=== PATIENT | female | born 1955 | race Caucasian/White ===

== ENCOUNTER 2016-12-17 12:15 | Emergency (ER) | payer MEDICAID, OTHER ==
[~2016-12-17 12:15] MED LIST: ADV250INH INH; ARTIDRO3 OU; ASPI81TA85 PO; CALCTAB5 PO; CYMB60CA3 PO; LORA0.5T PO; METF500T PO; NASA55AE; NEXI40GR PO; PRAV40TA2 PO; REFROIN OU; REST0.05 OU; SALI0.653; VENTAER INH
[2016-12-17] MEDS ORDERED: ACETAMINOPHEN 325 MG TAB As Ordered ONE (16:06)
[2016-12-17] MEDS ORDERED: IPRATROPIUM 0.5MG/ALBUTEROL 2.5MG INH SOL UD 3ML (DUONEB)(J7620) As Ordered ONE (16:11)
[2016-12-17] MEDS ORDERED: AZITHROMYCIN 250 MG TAB As Ordered ONE (17:49)
--- NOTE | 2016-12-17 17:50 | REP ---
Chest x-ray: Two views. History: Cough. Comparison chest x-rays from November 28, 2016. Findings: The lungs are symmetrically somewhat hyperinflated but free of infiltrate. Pleural angles are sharp. Heart is not enlarged. The aorta somewhat tortuous. There are mild degenerative changes in the thoracic spine. Impression: Hyperinflation consistent with some degree of COPD. No acute infiltrate. Signed by Regan Membreno MD 12/17/2016 07:47 P
--- NOTE | 2016-12-17 17:56 | EDDOCDS ---
Physician Documentation [facility] Name: Nathalie Riojas Age: 61 yrs Sex: Female : 1955 Arrival Date: 12/17/2016 Time: 12:15 Bed TR8 Private MD: Emma Wilson NP Disposition: 12/17/16 17:35 Discharged to Home/Self Care. Impression: Acute bronchitis, Asthma. - Condition is Stable. - Discharge Instructions: Acute Bronchitis. - Prescriptions for Zithromax Z- Riley 250 mg Oral Tablet - take 1 tablet by ORAL route as directed for 5 days Day 1- take two tablets once. Day 2, 3, 4 , 5 take one tablet once daily.; 6 tablet. Albuterol Sulfate 90 mcg/actuation Inhalation HFA Aerosol Inhaler - inhale 2 puff by INHALATION route every 4 hours As needed; 1 Inhaler. - Medication Reconciliation, Local Pharmacy Hours form. - Follow up: Emma Wilson; When: Call to arrange an appointment; Reason: Recheck today's complaints, Continuance of care. - Problem is new. - Symptoms have improved. Historical: - Allergies: PENICILLINS; SULFA (SULFONAMIDES); Codeine Sulfate (Rash); - Home Meds: 1. metformin 500 mg Oral TG24 2 times per day 2. lansoprazole oral Unknown oral once daily 3. aspirin 81 mg Oral cpDR daily 4. lisinopril 2.5 mg Oral tab once daily 5. pravastatin 40 mg oral tab once daily 6. tizanidine oral Unknown oral 7. Carbamazepine 800 mg Oral 2 times per day 8. Chantix 1 mg oral tab 2 times per day 9. Ventolin Rotahaler/Rotacaps 200 mcg Inhl CpDv as needed 10. Incruse Ellipta 62.5 mcg/actuation inhalation dsdv once daily 11. Systane 0.4-0.3 % ophthalmic drop as needed - PMHx: Diabetes - NIDDM: controlled; Hypertension; Hypercholesterolemia; - PSHx: Tonsillectomy; ovarian cyst; ; - Social history: Smoking status: Patient states former smoker of tobacco. No barriers to communication noted, The patient speaks fluent Irish, Speaks appropriately for age. - Family history: Not pertinent. - : The pt / caregiver states he / she is not on anticoagulants. Home medication list is obtained from the patient. - Exposure Risk Screening:: None identified. Vital Signs: 12/17 12:17 BP 129 / 77; Pulse 81; Resp 18 S; Temp 99.6(O); Pulse Ox 97% on R/A; Weight 71.21 kg / dd6 156.99 lbs (R); Height 5 ft. 5 in. (165.10 cm) (R); 17:53 BP 123 / 78; Pulse 80; Resp 18; Temp 98; Pulse Ox 97% ; ms18 12:17 Body Mass Index 26.13 (71.21 kg, 165.10 cm) dd6 MDM: 12:53 Strep Screen, Nursing ordered. jc4 15:50 [facility] Payment Agreement was scanned into [employer] and attached to record. lg 16:03 Albuterol-Ipratropium 3 ml Inhalation once ordered. mo1 16:04 Acetaminophen Tablet 975 mg PO once ordered. mo1 16:04 GATS (NEGATIVE STREP SCREEN) Ordered. EDMS 16:04 Chest, 2 View (pa\E\lat) Ordered. EDMS 16:04 MDI teaching with Spacer ordered. mo1 16:05 Financial registration complete. zo 17:34 azithromycin 500 mg PO once ordered. mo1 Administered Medications: 16:09 Drug: Acetaminophen 975 mg [acetaminophen 325 mg tablet (3 tabs)] Route: PO; ead 16:14 Drug: Albuterol-Ipratropium 3 ml [ipratropium-albuterol 0.5 mg-3 mg(2.5 mg base)/3 mL rs5 nebulization soln (3 mL)] Route: Inhalation; 17:53 Drug: azithromycin 500 mg [azithromycin 250 mg tablet (2 tabs)] Route: PO; ms18 17:53 Follow up: Response: Pt left department before re-evaluation is appropriate ms18 Signatures: Dispatcher [employer] EDMS Natali Garcia, Vel Reg lg Caitlin Ríos Jennifer, RN RN jc4 Gurinder Hernandez PA PA mo1 Maci Falcon RN RN ead Smith, Mallory, RN RN ms18 Neo Lugo RT rs5 The chart was reviewed and I authenticate all verbal orders and agree with the evaluation and treatment provided.Attachments: 15:50 [facility] Payment Agreement lg MTDD
--- NOTE | 2016-12-17 17:56 | EDDOCDS ---
Nurse's Notes [facility] Name: Nathalie Riojas Age: 61 yrs Sex: Female : 1955 Arrival Date: 12/17/2016 Time: 12:15 Bed TR8 Private MD: Emma Wilson NP Diagnosis: Acute bronchitis;Asthma Presentation: 12/17 12:25 Presenting complaint: Patient states: c/o cough x 3 days, productive since yesterday. ead also reports nasal congestion, sore throat, and left ear pain. Adult Sepsis Screening: The patient does not have new or worsening altered mentation. Patient's respiratory rate is less than 22. Systolic blood pressure is greater than 100. Patient has a qSOFA score of 0- Negative Sepsis Screen. Suicide/Homicide risk assessment- the patient denies having any suicidal and/or homicidal ideations and does not present with any other emotional, behavioral or mental health complaints. Status: Patient is not a battery service technician or dependent. Transition of care: patient was not received from another setting of care. 12:25 Acuity: ELSY Level 4 ead 12:25 Method Of Arrival: Walkin/Carried/Asstd ead Triage Assessment: 12:32 General: Appears in no apparent distress, comfortable, well nourished, well groomed, ead Behavior is appropriate for age, cooperative, pleasant. Pain: Location: back Pain currently is 8 out of 10 on a pain scale. HIV screening NA for this visit Offered previously. EENT: Reports nasal congestion pain in left ear. Respiratory: Airway is patent Respiratory effort is even, unlabored, Reports cough that is productive. Respiratory: Onset: The symptoms/episode began/occurred 3 days ago. Derm: Skin is pink, warm & dry. Historical: - Allergies: PENICILLINS; SULFA (SULFONAMIDES); Codeine Sulfate (Rash); - Home Meds: 1. metformin 500 mg Oral TG24 2 times per day 2. lansoprazole oral Unknown oral once daily 3. aspirin 81 mg Oral cpDR daily 4. lisinopril 2.5 mg Oral tab once daily 5. pravastatin 40 mg oral tab once daily 6. tizanidine oral Unknown oral 7. Carbamazepine 800 mg Oral 2 times per day 8. Chantix 1 mg oral tab 2 times per day 9. Ventolin Rotahaler/Rotacaps 200 mcg Inhl CpDv as needed 10. Incruse Ellipta 62.5 mcg/actuation inhalation dsdv once daily 11. Systane 0.4-0.3 % ophthalmic drop as needed - PMHx: Diabetes - NIDDM: controlled; Hypertension; Hypercholesterolemia; - PSHx: Tonsillectomy; ovarian cyst; ; - Social history: Smoking status: Patient states former smoker of tobacco. No barriers to communication noted, The patient speaks fluent Ecuadorean, Speaks appropriately for age. - Family history: Not pertinent. - : The pt / caregiver states he / she is not on anticoagulants. Home medication list is obtained from the patient. - Exposure Risk Screening:: None identified. Screenin:49 Screening information is obtained from the patient. Fall risk: No risks identified. ms18 Assistance ADL's: requires no assistance with activities of daily living. Abuse/DV Screen: The patient / caregiver reports he/she is: not in a situation that causes fear, pain or injury. Nutritional screening: No deficits noted. Advance Directives:. home support is adequate. Assessment: 14:49 General: Appears in no apparent distress, comfortable, Behavior is appropriate for age, ms18 cooperative. Neurological: Level of Consciousness is awake, alert, obeys commands, Oriented to person, place, time. Respiratory: Airway is patent Respiratory effort is even, unlabored. Derm: Skin is pink, warm & dry. 16:09 General: Appears in no apparent distress, comfortable, Behavior is appropriate for age, ead cooperative. Pain: Denies pain. Neurological: No deficits noted. Cardiovascular: Chest pain is denied. Respiratory: Airway is patent Respiratory effort is even, unlabored. Derm: Skin is pink, warm & dry. 17:53 General: Appears in no apparent distress, comfortable, Behavior is appropriate for age, ms18 cooperative, pleasant. Pain: Denies pain. Neurological: Level of Consciousness is awake, alert, obeys commands, Oriented to person, place, time. Cardiovascular: Chest pain is denied. Respiratory: Airway is patent Respiratory effort is even, unlabored, Respiratory pattern is regular, symmetrical, Breath sounds are clear bilaterally. Derm: Skin is pink, warm & dry. Vital Signs: 12:17 BP 129 / 77; Pulse 81; Resp 18 S; Temp 99.6(O); Pulse Ox 97% on R/A; Weight 71.21 kg dd6 (R); Height 5 ft. 5 in. (165.10 cm) (R); 17:53 BP 123 / 78; Pulse 80; Resp 18; Temp 98; Pulse Ox 97% ; ms18 12:17 Body Mass Index 26.13 (71.21 kg, 165.10 cm) dd6 Vitals: 12:17 Log In Time: December 17, 2016 at 12:15. dd6 ED Course: 12:17 Patient visited by Ankit Bustillos PCA. dd6 12:17 Emma Wilson is Private Physician. dd6 12:17 Patient moved to Waiting dd6 12:18 Patient moved to Pre RCE dd6 12:26 Triage Initiated ead 14:33 Patient moved to Triage 3 ar3 14:49 The patient / caregiver is instructed regarding the plan of care and ED course. Patient ms18 has correct armband on for positive identification. Property :Personal belongings accompany Pt. 14:50 Patient visited by Carla Soto RN. ms18 15:50 Patient name changed from Nathalie\S\M\S\Shine\S\ to Nathalie\S\Irene\S\Shine. EDMS 15:50 [facility] [place] was scanned into [employer] and attached to record. lg 15:57 Gurinder Hernandez PA is PHCP. mo1 15:57 Renetta Fierro MD is Attending Physician. mo1 15:58 Patient visited by Gurinder Hernandez PA. mo1 16:07 Patient moved to PD ead 16:09 Patient visited by Maci Falcon RN. ead 16:10 Patient visited by Maci Falcon RN. ead 16:12 GATS (NEGATIVE STREP SCREEN) Sent. ar3 17:35 Emma Wilson is Referral Physician. mo1 17:53 Patient moved to TR8 ms18 17:53 No IV's were initiated during this patient's visit. No procedures done that require ms18 assistance. Administered Medications: 16:09 Drug: Acetaminophen 975 mg [acetaminophen 325 mg tablet (3 tabs)] Route: PO; ead 16:14 Drug: Albuterol-Ipratropium 3 ml [ipratropium-albuterol 0.5 mg-3 mg(2.5 mg base)/3 mL rs5 nebulization soln (3 mL)] Route: Inhalation; 17:53 Drug: azithromycin 500 mg [azithromycin 250 mg tablet (2 tabs)] Route: PO; ms18 17:53 Follow up: Response: Pt left department before re-evaluation is appropriate ms18 RT: 16:14 Spacer used. Initial Med Neb Given as ordered Patient was instructed and evaluated on rs5 procedure Patient tolerated procedure well without adverse effect. Order Results: There are currently no results for this order. Outcome: 17:35 Discharge ordered by Provider. mo1 17:53 Discharge Assessment: Patient awake, alert and oriented x 3. No cognitive and/or ms18 functional deficits noted. Patient verbalized understanding of disposition instructions. patient administered narcotics - no. The following High Risk Discharge criteria are identified: None. Discharged to home ambulatory. Condition: good Condition: stable Condition: improved. Discharge instructions given to patient, Instructed on discharge instructions, follow up and referral plans. medication usage, Demonstrated understanding of instructions, medications, Pt was receptive of discharge instructions/ teaching. Prescriptions given X 2. No special radiology studies were completed. Property sent home with patient. 17:55 Patient left the ED. ms18 Signatures: Dispatcher [employer] EDMS Natali Garcia, Reg Reg lg Ankit Bustillos, SPOUT TENDER SPOUT TENDER dd6 Liz Huang, SPOUT TENDER SPOUT TENDER ar3 Neo Lugo,RT RT rs5 Gurinder Hernandez PA PA mo1 Maci Falcon,RN RN Carla Zamora RN RN ms18 MTDD
--- NOTE | 2016-12-19 18:56 | EDDOCDS ---
Nurse's Notes [facility] Name: Nathalie Riojas Age: 61 yrs Sex: Female : 1955 Arrival Date: 12/17/2016 Time: 12:15 Bed TR8 Private MD: Emma Wilson NP Diagnosis: Acute bronchitis;Asthma Presentation: 12/17 12:25 Presenting complaint: Patient states: c/o cough x 3 days, productive since yesterday. ead also reports nasal congestion, sore throat, and left ear pain. Adult Sepsis Screening: The patient does not have new or worsening altered mentation. Patient's respiratory rate is less than 22. Systolic blood pressure is greater than 100. Patient has a qSOFA score of 0- Negative Sepsis Screen. Suicide/Homicide risk assessment- the patient denies having any suicidal and/or homicidal ideations and does not present with any other emotional, behavioral or mental health complaints. Status: Patient is not a security services manager or dependent. Transition of care: patient was not received from another setting of care. 12:25 Acuity: ELSY Level 4 ead 12:25 Method Of Arrival: Walkin/Carried/Asstd ead Triage Assessment: 12:32 General: Appears in no apparent distress, comfortable, well nourished, well groomed, ead Behavior is appropriate for age, cooperative, pleasant. Pain: Location: back Pain currently is 8 out of 10 on a pain scale. HIV screening NA for this visit Offered previously. EENT: Reports nasal congestion pain in left ear. Respiratory: Airway is patent Respiratory effort is even, unlabored, Reports cough that is productive. Respiratory: Onset: The symptoms/episode began/occurred 3 days ago. Derm: Skin is pink, warm & dry. Historical: - Allergies: PENICILLINS; SULFA (SULFONAMIDES); Codeine Sulfate (Rash); - Home Meds: 1. metformin 500 mg Oral TG24 2 times per day 2. lansoprazole oral Unknown oral once daily 3. aspirin 81 mg Oral cpDR daily 4. lisinopril 2.5 mg Oral tab once daily 5. pravastatin 40 mg oral tab once daily 6. tizanidine oral Unknown oral 7. Carbamazepine 800 mg Oral 2 times per day 8. Chantix 1 mg oral tab 2 times per day 9. Ventolin Rotahaler/Rotacaps 200 mcg Inhl CpDv as needed 10. Incruse Ellipta 62.5 mcg/actuation inhalation dsdv once daily 11. Systane 0.4-0.3 % ophthalmic drop as needed - PMHx: Diabetes - NIDDM: controlled; Hypertension; Hypercholesterolemia; - PSHx: Tonsillectomy; ovarian cyst; ; - Social history: Smoking status: Patient states former smoker of tobacco. No barriers to communication noted, The patient speaks fluent Yemeni, Speaks appropriately for age. - Family history: Not pertinent. - : The pt / caregiver states he / she is not on anticoagulants. Home medication list is obtained from the patient. - Exposure Risk Screening:: None identified. Screenin:49 Screening information is obtained from the patient. Fall risk: No risks identified. ms18 Assistance ADL's: requires no assistance with activities of daily living. Abuse/DV Screen: The patient / caregiver reports he/she is: not in a situation that causes fear, pain or injury. Nutritional screening: No deficits noted. Advance Directives:. home support is adequate. Assessment: 14:49 General: Appears in no apparent distress, comfortable, Behavior is appropriate for age, ms18 cooperative. Neurological: Level of Consciousness is awake, alert, obeys commands, Oriented to person, place, time. Respiratory: Airway is patent Respiratory effort is even, unlabored. Derm: Skin is pink, warm & dry. 16:09 General: Appears in no apparent distress, comfortable, Behavior is appropriate for age, ead cooperative. Pain: Denies pain. Neurological: No deficits noted. Cardiovascular: Chest pain is denied. Respiratory: Airway is patent Respiratory effort is even, unlabored. Derm: Skin is pink, warm & dry. 17:53 General: Appears in no apparent distress, comfortable, Behavior is appropriate for age, ms18 cooperative, pleasant. Pain: Denies pain. Neurological: Level of Consciousness is awake, alert, obeys commands, Oriented to person, place, time. Cardiovascular: Chest pain is denied. Respiratory: Airway is patent Respiratory effort is even, unlabored, Respiratory pattern is regular, symmetrical, Breath sounds are clear bilaterally. Derm: Skin is pink, warm & dry. Vital Signs: 12:17 BP 129 / 77; Pulse 81; Resp 18 S; Temp 99.6(O); Pulse Ox 97% on R/A; Weight 71.21 kg dd6 (R); Height 5 ft. 5 in. (165.10 cm) (R); 17:53 BP 123 / 78; Pulse 80; Resp 18; Temp 98; Pulse Ox 97% ; ms18 12:17 Body Mass Index 26.13 (71.21 kg, 165.10 cm) dd6 Vitals: 12:17 Log In Time: December 17, 2016 at 12:15. dd6 ED Course: 12:17 Patient visited by Ankit Bustillos PCA. dd6 12:17 Emma Wilson is Private Physician. dd6 12:17 Patient moved to Waiting dd6 12:18 Patient moved to Pre RCE dd6 12:26 Triage Initiated ead 14:33 Patient moved to Triage 3 ar3 14:49 The patient / caregiver is instructed regarding the plan of care and ED course. Patient ms18 has correct armband on for positive identification. Property :Personal belongings accompany Pt. 14:50 Patient visited by Carla Soto RN. ms18 15:50 Patient name changed from Nathalie\S\M\S\Shine\S\ to Nathalie\S\Irene\S\Shine. EDMS 15:50 [facility] Payment Agreement was scanned into [employer] and attached to record. lg 15:57 Gurinder Hernandez PA is PHCP. mo1 15:57 Renetta Fierro MD is Attending Physician. mo1 15:58 Patient visited by Gurinder Hernandez PA. mo1 16:07 Patient moved to PD ead 16:09 Patient visited by Maci Falcon,JOAN. ead 16:10 Patient visited by Maci Falcon RN. ead 16:12 GATS (NEGATIVE STREP SCREEN) Sent. ar3 17:35 Emma Wilson is Referral Physician. mo1 17:53 Patient moved to TR8 ms18 17:53 No IV's were initiated during this patient's visit. No procedures done that require ms18 assistance. 18:11 Chest, 2 View (pa\E\lat) Returned. EDMS 12/18 10:25 T-Sheet-- Draft Copy was scanned into [employer] and attached to record. gb Administered Medications: 12/17 16:09 Drug: Acetaminophen 975 mg [acetaminophen 325 mg tablet (3 tabs)] Route: PO; ead 16:14 Drug: Albuterol-Ipratropium 3 ml [ipratropium-albuterol 0.5 mg-3 mg(2.5 mg base)/3 mL rs5 nebulization soln (3 mL)] Route: Inhalation; 17:53 Drug: azithromycin 500 mg [azithromycin 250 mg tablet (2 tabs)] Route: PO; ms18 17:53 Follow up: Response: Pt left department before re-evaluation is appropriate ms18 RT: 16:14 Spacer used. Initial Med Neb Given as ordered Patient was instructed and evaluated on rs5 procedure Patient tolerated procedure well without adverse effect. Order Results: Lab Order: GATS (NEGATIVE STREP SCREEN); SPEC'M 12/17/16 16:11 Test: GATS CULTURE (NEG STREP SCR); Value: GATS RESULT NEGATIVE FOR STREP PYOGENES (GROUP A); Status: F Radiology Order: Chest, 2 View (pa\E\lat) Test: Chest, 2 View (pa\E\lat) REASON FOR EXAMINATION: Cough; Chest x-ray: Two views.; ; History: Cough.; ; Comparison chest x-rays from November 28, 2016.; ; Findings: The lungs are symmetrically somewhat hyperinflated but free of; infiltrate. Pleural angles are sharp. Heart is not enlarged. The aorta; somewhat tortuous. There are mild degenerative changes in the thoracic spine.; ; Impression:; ; Hyperinflation consistent with some degree of COPD. No acute infiltrate.; ; ; Signed by; Regan Membreno MD 12/17/2016 07:47 P; Outcome: 17:35 Discharge ordered by Provider. mo1 17:53 Discharge Assessment: Patient awake, alert and oriented x 3. No cognitive and/or ms18 functional deficits noted. Patient verbalized understanding of disposition instructions. patient administered narcotics - no. The following High Risk Discharge criteria are identified: None. Discharged to home ambulatory. Condition: good Condition: stable Condition: improved. Discharge instructions given to patient, Instructed on discharge instructions, follow up and referral plans. medication usage, Demonstrated understanding of instructions, medications, Pt was receptive of discharge instructions/ teaching. Prescriptions given X 2. No special radiology studies were completed. Property sent home with patient. 17:55 Patient left the ED. ms18 Signatures: Dispatcher [employer] EDRachael Kwok, Reg Reg gb Natali Garcia, Reg Reg lg Ankit Bustillos, SLUBBER MACHINE OPERATOR SLUBBER MACHINE OPERATOR dd6 Liz Huang, SLUBBER MACHINE OPERATOR SLUBBER MACHINE OPERATOR ar3 Neo Lugo,RT RT rs5 Gurinder Hernandez, PA PA mo1 Ezekiel,Maci,RN RN ead Carla Soto,RN RN ms18 Chart Complete MTDD
--- NOTE | 2016-12-19 18:56 | EDDOCDS ---
Physician Documentation [facility] Name: Nathalie Riojas Age: 61 yrs Sex: Female : 1955 Arrival Date: 12/17/2016 Time: 12:15 Bed TR8 Private MD: Emma Wilson NP Disposition: 12/17/16 17:35 Discharged to Home/Self Care. Impression: Acute bronchitis, Asthma. - Condition is Stable. - Discharge Instructions: Acute Bronchitis. - Prescriptions for Zithromax Z- Riley 250 mg Oral Tablet - take 1 tablet by ORAL route as directed for 5 days Day 1- take two tablets once. Day 2, 3, 4 , 5 take one tablet once daily.; 6 tablet. Albuterol Sulfate 90 mcg/actuation Inhalation HFA Aerosol Inhaler - inhale 2 puff by INHALATION route every 4 hours As needed; 1 Inhaler. - Medication Reconciliation, Local Pharmacy Hours form. - Follow up: Emma Wilson; When: Call to arrange an appointment; Reason: Recheck today's complaints, Continuance of care. - Problem is new. - Symptoms have improved. Historical: - Allergies: PENICILLINS; SULFA (SULFONAMIDES); Codeine Sulfate (Rash); - Home Meds: 1. metformin 500 mg Oral TG24 2 times per day 2. lansoprazole oral Unknown oral once daily 3. aspirin 81 mg Oral cpDR daily 4. lisinopril 2.5 mg Oral tab once daily 5. pravastatin 40 mg oral tab once daily 6. tizanidine oral Unknown oral 7. Carbamazepine 800 mg Oral 2 times per day 8. Chantix 1 mg oral tab 2 times per day 9. Ventolin Rotahaler/Rotacaps 200 mcg Inhl CpDv as needed 10. Incruse Ellipta 62.5 mcg/actuation inhalation dsdv once daily 11. Systane 0.4-0.3 % ophthalmic drop as needed - PMHx: Diabetes - NIDDM: controlled; Hypertension; Hypercholesterolemia; - PSHx: Tonsillectomy; ovarian cyst; ; - Social history: Smoking status: Patient states former smoker of tobacco. No barriers to communication noted, The patient speaks fluent Malay, Speaks appropriately for age. - Family history: Not pertinent. - : The pt / caregiver states he / she is not on anticoagulants. Home medication list is obtained from the patient. - Exposure Risk Screening:: None identified. Vital Signs: 12/17 12:17 BP 129 / 77; Pulse 81; Resp 18 S; Temp 99.6(O); Pulse Ox 97% on R/A; Weight 71.21 kg / dd6 156.99 lbs (R); Height 5 ft. 5 in. (165.10 cm) (R); 17:53 BP 123 / 78; Pulse 80; Resp 18; Temp 98; Pulse Ox 97% ; ms18 12:17 Body Mass Index 26.13 (71.21 kg, 165.10 cm) dd6 MDM: 12:53 Strep Screen, Nursing ordered. jc4 15:50 [facility] Payment Agreement was scanned into [employer] and attached to record. lg 16:03 Albuterol-Ipratropium 3 ml Inhalation once ordered. mo1 16:04 Acetaminophen Tablet 975 mg PO once ordered. mo1 16:04 GATS (NEGATIVE STREP SCREEN) Ordered. EDMS 16:04 Chest, 2 View (pa\E\lat) Ordered. EDMS 16:04 MDI teaching with Spacer ordered. mo1 16:05 Financial registration complete. zo 17:34 azithromycin 500 mg PO once ordered. mo1 01 10:25 T-Sheet-- Draft Copy was scanned into [employer] and attached to record. gb Administered Medications: 12/17 16:09 Drug: Acetaminophen 975 mg [acetaminophen 325 mg tablet (3 tabs)] Route: PO; ead 16:14 Drug: Albuterol-Ipratropium 3 ml [ipratropium-albuterol 0.5 mg-3 mg(2.5 mg base)/3 mL rs5 nebulization soln (3 mL)] Route: Inhalation; 17:53 Drug: azithromycin 500 mg [azithromycin 250 mg tablet (2 tabs)] Route: PO; ms18 17:53 Follow up: Response: Pt left department before re-evaluation is appropriate ms18 Signatures: Dispatcher [employer] EDMS Rachael Izquierdo, Reg Reg gb Natali Garcia, Reg Reg lg Caitlin Ríos Jennifer, RN RN jc4 Gurinder Hernandez PA PA mo1 Maci FalconRN RN Carla Zamora RN RN ms18 Neo Lugo RT rs5 The chart was reviewed and I authenticate all verbal orders and agree with the evaluation and treatment provided.Attachments: 15:50 [facility] Payment Agreement lg 12/18 10:25 T-Sheet-- Draft Copy gb Chart Complete MTDD
--- NOTE | 2016-12-19 18:57 | EDDOCDS ---
Physician Documentation [facility] Name: Nathalie Riojas Age: 61 yrs Sex: Female : 1955 Arrival Date: 12/17/2016 Time: 12:15 Bed TR8 Private MD: Emma Wilson NP Disposition: 12/17/16 17:35 Discharged to Home/Self Care. Impression: Acute bronchitis, Asthma. - Condition is Stable. - Discharge Instructions: Acute Bronchitis. - Prescriptions for Zithromax Z- Riley 250 mg Oral Tablet - take 1 tablet by ORAL route as directed for 5 days Day 1- take two tablets once. Day 2, 3, 4 , 5 take one tablet once daily.; 6 tablet. Albuterol Sulfate 90 mcg/actuation Inhalation HFA Aerosol Inhaler - inhale 2 puff by INHALATION route every 4 hours As needed; 1 Inhaler. - Medication Reconciliation, Local Pharmacy Hours form. - Follow up: Emma Wilson; When: Call to arrange an appointment; Reason: Recheck today's complaints, Continuance of care. - Problem is new. - Symptoms have improved. Historical: - Allergies: PENICILLINS; SULFA (SULFONAMIDES); Codeine Sulfate (Rash); - Home Meds: 1. metformin 500 mg Oral TG24 2 times per day 2. lansoprazole oral Unknown oral once daily 3. aspirin 81 mg Oral cpDR daily 4. lisinopril 2.5 mg Oral tab once daily 5. pravastatin 40 mg oral tab once daily 6. tizanidine oral Unknown oral 7. Carbamazepine 800 mg Oral 2 times per day 8. Chantix 1 mg oral tab 2 times per day 9. Ventolin Rotahaler/Rotacaps 200 mcg Inhl CpDv as needed 10. Incruse Ellipta 62.5 mcg/actuation inhalation dsdv once daily 11. Systane 0.4-0.3 % ophthalmic drop as needed - PMHx: Diabetes - NIDDM: controlled; Hypertension; Hypercholesterolemia; - PSHx: Tonsillectomy; ovarian cyst; ; - Social history: Smoking status: Patient states former smoker of tobacco. No barriers to communication noted, The patient speaks fluent Mongolian, Speaks appropriately for age. - Family history: Not pertinent. - : The pt / caregiver states he / she is not on anticoagulants. Home medication list is obtained from the patient. - Exposure Risk Screening:: None identified. Vital Signs: 12/17 12:17 BP 129 / 77; Pulse 81; Resp 18 S; Temp 99.6(O); Pulse Ox 97% on R/A; Weight 71.21 kg / dd6 156.99 lbs (R); Height 5 ft. 5 in. (165.10 cm) (R); 17:53 BP 123 / 78; Pulse 80; Resp 18; Temp 98; Pulse Ox 97% ; ms18 12:17 Body Mass Index 26.13 (71.21 kg, 165.10 cm) dd6 MDM: 12:53 Strep Screen, Nursing ordered. jc4 15:50 [facility] Payment Agreement was scanned into [employer] and attached to record. lg 16:03 Albuterol-Ipratropium 3 ml Inhalation once ordered. mo1 16:04 Acetaminophen Tablet 975 mg PO once ordered. mo1 16:04 GATS (NEGATIVE STREP SCREEN) Ordered. EDMS 16:04 Chest, 2 View (pa\E\lat) Ordered. EDMS 16:04 MDI teaching with Spacer ordered. mo1 16:05 Financial registration complete. zo 17:34 azithromycin 500 mg PO once ordered. mo1 01 10:25 T-Sheet-- Draft Copy was scanned into [employer] and attached to record. gb Administered Medications: 12/17 16:09 Drug: Acetaminophen 975 mg [acetaminophen 325 mg tablet (3 tabs)] Route: PO; ead 16:14 Drug: Albuterol-Ipratropium 3 ml [ipratropium-albuterol 0.5 mg-3 mg(2.5 mg base)/3 mL rs5 nebulization soln (3 mL)] Route: Inhalation; 17:53 Drug: azithromycin 500 mg [azithromycin 250 mg tablet (2 tabs)] Route: PO; ms18 17:53 Follow up: Response: Pt left department before re-evaluation is appropriate ms18 Signatures: Dispatcher [employer] EDMS Rachael Izquierdo, Reg Reg gb Natali Garcia, Reg Reg lg Caitlin Ríos Jennifer, RN RN jc4 Gurinder Hernandez PA PA mo1 Maci FalconRN RN Carla Zamora RN RN ms18 Neo Lugo RT rs5 The chart was reviewed and I authenticate all verbal orders and agree with the evaluation and treatment provided.Attachments: 15:50 [facility] [place] Payment Agreement lg 12/18 10:25 T-Sheet-- Draft Copy gb Chart Complete MTDD
== END 2016-12-17 17:55 | disposition home or self-care (01) ==
LOC: M ED 12:15
DX: J20.9 Acute bronchitis, unspecified (principal); J45.901 Unspecified asthma with (acute) exacerbation; E11.9 Type 2 diabetes mellitus without complications; I10 Essential (primary) hypertension; E78.00 Pure hypercholesterolemia, unspecified; Z87.891 Personal history of nicotine dependence; Z79.82 Long term (current) use of aspirin; Z79.899 Other long term (current) drug therapy; Z88.0 Allergy status to penicillin; Z88.2 Allergy status to sulfonamides; Z88.5 Allergy status to narcotic agent

== ENCOUNTER → 2017-01-01 | Outpatient (RCR) | payer OTHER | LOC: M PT 12-13 09:40 | PROVIDERS: ATTEND Podiatrist Foot & Ankle Surgery | DX: Z51.89 Encounter for other specified aftercare (principal); M54.5 Low back pain | CPT/HCPCS: 97010; 97110; 97162; G0283 ==

== ENCOUNTER → 2017-01-22 | Outpatient (CLI) | payer OTHER ==
[2017-01-22 19:46] LABS: ALBUMIN/GLOBULIN RATIO 1.82 (1.00-1.93); ALKALINE PHOSPHATASE 58 U/L (45-117); ALT/SGPT 20 U/L (12-78); ANION GAP 6 MEQ/L (8-16); AST/SGOT 14 U/L (15-37); BILIRUBIN,TOTAL 0.2 MG/DL (0.2-1.0); BLOOD UREA NITROGEN 9 MG/DL (7-18); CALCIUM LEVEL 8.6 MG/DL (8.5-10.1); CARBAMAZEPINE (TEGRETOL) LEVEL 3.9 UG/ML (4.0-10.0); CARBON DIOXIDE LEVEL 31 MEQ/L (21-32); CHLORIDE LEVEL 96 MEQ/L (98-107); GLOMERULAR FILTRATION RATE > 60.0 (>51); GLUCOSE, FASTING 96 MG/DL (70-105); POTASSIUM SERUM 4.3 MEQ/L (3.5-5.1); SODIUM LEVEL 133 MEQ/L (136-145); TOTAL PROTEIN 6.2 GM/DL (6.4-8.2)
[2017-01-22 19:58] LABS: BASO % 0.6 % (0.0-1.0); EOS # 0.2 K/mm3 (0.0-0.50); EOS % 3.3 % (0.0-3.0); LARGE UNSTAINED CELL # 0.1 K/mm3 (0.0-0.4); LARGE UNSTAINED CELL % 2.5 % (0.0-4.0); LYMPH # 1.4 K/mm3 (1.5-4.5); LYMPH % 25.5 % (24.0-44.0); MEAN CORPUSCULAR HEMOGLOBIN 30.3 pg (27.0-33.0); MEAN CORPUSCULAR HGB CONC 33.4 g/dl (32.0-36.5); MEAN CORPUSCULAR VOLUME 90.9 fl (80.0-96.0); MONO # 0.3 K/mm3 (0.0-0.8); MONO % 4.7 % (0.0-5.0); NEUTROPHILS # 3.5 K/mm3 (1.8-7.7); NEUTROPHILS % 63.5 % (36.0-66.0); PLATELET COUNT, AUTOMATED 233 k/mm3 (150-450); RED CELL DISTRIBUTION WIDTH 11.7 % (11.5-14.5); WHITE BLOOD COUNT 5.5 K/mm3 (4.0-10.0)
== END ==
LOC: M WUC 15:40
PROVIDERS: ATTEND Psychiatry & Neurology Neurology
DX: G50.0 Trigeminal neuralgia (principal)

== ENCOUNTER 2017-01-28 11:14 | Outpatient (RCR) | payer OTHER | END 2017-01-29 | LOC: M PT 11:14 | PROVIDERS: ATTEND Podiatrist Foot & Ankle Surgery | DX: Z51.89 Encounter for other specified aftercare (principal); M47.816 Spondylosis without myelopathy or radiculopathy, lumbar region; E55.9 Vitamin D deficiency, unspecified; M72.2 Plantar fascial fibromatosis | CPT/HCPCS: 97010; 97110; G0283 ==

== ENCOUNTER → 2017-01-31 | Outpatient (CLI) | payer OTHER ==
--- NOTE | 2017-01-31 13:18 | REP ---
CT chest without contrast, low dose study: History: Lung cancer screening. Comparison chest x-ray is from December 17, 2016. CT findings: Lungs are hyperinflated as seen radiographically. No pulmonary nodule or mass lesion is seen. No other abnormality. Impression: Negative low-dose chest CT, screening study. Hyperinflation consistent with COPD. Signed by Regan Membreno MD 01/31/2017 01:32 P
== END ==
LOC: M RAD 12:02
PROVIDERS: ATTEND Nurse Practitioner Family
DX: Z12.2 Encounter for screening for malignant neoplasm of respiratory organs (principal); Z72.0 Tobacco use

== ENCOUNTER 2017-02-01 11:18 | Outpatient (RCR) | payer OTHER | END 2017-03-01 | LOC: M PT 11:18 | PROVIDERS: ATTEND Podiatrist Foot & Ankle Surgery | DX: Z51.89 Encounter for other specified aftercare (principal); M72.2 Plantar fascial fibromatosis; M47.816 Spondylosis without myelopathy or radiculopathy, lumbar region; E55.9 Vitamin D deficiency, unspecified ==

== ENCOUNTER → 2017-02-19 | Outpatient (CLI) | payer OTHER ==
--- NOTE | 2017-02-26 00:55 | ECWPNPC ---
PATIENT NAME: PHIL HOUSTON : 1955 GENDER: FEMALE VISIT DATE: 02/19/2017 DISCHARGE DATE: 02/19/17 1451 VISIT LOCKED DATE TIME: PHYSICIAN: RENEE CALABRESE RESOURCE: RENEE CALABRESE REASON FOR APPOINTMENT 1. BACK PAIN HISTORY OF PRESENT ILLNESS NEW PATIENT CONSULT: WHEN DID YOUR PAIN FIRST START? . BRIEFLY DESCRIBE HOW YOUR PAIN STARTED? . HOW DOES YOUR PAIN CHANGE WITH TIME? . DOES YOUR PAIN AWAKEN YOU FROM SLEEP? . HOW MANY HOURS OF SLEEP DO YOU NORMALLY GET? . ANY DIAGNOSTIC TESTING? . FACILITY WHERE TESTS WERE DONE? ____. PAIN TREATMENT TREATMENT YES CANCER HAVE YOU EVER HAD ANY TYPE OF CANCER?NO NO. PAIN SCREENING: PATIENT HAS A COMPLAINT OF ACUTE OR CHRONIC PAIN YES FALL RISK SCREENING: SCREENING :NO FALLS IN THE PAST YEAR GARCIA INVENTORY: QUESTIONNAIRE ASSESSEDYES SCORE VALUE CALCULATED NO DID NOT COMPLETE ALL QUESTIONS. DENIES SUICIDAL OR HOMICIDAL IDEATION TODAY'S VISIT: NOTES: PREVIOUSLY ON CELEBREX, IBU AND NAPROXEN WHICH CAUSED SEVERE GERD SX. NO OTHER MEDS FOR BACK. DID SEE CHIROPRACTER AT AGE 21 BUT NOT RECENTLY. HAS NEVER HAD ANY INJECTION TREATMENTS. CURRENT MEDICATIONS TAKING AIR CONDITIONER DX: 496, 327.23 DIRECTED - - TAKING SALINE 0.65 % SOLUTION 2 DROPS IN EACH NOSTRIL NEEDED NASALLY 2-4 TIMES DAILY TAKING TYLENOL 500 MG TABLET 1-2 TABLETS NEEDED ORALLY EVERY 8 HRS NEEDED FOR PAIN TAKING HEATING PAD DRY HEAT 1 PAD DX: 715.09 TOPICAL NEEDED BACK PAIN TAKING SYSTANE 0.4-0.3 % SOLUTION 1 DROP INTO AFFECTED EYE NEEDED OPHTHALMIC 5 TIMES A DAY TAKING TEGRETOL-XR 400 MG TABLET EXTENDED RELEASE 12 HOUR 1 TABLET ORALLY TWICE A DAY TAKING TIZANIDINE HCL 2 MG TABLET 1 TABLET NEEDED ORALLY THREE TIMES A DAY TAKING LANSOPRAZOLE 30 MG CAPSULE DELAYED RELEASE 1 CAPSULE BEFORE A MEAL ORALLY ONCE A DAY TAKING DRISDOL 50,000 UNITS TABLET 1 TAB(S) ORAL ONCE A MONTH WITH MEAL TAKING CHANTIX CONTINUING MONTH CHELSY 1 MG TABLET 1 TABLET ORALLY TWICE A DAY TAKING LORATADINE 10 MG TABLET 1 TABLET ORALLY ONCE A DAY NEEDED TAKING LISINOPRIL 5 MG TABLET 1 TABLET ORALLY ONCE A DAY TAKING PRAVASTATIN SODIUM 40 MG TABLET 1 TABLET ORALLY ONCE A DAY TAKING VENTOLIN HFA 108 (90 BASE) MCG/ACT AEROSOL SOLUTION 2 PUFFS INHALATION EVERY 4-6 HOURS NEEDED TAKING INCRUSE ELLIPTA 62.5 MCG/INH AEROSOL POWDER BREATH ACTIVATED 1 PUFF INHALATION ONCE DAILY TAKING METFORMIN HCL 500 MG TABLET 1 TABLET WITH MEALS ORALLY TWICE A DAY TAKING ASPIR-81 81 MG TABLET DELAYED RELEASE 1 TABLET ORALLY ONCE A DAY TAKING HEATING PAD - PAD DIRECTED DX: M54.5 DAILY TAKING CANE - MISCELLANEOUS DIRECTED DX: M54.[address] 500 MG TABLET DELAYED RELEASE 1 TABLET WITH FOOD ORALLY TWICE A DAY NEEDED TAKING ATIVAN 0.5 0.5MG TABLET ORAL 3 TIMES A DAY NEEDED TAKING CITALOPRAM HYDROBROMIDE 40 MG TABLET 1 TAB ORALLY ONCE A DAY NOT-TAKING ATIVAN 1 MG TABLET 1 TAB ORALLY THREE A DAY NEEDED NOT-TAKING LANCETS 1 EACH - SUBCUTANEOUSLY DAILY... DX 250.00 NOT-TAKING BLOOD GLUCOSE TEST DX: 250.00 EACH - TEST STRIPS TWICE A DAY, FASTING BEFORE BREAKFAST; AT BEDTIME & NEEDED. NOT-TAKING CELEXA 20 MG TABLET 1 1/2 TAB ORALLY ONCE A DAY, NOTES: DR VILLANUEVA NOT-TAKING INCRUSE ELLIPTA 62.5MCG AEROSOL POWDER BREATH ACTIVATED 1 PUFF INHALATION ONCE A DAY NOT-TAKING CALCIUM 600 + D 600-400 MG-UNIT TABLET 1 TABLET WITH MEAL ORALLY DAILY NOT-TAKING ARTIFICIAL TEAR OINTMENT OINTMENT OPHTHALMIC AT BEDTIME NOT-TAKING REFRESH TEARS 0.5 % SOLUTION 1 DROP INTO AFFECTED EYE NEEDED OPHTHALMIC 24 TIME(S) A DAY NOT-TAKING NASACORT AQ 55 MCG/ACT AEROSOL SOLUTION 1 PUFF IN EACH NOSTRIL NASALLY TWICE A DAY NOT-TAKING MAGNESIUM 500 MG CAPSULE 1 CAP WITH MEAL ORALLY DAILY MEDICATION LIST REVIEWED AND RECONCILED WITH THE PATIENT PAST MEDICAL HISTORY TYPE II DIABETES HYPERLIPIDEMIA - NEG NUCLEAR STRESS TEST 07/13, - [facility] REFLUX COPD FEV1 = 1.9 ON 11/22/14 @PULMONOLOGY ALLERGIC RHINITIS VITAMIN D DEFICIENCY SMOKING DEPRESSION ANXIETY - DR VILLANUEVA FIFI-- ON CPAP FIBROMYALGIA DEGENERATIVE DISC DISEASE HYPERTENSION BACK AND NECK PAIN TRIGEMINAL NEURALGIA ALLERGIES PENICILLIN (FOR ALLERGIES USE ONLY): RASH: ALLERGY SULFA DRUGS: RASH: ALLERGY SURGICAL HISTORY TONSILLECTOMY 1974 1988 DEVIATED SEPTUM 2013 FAMILY HISTORY FATHER: , DIAGNOSED WITH CANCER MOTHER: ALIVE, DIAGNOSED WITH HEART DISEASE, CANCER 1 BROTHER(S) , 6 SISTER(S) . 1 SON(S) , 1 DAUGHTER(S) . SOCIAL HISTORY GENERAL: PAIN CLINIC PFS, CLERGY, PUBLIC HEALTH REFERRALS PFS REFERRAL NEEDED?NO CLERGY REFERRAL NEEDED?NO PUBLIC HEALTH REFERRAL NEEDED?NO WAS THE PROVIDER NOTIFIED OF ANY PERTINENT INFO?NO PSYCHOLOGICAL HX TREATMENTYES HOW OFTEN AND HOW MUCH? TREATED AN OUTPATIENT FOR ANXIETY AND DEPRESSION ALCOHOL OR DRUG TREATMENTNO PATIENT: DENIES ABUSE OR MISUSE OF ANY MEDICATION, DENIES USE OF ANY ILLEGAL SUBSTANCE INCLUDING MARIJUANA OR COCAINE. ADVANCED DIRECTIVES HEALTH CARE PROXY?NO POWER OF SHIP CONSTRUCTION TEACHER?NO SCREENING/ASSESSMENT TOOL NUTRITION ASSESSEDYES ARE YOU ON ANY SPECIAL DIET?YES DIABETIC ANY SIGNIFICANT CHANGES RELATED TO EATING, WEIGHT GAIN/LOSS, OR BOWEL HABITS?NO IF YES, IS YOUR PRIMARY CARE PROVIDER AWARE OF THIS?NO SPECIAL NEEDS WALKER: NO , GLASSES: NO , DENTURES: NO , REFERRALS NEEDED: NO , LEVEL OF CARE? SELF , HEARING AIDS: NO , WHEELCHAIR: NO , CONTACTS: NO , CANE: NO . TOBACCO USE ARE YOU A:FORMER SMOKER HOW LONG HAS IT BEEN SINCE YOU LAST SMOKED?3-6 MONTHS VAPORNO E-CIGARETTENO CAFFEINE CAFFEINE USE?YES HOW OFTEN AND HOW MUCH? 4-5 CUPS COFFEE/DAY RECREATIONAL DRUG USE DRUG USE?NO PATIENT DENIES ABUSE OR MISSUSED OF ANY MEDICATION. PATIENT DENIES USE OF ANY ILLEGAL SUBSTANCE INCLUDING MARIJUANA OR COCAINE. REVIEW OF SYSTEMS CONSTITUTIONAL: ANY CHANGE IN YOUR MEDICAL CONDITION? NO . CHILLS NO . FEVER NO . INFECTION: DO YOU HAVE NEW INFECTIONS? NO . DO YOU HAVE HISTORY OF MRSA? NO . MUSCULOSKELETAL: ANY NEW PATTERNS OF PAIN OR NUMBNESS? NO . SYTEMIC LUPUS NO . GASTROENTEROLOGY: ANY NEW CHANGE IN BOWEL CONTROL? NO . BARRETTS ESOPHAGUS NO . CIRRHOSIS NO . HEPATITIS NO . LIVER FAILURE NO . ACID REFLUX YES . UNEXPLAINED WEIGHT LOSS NO . GENITOURINARY: ANY NEW CHANGE IN BLADDER CONTROL? NO . IS THERE A CHANCE YOU COULD BE ? NO . HEMATOLOGY/LYMPH: DO YOU TAKE ANY BLOOD THINNERS? (FOR EXAMPLE- COUMADIN, PLAVIX, AGGRENOX, PLATEL, PRADAXA, OR XARELTO) NO . WHEN WAS YOUR LAST DOSE? DATE: TIME: . LOW PLATELET COUNT NO . SICKLE CELL DISEASE NO . VON WILLIEBRANDS NO . FACTOR V LEIDEN NO . THALLASEMIA NO . ANEMIA NO . EASY BRUISING NO . NEUROLOGY: MYAASTHENIA GRAVIS NO . FOCAL MAIL OFFICER SYMPTOMS LEFT TRIGEMINAL NEURALGIA - DR AGUILAR - ON TEGRETOL. . TREMOR 3-4 YEARS HEAD TREMOR - ON TIZANIDINE . CARDIOLOGY: DO YOU HAVE A PACEMAKER OR DEFIBRILLATOR? NO . ANGINA NO . HEART ATTACK NO . HEART SURGERY NO . CONGESTIVE HEART FAILURE/FLUID OVERLOAD NO . CHEST PAIN NO . HIGH BLOOD PRESSURE ON MEDICATION(S) . IRREGULAR HEART BEAT NO . RESPIRATORY: HAVE YOU BEEN SICK IN THE PAST WEEK? NO . FEVER NO . FLU LIKE SYMPTOMS? NO . CPAP YES . BYPAP NO . ASTHMA NO . EMPHYSEMA YES . CHRONIC LUNG DISEASES YES . SHORTNESS OF BREATH ON EXERTION NO . DO YOU USE ANY TYPE OF TOBACCO (SMOKE, SMOKELESS, CHEW)? NO . COUGH NO . SNORING NO . INTEGUMENTARY: DO YOU HAVE ANY RASHES OR OPEN SORES? NO . ALLERGIC/IMMUNO: ARE YOU ALLERGIC TO SHELLFISH OR IV DYE? NO . ANY NEW ALLERGIES? NO . PSYCHIATRIC: DO YOU HAVE THOUGHTS OF HURTING YOURSELF OR SOMEONE ELSE? NO . ARE YOU ABUSED, NEGLECTED, OR IN AN UNSAFE ENVIRONMENT? NO . ENDOCRINOLOGY: ARE YOU DIABETIC? YES . THYROID DISORDER NO . OTHER: DO YOU NEED ANY PRESCRIPTIONS? NO . IF YES, PLEASE LIST: ____ . ANY NEW PROBLEMS WITH YOUR MEDICATIONS? NO . WHEN DID YOU LAST EAT? ____ . WHEN DID YOU LAST DRINK? ____ . WHAT DID YOU LAST DRINK? ____ . NAME OF PERSON DRIVING YOU HOME? ____ . DO YOU HAVE ANY OTHER QUESTIONS OR CONCERNS NO . PSYCHOLOGY: ANXIETY HIGH STRESS LEVEL AT HOME. . REVIEWED BY: PROVIDER: RENEE MORAELZ . VITAL SIGNS WT 155.6 LBS, HT 65 IN, BMI 25.89 INDEX, BP 127/71 MM HG, HR 63 /MIN, RR 18 /MIN, TEMP 98.9 F, OXYGEN SAT % 99%, NA INITIALS SC 13:25, REVIEWED BY: CS. EXAMINATION GENERAL EXAMINATION: GENERAL APPEARANCE:WELL DERESSED, ANXUIOUS. PSYCHALERT , ORIENTED X 3 , APPROPRIATE MOOD AND AFFECT, HAS DIFFICULTY STAYING ON SUBJECT . HEENT:NORMOCEPHALIC, NO LYMPHADENOPATHY, NO THYROMEGLY. LUNGS:CLEAR TO AUSCULTATION BILATERALLY, NO WHEEZES, RALES OR RHONCHI. HEART:NORMAL S1S2, NO MURMURS, CLICK OR RUBS, HEART RATE REGULAR. MUSCULOSKELETAL:. GENERALIZED WEAKNESS IN BILATERAL LOWER EXTREMITIES. WEAKNESS WITH FLEX BILAT AT FEET, CAN DORSIFLEX WITHOUT DIFFICULTY. POINT TENDERNESS OVER LUMBAR SPINOUS PROCESSES WITH PRONOUNCED CARMINE STRUCTURES. VISIBLE THORACOLUMBAR ROTATION WITH ELEVATED RIGHT SHOULDER. TRIGGER POINTS AND TIGHT FIBROUS BANDS OVER THORACIC AND LUMBAR PARAVERTEBRAL MUSCLES. :POINT TENDERNESS OVER BILAT SIJ. PAIN WITH LEFT HIP COMPRESSION. NEG PATRICKS. SLR POS AT 40DEGREES. SLOW TO RISE TO STANDING POSITION, POSTURE TILTED TO THE RIGHT. GAIT WIDE BASED,. NEUROLOGIC EXAM:REST/INT TREMOR WITH NECK, HEAD. VOCAL TREMOR NOTED. DECREASED SENSATION OVER RIGHT LATERAL THIGH AND CALF. POOR BALANCE. DTR'S 2+ RIGHT UPPER AND LOWER EXTREMITES/3+LEFT UPPER AND LOWER EXTREMITIES. ASSESSMENTS OSTEOARTHRITIS OF LUMBAR SPINE, UNSPECIFIED SPINAL OSTEOARTHRITIS COMPLICATION STATUS - M47.816 (PRIMARY) LOW BACK PAIN - M54.5 TREATMENT OSTEOARTHRITIS OF LUMBAR SPINE, UNSPECIFIED SPINAL OSTEOARTHRITIS COMPLICATION STATUS [facility] SPINE, L.S. WITHOUT [id number] Lalita 02/19/2017 2:29:30 PM > LOW BACK PAIN, BLADDER INC, RIGHT RADICULAR PAIN [facility] : SPINE,THORACIC W/BENDING [id number] Lalita 02/19/2017 2:30:55 PM > LOW AND MID BACK PAIN NOTES: DO EXERCISES FROM PHYSICAL THERAPY.USE TYLENOL NEEDED FOR PAIN. CLINICAL NOTES: MRS HOUSTON HAS BEEN EXPERIENCING PAIN IN LOW BACK WITH BILATERAL LOWER EXTREMITY WEAKNESS AND LEFT LOWER EXTREMITY RADICULOPATHY AND SENSORY CHANGES FOR MORE THAN 6 MONTH. SHE HAS BEEN TREATED WITH MULTIPLE NSAIDS UNDER THE DIRECTION OF HER PRIMARY CARE PROVIDER WITH NO IMPROVEMENT AND SIGNIFICANT GI EFFECTS SUCH SEVERE GASTRIC REFLUX. SHE HAS BEEN ON MUSCLE RELAXERS SUCH CYCLOBENZAPRINE AND SOMA WITH A WORSENING F HER TREMOR. SHE HAS COMPLETED SEVERAL COURSES OF PHYSICAL THERAPY WITH ONLY BRIEF IMPROVEMENT NOTED. WE ARE RESPECTFULLY REQUESTING AUTHORIZATION OF AN MRI OF LUMBAR SPINE SO THAT FURTHER TREATMENT DECISIONS CAN BE MADE. PROCEDURE CODES FA211 ESTABILISHED PATIENT [facility] FACILITY CHARGE DISPOSITION & COMMUNICATION FOLLOW UP 1 MONTH (REASON: NEED EMG/NCS STUDY AT [facility] IN LAST 5-10 YEARS) ELECTRONICALLY SIGNED BY FRANKIE TAPIA ON 02/25/2017 AT 08:45 AM EDT DISCLAIMER : THIS IS A VISIT SUMMARY EXTRACTED FROM THE [employer] CHART. IT IS NOT A COPY OF THE [employer] PROGRESS NOTE. SHANNAN
== END ==
LOC: M PAIN 13:20
PROVIDERS: ATTEND Nurse Practitioner Family
DX: M47.816 Spondylosis without myelopathy or radiculopathy, lumbar region (principal); M54.5 Low back pain; Z79.82 Long term (current) use of aspirin; Z79.84 Long term (current) use of oral hypoglycemic drugs; E11.9 Type 2 diabetes mellitus without complications; E78.5 Hyperlipidemia, unspecified; K21.9 Gastro-esophageal reflux disease without esophagitis; F32.9 Major depressive disorder, single episode, unspecified; F41.9 Anxiety disorder, unspecified; M79.7 Fibromyalgia; I10 Essential (primary) hypertension; Z88.0 Allergy status to penicillin; Z88.2 Allergy status to sulfonamides; J30.89 Other allergic rhinitis; E55.9 Vitamin D deficiency, unspecified; J44.9 Chronic obstructive pulmonary disease, unspecified

== ENCOUNTER → 2017-03-18 | Outpatient (CLI) | payer OTHER ==
--- NOTE | 2017-03-30 00:36 | ECWPNPC ---
PATIENT NAME: PHIL HOUSTON : 1955 GENDER: FEMALE VISIT DATE: 03/18/2017 DISCHARGE DATE: 03/18/17 1153 VISIT LOCKED DATE TIME: PHYSICIAN: RENEE CALABRESE RESOURCE: RENEE CALABRESE REASON FOR APPOINTMENT 1. FOLLOW UP-BACK HISTORY OF PRESENT ILLNESS HISTORY OF PRESENT ILLNESS: PAIN THE PATIENT DESCRIBES THE PAIN... FALL RISK SCREENING: SCREENING :NO FALLS IN THE PAST YEAR TODAY'S VISIT: NOTES: RATES PAIN TODAY 7-07/11 TODAY. DESCRIBES PAIN CONSTANT, ACHING, TENDER AND THROBBING AND SHOOTING.HAS NOT YET COMPLETED XRAYS AND MRI OF LUMBAR SPINE. CURRENT MEDICATIONS TAKING AIR CONDITIONER DX: 496, 327.23 DIRECTED - - TAKING SALINE 0.65 % SOLUTION 2 DROPS IN EACH NOSTRIL NEEDED NASALLY 2-4 TIMES DAILY TAKING HEATING PAD DRY HEAT 1 PAD DX: 715.09 TOPICAL NEEDED BACK PAIN TAKING SYSTANE 0.4-0.3 % SOLUTION 1 DROP INTO AFFECTED EYE NEEDED OPHTHALMIC 5 TIMES A DAY TAKING TEGRETOL-XR 400 MG TABLET EXTENDED RELEASE 12 HOUR 1 TABLET ORALLY TWICE A DAY TAKING TIZANIDINE HCL 2 MG TABLET 1 TABLET NEEDED ORALLY THREE TIMES A DAY TAKING LANSOPRAZOLE 30 MG CAPSULE DELAYED RELEASE 1 CAPSULE BEFORE A MEAL ORALLY ONCE A DAY TAKING DRISDOL 50,000 UNITS TABLET 1 TAB(S) ORAL ONCE A MONTH WITH MEAL TAKING CHANTIX CONTINUING MONTH CHELSY 1 MG TABLET 1 TABLET ORALLY TWICE A DAY TAKING LORATADINE 10 MG TABLET 1 TABLET ORALLY ONCE A DAY NEEDED TAKING LISINOPRIL 5 MG TABLET 1 TABLET ORALLY ONCE A DAY TAKING PRAVASTATIN SODIUM 40 MG TABLET 1 TABLET ORALLY ONCE A DAY TAKING VENTOLIN HFA 108 (90 BASE) MCG/ACT AEROSOL SOLUTION 2 PUFFS INHALATION EVERY 4-6 HOURS NEEDED TAKING INCRUSE ELLIPTA 62.5 MCG/INH AEROSOL POWDER BREATH ACTIVATED 1 PUFF INHALATION ONCE DAILY TAKING METFORMIN HCL 500 MG TABLET 1 TABLET WITH MEALS ORALLY TWICE A DAY TAKING ASPIR-81 81 MG TABLET DELAYED RELEASE 1 TABLET ORALLY ONCE A DAY TAKING HEATING PAD - PAD DIRECTED DX: M54.5 DAILY TAKING CANE - MISCELLANEOUS DIRECTED DX: M54.5 DAILY TAKING ATIVAN 0.5 0.5MG TABLET ORAL 3 TIMES A DAY NEEDED TAKING CITALOPRAM HYDROBROMIDE 40 MG TABLET 1 TAB ORALLY ONCE A DAY TAKING TYLENOL 500 MG TABLET 1-2 TABLETS NEEDED ORALLY EVERY 8 HRS NEEDED FOR PAIN TAKING CALCIUM 600 + D 600-400 MG-UNIT TABLET 1 TABLET WITH MEAL ORALLY DAILY TAKING FISH OIL 1000 MG CAPSULE 1 CAPSULE ORALLY TWICE A DAY NOT-TAKING ATIVAN 1 MG TABLET 1 TAB ORALLY THREE A DAY NEEDED NOT-TAKING LANCETS 1 EACH - SUBCUTANEOUSLY DAILY... DX 250.00 NOT-TAKING BLOOD GLUCOSE TEST DX: 250.00 EACH - TEST STRIPS TWICE A DAY, FASTING BEFORE BREAKFAST; AT BEDTIME & NEEDED. NOT-TAKING CELEXA 20 MG TABLET 1 1/2 TAB ORALLY ONCE A DAY, NOTES: DR VILLANUEVA NOT-TAKING INCRUSE ELLIPTA 62.5MCG AEROSOL POWDER BREATH ACTIVATED 1 PUFF INHALATION ONCE A DAY NOT-TAKING ARTIFICIAL TEAR OINTMENT OINTMENT OPHTHALMIC AT BEDTIME NOT-TAKING REFRESH TEARS 0.5 % SOLUTION 1 DROP INTO AFFECTED EYE NEEDED OPHTHALMIC 24 TIME(S) A DAY NOT-TAKING NASACORT AQ 55 MCG/ACT AEROSOL SOLUTION 1 PUFF IN EACH NOSTRIL NASALLY TWICE A DAY NOT-TAKING MAGNESIUM 500 MG CAPSULE 1 CAP WITH MEAL ORALLY DAILY DISCONTINUED NAPROXEN DR 500 MG TABLET DELAYED RELEASE 1 TABLET WITH FOOD ORALLY TWICE A DAY NEEDED MEDICATION LIST REVIEWED AND RECONCILED WITH THE PATIENT PAST MEDICAL HISTORY TYPE II DIABETES HYPERLIPIDEMIA - NEG NUCLEAR STRESS TEST 07/13, - [facility] REFLUX COPD FEV1 = 1.9 ON 11/22/14 @PULMONOLOGY ALLERGIC RHINITIS VITAMIN D DEFICIENCY SMOKING DEPRESSION ANXIETY - DR VILLANUEVA FIFI-- ON CPAP FIBROMYALGIA DEGENERATIVE DISC DISEASE HYPERTENSION BACK AND NECK PAIN TRIGEMINAL NEURALGIA ALLERGIES PENICILLIN (FOR ALLERGIES USE ONLY): RASH: ALLERGY SULFA DRUGS: RASH: ALLERGY SOCIAL HISTORY GENERAL: PAIN CLINIC PFS, CLERGY, PUBLIC HEALTH REFERRALS CLERGY REFERRAL NEEDED?NO WAS THE PROVIDER NOTIFIED OF ANY PERTINENT INFO?NO PFS REFERRAL NEEDED?NO PUBLIC HEALTH REFERRAL NEEDED?NO PATIENT: ____. REVIEW OF SYSTEMS CONSTITUTIONAL: ANY CHANGE IN YOUR MEDICAL CONDITION? NO . CHILLS NO . FEVER NO . INFECTION: DO YOU HAVE NEW INFECTIONS? NO . DO YOU HAVE HISTORY OF MRSA? NO . MUSCULOSKELETAL: ANY NEW PATTERNS OF PAIN OR NUMBNESS? NO . GASTROENTEROLOGY: ANY NEW CHANGE IN BOWEL CONTROL? NO . GENITOURINARY: ANY NEW CHANGE IN BLADDER CONTROL? NO . IS THERE A CHANCE YOU COULD BE ? NO . HEMATOLOGY/LYMPH: DO YOU TAKE ANY BLOOD THINNERS? (FOR EXAMPLE- COUMADIN, PLAVIX, AGGRENOX, PLATEL, PRADAXA, OR XARELTO) NO . WHEN WAS YOUR LAST DOSE? DATE: TIME: . NEUROLOGY: HAVE YOU FALLEN IN THE PAST 6 MONTHS? NO . ANY NEW EXTREMITY NUMBNESS OR WEAKNESS? NO . CARDIOLOGY: DO YOU HAVE A PACEMAKER OR DEFIBRILLATOR? NO . CHEST PAIN PATIENT DENIES . RESPIRATORY: HAVE YOU BEEN SICK IN THE PAST WEEK? NO . FEVER NO . FLU LIKE SYMPTOMS? NO . COUGH NO . INTEGUMENTARY: DO YOU HAVE ANY RASHES OR OPEN SORES? NO . ALLERGIC/IMMUNO: ARE YOU ALLERGIC TO SHELLFISH OR IV DYE? NO . ANY NEW ALLERGIES? NO . PSYCHIATRIC: DO YOU HAVE THOUGHTS OF HURTING YOURSELF OR SOMEONE ELSE? NO . ARE YOU ABUSED, NEGLECTED, OR IN AN UNSAFE ENVIRONMENT? NO . ENDOCRINOLOGY: ARE YOU DIABETIC? YES UNDER GOOD CONTROL . OTHER: DO YOU NEED ANY PRESCRIPTIONS? NO . IF YES, PLEASE LIST: ____ . ANY NEW PROBLEMS WITH YOUR MEDICATIONS? NO . WHEN DID YOU LAST EAT? ____ . WHEN DID YOU LAST DRINK? ____ . WHAT DID YOU LAST DRINK? ____ . NAME OF PERSON DRIVING YOU HOME? ____ . DO YOU HAVE ANY OTHER QUESTIONS OR CONCERNS YES, WONDERING IF SHE COULD GET SOMETHING STRONGER THAN TYLENOL FOR PAIN . PSYCHOLOGY: ANXIETY REPORTS HAS BEEN PLACED IN ALF IN [place]. IS VERY ANXIOUS ABOUT HIS WELL BEING. . REVIEWED BY: PROVIDER: RENEE MORALEZ . VITAL SIGNS WT 156.8 LBS, HT 65 IN, BMI 26.09 INDEX, BP 108/70 MANUAL, HR 70 /MIN, RR 18 /MIN, TEMP 98.1 F, OXYGEN SAT % 94%, NA INITIALS AW 1106, REVIEWED BY: AD. EXAMINATION GENERAL EXAMINATION: GENERAL APPEARANCE:ANXIOUS. PSYCHALERT , ORIENTED X 3 , APPROPRIATE MOOD AND AFFECT, HAS DIFFICULTY STAYING ON SUBJECT . HEENT:NORMOCEPHALIC, NO LYMPHADENOPATHY, NO THYROMEGLY. LUNGS:CLEAR TO AUSCULTATION BILATERALLY, NO WHEEZES, RALES OR RHONCHI. HEART:NORMAL S1S2, NO MURMURS, CLICK OR RUBS, HEART RATE REGULAR. MUSCULOSKELETAL:. GENERALIZED WEAKNESS IN BILATERAL UPPER AND LOWER EXTREMITIES. POINT TENDERNESS OVER LUMBAR SPINOUS PROCESSES WITH PRONOUNCED CARMINE STRUCTURES. VISIBLE THORACOLUMBAR ROTATION WITH ELEVATED RIGHT SHOULDER. TRIGGER POINTS AND TIGHT FIBROUS BANDS OVER THORACIC AND LUMBAR PARAVERTEBRAL MUSCLES. :POINT TENDERNESS OVER BILAT SIJ. . NEUROLOGIC EXAM:REST/INT TREMOR WITH NECK, HEAD. VOCAL TREMOR NOTED. DECREASED SENSATION OVER RIGHT LATERAL THIGH AND CALF. POOR BALANCE. DTR'S 2+ RIGHT UPPER AND LOWER EXTREMITES/3+LEFT UPPER AND LOWER EXTREMITIES. ASSESSMENTS OSTEOARTHRITIS OF LUMBAR SPINE, UNSPECIFIED SPINAL OSTEOARTHRITIS COMPLICATION STATUS - M47.816 (PRIMARY) LOW BACK PAIN - M54.5 TREATMENT OSTEOARTHRITIS OF LUMBAR SPINE, UNSPECIFIED SPINAL OSTEOARTHRITIS COMPLICATION STATUS START CYMBALTA CAPSULE DELAYED RELEASE PARTICLES, 30 MG, 1 CAPSULE, ORALLY, ONCE A DAY, 30 DAY(S), 30 CAPSULE, REFILLS 1 NOTES: COMPKETE MRI AND XRAY ORDERED. CYMBALTA IS BEING USED FOR BACK AND JOINT PAIN. DISCUSSED THAT TRAMADOLIS NOT ACCEPTABLE DUE TO RISK FOR SEIZURES (PT ON TEGRETOL) AND HIGH RISK FOR FALLS, BALANCE ISSUES. PROCEDURE CODES FA211 ESTABILISHED PATIENT [facility] CHARGE DISPOSITION & COMMUNICATION FOLLOW UP 1 MONTH (REASON: REVIEW MRI/MEDS) ELECTRONICALLY SIGNED BY FRANKIE TAPIA ON 03/29/2017 AT 04:39 PM EDT DISCLAIMER : THIS IS A VISIT SUMMARY EXTRACTED FROM THE [employer] CHART. IT IS NOT A COPY OF THE [employer] PROGRESS NOTE. SHANNAN
== END ==
LOC: M PAIN 11:00
PROVIDERS: ATTEND Nurse Practitioner Family
DX: M47.816 Spondylosis without myelopathy or radiculopathy, lumbar region (principal); M54.5 Low back pain; Z79.82 Long term (current) use of aspirin; Z79.899 Other long term (current) drug therapy; Z79.84 Long term (current) use of oral hypoglycemic drugs; Z88.0 Allergy status to penicillin; Z88.2 Allergy status to sulfonamides; E11.9 Type 2 diabetes mellitus without complications; E78.2 Mixed hyperlipidemia; J44.9 Chronic obstructive pulmonary disease, unspecified; M15.9 Polyosteoarthritis, unspecified; E55.9 Vitamin D deficiency, unspecified; K21.9 Gastro-esophageal reflux disease without esophagitis; G89.29 Other chronic pain

== ENCOUNTER → 2017-03-18 | Outpatient (CLI) | payer OTHER ==
--- NOTE | 2017-03-18 15:14 | REP ---
THORACIC SPINE, FIVE VIEWS: HISTORY: Spondylosis. COMPARISON: 01/14/2007. There is no acute fracture or subluxation. The intervertebral discs are normal in height. Osteophytes are present in the mid and lower thoracic spine. IMPRESSION: Degenerative change as described above. Signed by Papi Shah MD 03/18/2017 03:25 P
== END ==
LOC: M RAD 13:02
PROVIDERS: ATTEND Nurse Practitioner Family
DX: M47.816 Spondylosis without myelopathy or radiculopathy, lumbar region (principal)

== ENCOUNTER → 2017-03-20 | Outpatient (CLI) | payer OTHER ==
--- NOTE | 2017-03-20 13:07 | REP ---
MRI LUMBAR SPINE WITHOUT CONTRAST: HISTORY: Back pain. COMPARISON: 03/14/2011. Decreased signal intensity on T2-weighted images is present in the L2-3 through L5-S1 intervertebral discs. The discs are decreased in height. These findings are consistent with disc degeneration. There is no disc bulge or herniation at the L1-2 through L3-4 levels. There is hypertrophy of the posterior articulating facets at the L2-3 and L3-4 levels. The nerves exit the neural foramina without compression. A diffuse disc bulge is present at the L4-5 level. There is hypertrophy of the ligamenta flava and posterior articulating facets. There are 3 mm of grade I spondylolisthesis of L4 on 5. These findings produce moderate central canal stenosis. The L4 nerves exit the neural foramina without compression. A diffuse disc bulge is present at the L5-S1 level. There is minimal compression of the thecal sac. There is hypertrophy of the posterior articulating facets. There are 4 mm of grade 1 spondylolisthesis of L5 on S1. The L5 nerves exit the neural foramina without compression. The conus medullaris is normal in appearance terminating at the level of the L1-2 intervertebral disc. Normal signal intensity is present in the lumbar vertebral bodies. IMPRESSION: 1. Moderate central canal stenosis at the L4-5 level secondary to disc bulge, ligamentous and facet hypertrophy and grade 1 spondylolisthesis. There has been progression of the canal stenosis. The spondylolisthesis is a new finding. 2. Diffuse disc bulge at the L5-S1 level with minimal thecal sac compression. There is grade 1 spondylolisthesis of L5 on S1. The disc bulge and spondylolisthesis are new findings. Signed by Papi Shah MD 03/20/2017 01:11 P
== END ==
LOC: M RAD 11:34
PROVIDERS: ATTEND Nurse Practitioner Family
DX: M47.816 Spondylosis without myelopathy or radiculopathy, lumbar region (principal); M48.06 Spinal stenosis, lumbar region; M51.27 Other intervertebral disc displacement, lumbosacral region; M43.17 Spondylolisthesis, lumbosacral region

== ENCOUNTER → 2017-04-16 | Outpatient (CLI) | payer OTHER ==
[~2017-04-16] MED LIST changes: +ZYRT10TA2 PO
--- NOTE | 2017-05-01 02:25 | ECWPNPC ---
PATIENT NAME: PHIL HOUSTON : 1955 GENDER: FEMALE VISIT DATE: 04/16/2017 DISCHARGE DATE: 04/16/17 1208 VISIT LOCKED DATE TIME: PHYSICIAN: RENEE CALABRESE RESOURCE: RENEE CALABRESE REASON FOR APPOINTMENT 1. MRI/MEDS HISTORY OF PRESENT ILLNESS TODAY'S VISIT: NOTES: RATES PAIN TODAY 06/10. IS HAVING RADIATION OF PAIN INTO LEFT LEG TO BELOW THE LEVEL OF THE KNEE. . CURRENT MEDICATIONS TAKING AIR CONDITIONER DX: 496, 327.23 DIRECTED - - TAKING SALINE 0.65 % SOLUTION 2 DROPS IN EACH NOSTRIL NEEDED NASALLY 2-4 TIMES DAILY TAKING HEATING PAD DRY HEAT 1 PAD DX: 715.09 TOPICAL NEEDED BACK PAIN TAKING SYSTANE 0.4-0.3 % SOLUTION 1 DROP INTO AFFECTED EYE NEEDED OPHTHALMIC 5 TIMES A DAY TAKING TEGRETOL-XR 400 MG TABLET EXTENDED RELEASE 12 HOUR 1 TABLET ORALLY TWICE A DAY TAKING TIZANIDINE HCL 2 MG TABLET 1 TABLET NEEDED ORALLY THREE TIMES A DAY TAKING LANSOPRAZOLE 30 MG CAPSULE DELAYED RELEASE 1 CAPSULE BEFORE A MEAL ORALLY ONCE A DAY TAKING DRISDOL 50,000 UNITS TABLET 1 TAB(S) ORAL ONCE A MONTH WITH MEAL TAKING CHANTIX CONTINUING MONTH CHELSY 1 MG TABLET 1 TABLET ORALLY TWICE A DAY TAKING LORATADINE 10 MG TABLET 1 TABLET ORALLY ONCE A DAY NEEDED TAKING LISINOPRIL 5 MG TABLET 1 TABLET ORALLY ONCE A DAY TAKING PRAVASTATIN SODIUM 40 MG TABLET 1 TABLET ORALLY ONCE A DAY TAKING VENTOLIN HFA 108 (90 BASE) MCG/ACT AEROSOL SOLUTION 2 PUFFS INHALATION EVERY 4-6 HOURS NEEDED TAKING INCRUSE ELLIPTA 62.5 MCG/INH AEROSOL POWDER BREATH ACTIVATED 1 PUFF INHALATION ONCE DAILY TAKING METFORMIN HCL 500 MG TABLET 1 TABLET WITH MEALS ORALLY TWICE A DAY TAKING ASPIR-81 81 MG TABLET DELAYED RELEASE 1 TABLET ORALLY ONCE A DAY TAKING HEATING PAD - PAD DIRECTED DX: M54.5 DAILY TAKING CANE - MISCELLANEOUS DIRECTED DX: M54.5 DAILY TAKING ATIVAN 0.5 0.5MG TABLET ORAL 3 TIMES A DAY NEEDED TAKING CITALOPRAM HYDROBROMIDE 40 MG TABLET 1 TAB ORALLY ONCE A DAY TAKING TYLENOL 500 MG TABLET 1-2 TABLETS NEEDED ORALLY EVERY 8 HRS NEEDED FOR PAIN TAKING CALCIUM 600 + D 600-400 MG-UNIT TABLET 1 TABLET WITH MEAL ORALLY DAILY TAKING FISH OIL 1000 MG CAPSULE 1 CAPSULE ORALLY TWICE A DAY TAKING CYMBALTA 30 MG CAPSULE DELAYED RELEASE PARTICLES 1 CAPSULE ORALLY ONCE A DAY NOT-TAKING ATIVAN 1 MG TABLET 1 TAB ORALLY THREE A DAY NEEDED NOT-TAKING LANCETS 1 EACH - SUBCUTANEOUSLY DAILY... DX 250.00 NOT-TAKING BLOOD GLUCOSE TEST DX: 250.00 EACH - TEST STRIPS TWICE A DAY, FASTING BEFORE BREAKFAST; AT BEDTIME & NEEDED. NOT-TAKING CELEXA 20 MG TABLET 1 1/2 TAB ORALLY ONCE A DAY, NOTES: DR VILLANUEVA NOT-TAKING INCRUSE ELLIPTA 62.5MCG AEROSOL POWDER BREATH ACTIVATED 1 PUFF INHALATION ONCE A DAY NOT-TAKING ARTIFICIAL TEAR OINTMENT OINTMENT OPHTHALMIC AT BEDTIME NOT-TAKING REFRESH TEARS 0.5 % SOLUTION 1 DROP INTO AFFECTED EYE NEEDED OPHTHALMIC 24 TIME(S) A DAY NOT-TAKING NASACORT AQ 55 MCG/ACT AEROSOL SOLUTION 1 PUFF IN EACH NOSTRIL NASALLY TWICE A DAY NOT-TAKING MAGNESIUM 500 MG CAPSULE 1 CAP WITH MEAL ORALLY DAILY MEDICATION LIST REVIEWED AND RECONCILED WITH THE PATIENT PAST MEDICAL HISTORY TYPE II DIABETES HYPERLIPIDEMIA - NEG NUCLEAR STRESS TEST 07/13, - [facility] REFLUX COPD FEV1 = 1.9 ON 11/22/14 @PULMONOLOGY ALLERGIC RHINITIS VITAMIN D DEFICIENCY SMOKING DEPRESSION ANXIETY - DR VILLANUEVA FIFI-- ON CPAP FIBROMYALGIA DEGENERATIVE DISC DISEASE HYPERTENSION BACK AND NECK PAIN TRIGEMINAL NEURALGIA ALLERGIES PENICILLIN (FOR ALLERGIES USE ONLY): RASH: ALLERGY SULFA DRUGS: RASH: ALLERGY SURGICAL HISTORY TONSILLECTOMY 1974 1988 DEVIATED SEPTUM 2013 SOCIAL HISTORY GENERAL: TOBACCO USE ARE YOU A:NONSMOKER ALCOHOL SCREENING POINTS0 INTERPRETATIONNEGATIVE MORMON [id number] BAP[employer]IST LEARNING BARRIERS / SPECIAL NEEDS CHANGE FROM LAST VISIT?NO BARRIERS TO LEARNING?NO HEARING IMPAIRED?YES BEING EVALUATED BY ENT FOR HEARING LOSS LEFT EAR VISION IMPAIRED?YES :CORRECTIVE LENSES COGNITIVELY IMPAIRED?NO READINESS TO LEARN?YES LEARNING PREFERENCES?NO LEARNING CAPABILITIES PRESENT?NO EMOTIONAL BARRIERS?NO SPECIAL DEVICES?NO LANDSCAPE ARCHITECTURE PROFESSOR NEEDED?NO PAIN CLINIC PFS, CLERGY, PUBLIC HEALTH REFERRALS CLERGY REFERRAL NEEDED?NO WAS THE PROVIDER NOTIFIED OF ANY PERTINENT INFO?NO PFS REFERRAL NEEDED?NO PUBLIC HEALTH REFERRAL NEEDED?NO PATIENT: ____. ADVANCED DIRECTIVES HEALTH CARE PROXY?NO WOULD YOU LIKE MORE INFORMATION?NO DO YOU HAVE A DNR?NO WOULD YOU LIKE MORE INFORMATION?NO LIVING WILL?NO WOULD YOU LIKE MORE INFORMATION?NO POWER OF CAREER DEVELOPMENT DIRECTOR?NO WOULD YOU LIKE MORE INFORMATION?NO HOSPITALIZATION/MAJOR DIAGNOSTIC PROCEDURE SURGERY REVIEW OF SYSTEMS FOLLOW-UP ROS: CARDIOLOGY: NEGATIVE FOR, CHEST PAIN, NO LEG SWELLING . ENDOCRINOLOGY: DIBETES WITH HBA1C 5.9 WITH BS 100 . GI/ NO LOSS OF BOWEL CONTROL. IS HAVING STRESS URINARY INCONTINCE, NEGATIVE FOR, NAUSEA . HEENT CONTINUED LEFT SINUS/FACIAL PAIN . NEUROLOGY: CONTINUED UPPER EXTREMITY TREMOR . PSYCHOLOGY: FOLLOWS CLOSELY WITH DR VILLANUEVA, SLEEP DISTURBANCE SECONDARY TO PAIN IN BACK. . PULMONOLOGY: NEGATIVE FOR, COUGH . VITAL SIGNS WT 156.4 LBS, HT 65 IN, BMI 26.02 INDEX, BP 121/63 MM HG, HR 73 /MIN, RR 18 /MIN, TEMP 98.0 F, OXYGEN SAT % 96%, NA INITIALS TL 1106, REVIEWED BY: LS. EXAMINATION GENERAL EXAMINATION: PSYCHALERT , ANXIOUS, TREMULOUS. LUNGS:CLEAR TO AUSCULTATION BILATERALLY. HEART:HEART RATE REGULAR. MUSCULOSKELETAL:POINT TENDERNESS OVER LUMBAR SPINOUS PROCESSES AND ACROSS THE SACRUM. SLOW TO RISE TO STANDING POSITION. GAIT ANTALGIC.. NEUROLOGIC EXAM:TREMOR NOTED OF HEAD, NECK, UPPER AND LOWER EXTREMITIES. DIFFICULTY NOTED WITH MMEMORY. . DIAGNOSTIC TESTS REVIEWED THORACIC SPINE XRAY COMPLETED 03/18/17 DEMONSTRATES OSTEOPHYTES IN THE MID AND LOWER THORACIC SPINE - DEGENERATIVE CHANGES.MRI OF LUMBAR SPINE CMPLETED ON DEMONSTRATESMODERATE CENTRAL CANAL STENOSIS AT THE L4-5 LEVEL SECONDARY TO DISC BULGELIGAMENTOUS AND FACET HYPERTROPHY AND GRADE 1 SPONDYLITHESIS GRADE 1. THERE IS PROGRESSION OF THE CANAL STENOSIS. THE SPONDYLITHESIS IS A NEW FINDING. THERE IS DIFFUSE DISC BULGE AAAAAAAAAAT THE L5-S1 LEVEL WITH MINIMAL THECAL SAC COMPRESSION. THERE IS GARDE1 SPONDYLITHESIS OF L5 ON S1. THE DISC BULGE AND SPONDYLITHESIS ARE NEW FINDINGS COMPARED TO THE IMAGING COMPLETED 03/14/11. 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 DO EXERCISES EVERY DAY. NO SITUPS OR CRUNCHES. [facility]:L4-5, L5-S1 SPONDYLITHESIS, DIS DISPLACEMET AND SPINAL STENOSI WITH LOWER EXTREMITY WEAKNESS. PROCEDURE CODES FA211 ESTABILISHED PATIENT [facility] CHARGE DISPOSITION & COMMUNICATION FOLLOW UP 4-6 WEEKS ELECTRONICALLY SIGNED BY FRANKIE TAPIA ON 04/30/2017 AT 01:34 PM EDT DISCLAIMER : THIS IS A VISIT SUMMARY EXTRACTED FROM THE [employer] CHART. IT IS NOT A COPY OF THE [employer] PROGRESS NOTE. SHANNAN
== END ==
LOC: M PAIN 11:00
PROVIDERS: ATTEND Nurse Practitioner Family
DX: M43.16 Spondylolisthesis, lumbar region (principal); M12.88 Other specific arthropathies, not elsewhere classified, other specified site; M51.26 Other intervertebral disc displacement, lumbar region; G89.29 Other chronic pain; K21.9 Gastro-esophageal reflux disease without esophagitis; E11.9 Type 2 diabetes mellitus without complications; E55.9 Vitamin D deficiency, unspecified; J44.9 Chronic obstructive pulmonary disease, unspecified; Z79.82 Long term (current) use of aspirin; Z79.84 Long term (current) use of oral hypoglycemic drugs; Z79.899 Other long term (current) drug therapy; Z88.0 Allergy status to penicillin; Z88.2 Allergy status to sulfonamides

== ENCOUNTER 2017-04-24 13:31 | Emergency (ER) | payer MEDICAID, OTHER ==
[~2017-04-24] VITALS: Ht 167.6 cm; Wt 69.9 kg
[2017-04-24 13:31] VITALS: BP 109/69
[~2017-04-24 13:31] MED LIST changes: -ZYRT10TA2 PO
[2017-04-24] MEDS ORDERED: ZYRT10TA2 PO (14:18)
== END 2017-04-24 14:45 | disposition home or self-care (01) ==
LOC: M ED 14:22
DX: L29.9 Pruritus, unspecified (principal); E11.9 Type 2 diabetes mellitus without complications; Z87.891 Personal history of nicotine dependence; Z79.899 Other long term (current) drug therapy; Z91.018 Allergy to other foods; Z88.5 Allergy status to narcotic agent; Z88.0 Allergy status to penicillin; Z88.2 Allergy status to sulfonamides

== ENCOUNTER → 2017-04-24 | Outpatient (CLI) | payer MEDICAID, OTHER ==
[2017-04-24 13:31] LABS: ANION GAP 4 MEQ/L (8-16); BLOOD UREA NITROGEN 10 MG/DL (7-18); CALCIUM LEVEL 8.6 MG/DL (8.8-10.2); CARBON DIOXIDE LEVEL 34 MEQ/L (21-32); CHLORIDE LEVEL 93 MEQ/L (98-107); CREATININE FOR GFR 0.71 MG/DL (0.55-1.02); GLOMERULAR FILTRATION RATE > 60.0 (>45); GLUCOSE, FASTING 90 MG/DL (80-110); MAGNESIUM LEVEL 1.9 MG/DL (1.8-2.4); POTASSIUM SERUM 4.4 MEQ/L (3.5-5.1); SODIUM LEVEL 131 MEQ/L (136-145)
== END ==
LOC: M LAB 12:52
PROVIDERS: ATTEND Nurse Practitioner Family
DX: Z11.4 Encounter for screening for human immunodeficiency virus [HIV] (principal); Z11.59 Encounter for screening for other viral diseases; E87.1 Hypo-osmolality and hyponatremia

== ENCOUNTER → 2017-05-20 | Outpatient (CLI) | payer OTHER ==
[~2017-05-20] MED LIST changes: +ALBU17IN INH; +ASPI1TAB PO; +ATOR1TAB19 PO; +DRIS50002 PO; +HYDR-3713 PO; +LANS30CA PO; +METF500T13 PO; +NAPR500T3 PO; +SYST1SOL OU; +ZYRT10TA2 PO; +[UNRECOGNIZED DRUG - OTHER] INH
--- NOTE | 2017-06-06 02:08 | ECWPNPC ---
PATIENT NAME: PHIL HOUSTON : 1955 GENDER: FEMALE VISIT DATE: 05/20/2017 DISCHARGE DATE: 05/20/17 1231 VISIT LOCKED DATE TIME: PHYSICIAN: RENEE CALABRESE RESOURCE: RENEE CALABRESE REASON FOR APPOINTMENT 1. BACK 5 WEEK F/UP HISTORY OF PRESENT ILLNESS HISTORY OF PRESENT ILLNESS: PAIN THE PATIENT DESCRIBES THE PAIN... FALL RISK SCREENING: SCREENING :NO FALLS IN THE PAST YEAR TODAY'S VISIT: NOTES: DEVELOPED RASH WENT TO ER ON 04/24/16- WAS TOLD TO STOP GABAPENTIN. BRINGS BOTTLE OF GABAPENTIN TODAY AND THIS IS MOSTLY GONE - PATENT THEN ADMITTED THAT SHE HAS CONTINUED TO [facility] GABAPENTIN AND HAS HAD NO FURTHER RASH AND THAT THE GABAPENTIN WAS HELPFUL. RATES PAIN 06/10. DESCRIBES PAIN CONSTANT, ACHING, BURNING SHARP, THROBBING SORESHOOTING. HAS HAD SOME RASH ON MID BACK AND POST LEGS. HAS NOT YET HEARD FROM ORTHOPEDICS.. CURRENT MEDICATIONS TAKING PREDNISONE 10 MG TABLET 6 TABS X 3 DAYS, THEN 4 TABS X 3 DAYS, THEN 2 TABS X 3 DAYS, THEN 1 TAB X 3 DAYS, THEN 1/2 TAB X 2 DAYS ORALLY ONCE A DAY WITH FOOD TAKING BETAMETHASONE DIPROPIONATE 0.05 % CREAM 1 THIN APPLICATION TO AFFECTED AREAS ON ARMS AND CHEST EXTERNALLY TWICE DAILY NEEDED TAKING ASPIR-81 81 MG TABLET DELAYED RELEASE 1 TABLET ORALLY ONCE A DAY TAKING METFORMIN HCL 500 MG TABLET 1 TABLET WITH MEALS ORALLY TWICE A DAY TAKING LANSOPRAZOLE 30 MG CAPSULE DELAYED RELEASE 1 CAPSULE BEFORE A MEAL ORALLY ONCE A DAY TAKING LISINOPRIL 5 MG TABLET 1 TABLET ORALLY ONCE A DAY TAKING VENTOLIN HFA 108 (90 BASE) MCG/ACT AEROSOL SOLUTION 2 PUFFS INHALATION EVERY 4-6 HOURS NEEDED TAKING INCRUSE ELLIPTA 62.5 MCG/INH AEROSOL POWDER BREATH ACTIVATED 1 PUFF INHALATION ONCE DAILY TAKING AIR CONDITIONER DX: 496, 327.23 DIRECTED - - TAKING SALINE 0.65 % SOLUTION 2 DROPS IN EACH NOSTRIL NEEDED NASALLY 2-4 TIMES DAILY TAKING SYSTANE 0.4-0.3 % SOLUTION 1 DROP INTO AFFECTED EYE NEEDED OPHTHALMIC 5 TIMES A DAY TAKING TEGRETOL-XR 400 MG TABLET EXTENDED RELEASE 12 HOUR 1 TABLET ORALLY TWICE A DAY TAKING TIZANIDINE HCL 2 MG TABLET 1 TABLET NEEDED ORALLY THREE TIMES A DAY TAKING CHANTIX CONTINUING MONTH CHELSY 1 MG TABLET 1 TABLET ORALLY TWICE A DAY TAKING HEATING PAD - PAD DIRECTED DX: M54.5 DAILY TAKING CANE - MISCELLANEOUS DIRECTED DX: M54.5 DAILY TAKING ATIVAN 0.5 0.5MG TABLET ORAL 3 TIMES A DAY NEEDED, NOTES: KAY TAKING CITALOPRAM HYDROBROMIDE 40 MG TABLET 1 TAB ORALLY ONCE A DAY, NOTES: KAY TAKING TYLENOL 500 MG TABLET 1-2 TABLETS NEEDED ORALLY EVERY 8 HRS NEEDED FOR PAIN TAKING CYMBALTA 60 MG CAPSULE DELAYED RELEASE PARTICLES 1 CAPSULE ORALLY ONCE A DAY TAKING ARNUITY ELLIPTA 200 MCG/ACT AEROSOL POWDER BREATH ACTIVATED 1 PUFF INHALATION ONCE A DAY, NOTES: PULM TAKING ATORVASTATIN CALCIUM 10 MG TABLET 1 TABLET ORALLY ONCE A DAY TAKING DRISDOL 00140 UNIT CAPSULE 1 CAPSULE ORALLY ONCE A MONTH TAKING LORATADINE 10 MG TABLET 1 TABLET ORALLY ONCE A DAY NEEDED TAKING CETIRIZINE HCL 10 MG TABLET 1 TABLET ORALLY ONCE A DAY NOT-TAKING NYSTATIN 745386 UNIT/GM CREAM 1 APPLICATION TO AFFECTED AREAS UNDER BREASTS AND GROIN AND AXILLA EXTERNALLY TWICE A DAY NOT-TAKING GABAPENTIN 300 MG CAPSULE 1 CAPSULE ORALLY THREE TIMES A DAY, NOTES: NEURO NOT-TAKING CALCIUM 600 + D 600-400 MG-UNIT TABLET 1 TABLET WITH MEAL ORALLY DAILY NOT-TAKING FISH OIL 1000 MG CAPSULE 1 CAPSULE ORALLY TWICE A DAY NOT-TAKING LANCETS 1 EACH - SUBCUTANEOUSLY DAILY... DX 250.00 NOT-TAKING BLOOD GLUCOSE TEST DX: 250.00 EACH - TEST STRIPS TWICE A DAY, FASTING BEFORE BREAKFAST; AT BEDTIME & NEEDED. NOT-TAKING ARTIFICIAL TEAR OINTMENT OINTMENT OPHTHALMIC AT BEDTIME NOT-TAKING REFRESH TEARS 0.5 % SOLUTION 1 DROP INTO AFFECTED EYE NEEDED OPHTHALMIC 24 TIME(S) A DAY NOT-TAKING NASACORT AQ 55 MCG/ACT AEROSOL SOLUTION 1 PUFF IN EACH NOSTRIL NASALLY TWICE A DAY NOT-TAKING MAGNESIUM 500 MG CAPSULE 1 CAP WITH MEAL ORALLY DAILY MEDICATION LIST REVIEWED AND RECONCILED WITH THE PATIENT PAST MEDICAL HISTORY TYPE II DIABETES HYPERLIPIDEMIA - NEG NUCLEAR STRESS TEST 07/13, - [facility] REFLUX COPD FEV1 = 1.9 ON 11/22/14 @PULMONOLOGY ALLERGIC RHINITIS VITAMIN D DEFICIENCY SMOKING DEPRESSION ANXIETY - DR VILLANUEVA FIFI-- ON CPAP FIBROMYALGIA DEGENERATIVE DISC DISEASE HYPERTENSION BACK AND NECK PAIN TRIGEMINAL NEURALGIA ALLERGIES PENICILLIN (FOR ALLERGIES USE ONLY): RASH: ALLERGY SULFA DRUGS: RASH: ALLERGY REVIEW OF SYSTEMS REVIEWED BY: PROVIDER: RENEE MORALEZ . CONSTITUTIONAL: ANY CHANGE IN YOUR MEDICAL CONDITION? YES , BACK PAIN MORE PAIN/ CYMBALTA NOT WORKING?? . CHILLS NO . FEVER NO . INFECTION: DO YOU HAVE NEW INFECTIONS? NO . DO YOU HAVE HISTORY OF MRSA? NO . MUSCULOSKELETAL: ANY NEW PATTERNS OF PAIN OR NUMBNESS? NO . GASTROENTEROLOGY: ANY NEW CHANGE IN BOWEL CONTROL? NO . GENITOURINARY: ANY NEW CHANGE IN BLADDER CONTROL? NO . IS THERE A CHANCE YOU COULD BE ? NO . HEMATOLOGY/LYMPH: DO YOU TAKE ANY BLOOD THINNERS? (FOR EXAMPLE- COUMADIN, PLAVIX, AGGRENOX, PLATEL, PRADAXA, OR XARELTO) NO . WHEN WAS YOUR LAST DOSE? DATE: TIME: . NEUROLOGY: HAVE YOU FALLEN IN THE PAST 6 MONTHS? NO . ANY NEW EXTREMITY NUMBNESS OR WEAKNESS? NO . CARDIOLOGY: DO YOU HAVE A PACEMAKER OR DEFIBRILLATOR? NO . RESPIRATORY: HAVE YOU BEEN SICK IN THE PAST WEEK? NO . FEVER NO . FLU LIKE SYMPTOMS? NO . COUGH NO . INTEGUMENTARY: DO YOU HAVE ANY RASHES OR OPEN SORES? NEW RASH / NEWLY ON GABAPENTIN AND HAS SINCE STOPPED (WENT TO [facility] AND DR CROW). . ALLERGIC/IMMUNO: ARE YOU ALLERGIC TO SHELLFISH OR IV DYE? NO . ANY NEW ALLERGIES? NO . PSYCHIATRIC: DO YOU HAVE THOUGHTS OF HURTING YOURSELF OR SOMEONE ELSE? NO . ARE YOU ABUSED, NEGLECTED, OR IN AN UNSAFE ENVIRONMENT? NO . ENDOCRINOLOGY: ARE YOU DIABETIC? YES . OTHER: DO YOU NEED ANY PRESCRIPTIONS? YES . IF YES, PLEASE LIST: ____ . ANY NEW PROBLEMS WITH YOUR MEDICATIONS? NO . WHEN DID YOU LAST EAT? ____ . WHEN DID YOU LAST DRINK? ____ . WHAT DID YOU LAST DRINK? ____ . NAME OF PERSON DRIVING YOU HOME? ____ . DO YOU HAVE ANY OTHER QUESTIONS OR CONCERNS NO . PSYCHOLOGY: ANXIETY IMPROVING. STILL HAS NOT HEARD FROM . SLEEP DISTURBANCES AWAKENS MULTIPLE TIMES PER NIGHT WITH PAIN IN BACK AND HIPS. . VITAL SIGNS WT 154.2 LBS, HT 65 IN, BMI 25.66 INDEX, BP 119/9 MM HG, HR 73 /MIN, RR 16 /MIN, TEMP 97.7 F, OXYGEN SAT % 98%, NA INITIALS TL 1129, REVIEWED BY: NL. EXAMINATION GENERAL EXAMINATION: PSYCHANXIOUS. HAS DIFFICULTY EXPRESSING HER THOUGHTS. ORIENTED TO PLACE AND PERSON. HAS DIFFICULTY WITH TELLING OF RECENT HEALTH HISTORY. LUNGS:CLEAR TO AUSCULTATION BILATERALLY. HEART:HEART RATE REGULAR. MUSCULOSKELETAL:POINT TENDERNESS OVER LEFT > RIGHT SIJ. , TRIGGER POINTS AND TIGHT FIBROUS BANDS IDENTIFIED OVER LUMBAR PARAVERTEBRAL MUSCLES. SLOW TO RISE TO STANDING POSITION. DIFFICULTY NOTED WITH BALANCE. GAIT WIDEBASED, SLOW, NONANTALGIC. EXTREMITIES:NO EDEMA. 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 CONTINUE ZYRTEK FOR ITCHING,ANATOMY OF THE SACROILIAC JOINT MATERIAL WAS PRINTED,SACROILIITIS MATERIAL WAS PRINTED. CLINICAL NOTES: WILL CHECK STATUS OF REFERRAL TO ORTHOPEDICS FOR EVAL OF SPONDYLITHESIS AT L4-5 AND L5-S1. PREVENTIVE MEDICINE PAIN CLINIC TEACHING: PROCEDURE TEACHING PRE SACROILIAC JOINT INJECTION INSTRUCTIONS REVIEWED WITH PT. PRINTED INFORMATION REGARDING SACROILIAC JOINT AND SACROILIITIS GIVEN.. DISPOSITION & COMMUNICATION FOLLOW UP AFTER INJECTION (REASON: BILATERAL SIJ) ELECTRONICALLY SIGNED BY FRANKIE TAPIA ON 06/05/2017 AT 08:52 AM EDT DISCLAIMER : THIS IS A VISIT SUMMARY EXTRACTED FROM THE [facility] CHART. IT IS NOT A COPY OF THE [facility] PROGRESS NOTE. MTDD
== END ==
LOC: M PAIN 11:00
PROVIDERS: ATTEND Nurse Practitioner Family
DX: M43.16 Spondylolisthesis, lumbar region (principal); M12.88 Other specific arthropathies, not elsewhere classified, other specified site; M51.26 Other intervertebral disc displacement, lumbar region; G89.29 Other chronic pain; E11.9 Type 2 diabetes mellitus without complications; E78.2 Mixed hyperlipidemia; K21.9 Gastro-esophageal reflux disease without esophagitis; J44.9 Chronic obstructive pulmonary disease, unspecified; Z79.84 Long term (current) use of oral hypoglycemic drugs; Z79.899 Other long term (current) drug therapy; Z88.0 Allergy status to penicillin; Z88.2 Allergy status to sulfonamides

== ENCOUNTER → 2017-05-24 | Outpatient (CLI) | payer OTHER ==
[~2017-05-24] MED LIST changes: +BUPIVACAINE HCL 0.25% 30 ML VIAL As Ordered ONE; +ISOVUE-M 300 61% 15ML VIAL (Q9967) As Ordered ONE; +LIDOCAINE 1% SDV INJ 30 ML VIAL As Ordered ONE; +TRIAMCINOLONE ACETONIDE SUSP 40 MG/ML VIAL (J3301) As Ordered ONE; +diazePAM 5 MG TAB As Ordered ONE; +oxyCODONE 5MG TAB As Ordered ONE
--- NOTE | 2017-05-24 15:53 | REP ---
FLUOROSCOPIC GUIDANCE: The images were reviewed with Dr. Vogel. The patient has a history of low back pain. The portable C-Arm was provided in the OR for Dr. Lane for fluoroscopic guidance. Four intraoperative spot films were obtained for needle placement verification for bilateral sacroiliac joint injection. The films are on the PACs system and are available for review. 33 seconds of fluoroscopy time was utilized for this procedure. Reviewed by AUSTYN Zelaya 05/24/2017 05:42 PEdited and Signed by Julian Vogel MD 06/10/2017 11:39 A
--- NOTE | 2017-06-04 23:08 | ECWPNPC ---
PATIENT NAME: PHIL HOUSTON : 1955 GENDER: FEMALE VISIT DATE: 05/24/2017 DISCHARGE DATE: 05/24/17 1041 VISIT LOCKED DATE TIME: PHYSICIAN: HERMAN GLORIA RESOURCE: HERMAN GLORIA REASON FOR APPOINTMENT 1. BILATERAL SIJ HISTORY OF PRESENT ILLNESS HISTORY OF PRESENT ILLNESS: PAIN THE PATIENT DESCRIBES THE PAIN... FALL RISK SCREENING: SCREENING :NO FALLS IN THE PAST YEAR CURRENT MEDICATIONS TAKING BETAMETHASONE DIPROPIONATE 0.05 % CREAM 1 THIN APPLICATION TO AFFECTED AREAS ON ARMS AND CHEST EXTERNALLY TWICE DAILY NEEDED, NOTES: 05-23-172099 TAKING ASPIR-81 81 MG TABLET DELAYED RELEASE 1 TABLET ORALLY ONCE A DAY, NOTES: 05-23-17799 TAKING METFORMIN HCL 500 MG TABLET 1 TABLET WITH MEALS ORALLY TWICE A DAY, NOTES: 05-23-171999 TAKING LANSOPRAZOLE 30 MG CAPSULE DELAYED RELEASE 1 CAPSULE BEFORE A MEAL ORALLY ONCE A DAY, NOTES: 05-24-17629 TAKING LISINOPRIL 5 MG TABLET 1 TABLET ORALLY ONCE A DAY, NOTES: 05-23-171999 TAKING VENTOLIN HFA 108 (90 BASE) MCG/ACT AEROSOL SOLUTION 2 PUFFS INHALATION EVERY 4-6 HOURS NEEDED, NOTES: 05-23-172099 TAKING INCRUSE ELLIPTA 62.5 MCG/INH AEROSOL POWDER BREATH ACTIVATED 1 PUFF INHALATION ONCE DAILY, NOTES: 05-24-17629 TAKING AIR CONDITIONER DX: 496, 327.23 DIRECTED - - TAKING SALINE 0.65 % SOLUTION 2 DROPS IN EACH NOSTRIL NEEDED NASALLY 2-4 TIMES DAILY, NOTES: 05-23-17 TAKING SYSTANE 0.4-0.3 % SOLUTION 1 DROP INTO AFFECTED EYE NEEDED OPHTHALMIC 5 TIMES A DAY, NOTES: 05-24-17629 TAKING TEGRETOL-XR 400 MG TABLET EXTENDED RELEASE 12 HOUR 1 TABLET ORALLY TWICE A DAY, NOTES: 05-23-171999 TAKING TIZANIDINE HCL 2 MG TABLET 1 TABLET NEEDED ORALLY THREE TIMES A DAY, NOTES: [id number] TAKING CHANTIX CONTINUING MONTH CEHLSY 1 MG TABLET 1 TABLET ORALLY TWICE A DAY, NOTES: 05-23-172099 TAKING HEATING PAD - PAD DIRECTED DX: M54.5 DAILY TAKING CANE - MISCELLANEOUS DIRECTED DX: M54.5 DAILY TAKING ATIVAN 0.5 0.5MG TABLET ORAL 3 TIMES A DAY NEEDED, NOTES: [id number] TAKING CITALOPRAM HYDROBROMIDE 40 MG TABLET 1 TAB ORALLY ONCE A DAY, NOTES: [id number] TAKING TYLENOL 500 MG TABLET 1-2 TABLETS NEEDED ORALLY EVERY 8 HRS NEEDED FOR PAIN, NOTES: NONE TAKING CYMBALTA 60 MG CAPSULE DELAYED RELEASE PARTICLES 1 CAPSULE ORALLY ONCE A DAY, NOTES: [id number] TAKING ARNUITY ELLIPTA 200 MCG/ACT AEROSOL POWDER BREATH ACTIVATED 1 PUFF INHALATION ONCE A DAY, NOTES: 05-24-17629 TAKING ATORVASTATIN CALCIUM 10 MG TABLET 1 TABLET ORALLY ONCE A DAY, NOTES: NOT STARTED YET TAKING DRISDOL 01767 UNIT CAPSULE 1 CAPSULE ORALLY ONCE A MONTH, NOTES: LAST MONTH TAKING NYSTATIN 378065 UNIT/GM CREAM 1 APPLICATION TO AFFECTED AREAS UNDER BREASTS EXTERNALLY TWICE A DAY NEEDED, NOTES: NONE TAKING LORATADINE 10 MG TABLET 1 TABLET ORALLY ONCE A DAY NEEDED, NOTES: 05-24-17629 TAKING CETIRIZINE HCL 10 MG TABLET 1 TABLET ORALLY ONCE A DAY AT BEDTIME NEEDED FOR ITCHING, NOTES: [id number] TAKING GABAPENTIN 300 MG CAPSULE 1 CAPSULE ORALLY THREE TIMES A DAY, NOTES: NEURO NOT-TAKING CALCIUM 600 + D 600-400 MG-UNIT TABLET 1 TABLET WITH MEAL ORALLY DAILY NOT-TAKING FISH OIL 1000 MG CAPSULE 1 CAPSULE ORALLY TWICE A DAY NOT-TAKING LANCETS 1 EACH - SUBCUTANEOUSLY DAILY... DX 250.00 NOT-TAKING BLOOD GLUCOSE TEST DX: 250.00 EACH - TEST STRIPS TWICE A DAY, FASTING BEFORE BREAKFAST; AT BEDTIME & NEEDED. NOT-TAKING ARTIFICIAL TEAR OINTMENT OINTMENT OPHTHALMIC AT BEDTIME NOT-TAKING REFRESH TEARS 0.5 % SOLUTION 1 DROP INTO AFFECTED EYE NEEDED OPHTHALMIC 24 TIME(S) A DAY NOT-TAKING NASACORT AQ 55 MCG/ACT AEROSOL SOLUTION 1 PUFF IN EACH NOSTRIL NASALLY TWICE A DAY NOT-TAKING MAGNESIUM 500 MG CAPSULE 1 CAP WITH MEAL ORALLY DAILY MEDICATION LIST REVIEWED AND RECONCILED WITH THE PATIENT PAST MEDICAL HISTORY TYPE II DIABETES HYPERLIPIDEMIA - NEG NUCLEAR STRESS TEST 07/13, - [facility] REFLUX COPD FEV1 = 1.9 ON 11/22/14 @PULMONOLOGY ALLERGIC RHINITIS VITAMIN D DEFICIENCY SMOKING DEPRESSION ANXIETY - DR VILLANUEVA FIFI-- ON CPAP FIBROMYALGIA DEGENERATIVE DISC DISEASE HYPERTENSION BACK AND NECK PAIN TRIGEMINAL NEURALGIA ALLERGIES PENICILLIN (FOR ALLERGIES USE ONLY): RASH: ALLERGY SULFA DRUGS: RASH: ALLERGY REVIEW OF SYSTEMS REVIEWED BY: PROVIDER: . CONSTITUTIONAL: ANY CHANGE IN YOUR MEDICAL CONDITION? NO . CHILLS NO . FEVER NO . INFECTION: DO YOU HAVE NEW INFECTIONS? NO . DO YOU HAVE HISTORY OF MRSA? NO . MUSCULOSKELETAL: ANY NEW PATTERNS OF PAIN OR NUMBNESS? NO . GASTROENTEROLOGY: ANY NEW CHANGE IN BOWEL CONTROL? NO . GENITOURINARY: ANY NEW CHANGE IN BLADDER CONTROL? NO . IS THERE A CHANCE YOU COULD BE ? NO . HEMATOLOGY/LYMPH: DO YOU TAKE ANY BLOOD THINNERS? (FOR EXAMPLE- COUMADIN, PLAVIX, AGGRENOX, PLATEL, PRADAXA, OR XARELTO) NO . WHEN WAS YOUR LAST DOSE? DATE: TIME: . NEUROLOGY: HAVE YOU FALLEN IN THE PAST 6 MONTHS? NO . ANY NEW EXTREMITY NUMBNESS OR WEAKNESS? NO . CARDIOLOGY: DO YOU HAVE A PACEMAKER OR DEFIBRILLATOR? NO . RESPIRATORY: HAVE YOU BEEN SICK IN THE PAST WEEK? NO . FEVER NO . FLU LIKE SYMPTOMS? NO . COUGH NO . INTEGUMENTARY: DO YOU HAVE ANY RASHES OR OPEN SORES? YES, HAS SOME RASH SAW PCP AND HOST/HOSTESS GROUND. ? FROM GABAPENTIN . ALLERGIC/IMMUNO: ARE YOU ALLERGIC TO SHELLFISH OR IV DYE? NO . ANY NEW ALLERGIES? NO . PSYCHIATRIC: DO YOU HAVE THOUGHTS OF HURTING YOURSELF OR SOMEONE ELSE? NO . ARE YOU ABUSED, NEGLECTED, OR IN AN UNSAFE ENVIRONMENT? NO . ENDOCRINOLOGY: ARE YOU DIABETIC? YES . OTHER: DO YOU NEED ANY PRESCRIPTIONS? NO . IF YES, PLEASE LIST: ____ . ANY NEW PROBLEMS WITH YOUR MEDICATIONS? NO . WHEN DID YOU LAST EAT? 05-23-17 10 PM . WHEN DID YOU LAST DRINK? 05-24-17 0700 . WHAT DID YOU LAST DRINK? WATER . NAME OF PERSON DRIVING YOU HOME? 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 DO YOU HAVE ANY OTHER QUESTIONS OR CONCERNS NO . VITAL SIGNS WT 153 LBS, HT 65 IN, BMI 25.46 INDEX, BP 125/71 MM HG, HR 75 /MIN, RR 18 /MIN, TEMP 98.7 F, OXYGEN SAT % 96%, NA INITIALS TR 0855, REVIEWED BY: CM. ASSESSMENTS SACROILIITIS, NOT ELSEWHERE CLASSIFIED - M46.1 (PRIMARY) PROCEDURES PN SI PRE PROCEDURE DIAGNOSIS SACROILIITIS, SACROILIAC JOINT DYSFUNCTION POST PROCEDURE DIAGNOSIS SACROILIITIS, SACROILIAC JOINT DYSFUNCTION PROCEDURE BILATERAL SACROILIAC JOINT BLOCK SURGEON DR. HERMAN GLORIA CHECKOUT SUPERVISOR NONE ANESTHESIA LOCAL PRE PROCEDURE NOTE PATIENT WITH HISTORY OF CHRONIC LOW BACK PAIN. I EVALUATED THE PATIENT AND REVIEWED THE CHART. I WENT OVER THE RISKS, ALTERNATIVES, AND BENEFITS ASSOCIATED WITH THIS PROCEDURE. THE PATIENT WOULD LIKE TO PROCEED AND GAVE CONSENT TO PERFORM THE PROCEDURE. THE PATIENT DENIES UNEXPLAINABLE WEIGHT LOSS, FEVER, CHILLS, OR NEW CHANGES IN URINARY OR BOWEL CONTROL DESCRIPTION OF PROCEDURE THE PATIENT WAS BROUGHT TO THE PROCEDURE ROOM AND PLACED IN THE PRONE POSITION. THE LUMBOSACRAL AREA WAS CLEANED WITH CHLORAPREP SOLUTION AND DRAPED ASEPTICALLY. THE PROCEDURE WAS DONE UNDER STERILE CONDITIONS. I CHECKED LATERALITY AND THE LEVEL WHERE THE PROCEDURE WAS GOING TO BE PERFORMED WITH THE PATIENT AND THE SUPPORTING STAFF AT THE MOMENT OF THE TIME OUT IN THE PROCEDURE ROOM. UNDER FLUOROSCOPIC GUIDANCE, TARGET POINT WAS SELECTED AT THE LOWER BORDER OF THE RIGHT AND LEFT SACROILIAC JOINT. TARGET POINT WAS SELECTED AFTER MEDIAL ROTATION AND TILT OF THE MAGNIFIER OF THE C-ARM. LIDOCAINE WAS USED TO NUMB THE SKIN AND SUBCUTANEOUS TISSUE BELOW IT. A SPINAL NEEDLE, 22-GAUGE, WAS ADVANCED UNDER FLUOROSCOPIC GUIDANCE AND FOLLOWING PATIENT FEEDBACK UNTIL THE TARGET AREA WAS TOUCHED. THE POSITION OF THE NEEDLE WAS VERIFIED WITH AP AND LATERAL VIEWS. AFTER PROPER POSITION OF THE NEEDLE WAS ACHIEVED, ISOVUE M DYE 30%, 0.25 ML, WAS INJECTED SHOWING SPREAD OF THE DYE. THEN, A SOLUTION OF 20 MG OF KENALOG WAS INJECTED IN RIGHT JOINT WITH 3 ML OF BUPIVACAINE 0.125%. THERE WAS NO EVIDENCE OF BLOOD, PARESTHESIA OR CEREBROSPINAL FLUID DURING THE PROCEDURE. THE PATIENT WAS SENT TO THE RECOVERY ROOM. THE PATIENT WAS MOVING THE EXTREMITIES AND DOING WELL. THERE WAS NO COMPLICATION DURING THE PROCEDURE. FLUOROSCOPY TIME WAS 33 SECONDS POST PROCEDURE NOTE THE PATIENT WILL BE SEEN IN A FOLLOW UP IN THE NEXT FEW WEEKS. INSTRUCTIONS WERE GIVEN, QUESTIONS WERE ANSWERED, AND THE PATIENT EXPRESSED UNDERSTANDING AND AGREED WITH THE PLAN. I, AMADOR JONES, DOCUMENTED THE ABOVE INFORMATION ACTING A SCRIBE FOR DR. GLORIA. I HAVE REVIEWED THE ABOVE DOCUMENT, WRITTEN BY AMADOR AGUILAR AND I VERIFY THAT IT IS [facility] FLUORO GUIDANCE (PAIN)[id number] PROCEDURE CODES 54458 INJECT SACROILIAC JOINT 6045F RADXPS IN END [id number] PXD DISPOSITION & COMMUNICATION FOLLOW UP 3 WEEKS ELECTRONICALLY SIGNED BY HERMAN GLORIA MD ON 06/04/2017 AT 09:19 PM EDT DISCLAIMER : THIS IS A VISIT SUMMARY EXTRACTED FROM THE [email or web address] CHART. IT IS NOT A COPY OF THE [email or web address] PROGRESS NOTE. SHANNAN
== END ==
LOC: M PAIN 09:00
PROVIDERS: ATTEND Anesthesiology
DX: G89.29 Other chronic pain (principal); M46.1 Sacroiliitis, not elsewhere classified; M54.5 Low back pain; E11.9 Type 2 diabetes mellitus without complications; J44.9 Chronic obstructive pulmonary disease, unspecified; E55.9 Vitamin D deficiency, unspecified; K21.9 Gastro-esophageal reflux disease without esophagitis; M47.816 Spondylosis without myelopathy or radiculopathy, lumbar region; Z79.82 Long term (current) use of aspirin; Z79.84 Long term (current) use of oral hypoglycemic drugs; Z79.899 Other long term (current) drug therapy; Z88.0 Allergy status to penicillin; Z88.2 Allergy status to sulfonamides

== ENCOUNTER → 2017-06-14 | Outpatient (CLI) | payer OTHER ==
[~2017-06-14] MED LIST changes: -BUPIVACAINE HCL 0.25% 30 ML VIAL As Ordered ONE; -ISOVUE-M 300 61% 15ML VIAL (Q9967) As Ordered ONE; -LIDOCAINE 1% SDV INJ 30 ML VIAL As Ordered ONE; -TRIAMCINOLONE ACETONIDE SUSP 40 MG/ML VIAL (J3301) As Ordered ONE; -diazePAM 5 MG TAB As Ordered ONE; -oxyCODONE 5MG TAB As Ordered ONE
--- NOTE | 2017-06-15 00:40 | ECWPNPC ---
PATIENT NAME: PHIL HOUSTON : 1955 GENDER: FEMALE VISIT DATE: 06/14/2017 DISCHARGE DATE: 06/14/17 1244 VISIT LOCKED DATE TIME: PHYSICIAN: RENEE CALABRESE RESOURCE: RENEE CALABRESE REASON FOR APPOINTMENT 1. POST PROCEDURE HISTORY OF PRESENT ILLNESS HISTORY OF PRESENT ILLNESS: PAIN THE PATIENT DESCRIBES THE PAIN... FALL RISK SCREENING: SCREENING :NO FALLS IN THE PAST YEAR TODAY'S VISIT: NOTES: S/P BILATERAL SACRAL ILIAC JOINT INJECTIONS COMPLETED ON 05/24/17. REPORTS PAIN LEVEL PRIOR TO INJECTION 7.5/10, POST INJECTION 4/10 FOR 1 WEEK AND THEN SLOWLY RETURNED TO BASELINE. RATES PAIN TODAY 8.5/10. IS HAVING PAIN R> L INTO BUTTUCK AND NUMBNESS INTO LEGS. WORSE AREA IS ALONG SACRUM TO TAILBONE AN UNDER BUTTUCK. . CURRENT MEDICATIONS TAKING ASPIR-81 81 MG TABLET DELAYED RELEASE 1 TABLET ORALLY ONCE A DAY TAKING METFORMIN HCL 500 MG TABLET 1 TABLET WITH MEALS ORALLY TWICE A DAY TAKING LANSOPRAZOLE 30 MG CAPSULE DELAYED RELEASE 1 CAPSULE BEFORE A MEAL ORALLY ONCE A DAY TAKING LISINOPRIL 5 MG TABLET 1 TABLET ORALLY ONCE A DAY TAKING VENTOLIN HFA 108 (90 BASE) MCG/ACT AEROSOL SOLUTION 2 PUFFS INHALATION EVERY 4-6 HOURS NEEDED TAKING INCRUSE ELLIPTA 62.5 MCG/INH AEROSOL POWDER BREATH ACTIVATED 1 PUFF INHALATION ONCE DAILY TAKING AIR CONDITIONER DX: 496, 327.23 DIRECTED - - TAKING SALINE 0.65 % SOLUTION 2 DROPS IN EACH NOSTRIL NEEDED NASALLY 2-4 TIMES DAILY TAKING TIZANIDINE HCL 2 MG TABLET 1 TABLET NEEDED ORALLY THREE TIMES A DAY TAKING CHANTIX CONTINUING MONTH CHLESY 1 MG TABLET 1 TABLET ORALLY TWICE A DAY TAKING HEATING PAD - PAD DIRECTED DX: M54.5 DAILY TAKING CANE - MISCELLANEOUS DIRECTED DX: M54.5 DAILY TAKING ATIVAN 0.5 0.5MG TABLET ORAL 3 TIMES A DAY NEEDED TAKING CITALOPRAM HYDROBROMIDE 40 MG TABLET 1 TAB ORALLY ONCE A DAY TAKING TYLENOL 500 MG TABLET 1-2 TABLETS NEEDED ORALLY EVERY 8 HRS NEEDED FOR PAIN, NOTES: NONE TAKING CYMBALTA 60 MG CAPSULE DELAYED RELEASE PARTICLES 1 CAPSULE ORALLY ONCE A DAY, NOTES: NOT HELPING TAKING ARNUITY ELLIPTA 200 MCG/ACT AEROSOL POWDER BREATH ACTIVATED 1 PUFF INHALATION ONCE A DAY TAKING ATORVASTATIN CALCIUM 10 MG TABLET 1 TABLET ORALLY ONCE A DAY TAKING DRISDOL 01230 UNIT CAPSULE 1 CAPSULE ORALLY ONCE A MONTH TAKING NYSTATIN [id number] UNIT/GM CREAM 1 APPLICATION TO AFFECTED AREAS UNDER BREASTS EXTERNALLY TWICE A DAY NEEDED TAKING LORATADINE 10 MG TABLET 1 TABLET ORALLY ONCE A DAY NEEDED TAKING CETIRIZINE HCL 10 MG TABLET 1 TABLET ORALLY ONCE A DAY AT BEDTIME NEEDED FOR ITCHING TAKING GABAPENTIN 300 MG CAPSULE 1 CAPSULE ORALLY THREE TIMES A DAY, NOTES: NOT HELPING TAKING SYSTANE 0.4-0.3 % SOLUTION 1 DROP INTO AFFECTED EYE NEEDED OPHTHALMIC 5 TIMES A DAY NOT-TAKING BETAMETHASONE DIPROPIONATE 0.05 % CREAM 1 THIN APPLICATION TO AFFECTED AREAS ON ARMS AND CHEST EXTERNALLY TWICE DAILY NEEDED NOT-TAKING TEGRETOL-XR 400 MG TABLET EXTENDED RELEASE 12 HOUR 1 TABLET ORALLY TWICE A DAY NOT-TAKING CALCIUM 600 + D 600-400 MG-UNIT TABLET 1 TABLET WITH MEAL ORALLY DAILY NOT-TAKING FISH OIL 1000 MG CAPSULE 1 CAPSULE ORALLY TWICE A DAY NOT-TAKING LANCETS 1 EACH - SUBCUTANEOUSLY DAILY... DX 250.00 NOT-TAKING BLOOD GLUCOSE TEST DX: 250.00 EACH - TEST STRIPS TWICE A DAY, FASTING BEFORE BREAKFAST; AT BEDTIME & NEEDED. NOT-TAKING ARTIFICIAL TEAR OINTMENT OINTMENT OPHTHALMIC AT BEDTIME NOT-TAKING REFRESH TEARS 0.5 % SOLUTION 1 DROP INTO AFFECTED EYE NEEDED OPHTHALMIC 24 TIME(S) A DAY NOT-TAKING NASACORT AQ 55 MCG/ACT AEROSOL SOLUTION 1 PUFF IN EACH NOSTRIL NASALLY TWICE A DAY NOT-TAKING MAGNESIUM 500 MG CAPSULE 1 CAP WITH MEAL ORALLY DAILY MEDICATION LIST REVIEWED AND RECONCILED WITH THE PATIENT PAST MEDICAL HISTORY TYPE II DIABETES HYPERLIPIDEMIA - NEG NUCLEAR STRESS TEST 07/13, - [facility] REFLUX COPD FEV1 = 1.9 ON 11/22/14 @PULMONOLOGY ALLERGIC RHINITIS VITAMIN D DEFICIENCY SMOKING DEPRESSION ANXIETY - DR VILLANUEVA FIFI-- ON CPAP FIBROMYALGIA DEGENERATIVE DISC DISEASE HYPERTENSION BACK AND NECK PAIN TRIGEMINAL NEURALGIA ALLERGIES PENICILLIN (FOR ALLERGIES USE ONLY): RASH: ALLERGY SULFA DRUGS: RASH: ALLERGY TEGRETOL: RASH REVIEW OF SYSTEMS FOLLOW-UP ROS: PSYCHOLOGY: POSITIVE FOR, ANXIETY . REVIEWED BY: PROVIDER: RENEE MORALEZ . CONSTITUTIONAL: ANY CHANGE IN YOUR MEDICAL CONDITION? YES, MORE PAIN SINCE SHE HAS BEEN COMING HERE . CHILLS NO . FEVER NO . INFECTION: DO YOU HAVE NEW INFECTIONS? NO . DO YOU HAVE HISTORY OF MRSA? NO . MUSCULOSKELETAL: ANY NEW PATTERNS OF PAIN OR NUMBNESS? YES, DOWN LEGS . GASTROENTEROLOGY: ANY NEW CHANGE IN BOWEL CONTROL? NO . GENITOURINARY: ANY NEW CHANGE IN BLADDER CONTROL? NO . IS THERE A CHANCE YOU COULD BE ? NO . HEMATOLOGY/LYMPH: DO YOU TAKE ANY BLOOD THINNERS? (FOR EXAMPLE- COUMADIN, PLAVIX, AGGRENOX, PLATEL, PRADAXA, OR XARELTO) NO . WHEN WAS YOUR LAST DOSE? DATE: TIME: . NEUROLOGY: HAVE YOU FALLEN IN THE PAST 6 MONTHS? NO . ANY NEW EXTREMITY NUMBNESS OR WEAKNESS? NO . CARDIOLOGY: DO YOU HAVE A PACEMAKER OR DEFIBRILLATOR? NO . CHEST PAIN PATIENT DENIES . RESPIRATORY: HAVE YOU BEEN SICK IN THE PAST WEEK? NO . FEVER NO . FLU LIKE SYMPTOMS? NO . COUGH NO . INTEGUMENTARY: DO YOU HAVE ANY RASHES OR OPEN SORES? NO . ALLERGIC/IMMUNO: ARE YOU ALLERGIC TO SHELLFISH OR IV DYE? NO . ANY NEW ALLERGIES? NO . PSYCHIATRIC: DO YOU HAVE THOUGHTS OF HURTING YOURSELF OR SOMEONE ELSE? NO . ARE YOU ABUSED, NEGLECTED, OR IN AN UNSAFE ENVIRONMENT? NO . ENDOCRINOLOGY: ARE YOU DIABETIC? YES . OTHER: DO YOU NEED ANY PRESCRIPTIONS? YES . IF YES, PLEASE LIST: NEED TO TALK TO YOU . ANY NEW PROBLEMS WITH YOUR MEDICATIONS? NO . WHEN DID YOU LAST EAT? ____ . WHEN DID YOU LAST DRINK? ____ . WHAT DID YOU LAST DRINK? ____ . NAME OF PERSON DRIVING YOU HOME? ____ . DO YOU HAVE ANY OTHER QUESTIONS OR CONCERNS MORE PAIN ACROSS LOW BACK AND DOWN LEGS . VITAL SIGNS WT 155.0 LBS, HT 65 IN, BMI 25.79 INDEX, BP 121/71 MM HG, HR 77 /MIN, RR 18 /MIN, TEMP 98.1 F, OXYGEN SAT % 94%, NA INITIALS TL 1142, REVIEWED BY: NL. EXAMINATION GENERAL EXAMINATION: PSYCH. ORIENTED TO PLACE AND PERSON. IMPROVEMENT NOTED TODAY WITH STAYING ON [employer]. . LUNGS:CLEAR TO AUSCULTATION BILATERALLY. HEART:HEART RATE REGULAR. MUSCULOSKELETAL:POINT TENDERNESS OVER RIGHT SACRUM AND SACRAL COCCYGEAL LIGAMENT. TENDER WITH PALPATION INTO BUTTUCK. TRIGGER POINTS AND TIGHT FIBROUS BANDS IDENTIFIED OVER LUMBAR PARAVERTEBRAL MUSCLES.RISES EASILY TO STANDING POSITION TODAY. CANE USED FOR BALANCE. DIFFICULTY NOTED WITH BALANCE BUT THIS IS IMPROVED SINCE LAST VISIT. . GAIT WIDEBASED, SLOW, NONANTALGIC. EXTREMITIES:NO EDEMA. 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 TREATMENT SPONDYLOLISTHESIS OF LUMBAR REGION START NORCO TABLET, 5-325 MG, 1 TABLET NEEDED, ORALLY, ONCE DAILY MDD=1, 20 DAYS, 20, REFILLS 0 REFILL CYMBALTA CAPSULE DELAYED RELEASE PARTICLES, 60 MG, 1 CAPSULE, ORALLY, ONCE A DAY, 30 DAY(S), 30 CAPSULE, REFILLS 1, NOTES: NOT HELPING NOTES: REQUEST AUTH FOR SACRACOCCYGEAL LIGAMENT INJECTION. PREVENTIVE MEDICINE DISCUSSED PREPROCEDURE CARE WITH PT EXPRESSING UNDERSTANDING OF THIS. PROCEDURE CODES FA211 ESTABILISHED PATIENT [facility] FAC[facility] CHARGE DISPOSITION & COMMUNICATION FOLLOW UP 1 MONTH (REASON: REQUEST AUTH FOR SACRACOCCYGEAL LIGAMENT INJECTION) ELECTRONICALLY SIGNED BY FRANKIE TAPIA ON 06/14/2017 AT 04:26 PM EDT DISCLAIMER : THIS IS A VISIT SUMMARY EXTRACTED FROM THE [employer] CHART. IT IS NOT A COPY OF THE [employer] PROGRESS NOTE. SHANNAN
== END ==
LOC: M PAIN 11:00
PROVIDERS: ATTEND Nurse Practitioner Family
DX: M43.16 Spondylolisthesis, lumbar region (principal); M12.88 Other specific arthropathies, not elsewhere classified, other specified site; M51.26 Other intervertebral disc displacement, lumbar region; Z79.82 Long term (current) use of aspirin; Z79.84 Long term (current) use of oral hypoglycemic drugs; Z79.899 Other long term (current) drug therapy; Z88.0 Allergy status to penicillin; Z88.2 Allergy status to sulfonamides; Z88.8 Allergy status to other drugs, medicaments and biological substances

== ENCOUNTER → 2017-07-03 | Outpatient (CLI) | payer OTHER ==
[2017-07-03 14:01] LABS: ALBUMIN 3.5 GM/DL (3.2-5.2); ALBUMIN/GLOBULIN RATIO 1.17 (1.00-1.93); ALKALINE PHOSPHATASE 59 U/L (45-117); ALT/SGPT 31 U/L (12-78); ANION GAP 7 MEQ/L (8-16); AST/SGOT 20 U/L (15-37); BILIRUBIN,TOTAL 0.4 MG/DL (0.2-1.0); BLOOD UREA NITROGEN 12 MG/DL (7-18); CALCIUM LEVEL 9.3 MG/DL (8.8-10.2); CARBON DIOXIDE LEVEL 29 MEQ/L (21-32); CHLORIDE LEVEL 99 MEQ/L (98-107); CHOLESTEROL LEVEL 159 MG/DL (<200); CREATININE FOR GFR 0.69 MG/DL (0.55-1.02); GLOMERULAR FILTRATION RATE > 60.0 (>45); GLUCOSE, FASTING 84 MG/DL (80-110); POTASSIUM SERUM 4.6 MEQ/L (3.5-5.1); SODIUM LEVEL 135 MEQ/L (136-145); TOTAL PROTEIN 6.5 GM/DL (6.4-8.2); TRIGLYCERIDES LEVEL 103 MG/DL (<150)
== END ==
LOC: M LAB 11:38
PROVIDERS: ATTEND Nurse Practitioner Family
DX: E11.9 Type 2 diabetes mellitus without complications (principal)

== ENCOUNTER → 2017-08-06 | Outpatient (CLI) | payer OTHER ==
[~2017-08-06] MED LIST changes: +BUPIVACAINE HCL 0.25% 30 ML VIAL As Ordered ONE; +ISOVUE-M 300 61% 15ML VIAL (Q9967) As Ordered ONE; +LIDOCAINE 1% SDV INJ 30 ML VIAL As Ordered ONE; +TRIAMCINOLONE ACETONIDE SUSP 40 MG/ML VIAL (J3301) As Ordered ONE; +diazePAM 5 MG TAB As Ordered ONE
--- NOTE | 2017-08-06 18:37 | REP ---
Partial sacral and coccyx series: Four views: History: Sacral coccygeal ligament injection. 10 seconds of fluoroscopy time is reported. Findings: A sequence of four last image hold fluoroscopic spot views of the sacrum and coccyx document needle position and contrast injection associated with injection. Signed by Regan Membreno MD 08/07/2017 07:59 A
--- NOTE | 2017-08-07 01:20 | ECWPNPC ---
PATIENT NAME: PHIL HOUSTON : 1955 GENDER: FEMALE VISIT DATE: 08/06/2017 DISCHARGE DATE: 08/06/17 1331 VISIT LOCKED DATE TIME: PHYSICIAN: HERMAN GLORIA RESOURCE: HERMAN GLORIA REASON FOR APPOINTMENT 1. SACRACOCCYGEAL LIGAMENT INJECTION HISTORY OF PRESENT ILLNESS HISTORY OF PRESENT ILLNESS: PAIN THE PATIENT DESCRIBES THE PAIN... FALL RISK SCREENING: SCREENING :NO FALLS IN THE PAST YEAR CURRENT MEDICATIONS TAKING ASPIR-81 81 MG TABLET DELAYED RELEASE 1 TABLET ORALLY ONCE A DAY, NOTES: 08/05/17 0700 TAKING METFORMIN HCL 500 MG TABLET 1 TABLET WITH MEALS ORALLY TWICE A DAY, NOTES: 08/05/171899 TAKING LANSOPRAZOLE 30 MG CAPSULE DELAYED RELEASE 1 CAPSULE BEFORE A MEAL ORALLY ONCE A DAY, NOTES: 08/05/17 07 TAKING AIR CONDITIONER DX: 496, 327.23 DIRECTED - - TAKING SALINE 0.65 % SOLUTION 2 DROPS IN EACH NOSTRIL NEEDED NASALLY 2-4 TIMES DAILY, NOTES: COUPLE DAYS AGO TAKING TIZANIDINE HCL 2 MG TABLET 1 TABLET NEEDED ORALLY THREE TIMES A DAY, NOTES: COUPLE DAYS AGO TAKING CHANTIX CONTINUING MONTH CHELSY 1 MG TABLET 1 TABLET ORALLY TWICE A DAY, NOTES: 08/05/17 2000 TAKING HEATING PAD - PAD DIRECTED DX: M54.5 DAILY TAKING CANE - MISCELLANEOUS DIRECTED DX: M54.5 DAILY TAKING ATIVAN 0.5 0.5MG TABLET ORAL 3 TIMES A DAY NEEDED, NOTES: 08/05/17 1700 TAKING CITALOPRAM HYDROBROMIDE 40 MG TABLET 1 TAB ORALLY ONCE A DAY, NOTES: 08/04/17 TAKING TYLENOL 500 MG TABLET 1-2 TABLETS NEEDED ORALLY EVERY 8 HRS NEEDED FOR PAIN, NOTES: 08/05/17 1600 TAKING GABAPENTIN 300 MG CAPSULE 1 CAPSULE ORALLY THREE TIMES A DAY, NOTES: 08/05/17 1700 TAKING SYSTANE 0.4-0.3 % SOLUTION 1 DROP INTO AFFECTED EYE NEEDED OPHTHALMIC 5 TIMES A DAY, NOTES: 08/06/17 0800 TAKING CYMBALTA 60 MG CAPSULE DELAYED RELEASE PARTICLES 1 CAPSULE ORALLY ONCE A DAY, NOTES: 08/05/17 190 TAKING LISINOPRIL 5 MG TABLET 1 TABLET ORALLY ONCE A DAY, NOTES: 08/05/17 1900 TAKING VENTOLIN HFA 108 (90 BASE) MCG/ACT AEROSOL SOLUTION 2 PUFFS INHALATION EVERY 4-6 HOURS NEEDED, NOTES: 08/06/17 1125 TAKING INCRUSE ELLIPTA 62.5 MCG/INH AEROSOL POWDER BREATH ACTIVATED 1 PUFF INHALATION ONCE DAILY, NOTES: 08/06/17 0800 TAKING ASMANEX HFA 100 MCG/ACT AEROSOL 2 PUFFS INHALATION TWICE A DAY, NOTES: 08/06/17 0800 TAKING NYSTATIN 218466 UNIT/GM CREAM 1 APPLICATION TO AFFECTED AREAS UNDER BREASTS AND GROIN AND AXILLA EXTERNALLY TWICE A DAY, NOTES: 08/05/17 2100 TAKING LORATADINE 10 MG TABLET 1 TABLET ORALLY ONCE A DAY NEEDED, NOTES: 08/05/17 0700 TAKING CETIRIZINE HCL 10 MG TABLET 1 TABLET ORALLY ONCE A DAY, NOTES: 08/05/17 220 TAKING ATORVASTATIN CALCIUM 10 MG TABLET 1 TABLET ORALLY ONCE A DAY, NOTES: 08/05/172199 TAKING CALCIUM 600 + D 600-400 MG-UNIT TABLET 1 TABLET WITH MEAL ORALLY DAILY, NOTES: NONE LATELY TAKING DRISDOL 89525 UNIT CAPSULE 1 CAPSULE ORALLY ONCE A MONTH, NOTES: COUPLE WEEKS AGO TAKING NORCO 5-325 MG TABLET 1 TABLET NEEDED ORALLY ONCE DAILY MDD=1, NOTES: 07/21/17 TAKING BETAMETHASONE DIPROPIONATE 0.05 % CREAM 1 THIN APPLICATION TO AFFECTED AREAS ON ARMS AND CHEST EXTERNALLY TWICE DAILY NEEDED, NOTES: COUPLE DAYS AGO NOT-TAKING TEGRETOL-XR 400 MG TABLET EXTENDED RELEASE 12 HOUR 1 TABLET ORALLY TWICE A DAY NOT-TAKING FISH OIL 1000 MG CAPSULE 1 CAPSULE ORALLY TWICE A DAY NOT-TAKING LANCETS 1 EACH - SUBCUTANEOUSLY DAILY... DX 250.00 NOT-TAKING BLOOD GLUCOSE TEST DX: 250.00 EACH - TEST STRIPS TWICE A DAY, FASTING BEFORE BREAKFAST; AT BEDTIME & NEEDED. NOT-TAKING ARTIFICIAL TEAR OINTMENT OINTMENT OPHTHALMIC AT BEDTIME NOT-TAKING REFRESH TEARS 0.5 % SOLUTION 1 DROP INTO AFFECTED EYE NEEDED OPHTHALMIC 24 TIME(S) A DAY NOT-TAKING NASACORT AQ 55 MCG/ACT AEROSOL SOLUTION 1 PUFF IN EACH NOSTRIL NASALLY TWICE A DAY NOT-TAKING MAGNESIUM 500 MG CAPSULE 1 CAP WITH MEAL ORALLY DAILY MEDICATION LIST REVIEWED AND RECONCILED WITH THE PATIENT PAST MEDICAL HISTORY TYPE II DIABETES HYPERLIPIDEMIA - NEG NUCLEAR STRESS TEST 07/13, - [facility] REFLUX COPD FEV1 = 1.9 ON 11/22/14 @PULMONOLOGY ALLERGIC RHINITIS VITAMIN D DEFICIENCY SMOKING DEPRESSION ANXIETY - DR VILLANUEVA FIFI-- ON CPAP FIBROMYALGIA DEGENERATIVE DISC DISEASE HYPERTENSION BACK AND NECK PAIN TRIGEMINAL NEURALGIA ALLERGIES PENICILLIN (FOR ALLERGIES USE ONLY): RASH: ALLERGY SULFA DRUGS: RASH: ALLERGY TEGRETOL: RASH CODEINE: RASH: ALLERGY SURGICAL HISTORY TONSILLECTOMY 1974 1988 DEVIATED SEPTUM 2013 HOSPITALIZATION/MAJOR DIAGNOSTIC PROCEDURE SURGERY REVIEW OF SYSTEMS REVIEWED BY: PROVIDER: . CONSTITUTIONAL: ANY CHANGE IN YOUR MEDICAL CONDITION? NO . CHILLS NO . FEVER NO . INFECTION: DO YOU HAVE NEW INFECTIONS? NO . DO YOU HAVE HISTORY OF MRSA? NO . MUSCULOSKELETAL: ANY NEW PATTERNS OF PAIN OR NUMBNESS? NO . GASTROENTEROLOGY: ANY NEW CHANGE IN BOWEL CONTROL? NO . GENITOURINARY: ANY NEW CHANGE IN BLADDER CONTROL? NO . IS THERE A CHANCE YOU COULD BE ? NO . HEMATOLOGY/LYMPH: DO YOU TAKE ANY BLOOD THINNERS? (FOR EXAMPLE- COUMADIN, PLAVIX, AGGRENOX, PLATEL, PRADAXA, OR XARELTO) NO . WHEN WAS YOUR LAST DOSE? DATE: TIME: . NEUROLOGY: HAVE YOU FALLEN IN THE PAST 6 MONTHS? NO . ANY NEW EXTREMITY NUMBNESS OR WEAKNESS? NO . CARDIOLOGY: DO YOU HAVE A PACEMAKER OR DEFIBRILLATOR? NO . RESPIRATORY: HAVE YOU BEEN SICK IN THE PAST WEEK? NO . FEVER NO . FLU LIKE SYMPTOMS? NO . COUGH NO . INTEGUMENTARY: DO YOU HAVE ANY RASHES OR OPEN SORES? YES, CAT SCRATCHES TO FOREARMS . ALLERGIC/IMMUNO: ARE YOU ALLERGIC TO SHELLFISH OR IV DYE? NO . ANY NEW ALLERGIES? NO . PSYCHIATRIC: DO YOU HAVE THOUGHTS OF HURTING YOURSELF OR SOMEONE ELSE? NO . ARE YOU ABUSED, NEGLECTED, OR IN AN UNSAFE ENVIRONMENT? NO . ENDOCRINOLOGY: ARE YOU DIABETIC? YES . OTHER: DO YOU NEED ANY PRESCRIPTIONS? YES, VICODIN . IF YES, PLEASE LIST: ____ . ANY NEW PROBLEMS WITH YOUR MEDICATIONS? NO . WHEN DID YOU LAST EAT? 08/05/17 . WHEN DID YOU LAST DRINK? 1050 . WHAT DID YOU LAST DRINK? WATER TODAY @ 1050/BLACK COFFEE @ TODAY 0800 . NAME OF PERSON DRIVING YOU HOME? YELLOW CAB . DO YOU HAVE ANY OTHER QUESTIONS OR CONCERNS NO . VITAL SIGNS WT 154 LBS, HT 65 IN, BMI 25.62 INDEX, BP 119/69 MM HG, HR 67 /MIN, RR 16 /MIN, TEMP 97.5 F, OXYGEN SAT % 98%, NA INITIALS SC 11:22. ASSESSMENTS SPINAL ENTHESOPATHY, SACRAL AND SACROCOCCYGEAL REGION - M46.08 (PRIMARY) TREATMENT OTHERS NOTES: PREPROCEDURE DIAGNOSIS:INFLAMMATION OF THE SACROCOCCYGEAL LIGAMENT.COCCYDYNIA.POSTPROCEDURE DIAGNOSIS:INFLAMMATION OF THE SACROCOCCYGEAL LIGAMENT.COCCYDYNIA.PROCEDURE: INJECTION OF THE RIGHT AND LEFT SACROCOCCYGEAL LIGAMENT. SURGEON: DR. HERMAN GLORIAUNIVERSITY OF MISSOURI HEALTH CAREANESTHESIA: LOCAL.PREOPERATIVE NOTE: THE PATIENT HAS HISTORY OF LOW BACK PAIN. I EVALUATED THE PATIENT AND REVIEWED THE CHART. WE BOTH AGREE ON INJECTING OVER THE SACROCOCCYGEAL LIGAMENT. THE PATIENT IS AWARE OF THE POTENTIAL COMPLICATIONS WHICH INCLUDE INFECTIONS, VISCERAL PUNCTURE, INCLUDING RECTAL PUNCTURE AMONG OTHERS. I DISCUSSED ALTERNATIVES AND THE PATIENT EXPRESSED THAT SHE WOULD LIKE TO MOVE FORWARD. THE PATIENT DENIES UNEXPLAINABLE, WEIGHT LOSS, FEVER, CHILLS, OR CHANGES IN URINARY OR BOWEL CONTROL. DESCRIPTION OF PROCEDURE: AFTER CONSENT WAS TAKEN, THE PATIENT WAS BROUGHT TO THE PROCEDURE ROOM AND PLACED IN THE PRONE POSITION. THE LUMBOSACRAL AREA WAS CLEANED WITH CHLORAPREP SOLUTION AND DRAPED ASEPTICALLY. THE PROCEDURE WAS DONE UNDER STERILE CONDITIONS. UNDER FLUOROSCOPIC GUIDANCE, THE TARGET WAS SELECTED AT THE RIGHT AND LEFT SACROCOCCYGEAL LIGAMENT. LIDOCAINE WAS USED TO NUMB THE SKIN AND THE SUBCUTANEOUS TISSUE BELOW IT. A 25 NEEDLE WAS ADVANCED UNTIL WE REACHED THE RIGHT AND LEFT SACROCOCCYGEAL LIGAMENT. I DID AP AND LATERAL VIEWS. ISOVUE M DYE 30%, 1/4 ML, WAS INJECTED SHOWING ADEQUATE SPREAD OF THE DYE. THEN A SOLUTION OF 30 ML OF BUPIVACAINE 0.125% WITH KENALOG 30 MG WAS INJECTED OVER THE AFFECTED STRUCTURE. THERE WAS NO EVIDENCE OF BLOOD, PARESTHESIA OR CEREBROSPINAL FLUID. NO EVIDENCE OF VACUUM PHENOMENON OR VISCERAL PUNCTURE. THE PATIENT WAS SENT TO THE RECOVERY ROOM WHERE SHE WAS MOVING HER EXTREMITIES AND DOING WELL. THERE WERE NO COMPLICATIONS DURING THE PROCEDURE. FLUOROSCOPY TIME WAS 10 SECONDSPOSTOPERATIVE NOTE: I DISCUSSED ALTERNATIVES WITH THE PATIENT. I AM LOOKING FOR LONG LASTING PAIN RELIEF WITH THIS INTERVENTION. INSTRUCTIONS WERE GIVEN. QUESTIONS WERE ANSWERED. THE PATIENT REPORTS UNDERSTANDING AND AGREES WITH THE PLAN. THERE WERE NO COMPLICATIONS DURING THE PROCEDURE.I, AMADOR JONES, DOCUMENTED THE ABOVE INFORMATION ACTING A SCRIBE FOR DR. GLORIA. I HAVE REVIEWED THE ABOVE DOCUMENT, WRITTEN BY AMADOR POSEYIBMiguel AND I VERIFY THAT IT IS ACCURATE. DIAGNOSTIC IMAGING [facility] FLUORO GUIDANCE (PAIN)[id number] PROCEDURE CODES 99184 INJ TENDON SHEATH/LIGAMENT 6045F RADXPS IN END [id number] PXD DISPOSITION & COMMUNICATION FOLLOW UP 3 WEEKS ELECTRONICALLY SIGNED BY HERMAN GLORIA MD ON 08/06/2017 AT 05:36 PM EDT DISCLAIMER : THIS IS A VISIT SUMMARY EXTRACTED FROM THE [facility] CHART. IT IS NOT A COPY OF THE [facility] PROGRESS NOTE. SHANNAN
== END ==
LOC: M PAIN 11:00
PROVIDERS: ATTEND Anesthesiology
DX: M46.08 Spinal enthesopathy, sacral and sacrococcygeal region (principal); E11.9 Type 2 diabetes mellitus without complications; E78.5 Hyperlipidemia, unspecified; K21.9 Gastro-esophageal reflux disease without esophagitis; J44.9 Chronic obstructive pulmonary disease, unspecified; E55.9 Vitamin D deficiency, unspecified; F32.9 Major depressive disorder, single episode, unspecified; I10 Essential (primary) hypertension; J30.9 Allergic rhinitis, unspecified; M15.9 Polyosteoarthritis, unspecified; Z72.0 Tobacco use; Z79.82 Long term (current) use of aspirin; Z79.84 Long term (current) use of oral hypoglycemic drugs; Z79.891 Long term (current) use of opiate analgesic; Z79.899 Other long term (current) drug therapy; Z88.0 Allergy status to penicillin; Z88.2 Allergy status to sulfonamides; Z88.5 Allergy status to narcotic agent; Z88.8 Allergy status to other drugs, medicaments and biological substances
CPT/HCPCS: 20550; 77002; J3301; Q9967

== ENCOUNTER → 2017-08-08 | Outpatient (REF) | payer OTHER ==
[~2017-08-08] MED LIST changes: -BUPIVACAINE HCL 0.25% 30 ML VIAL As Ordered ONE; -ISOVUE-M 300 61% 15ML VIAL (Q9967) As Ordered ONE; -LIDOCAINE 1% SDV INJ 30 ML VIAL As Ordered ONE; -TRIAMCINOLONE ACETONIDE SUSP 40 MG/ML VIAL (J3301) As Ordered ONE; -diazePAM 5 MG TAB As Ordered ONE
[2017-08-08 16:55] LABS: INR 0.95
[2017-08-08 17:01] LABS: MEAN CORPUSCULAR HEMOGLOBIN 31.8 pg (27.0-33.0); MEAN CORPUSCULAR HGB CONC 34.4 g/dl (32.0-36.5); MEAN CORPUSCULAR VOLUME 92.5 fl (80.0-96.0); RED CELL DISTRIBUTION WIDTH 12.2 % (11.5-14.5); WHITE BLOOD COUNT 8.4 K/mm3 (4.0-10.0)
== END ==
LOC: M SFHCPLAZ 14:09
PROVIDERS: ATTEND Family Medicine
DX: T14.8 Other injury of unspecified body region (principal); Y92.9 Unspecified place or not applicable

== ENCOUNTER → 2017-08-12 | Outpatient (REF) | payer OTHER | LOC: M SMT 13:25 | PROVIDERS: ATTEND Nurse Practitioner Women's Health | DX: R39.15 Urgency of urination (principal) ==

== ENCOUNTER → 2017-08-15 | Outpatient (CLI) | payer OTHER ==
[2017-08-15 14:27] LABS: ANION GAP 11 MEQ/L (8-16); BLOOD UREA NITROGEN 12 MG/DL (7-18); CALCIUM LEVEL 9.1 MG/DL (8.8-10.2); CARBON DIOXIDE LEVEL 26 MEQ/L (21-32); CHLORIDE LEVEL 101 MEQ/L (98-107); CREATININE FOR GFR 0.61 MG/DL (0.55-1.02); GLOMERULAR FILTRATION RATE > 60.0 (>45); GLUCOSE, FASTING 75 MG/DL (80-110); POTASSIUM SERUM 3.9 MEQ/L (3.5-5.1); SODIUM LEVEL 138 MEQ/L (136-145)
== END ==
LOC: M LAB 12:07
PROVIDERS: ATTEND Podiatrist Foot & Ankle Surgery
DX: Z01.818 Encounter for other preprocedural examination (principal)

== ENCOUNTER 2017-08-19 10:24 | Day surgery (SDC) | payer OTHER ==
[~2017-08-19] VITALS: Ht 166.4 cm; Wt 69.9 kg
[~2017-08-19 10:24] MED LIST changes: -HYDR-3713 PO
[2017-08-19] MEDS ORDERED: MIDAZOLAM INJ 2 MG/2 ML VIAL (J2250) As Ordered ONE (10:31)
[2017-08-19] MEDS ORDERED: fentaNYL 100 MCG/2 ML INJECTION (J3010) As Ordered ONE (10:31)
[2017-08-19] MEDS ORDERED: BUPIVACAINE HCL 0.5% 10 ML VIAL As Ordered ONE (10:43)
[2017-08-19] MEDS ORDERED: dexameTHASONE 4 MG/ML 1ML VIAL (J1100) As Ordered ONE (10:43)
[2017-08-19] MEDS ORDERED: CLINDAMYCIN 600 MG in APPROPRIATE DILUENT 1 EA IV ONE (11:00)
[2017-08-19] MEDS: LIDOCAINE 1% MDV 20ML VIAL As Ordered ONE (11:25)
[2017-08-19] MEDS ORDERED: ePHEDrine SULFATE 25 MG/5 ML(5MG/ML) SYRINGE As Ordered ONE ×2 (11:28→12:15)
[2017-08-19] MEDS ORDERED: LIDOCAINE 2% INJ 100 MG/5 ML SDV (FOR ANES.) As Ordered ONE (12:13)
[2017-08-19] MEDS ORDERED: PROPOFOL 200 MG/20 ML VIAL As Ordered ONE (12:13)
[2017-08-19] MEDS ORDERED: HYDR-3713 PO (13:08)
[2017-08-19] MEDS ORDERED: PERCOCET 5MG/325MG TAB As Ordered ONE (13:18)
[2017-08-19] MEDS: PERCOCET 5MG/325MG TAB PO PRN ×2 (13:28→14:00)
[2017-08-19] MEDS ORDERED: ONDANSETRON 4MG/2ML VIAL (J2405) IV PRN (13:30)
[2017-08-19] MEDS ORDERED: LR 1,000 ML IV SCH (13:30)
[2017-08-19 17:15] VITALS: BP 146/84
--- NOTE | 2017-08-19 17:40 | RO ---
DATE OF PROCEDURE: 08/19/2017 PREPROCEDURE DIAGNOSES: Right foot bunion, hallux valgus, and left fifth hammertoe. POSTPROCEDURE DIAGNOSES: Right foot bunion, hallux valgus and left fifth hammertoe. PROCEDURE: Right bunionectomy, first osteotomy and Crispin osteotomy and left fifth hammertoe correction. SURGEON: Parish Flood DPM QUARTZ ORIENTATOR: None. ANESTHESIA: Monitored anesthesia care, preoperative injection of 20 mL of 1:1 mixture of 1% lidocaine plain and 0.5% Marcaine plain. ESTIMATED BLOOD LOSS: Minimal. MATERIALS: Arthrex 3.5 and 2.5 headless screw, #3-0 and #4-0 Vicryl, #4-0 nylon. INJECTABLES: 1 mL of Decadron, 4 mg/mL. COMPLICATIONS: None. CONDITION: Stable. INDICATIONS: Nathalie Riojas is a 62-year-old female who presents to [facility] with complaints of painful right bunion and left fifth hammertoe. She presents today for surgical correction. The patient's side and site were identified and marked in the preoperative holding area. Consent was reviewed and obtained. All risks, complications, and alternatives to the procedure were explained to the patient in detail. All questions were answered. DESCRIPTION OF PROCEDURE: The patient was brought to the operating room and placed on the operative room table in the supine position, monitored anesthesia care was delivered by the anesthesia team. Preoperative injection of 20 mL of 1:1 mixture of 1% lidocaine plain and 0.5% Marcaine plain were injected to both feet. Each foot was prepped and draped in the normal sterile fashion. Tourniquet was applied to both ankles. Attention was first paid to the left foot. This tourniquet was inflated to 150 mmHg. An elliptical incision was drawn at the fifth toe and carried through with a #15 blade. Dissection was carried to the extensor tendon and this was transected at the level of the proximal interphalangeal joint. The collateral ans suspensory ligaments were released, exposing the proximal phalanx head. This was resected with sagittal saw. The site was irrigated with normal saline. Extensor tendon was repaired with #3-0 Vicryl and skin closure was performed with 40 nylon effectively derotating the toe. Tourniquet was deflated. Attention was then paid to the right foot. This tourniquet was inflated. A dorsal medial incision was drawn and carried through with a #15 blade. Dissection was carried to the metatarsophalangeal joint capsule. Bovie was used to maintain hemostasis along the dissection plane. PEAK capsulotomy was performed exposing the metatarsal head. Next a lateral release was performed releasing the lateral capsule, adductor tendons, sesamoidal ligaments. McGlamry elevator was used to release the plantar structures. Following this the medial eminence was resected with sagittal saw. An osteotomy was performed of the metatarsal head transposing it laterally. This was fixated with an Arthrex 3.5 headless screw. Remaining bone ledge was resected with sagittal saw and smoothed with rasp. Site was irrigated with normal saline. Next, attention was paid to the hallux proximal phalanx. Using a saw a small wedge of the bone was removed from the medial cortex effectively closing the osteotomy site in a more medial position of the hallux. This was fixated with an Arthrex 2.5 headless screw under C-Arm visualization. The site was irrigated with normal saline. Capsular repair was performed with #3-0 Vicryl, subcutaneous was closed with #4-0 Vicryl and skin was closed with #4-0 nylon. 1 mL Decadron was injected. Sterile dressings were applied to both feet. Tourniquet was deflated. The patient was brought to post anesthesia care unit (PACU) vital signs stable, neurovascular status intact. She will be weightbearing as tolerated. Postoperative shoes with crutches. She will followup in the office in two days.
--- NOTE | 2017-08-21 19:48 | REP ---
LEFT FOOT COMPLETE: 08/19/2017. Findings: Multiple images from C-arm fluoroscopy provided to Dr. Flood of the podiatry service for intraoperative procedure. Total of 14 images are provided. Patient has had prior osteotomy and bunionectomy of the distal first metatarsal. There has been osteotomy of the proximal shaft of the proximal phalanx of the great toe with probe and threaded screw across the osteotomy site for fixation. Fluoroscopy time 12.9 seconds. Signed by Raymon Hui MD 08/21/2017 08:10 P
== END 2017-08-19 17:20 | disposition home or self-care (01) ==
LOC: M SDC 10:24
PROVIDERS: ATTEND Podiatrist Foot & Ankle Surgery
DX: M20.11 Hallux valgus (acquired), right foot (principal); M20.42 Other hammer toe(s) (acquired), left foot; I10 Essential (primary) hypertension; E78.2 Mixed hyperlipidemia; K21.9 Gastro-esophageal reflux disease without esophagitis; R23.3 Spontaneous ecchymoses; R29.898 Other symptoms and signs involving the musculoskeletal system; M12.9 Arthropathy, unspecified; M54.2 Cervicalgia; R21 Rash and other nonspecific skin eruption; F41.9 Anxiety disorder, unspecified; F32.9 Major depressive disorder, single episode, unspecified; E55.9 Vitamin D deficiency, unspecified; E11.29 Type 2 diabetes mellitus with other diabetic kidney complication; M79.7 Fibromyalgia; J45.909 Unspecified asthma, uncomplicated; J44.9 Chronic obstructive pulmonary disease, unspecified; R06.83 Snoring; G47.33 Obstructive sleep apnea (adult) (pediatric); M43.16 Spondylolisthesis, lumbar region; G50.0 Trigeminal neuralgia; J30.89 Other allergic rhinitis; Z88.0 Allergy status to penicillin; Z88.2 Allergy status to sulfonamides; Z88.5 Allergy status to narcotic agent; Z88.8 Allergy status to other drugs, medicaments and biological substances; Z91.018 Allergy to other foods; Z79.899 Other long term (current) drug therapy; Z79.84 Long term (current) use of oral hypoglycemic drugs; Z79.82 Long term (current) use of aspirin; Z72.0 Tobacco use
CPT/HCPCS: 28285; 28298; 73630; 88300; 97116; 97530; C1776

== ENCOUNTER → 2017-08-28 | Outpatient (CLI) | payer OTHER ==
[~2017-08-28] MED LIST changes: +HYDR-3713 PO
--- NOTE | 2017-09-28 00:29 | ECWPNPC ---
PATIENT NAME: PHIL HOUSTON : 1955 GENDER: FEMALE VISIT DATE: 08/28/2017 DISCHARGE DATE: 08/28/17 1618 VISIT LOCKED DATE TIME: PHYSICIAN: RENEE CALABRESE RESOURCE: RENEE CALABRESE REASON FOR APPOINTMENT 1. POST PROC HISTORY OF PRESENT ILLNESS TODAY'S VISIT: NOTES: RATES PAIN TODAY AS10. IS S/P BILATERAL SIJ INJECTIONS COMPLETED ON 08/06/17. HAS BEEN ON CRUTCHES FOR OVER A WEEK BECAUSE OF BILAT FOOT SURGERY. NOTES PAIN IN BACK POST INJECTION NEARLY 100% IMPROVED FOR THE [address] DAY[address] BOSE. HE WANTS HER TO DO PHYSICAL THERAPY BUT SHE CAN'T UNTIL SHE RECOVERS FROM HER FOOT SURGERY. . HISTORY OF PRESENT ILLNESS: PAIN THE PATIENT DESCRIBES THE PAIN... FALL RISK SCREENING: SCREENING :NO FALLS IN THE PAST YEAR CURRENT MEDICATIONS TAKING METFORMIN HCL 500 MG TABLET 1 TABLET WITH MEALS ORALLY TWICE A DAY TAKING ASPIR-81 81 MG TABLET DELAYED RELEASE 1 TABLET ORALLY ONCE A DAY TAKING LANSOPRAZOLE 30 MG CAPSULE DELAYED RELEASE 1 CAPSULE BEFORE A MEAL ORALLY ONCE A DAY TAKING AIR CONDITIONER DX: 496, 327.23 DIRECTED - - TAKING SALINE 0.65 % SOLUTION 2 DROPS IN EACH NOSTRIL NEEDED NASALLY 2-4 TIMES DAILY TAKING HEATING PAD - PAD DIRECTED DX: M54.5 DAILY TAKING CANE - MISCELLANEOUS DIRECTED DX: M54.5 DAILY TAKING TYLENOL 500 MG TABLET 1-2 TABLETS NEEDED ORALLY EVERY 8 HRS NEEDED FOR PAIN TAKING SYSTANE 0.4-0.3 % SOLUTION 1 DROP INTO AFFECTED EYE NEEDED OPHTHALMIC 5 TIMES A DAY TAKING NYSTATIN 518856 UNIT/GM CREAM 1 APPLICATION TO AFFECTED AREAS UNDER BREASTS AND GROIN AND AXILLA EXTERNALLY TWICE A DAY TAKING BETAMETHASONE DIPROPIONATE 0.05 % CREAM 1 THIN APPLICATION TO AFFECTED AREAS ON ARMS AND CHEST EXTERNALLY TWICE DAILY NEEDED TAKING TIZANIDINE HCL 2 MG TABLET 1 TABLET NEEDED ORALLY THREE TIMES A DAY TAKING ATIVAN 0.5 0.5MG TABLET ORAL 3 TIMES A DAY NEEDED TAKING CITALOPRAM HYDROBROMIDE 10 MG TABLET 1 TAB ORALLY ONCE A DAY TAKING GABAPENTIN 300 MG CAPSULE 1 CAPSULE ORALLY THREE TIMES A DAY TAKING CYMBALTA 60 MG CAPSULE DELAYED RELEASE PARTICLES 1 CAPSULE ORALLY ONCE A DAY TAKING LISINOPRIL 5 MG TABLET 1 TABLET ORALLY ONCE A DAY TAKING VENTOLIN HFA 108 (90 BASE) MCG/ACT AEROSOL SOLUTION 2 PUFFS INHALATION EVERY 4-6 HOURS NEEDED TAKING INCRUSE ELLIPTA 62.5 MCG/INH AEROSOL POWDER BREATH ACTIVATED 1 PUFF INHALATION ONCE DAILY TAKING ASMANEX HFA 100 MCG/ACT AEROSOL 2 PUFFS INHALATION TWICE A DAY TAKING LORATADINE 10 MG TABLET 1 TABLET ORALLY ONCE A DAY NEEDED TAKING CETIRIZINE HCL 10 MG TABLET 1 TABLET ORALLY ONCE A DAY TAKING ATORVASTATIN CALCIUM 10 MG TABLET 1 TABLET ORALLY ONCE A DAY TAKING DRISDOL 27197 UNIT CAPSULE 1 CAPSULE ORALLY ONCE A MONTH TAKING CHANTIX CONTINUING MONTH CHELSY 1 MG TABLET 1 TABLET ORALLY TWICE A DAY TAKING OXYCODONE HCL 5 MG TABLET 1 TABLET ORALLY EVERY 6 HRS NEEDED, UP TO 12/DAY NOT-TAKING NORCO 5-325 MG TABLET 1 TABLET NEEDED ORALLY ONCE DAILY MDD=1 NOT-TAKING CALCIUM 600 + D 600-400 MG-UNIT TABLET 1 TABLET WITH MEAL ORALLY DAILY, NOTES: NONE LATELY NOT-TAKING TEGRETOL-XR 400 MG TABLET EXTENDED RELEASE 12 HOUR 1 TABLET ORALLY TWICE A DAY NOT-TAKING FISH OIL 1000 MG CAPSULE 1 CAPSULE ORALLY TWICE A DAY NOT-TAKING LANCETS 1 EACH - SUBCUTANEOUSLY DAILY... DX 250.00 NOT-TAKING BLOOD GLUCOSE TEST DX: 250.00 EACH - TEST STRIPS TWICE A DAY, FASTING BEFORE BREAKFAST; AT BEDTIME & NEEDED. NOT-TAKING ARTIFICIAL TEAR OINTMENT OINTMENT OPHTHALMIC AT BEDTIME NOT-TAKING REFRESH TEARS 0.5 % SOLUTION 1 DROP INTO AFFECTED EYE NEEDED OPHTHALMIC 24 TIME(S) A DAY NOT-TAKING NASACORT AQ 55 MCG/ACT AEROSOL SOLUTION 1 PUFF IN EACH NOSTRIL NASALLY TWICE A DAY NOT-TAKING MAGNESIUM 500 MG CAPSULE 1 CAP WITH MEAL ORALLY DAILY MEDICATION LIST REVIEWED AND RECONCILED WITH THE PATIENT PAST MEDICAL HISTORY TYPE II DIABETES HYPERLIPIDEMIA - NEG NUCLEAR STRESS TEST 07/13, - [facility] REFLUX COPD FEV1 = 1.9 ON 11/22/14 @PULMONOLOGY ALLERGIC RHINITIS VITAMIN D DEFICIENCY SMOKING DEPRESSION ANXIETY - DR VILLANUEVA FIFI-- ON CPAP FIBROMYALGIA DEGENERATIVE DISC DISEASE HYPERTENSION BACK AND NECK PAIN TRIGEMINAL NEURALGIA ALLERGIES PENICILLIN (FOR ALLERGIES USE ONLY): RASH: ALLERGY SULFA DRUGS: RASH: ALLERGY TEGRETOL: RASH CODEINE: RASH: ALLERGY SURGICAL HISTORY TONSILLECTOMY 1974 1988 DEVIATED SEPTUM 2014 BUNIONECTOMY ON RIGHT FOOT AND HAMMER TOE STRAIGHTENED ON LEFT FOOT 08/2017 SOCIAL HISTORY GENERAL: TOBACCO USE ARE YOU A:NONSMOKER ALCOHOL SCREENING DID YOU HAVE A DRINK CONTAINING ALCOHOL IN THE PAST YEAR?NO POINTS0 INTERPRETATIONNEGATIVE RECREATIONAL DRUG USE DRUG USE?NO CAFFEINE CAFFEINE USE? 6 CUPS COFFEE SEXUAL HX HAD SEX IN THE LAST 12 MONTHS (VAGINAL, ORAL, OR ANAL)?NO HIV / HEP-C SCREENING HIV TEST OFFERED TO PATIENT:YES DATE OFFERED:10/31/2016 TEST ACCEPTED:YES HEP-C TEST OFFERED TO PATIENT:YES DATE OFFERED:10/31/2016 TEST ACCEPTED:YES OCCUPATION: DISABLED. DIET: NO CONCENTRATED SWEETS.. EXERCISE: WALKS. MARITAL STATUS: . PETS: 2 CATS. SCIENTOLOGIST [id number] [employer]ISM LANGUAGE LANGUAGES SPOKEN:TURKISH EDUCATION LEVEL OF EDUCATION:NOT FINISHED COLLEGE LEARNING BARRIERS / SPECIAL NEEDS CHANGE FROM LAST VISIT?NO BARRIERS TO LEARNING?NO HEARING IMPAIRED?YES BEING EVALUATED BY ENT FOR HEARING LOSS LEFT EAR VISION IMPAIRED?YES :CORRECTIVE LENSES COGNITIVELY IMPAIRED?NO READINESS TO LEARN?YES LEARNING PREFERENCES?NO LEARNING CAPABILITIES PRESENT?NO EMOTIONAL BARRIERS?NO SPECIAL DEVICES?NO TRAFFIC ADMINISTRATOR NEEDED?NO PAIN CLINIC PFS, CLERGY, PUBLIC HEALTH REFERRALS PFS REFERRAL NEEDED?NO CLERGY REFERRAL NEEDED?NO PUBLIC HEALTH REFERRAL NEEDED?NO HAS THE PATIENT BEEN EDUCATED REGARDING HIS/HER PLAN OF CARE?YES HAS THE PATIENT BEEN EDUCATED REGARDING PAIN, THE RISK FOR PAIN, THE IMPORTANCE OF EFFECTIVE PAIN MANAGEMENT, AND THE PAIN ASSESSMENT PROCESS?YES PATIENT: ____. ADVANCE DIRECTIVES HEALTH CARE PROXY?NO WOULD YOU LIKE MORE INFORMATION?NO DO YOU HAVE A DNR?NO WOULD YOU LIKE MORE INFORMATION?NO LIVING WILL?NO WOULD YOU LIKE MORE INFORMATION?NO POWER OF RESIDENTIAL YOUTH COUNSELOR?NO WOULD YOU LIKE MORE INFORMATION?NO HOSPITALIZATION/MAJOR DIAGNOSTIC PROCEDURE SURGERY REVIEW OF SYSTEMS FOLLOW-UP ROS: PSYCHOLOGY: POSITIVE FOR, ANXIETY. STATES IS SEEING DR VILLANUEVA FOR MENTAL HEALTH ISSUES., SLEEP DISTURBANCE IMPROVED IN GENERAL . REVIEWED BY: PROVIDER: RENEE MORALEZ . CONSTITUTIONAL: ANY CHANGE IN YOUR MEDICAL CONDITION? YES, SURGERY ON BOTH FEET LAST WEEK. BUNIONECTOMY ON RIGHT AND HAMMERTOE STRAIGHTENED ON LEFT FOOT. . CHILLS NO . FEVER NO . INFECTION: DO YOU HAVE NEW INFECTIONS? NO . DO YOU HAVE HISTORY OF MRSA? NO . MUSCULOSKELETAL: ANY NEW PATTERNS OF PAIN OR NUMBNESS? NO . GASTROENTEROLOGY: ANY NEW CHANGE IN BOWEL CONTROL? NO . GENITOURINARY: ANY NEW CHANGE IN BLADDER CONTROL? NO . IS THERE A CHANCE YOU COULD BE ? NO . HEMATOLOGY/LYMPH: DO YOU TAKE ANY BLOOD THINNERS? (FOR EXAMPLE- COUMADIN, PLAVIX, AGGRENOX, PLATEL, PRADAXA, OR XARELTO) NO . WHEN WAS YOUR LAST DOSE? DATE: TIME: . NEUROLOGY: HAVE YOU FALLEN IN THE PAST 6 MONTHS? NO . ANY NEW EXTREMITY NUMBNESS OR WEAKNESS? NO . CARDIOLOGY: DO YOU HAVE A PACEMAKER OR DEFIBRILLATOR? NO . CHEST PAIN PATIENT DENIES . RESPIRATORY: HAVE YOU BEEN SICK IN THE PAST WEEK? NO . FEVER NO . FLU LIKE SYMPTOMS? NO . COUGH NO . INTEGUMENTARY: DO YOU HAVE ANY RASHES OR OPEN SORES? NO . ALLERGIC/IMMUNO: ARE YOU ALLERGIC TO SHELLFISH OR IV DYE? NO . ANY NEW ALLERGIES? NO . PSYCHIATRIC: DO YOU HAVE THOUGHTS OF HURTING YOURSELF OR SOMEONE ELSE? NO . ARE YOU ABUSED, NEGLECTED, OR IN AN UNSAFE ENVIRONMENT? NO . ENDOCRINOLOGY: ARE YOU DIABETIC? YES . OTHER: DO YOU NEED ANY PRESCRIPTIONS? YES . IF YES, PLEASE LIST: ____ . ANY NEW PROBLEMS WITH YOUR MEDICATIONS? NO . WHEN DID YOU LAST EAT? ____ . WHEN DID YOU LAST DRINK? ____ . WHAT DID YOU LAST DRINK? ____ . NAME OF PERSON DRIVING YOU HOME? ____ . DO YOU HAVE ANY OTHER QUESTIONS OR CONCERNS NO . VITAL SIGNS WT 155.4 LBS, HT 65 IN, BMI 25.86 INDEX, BP 113/65 MM HG, HR 77 /MIN, RR 18 /MIN, TEMP 98.5 F, OXYGEN SAT % 96, NA INITIALS MP 1502, REVIEWED BY: CS. EXAMINATION GENERAL EXAMINATION: PSYCH. ORIENTED TO PLACE AND PERSON. IMPROVEMENT NOTED TODAY WITH STAYING ON [employer]. . LUNGS:CLEAR TO AUSCULTATION BILATERALLY. HEART:HEART RATE REGULAR. MUSCULOSKELETAL:POINT TENDERNESS OVER RIGHT SACRUM AND SACRAL COCCYGEAL LIGAMENT. TENDER WITH PALPATION INTO BUTTUCK. TRIGGER POINTS AND TIGHT FIBROUS BANDS IDENTIFIED OVER LUMBAR PARAVERTEBRAL MUSCLES.RISES EASILY TO STANDING POSITION TODAY. CANE USED FOR BALANCE. DIFFICULTY NOTED WITH BALANCE BUT THIS IS IMPROVED SINCE LAST VISIT. . GAIT WIDEBASED, SLOW, NONANTALGIC. EXTREMITIES:NO EDEMA. 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 REVIEWED THAT WE CAN NOT HAVE MULTIPLE PROVIDERS PRESCRIBING THESE MEDS. PT EXPRESSED UNDERSTANDING. PREVENTIVE MEDICINE PAIN CLINIC TEACHING: PROCEDURE TEACHING PRE-PROCEDURE TEACHING DONE. QUESTIONS ANSWERED AND PATIENT VERBALIZES UNDERSTANDING.. PROCEDURE CODES FA211 ESTABILISHED PATIENT [facility] CHARGE DISPOSITION & COMMUNICATION FOLLOW UP 4-6 WEEKS (REASON: BACK PAIN) ELECTRONICALLY SIGNED BY FRANKIE TAPIA ON 09/27/2017 AT 08:28 AM EDT DISCLAIMER : THIS IS A VISIT SUMMARY EXTRACTED FROM THE [employer] CHART. IT IS NOT A COPY OF THE [employer] PROGRESS NOTE. MTDD
== END ==
LOC: M PAIN 14:30
PROVIDERS: ATTEND Nurse Practitioner Family
DX: G89.29 Other chronic pain (principal); M43.16 Spondylolisthesis, lumbar region; E11.9 Type 2 diabetes mellitus without complications; E78.2 Mixed hyperlipidemia; K21.9 Gastro-esophageal reflux disease without esophagitis; J44.9 Chronic obstructive pulmonary disease, unspecified; F41.9 Anxiety disorder, unspecified; G47.9 Sleep disorder, unspecified; Z88.0 Allergy status to penicillin; Z88.2 Allergy status to sulfonamides; Z88.5 Allergy status to narcotic agent; Z88.8 Allergy status to other drugs, medicaments and biological substances; Z79.84 Long term (current) use of oral hypoglycemic drugs; Z79.82 Long term (current) use of aspirin; Z79.899 Other long term (current) drug therapy

== ENCOUNTER → 2017-09-03 | Outpatient (CLI) | payer OTHER ==
[~2017-09-03] MED LIST changes: +BUPIVACAINE HCL 0.25% 10 ML VIAL As Ordered ONE; +BUPIVACAINE HCL 0.25% 30 ML VIAL As Ordered ONE; +TRIAMCINOLONE ACETONIDE SUSP 40 MG/ML VIAL (J3301) As Ordered ONE; +diazePAM 5 MG TAB As Ordered ONE; +oxyCODONE 5MG TAB As Ordered ONE
--- NOTE | 2017-09-11 00:05 | ECWPNPC ---
PATIENT NAME: PHIL HOUSTON : 1955 GENDER: FEMALE VISIT DATE: 09/03/2017 DISCHARGE DATE: 09/03/171711 VISIT LOCKED DATE TIME: PHYSICIAN: HERMAN GLORIA RESOURCE: HERMAN GLORIA REASON FOR APPOINTMENT 1. LOW BACK CURRENT MEDICATIONS TAKING ASPIR-81 81 MG TABLET DELAYED RELEASE 1 TABLET ORALLY ONCE A DAY, NOTES: 09-03-17799 TAKING LANSOPRAZOLE 30 MG CAPSULE DELAYED RELEASE 1 CAPSULE BEFORE A MEAL ORALLY ONCE A DAY, NOTES: 09-03-17799 TAKING AIR CONDITIONER DX: 496, 327.23 DIRECTED - - TAKING SALINE 0.65 % SOLUTION 2 DROPS IN EACH NOSTRIL NEEDED NASALLY 2-4 TIMES DAILY TAKING HEATING PAD - PAD DIRECTED DX: M54.5 DAILY TAKING CANE - MISCELLANEOUS DIRECTED DX: M54.5 DAILY TAKING TYLENOL 500 MG TABLET 1-2 TABLETS NEEDED ORALLY EVERY 8 HRS NEEDED FOR PAIN, NOTES: 09-02-17899 TAKING SYSTANE 0.4-0.3 % SOLUTION 1 DROP INTO AFFECTED EYE NEEDED OPHTHALMIC 5 TIMES A DAY, NOTES: NOT LATELY TAKING NYSTATIN 193276 UNIT/GM CREAM 1 APPLICATION TO AFFECTED AREAS UNDER BREASTS AND GROIN AND AXILLA EXTERNALLY TWICE A DAY, NOTES: NOT LATELY TAKING BETAMETHASONE DIPROPIONATE 0.05 % CREAM 1 THIN APPLICATION TO AFFECTED AREAS ON ARMS AND CHEST EXTERNALLY TWICE DAILY NEEDED, NOTES: 3 DAYS AGO TAKING TIZANIDINE HCL 2 MG TABLET 1 TABLET NEEDED ORALLY THREE TIMES A DAY, NOTES: COUPLE DAYS TAKING ATIVAN 0.5 0.5MG TABLET ORAL 3 TIMES A DAY NEEDED, NOTES: 09-03-17799 TAKING CITALOPRAM HYDROBROMIDE 10 MG TABLET 1 TAB ORALLY ONCE A DAY, NOTES: 09-02-172099 TAKING GABAPENTIN 300 MG CAPSULE 1 CAPSULE ORALLY THREE TIMES A DAY, NOTES: 09-02-172099 TAKING CYMBALTA 60 MG CAPSULE DELAYED RELEASE PARTICLES 1 CAPSULE ORALLY ONCE A DAY, NOTES: 09-02-172099 TAKING VENTOLIN HFA 108 (90 BASE) MCG/ACT AEROSOL SOLUTION 2 PUFFS INHALATION EVERY 4-6 HOURS NEEDED, NOTES: 09-03-17899 TAKING INCRUSE ELLIPTA 62.5 MCG/INH AEROSOL POWDER BREATH ACTIVATED 1 PUFF INHALATION ONCE DAILY, NOTES: 09-02-172099 TAKING ASMANEX HFA 100 MCG/ACT AEROSOL 2 PUFFS INHALATION TWICE A DAY, NOTES: 09-03-172099 TAKING LORATADINE 10 MG TABLET 1 TABLET ORALLY ONCE A DAY NEEDED, NOTES: 09-03-17799 TAKING CETIRIZINE HCL 10 MG TABLET 1 TABLET ORALLY ONCE A DAY, NOTES: 09-02-172099 TAKING ATORVASTATIN CALCIUM 10 MG TABLET 1 TABLET ORALLY ONCE A DAY, NOTES: 09-02-172099 TAKING DRISDOL 33470 UNIT CAPSULE 1 CAPSULE ORALLY ONCE A MONTH, NOTES: A WEEK AGO TAKING CHANTIX CONTINUING MONTH CHELSY 1 MG TABLET 1 TABLET ORALLY TWICE A DAY, NOTES: 09-02-172099 TAKING OXYCODONE HCL 5 MG TABLET 1 TABLET ORALLY EVERY 6 HRS NEEDED, UP TO 12/DAY, NOTES: 09-02-172099 TAKING LISINOPRIL 5 MG TABLET 1 TABLET ORALLY ONCE A DAY, NOTES: A COUPLE DAYS TAKING METFORMIN HCL 500 MG TABLET 1 TABLET WITH MEALS ORALLY TWICE A DAY, NOTES: 09-02-171899 TAKING CALCIUM 600 + D 600-400 MG-UNIT TABLET 1 TABLET WITH MEAL ORALLY DAILY, NOTES: NONE LATELY TAKING BLOOD GLUCOSE TEST DX: 250.00 EACH - TEST STRIPS TWICE A DAY, FASTING BEFORE BREAKFAST; AT BEDTIME & NEEDED. TAKING REFRESH TEARS 0.5 % SOLUTION 1 DROP INTO AFFECTED EYE NEEDED OPHTHALMIC 24 TIME(S) A DAY NOT-TAKING NORCO 5-325 MG TABLET 1 TABLET NEEDED ORALLY ONCE DAILY MDD=1 NOT-TAKING TEGRETOL-XR 400 MG TABLET EXTENDED RELEASE 12 HOUR 1 TABLET ORALLY TWICE A DAY NOT-TAKING FISH OIL 1000 MG CAPSULE 1 CAPSULE ORALLY TWICE A DAY NOT-TAKING ARTIFICIAL TEAR OINTMENT OINTMENT OPHTHALMIC AT BEDTIME NOT-TAKING NASACORT AQ 55 MCG/ACT AEROSOL SOLUTION 1 PUFF IN EACH NOSTRIL NASALLY TWICE A DAY NOT-TAKING MAGNESIUM 500 MG CAPSULE 1 CAP WITH MEAL ORALLY DAILY UNKNOWN LANCETS 1 EACH - SUBCUTANEOUSLY DAILY... DX 250.00 MEDICATION LIST REVIEWED AND RECONCILED WITH THE PATIENT PAST MEDICAL HISTORY TYPE II DIABETES HYPERLIPIDEMIA - NEG NUCLEAR STRESS TEST 07/13, - [facility] REFLUX COPD FEV1 = 1.9 ON 11/22/14 @PULMONOLOGY ALLERGIC RHINITIS VITAMIN D DEFICIENCY SMOKING DEPRESSION ANXIETY - DR VILLANUEVA FIFI-- ON CPAP FIBROMYALGIA DEGENERATIVE DISC DISEASE HYPERTENSION BACK AND NECK PAIN TRIGEMINAL NEURALGIA ALLERGIES PENICILLIN (FOR ALLERGIES USE ONLY): RASH: ALLERGY SULFA DRUGS: RASH: ALLERGY TEGRETOL: RASH CODEINE: RASH: ALLERGY SOCIAL HISTORY GENERAL: TOBACCO USE ARE YOU A:NONSMOKER ALCOHOL SCREENING DID YOU HAVE A DRINK CONTAINING ALCOHOL IN THE PAST YEAR?NO POINTS0 INTERPRETATIONNEGATIVE RECREATIONAL DRUG USE DRUG USE?NO CAFFEINE CAFFEINE USE? 6 CUPS COFFEE SEXUAL HX HAD SEX IN THE LAST 12 MONTHS (VAGINAL, ORAL, OR ANAL)?NO HIV / HEP-C SCREENING HIV TEST OFFERED TO PATIENT:YES DATE OFFERED:10/31/2016 TEST ACCEPTED:YES HEP-C TEST OFFERED TO PATIENT:YES DATE OFFERED:10/31/2016 TEST ACCEPTED:YES OCCUPATION: DISABLED. DIET: NO CONCENTRATED SWEETS.. EXERCISE: WALKS. MARITAL STATUS: . PETS: 2 CATS. 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 TPI HAS THE PATIENT BEEN EDUCATED REGARDING PAIN, THE RISK FOR PAIN, THE IMPORTANCE OF EFFECTIVE PAIN MANAGEMENT, AND THE PAIN ASSESSMENT PROCESS?YES REVIEWED BY: DERREK. PATIENT: ____. ADVANCE DIRECTIVES HEALTH CARE PROXY?NO WOULD YOU LIKE MORE INFORMATION?NO DO YOU HAVE A DNR?NO WOULD YOU LIKE MORE INFORMATION?NO LIVING WILL?NO WOULD YOU LIKE MORE INFORMATION?NO POWER OF SHEET HEATER HELPER?NO WOULD YOU LIKE MORE INFORMATION?NO VITAL SIGNS WT 154 LBS, HT 65 IN, BMI 25.62 INDEX, BP 119/79 MM HG, HR 73 /MIN, RR 16 /MIN, TEMP 98.0 F, OXYGEN SAT % 97%, SAFE IN ENV? (Y/N) Y, NA INITIALS VA 14:48, REVIEWED BY: DERREK. ASSESSMENTS MYALGIA - M79.1 (PRIMARY) PROCEDURES PN TRIGGER POINT INJECTION WITH STEROIDS PRE PROCEDURE DIAGNOSIS 1. MYALGIA 2. PAIN AT RIGHT LOWER BACK AREA POST PROCEDURE DIAGNOSIS 1. MYALGIA 2. PAIN AT RIGHT LOWER BACK AREA PROCEDURE TRIGGER POINT INJECTION AT BILATERAL LOWER BACK AREA SURGEON DR. HERMAN GLORIA MOTION PICTURE PROJECTIONIST APPRENTICE NONE ANESTHESIA LOCAL PRE PROCEDURE NOTE THE PATIENT HAS A HISTORY OF CHRONIC PAIN AT THE RIGHT LOWER BACK AREA. I EVALUATE THE PATIENT AND REVIEWED THE CHART. THERE IS EVIDENCE OF BANDS OF TISSUE WITH RESTRICTION OF MOVEMENT AND PRESENCE OF TRIGGER POINT AT THE AFFECTED AREA. I WENT OVER THE RISKS, ALTERNATIVES, AND BENEFITS ASSOCIATED WITH THIS PROCEDURE. THE PATIENT WOULD LIKE TO PROCEED AND GIVE CONSENT TO PERFORMED THE PROCEDURE. THE PATIENT DENIES UNEXPLAINABLE WEIGHT LOSS, FEVER, CHILLS, OR NEW CHANGES IN URINARY OR BOWEL CONTROL DESCRIPTION OF PROCEDURE THE PATIENT WAS BROUGHT TO THE PROCEDURE ROOM AND PLACED IN THE SITTING POSITION. THE AREA WAS CLEANED WITH ALCOHOL. THE PROCEDURE WAS DONE USING ASEPTIC STERILE TECHNIQUE. I CHECKED LATERALITY AND THE LEVEL WHERE THE PROCEDURE WAS GOING TO BE PERFORMED WITH THE PATIENT AND THE SUPPORTING STAFF AT THE MOMENT OF THE TIME OUT IN THE PROCEDURE ROOM. USING A 25-GAUGE NEEDLE, TRIGGER POINTS WERE INJECTED AT THE RIGHT LOWER BACK AREA WITH A TOTAL OF 40 ML OF BUPIVACAINE 0.25% AND KENALOG 40 MG. THERE WAS NO EVIDENCE OF BLOOD, PARESTHESIA OR CEREBROSPINAL FLUID DURING THE PROCEDURE. THE PATIENT WAS SENT TO THE RECOVERY ROOM. THE PATIENT WAS MOVING THE EXTREMITIES AND DOING WELL. THERE WAS NO COMPLICATION DURING THE PROCEDURE POST PROCEDURE NOTE THE PATIENT WILL BE SEEN IN A FOLLOW UP IN THE NEXT FEW WEEKS. INSTRUCTIONS WERE GIVEN, QUESTIONS WERE ANSWERED, AND THE PATIENT EXPRESSED UNDERSTANDING AND AGREES WITH THE PLAN. I, AMADOR JONES, DOCUMENTED THE ABOVE INFORMATION ACTING A SCRIBE FOR DR. GLORIA. I HAVE REVIEWED THE ABOVE DOCUMENT, WRITTEN BY AMADOR AGUILAR AND I VERIFY THAT IT IS ACCURATE PROCEDURE CODES 89649 INJ TRIGGER POINT / MUSC DISPOSITION & COMMUNICATION FOLLOW UP 3 WEEKS ELECTRONICALLY SIGNED BY HERMAN GLORIA MD ON 09/10/2017 AT 09:30 AM EDT DISCLAIMER : THIS IS A VISIT SUMMARY EXTRACTED FROM THE [employer] CHART. IT IS NOT A COPY OF THE [employer] PROGRESS NOTE. SHANNAN
== END ==
LOC: M PAIN 14:30
PROVIDERS: ATTEND Anesthesiology
DX: G89.29 Other chronic pain (principal); M79.1 Myalgia; M54.5 Low back pain; E11.9 Type 2 diabetes mellitus without complications; E78.2 Mixed hyperlipidemia; K21.9 Gastro-esophageal reflux disease without esophagitis; J44.9 Chronic obstructive pulmonary disease, unspecified; E55.9 Vitamin D deficiency, unspecified; Z79.82 Long term (current) use of aspirin; Z79.84 Long term (current) use of oral hypoglycemic drugs; Z79.891 Long term (current) use of opiate analgesic; Z79.899 Other long term (current) drug therapy; Z88.0 Allergy status to penicillin; Z88.2 Allergy status to sulfonamides; Z88.5 Allergy status to narcotic agent; Z88.8 Allergy status to other drugs, medicaments and biological substances
CPT/HCPCS: 20552; J3301

== ENCOUNTER → 2017-10-29 | Outpatient (CLI) | payer OTHER ==
[~2017-10-29] MED LIST changes: -BUPIVACAINE HCL 0.25% 10 ML VIAL As Ordered ONE; -BUPIVACAINE HCL 0.25% 30 ML VIAL As Ordered ONE; -TRIAMCINOLONE ACETONIDE SUSP 40 MG/ML VIAL (J3301) As Ordered ONE; -diazePAM 5 MG TAB As Ordered ONE; -oxyCODONE 5MG TAB As Ordered ONE
--- NOTE | 2017-11-18 00:03 | ECWPNPC ---
PATIENT NAME: PHIL HOUSTON : 1955 GENDER: FEMALE VISIT DATE: 10/29/2017 DISCHARGE DATE: 10/29/17 1614 VISIT LOCKED DATE TIME: PHYSICIAN: RENEE CALABRESE RESOURCE: RENEE CALABRESE REASON FOR APPOINTMENT 1. POST TPI HISTORY OF PRESENT ILLNESS HISTORY OF PRESENT ILLNESS: PAIN THE PATIENT DESCRIBES THE PAIN... FALL RISK SCREENING: SCREENING :NO FALLS IN THE PAST YEAR TODAY'S VISIT: NOTES: RATES APIN TODAY 06/10. NOTES PAIN IS IN LEFT LOW BACK AND RADIATES TO RIGHT LEG TO LEVEL OF THE FOOT. IS NOW OUT OF HOSPITAL BOOT AND OFF CRUTCHES. . CURRENT MEDICATIONS TAKING TYLENOL 500 MG TABLET 1-2 TABLETS NEEDED ORALLY EVERY 8 HRS NEEDED FOR PAIN TAKING NYSTATIN [id number] UNIT/GM CREAM 1 APPLICATION TO AFFECTED AREAS UNDER BREASTS AND GROIN AND AXILLA EXTERNALLY TWICE A DAY TAKING BETAMETHASONE DIPROPIONATE 0.05 % CREAM 1 THIN APPLICATION TO AFFECTED AREAS ON ARMS AND CHEST EXTERNALLY TWICE DAILY NEEDED TAKING TIZANIDINE HCL 2 MG TABLET 1 TABLET NEEDED ORALLY THREE TIMES A DAY TAKING ATIVAN 0.5 0.5MG TABLET ORAL 3 TIMES A DAY NEEDED TAKING CITALOPRAM HYDROBROMIDE 20 MG TABLET 1 TAB ORALLY ONCE A DAY TAKING GABAPENTIN 300 MG CAPSULE 1 CAPSULE ORALLY THREE TIMES A DAY TAKING CYMBALTA 60 MG CAPSULE DELAYED RELEASE PARTICLES 1 CAPSULE ORALLY ONCE A DAY TAKING CHANTIX CONTINUING MONTH CHELSY 1 MG TABLET 1 TABLET ORALLY TWICE A DAY TAKING LANSOPRAZOLE 30 MG CAPSULE DELAYED RELEASE 1 CAPSULE BEFORE A MEAL ORALLY ONCE A DAY TAKING LISINOPRIL 5 MG TABLET 1 TABLET ORALLY ONCE A DAY TAKING VENTOLIN HFA 108 (90 BASE) MCG/ACT AEROSOL SOLUTION 2 PUFFS INHALATION EVERY 4-6 HOURS NEEDED TAKING ASMANEX HFA 100 MCG/ACT AEROSOL 2 PUFFS INHALATION TWICE A DAY TAKING LORATADINE 10 MG TABLET 1 TABLET ORALLY ONCE A DAY NEEDED TAKING CETIRIZINE HCL 10 MG TABLET 1 TABLET ORALLY ONCE A DAY TAKING ATORVASTATIN CALCIUM 10 MG TABLET 1 TABLET ORALLY ONCE A DAY TAKING ANORO ELLIPTA 62.5-25 MCG/INH AEROSOL POWDER BREATH ACTIVATED 1 PUFF INHALATION ONCE A DAY TAKING ASPIR-81 81 MG TABLET DELAYED RELEASE 1 TABLET ORALLY ONCE A DAY TAKING METFORMIN HCL 500 MG TABLET 1 TABLET WITH MEALS ORALLY TWICE A DAY TAKING DRISDOL 54382 UNIT CAPSULE 1 CAPSULE ORALLY ONCE A WEEK WITH MEAL TAKING NORCO 5-325 MG TABLET 1 TABLET NEEDED ORALLY ONCE DAILY MDD=1 NOT-TAKING CALCIUM 600 + D 600-400 MG-UNIT TABLET 1 TABLET WITH MEAL ORALLY DAILY UNKNOWN AIR CONDITIONER DX: 496, 327.23 DIRECTED - - UNKNOWN SALINE 0.65 % SOLUTION 2 DROPS IN EACH NOSTRIL NEEDED NASALLY 2-4 TIMES DAILY UNKNOWN HEATING PAD - PAD DIRECTED DX: M54.5 DAILY UNKNOWN CANE - MISCELLANEOUS DIRECTED DX: M54.5 DAILY UNKNOWN BLOOD GLUCOSE TEST DX: 250.00 EACH - TEST STRIPS TWICE A DAY, FASTING BEFORE BREAKFAST; AT BEDTIME & NEEDED. UNKNOWN OXYCODONE HCL 5 MG TABLET 1 TABLET ORALLY EVERY 6 HRS NEEDED, UP TO 12/DAY, NOTES: STOPPED UNKNOWN SYSTANE 0.4-0.3 % SOLUTION 1 DROP INTO AFFECTED EYE NEEDED OPHTHALMIC 5 TIMES A DAY UNKNOWN REFRESH TEARS 0.5 % SOLUTION 1 DROP INTO AFFECTED EYE NEEDED OPHTHALMIC 24 TIME(S) A DAY UNKNOWN TEGRETOL-XR 400 MG TABLET EXTENDED RELEASE 12 HOUR 1 TABLET ORALLY TWICE A DAY UNKNOWN FISH OIL 1000 MG CAPSULE 1 CAPSULE ORALLY TWICE A DAY UNKNOWN ARTIFICIAL TEAR OINTMENT OINTMENT OPHTHALMIC AT BEDTIME UNKNOWN NASACORT AQ 55 MCG/ACT AEROSOL SOLUTION 1 PUFF IN EACH NOSTRIL NASALLY TWICE A DAY UNKNOWN MAGNESIUM 500 MG CAPSULE 1 CAP WITH MEAL ORALLY DAILY UNKNOWN LANCETS 1 EACH - SUBCUTANEOUSLY DAILY... DX 250.00 MEDICATION LIST REVIEWED AND RECONCILED WITH THE PATIENT PAST MEDICAL HISTORY TYPE II DIABETES HYPERLIPIDEMIA - NEG NUCLEAR STRESS TEST 07/13, - [facility] REFLUX COPD FEV1 = 1.9 ON 11/22/14 @PULMONOLOGY ALLERGIC RHINITIS VITAMIN D DEFICIENCY SMOKING DEPRESSION ANXIETY - DR VILLANUEVA FIFI-- ON CPAP FIBROMYALGIA DEGENERATIVE DISC DISEASE HYPERTENSION BACK AND NECK PAIN TRIGEMINAL NEURALGIA -GA NEUROLOGY URINARY INCONTINENCE - UROLOGY ALLERGIES PENICILLIN (FOR ALLERGIES USE ONLY): RASH: ALLERGY SULFA DRUGS: RASH: ALLERGY TEGRETOL: RASH CODEINE: RASH: ALLERGY REVIEW OF SYSTEMS REVIEWED BY: PROVIDER: . CONSTITUTIONAL: ANY CHANGE IN YOUR MEDICAL CONDITION? NO . CHILLS NO . FEVER NO . INFECTION: DO YOU HAVE NEW INFECTIONS? NO . DO YOU HAVE HISTORY OF MRSA? NO . MUSCULOSKELETAL: ANY NEW PATTERNS OF PAIN OR NUMBNESS? NO . GASTROENTEROLOGY: ANY NEW CHANGE IN BOWEL CONTROL? NO . GENITOURINARY: ANY NEW CHANGE IN BLADDER CONTROL? NO . IS THERE A CHANCE YOU COULD BE ? NO . HEMATOLOGY/LYMPH: DO YOU TAKE ANY BLOOD THINNERS? (FOR EXAMPLE- COUMADIN, PLAVIX, AGGRENOX, PLATEL, PRADAXA, OR XARELTO) NO . WHEN WAS YOUR LAST DOSE? DATE: TIME: . NEUROLOGY: HAVE YOU FALLEN IN THE PAST 6 MONTHS? NO . ANY NEW EXTREMITY NUMBNESS OR WEAKNESS? NO . CARDIOLOGY: DO YOU HAVE A PACEMAKER OR DEFIBRILLATOR? NO . RESPIRATORY: HAVE YOU BEEN SICK IN THE PAST WEEK? NO . FEVER NO . FLU LIKE SYMPTOMS? NO . COUGH NO . INTEGUMENTARY: DO YOU HAVE ANY RASHES OR OPEN SORES? NO . ALLERGIC/IMMUNO: ARE YOU ALLERGIC TO SHELLFISH OR IV DYE? NO . ANY NEW ALLERGIES? NO . PSYCHIATRIC: DO YOU HAVE THOUGHTS OF HURTING YOURSELF OR SOMEONE ELSE? NO . ARE YOU ABUSED, NEGLECTED, OR IN AN UNSAFE ENVIRONMENT? NO . ENDOCRINOLOGY: ARE YOU DIABETIC? NO . OTHER: DO YOU NEED ANY PRESCRIPTIONS? NO . IF YES, PLEASE LIST: ____ . ANY NEW PROBLEMS WITH YOUR MEDICATIONS? NO . WHEN DID YOU LAST EAT? ____ . WHEN DID YOU LAST DRINK? ____ . WHAT DID YOU LAST DRINK? ____ . NAME OF PERSON DRIVING YOU HOME? ____ . DO YOU HAVE ANY OTHER QUESTIONS OR CONCERNS NO . VITAL SIGNS WT 164.4 LBS, HT 65 IN, BMI 27.35 INDEX, BP 145/86 MM HG, HR 71 /MIN, RR 18 /MIN, TEMP 97.1 F, OXYGEN SAT % 97%, SAFE IN ENV? (Y/N) YES, NA INITIALS VT 15:38, REVIEWED BY: KG. EXAMINATION GENERAL EXAMINATION: PSYCHBETTER ABLE TO STAY ON [employer] TODAY. LUNGS:CLEAR TO AUSCULTATION BILATERALLY. HEART:HEART RATE REGULAR. MUSCULOSKELETAL:TRIGGER POINTS:, ELICITED WITH PALPATION OVER LUMBAR PARAVERTEBRAL MUSCLES AND INTO THE SACRUM. RESTRICTION OF ROM IN THIS AREA. GAIT ANTALGIC POINT TENDERNESS OVER LEFT SIJ. 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 PROCEDURE CODES FA211 ESTABILISHED PATIENT [facility] CHARGE DISPOSITION & COMMUNICATION FOLLOW UP AFTER INJECTION (REASON: CHECK AUTH FOR TPI/LOW BACK) ELECTRONICALLY SIGNED BY FRANKIE TAPIA ON 11/17/2017 AT 04:26 PM EST DISCLAIMER : THIS IS A VISIT SUMMARY EXTRACTED FROM THE [employer] CHART. IT IS NOT A COPY OF THE [employer] PROGRESS NOTE. SHANNAN
== END ==
LOC: M PAIN 15:15
PROVIDERS: ATTEND Nurse Practitioner Family
DX: G89.29 Other chronic pain (principal); M43.16 Spondylolisthesis, lumbar region; M79.1 Myalgia; E11.9 Type 2 diabetes mellitus without complications; E78.2 Mixed hyperlipidemia; K21.9 Gastro-esophageal reflux disease without esophagitis; J30.89 Other allergic rhinitis; E55.9 Vitamin D deficiency, unspecified; J44.9 Chronic obstructive pulmonary disease, unspecified; F32.9 Major depressive disorder, single episode, unspecified; F41.9 Anxiety disorder, unspecified; G47.33 Obstructive sleep apnea (adult) (pediatric); Z88.0 Allergy status to penicillin; Z88.2 Allergy status to sulfonamides; Z88.5 Allergy status to narcotic agent; Z88.8 Allergy status to other drugs, medicaments and biological substances; Z79.82 Long term (current) use of aspirin; Z79.891 Long term (current) use of opiate analgesic; Z79.899 Other long term (current) drug therapy

== ENCOUNTER → 2017-12-06 | Outpatient (CLI) | payer OTHER ==
[~2017-12-06] MED LIST changes: -ADV250INH INH; -ALBU17IN INH; -ARTIDRO3 OU; -ASPI1TAB PO; -ASPI81TA85 PO; -ATOR1TAB19 PO; +BUPIVACAINE HCL 0.25% 10 ML VIAL As Ordered; +BUPIVACAINE HCL 0.25% 30 ML VIAL As Ordered; -CALCTAB5 PO; -CYMB60CA3 PO; -DRIS50002 PO; -HYDR-3713 PO; -LANS30CA PO; -LORA0.5T PO; -METF500T PO; -METF500T13 PO; -NAPR500T3 PO; -NASA55AE; -NEXI40GR PO; -PRAV40TA2 PO; -REFROIN OU; -REST0.05 OU; -SALI0.653; -SYST1SOL OU; +TRIAMCINOLONE ACETONIDE SUSP 40 MG/ML VIAL (J3301) As Ordered; -VENTAER INH; -ZYRT10TA2 PO; -[UNRECOGNIZED DRUG - OTHER] INH; +diazePAM 5 MG TAB As Ordered; +oxyCODONE 5MG TAB As Ordered
== END ==
LOC: M PAIN 10:15
DX: G89.29 Other chronic pain (principal); M79.1 Myalgia; E11.9 Type 2 diabetes mellitus without complications; E78.5 Hyperlipidemia, unspecified; J44.9 Chronic obstructive pulmonary disease, unspecified; K21.9 Gastro-esophageal reflux disease without esophagitis; I10 Essential (primary) hypertension; E55.9 Vitamin D deficiency, unspecified; Z79.891 Long term (current) use of opiate analgesic; Z79.899 Other long term (current) drug therapy; Z79.82 Long term (current) use of aspirin; Z88.0 Allergy status to penicillin; Z88.2 Allergy status to sulfonamides; Z88.5 Allergy status to narcotic agent; Z88.8 Allergy status to other drugs, medicaments and biological substances
CPT/HCPCS: J3301

== ENCOUNTER → 2017-12-20 | Outpatient (CLI) | payer OTHER | LOC: M PAIN 10:30 | DX: M43.16 Spondylolisthesis, lumbar region (principal); M79.1 Myalgia; E11.9 Type 2 diabetes mellitus without complications; I10 Essential (primary) hypertension; E78.5 Hyperlipidemia, unspecified; K21.9 Gastro-esophageal reflux disease without esophagitis; J44.9 Chronic obstructive pulmonary disease, unspecified; J30.9 Allergic rhinitis, unspecified; E55.9 Vitamin D deficiency, unspecified; F32.9 Major depressive disorder, single episode, unspecified; F41.9 Anxiety disorder, unspecified; G47.33 Obstructive sleep apnea (adult) (pediatric); Z79.891 Long term (current) use of opiate analgesic; Z79.82 Long term (current) use of aspirin; Z79.84 Long term (current) use of oral hypoglycemic drugs; Z79.899 Other long term (current) drug therapy; Z88.0 Allergy status to penicillin; Z88.2 Allergy status to sulfonamides; Z88.5 Allergy status to narcotic agent; Z88.8 Allergy status to other drugs, medicaments and biological substances; Z87.891 Personal history of nicotine dependence | CPT/HCPCS: G0463 ==

== ENCOUNTER 2018-01-24 10:41 | Inpatient (IN) | payer OTHER, MEDICAID ==
[2018-01-24 11:32] LABS: BASO % 0.1 % (0.0-1.0); HEMATOCRIT 37.9 % (36.0-47.0); HEMOGLOBIN 13.1 g/dl (12.0-16.0); IMMATURE GRANULOCYTE % 0.9 % (0-3.0); LYMPH # 0.8 10^3/uL (1.5-4.5); LYMPH % 6.6 % (24.0-44.0); MEAN CORPUSCULAR HEMOGLOBIN 30.5 pg (27.0-33.0); MEAN CORPUSCULAR HGB CONC 34.6 g/dl (32.0-36.5); MEAN CORPUSCULAR VOLUME 88.1 fl (80.0-96.0); MONO # 1.4 10^3/uL (0.0-0.8); MONO % 11.5 % (0.0-5.0); NEUTROPHILS # 9.9 10^3/uL (1.8-7.7); NEUTROPHILS % 80.9 % (36.0-66.0); PLATELET COUNT, AUTOMATED 237 10^3/uL (150-450); RED CELL DISTRIBUTION WIDTH 12.1 % (11.5-14.5); WHITE BLOOD COUNT 12.3 10^3/uL (4.0-10.0)
[2018-01-24 11:36] LABS: PARTIAL THROMBOPLASTIN TIME 28.6 SECONDS (26.8-37.9); PROTHROMBIN TIME 14.4 SECONDS (12.4-14.5)
[2018-01-24 11:47] LABS: ALBUMIN 3.3 GM/DL (3.2-5.2); ALBUMIN/GLOBULIN RATIO 0.77 (1.00-1.93); ALKALINE PHOSPHATASE 64 U/L (45-117); ALT/SGPT 22 U/L (12-78); AMYLASE 30 U/L (25-115); ANION GAP 11 MEQ/L (8-16); AST/SGOT 16 U/L (7-37); BILIRUBIN,DIRECT 0.2 MG/DL (0.0-0.2); BILIRUBIN,TOTAL 0.8 MG/DL (0.2-1.0); BLOOD UREA NITROGEN 10 MG/DL (7-18); CALCIUM LEVEL 8.8 MG/DL (8.8-10.2); CARBON DIOXIDE LEVEL 26 MEQ/L (21-32); CHLORIDE LEVEL 95 MEQ/L (98-107); CPK CREATINE PHOSPHOKINASE 109 U/L (26-192); CREATININE FOR GFR 0.77 MG/DL (0.55-1.30); GLOMERULAR FILTRATION RATE > 60.0 (>45); GLUCOSE, FASTING 134 MG/DL (70-100); LIPASE 70 U/L (73-393); MB/CK RELATIVE INDEX 0.91 (< OR =4); POTASSIUM SERUM 3.1 MEQ/L (3.5-5.1); SODIUM LEVEL 132 MEQ/L (136-145); TOTAL PROTEIN 7.6 GM/DL (6.4-8.2); TROPONIN I < 0.02 NG/ML (< 0.10)
[2018-01-24 11:49] LABS: LACTIC ACID SEPSIS PROTOCOL 1.4 MMOL/L (0.4-2.0)
[2018-01-24] MEDS: POTASSIUM CHLORIDE 10 MEQ SR TABLET PO (12:15)
[2018-01-24] MEDS: ONDANSETRON 4MG/2ML VIAL (J2405) IV (12:15)
[2018-01-24] MEDS: NS 500 ML IV ×2 (12:15→13:30)
[2018-01-24] MEDS ORDERED: ISOVUE-370 76% 100ML VIAL (Q9967) As Ordered (12:31)
[2018-01-24] MEDS: LevoFLOXacin IV 750 MG in APPROPRIATE DILUENT 1 EA IV (13:30)
[2018-01-24] MEDS ORDERED: ONDANSETRON 4MG/2ML VIAL (J2405) IV (14:30)
[2018-01-24] MEDS ORDERED: GLUCOSE 4 GM CHEW TABLET PO (14:45)
[2018-01-24] MEDS ORDERED: LORATADINE 10 MG TAB PO (14:45)
[2018-01-24] MEDS ORDERED: DEXTROSE 50% 50 ML SYRINGE IV (14:45)
[2018-01-24] MEDS ORDERED: GLUCAGON FOR INJ 1 MG VIAL (J1610) SC (14:45)
[2018-01-24] MEDS: ACETAMINOPHEN TAB 650MG DOSE (2X325MG) PO ×2 (15:10→20:22)
[2018-01-24 16:48] LABS: BEDSIDE GLUCOSE 120 MG/DL (80-115)
[2018-01-24] MEDS: GABAPENTIN 300 MG CAP PO ×2 (17:40→20:20)
[2018-01-24] MEDS: HumaLOG INSULIN (NovoLOG) PER UNIT SC ×2 (17:40→20:21)
[2018-01-24] MEDS: methylPREDNISolone INJ 40 MG/1 ML VIAL (J2920) IV (17:40)
[2018-01-24] MEDS: DULoxetine 30 MG CAP (CYMBALTA) PO (20:19)
[2018-01-24] MEDS: ATORVASTATIN 10 MG TAB PO (20:20)
[2018-01-24] MEDS: ASPIRIN 81 MG ENTERIC TAB PO (20:20)
[2018-01-24] MEDS: LISINOPRIL 5 MG TAB PO (20:21)
[2018-01-24 20:59] LABS: BEDSIDE GLUCOSE 102 MG/DL (80-115)
[2018-01-25] MEDS: methylPREDNISolone INJ 40 MG/1 ML VIAL (J2920) IV ×3 (01:00→15:58)
[2018-01-25 06:28] LABS: HEMOGLOBIN 13.9 g/dl (12.0-16.0); MEAN CORPUSCULAR HEMOGLOBIN 30.3 pg (27.0-33.0); MEAN CORPUSCULAR HGB CONC 33.9 g/dl (32.0-36.5); MEAN CORPUSCULAR VOLUME 89.5 fl (80.0-96.0); PLATELET COUNT, AUTOMATED 246 10^3/uL (150-450); RED BLOOD COUNT 4.58 10^6/uL (4.00-5.40); RED CELL DISTRIBUTION WIDTH 11.9 % (11.5-14.5); WHITE BLOOD COUNT 12.6 10^3/uL (4.0-10.0)
[2018-01-25 06:37] LABS: ALKALINE PHOSPHATASE 69 U/L (45-117); ALT/SGPT 25 U/L (12-78); ANION GAP 10 MEQ/L (8-16); AST/SGOT 18 U/L (7-37); BILIRUBIN,TOTAL 0.5 MG/DL (0.2-1.0); BLOOD UREA NITROGEN 12 MG/DL (7-18); CALCIUM LEVEL 8.8 MG/DL (8.8-10.2); CARBON DIOXIDE LEVEL 22 MEQ/L (21-32); CHLORIDE LEVEL 100 MEQ/L (98-107); GLOMERULAR FILTRATION RATE > 60.0 (>45); GLUCOSE, FASTING 186 MG/DL (70-100); MAGNESIUM LEVEL 1.7 MG/DL (1.8-2.4); POTASSIUM SERUM 3.9 MEQ/L (3.5-5.1); SODIUM LEVEL 132 MEQ/L (136-145); TOTAL PROTEIN 7.5 GM/DL (6.4-8.2)
[2018-01-25 06:42] LABS: ALBUMIN 2.9 GM/DL (3.2-5.2); ALBUMIN/GLOBULIN RATIO 0.63 (1.00-1.93)
[2018-01-25] MEDS: HumaLOG INSULIN (NovoLOG) PER UNIT SC ×4 (08:13→20:30)
[2018-01-25] MEDS: ACETAMINOPHEN TAB 650MG DOSE (2X325MG) PO ×3 (08:15→20:35)
[2018-01-25] MEDS: GABAPENTIN 300 MG CAP PO ×3 (08:15→20:29)
[2018-01-25] MEDS: ENOXAPARIN 40 MG/0.4 ML SYRINGE (J1650) SC (08:16)
[2018-01-25 10:25] LABS: CK-MB VALUE MASS 2.1 NG/ML (0.0-3.6); CPK CREATINE PHOSPHOKINASE 145 U/L (26-192); MB/CK RELATIVE INDEX 1.44 (< OR =4); TROPONIN I < 0.02 NG/ML (< 0.10)
[2018-01-25] MEDS: NORCO, ANEXSIA 5/325MG TABLET (HYDROcodone/ACETAMINOPHEN) PO (10:27)
[2018-01-25 10:35] LABS: LACTIC ACID SEPSIS PROTOCOL 2.3 MMOL/L (0.4-2.0)
[2018-01-25] MEDS: NS 1,000 ML IV ×2 (12:17→23:30)
[2018-01-25] MEDS: MAG SULF 1GM/100ML (MAG RUN) 1 GM in APPROPRIATE DILUENT 1 EA IV (12:18)
[2018-01-25 12:23] LABS: ABG BASE EXCESS 0.4 (-2.0-2.0); ABG PARTIAL PRESSURE CO2 35.5 mmHg (35.0-45.0); ABG PARTIAL PRESSURE O2 76.7 mmHg (75.0-100.0); ABG STANDARD HCO3 24.8 MEQ/L (22.0-26.0); ABG TOTAL CO2 25.1 MEQ/L (23.0-31.0); ABG pH (ARTERIAL) 7.448 UNITS (7.350-7.450)
[2018-01-25] MEDS: LevoFLOXacin IV 750 MG in APPROPRIATE DILUENT 1 EA IV (13:54)
[2018-01-25] MEDS ORDERED: LevoFLOXacin IV 500 MG in APPROPRIATE DILUENT 1 EA IV (14:00)
[2018-01-25 15:04] LABS: CK-MB VALUE MASS 3.9 NG/ML (0.0-3.6); CPK CREATINE PHOSPHOKINASE 196 U/L (26-192); MB/CK RELATIVE INDEX 1.98 (< OR =4); TROPONIN I < 0.02 NG/ML (< 0.10)
[2018-01-25] MEDS: VANCOMYCIN HCL 1,000 MG, VIAL MATE ADAPTER 1 EACH in D5W 250 ML IV (15:54)
[2018-01-25] MEDS: SODIUM CHLORIDE 0.9% 1000 ML IV (15:54)
[2018-01-25 17:34] LABS: BEDSIDE GLUCOSE 222 MG/DL (80-115)
[2018-01-25 19:10] LABS: LACTIC ACID SEPSIS PROTOCOL 3.7 MMOL/L (0.4-2.0)
[2018-01-25] MEDS: DULoxetine 30 MG CAP (CYMBALTA) PO (20:29)
[2018-01-25] MEDS: ASPIRIN 81 MG ENTERIC TAB PO (20:29)
[2018-01-25] MEDS: ATORVASTATIN 10 MG TAB PO (20:29)
[2018-01-25 21:35] LABS: BEDSIDE GLUCOSE 102 MG/DL (80-115)
[2018-01-26] MEDS: methylPREDNISolone INJ 40 MG/1 ML VIAL (J2920) IV ×2 (01:00→09:08)
[2018-01-26] MEDS: VANCOMYCIN HCL 1,000 MG, VIAL MATE ADAPTER 1 EACH in D5W 250 ML IV ×2 (04:09→16:43)
[2018-01-26] MEDS: ACETAMINOPHEN TAB 650MG DOSE (2X325MG) PO ×2 (05:01→21:04)
[2018-01-26 05:41] LABS: BEDSIDE GLUCOSE 123 MG/DL (80-115)
[2018-01-26 05:49] LABS: HEMATOCRIT 34.8 % (36.0-47.0); MEAN CORPUSCULAR HEMOGLOBIN 29.8 pg (27.0-33.0); MEAN CORPUSCULAR HGB CONC 34.5 g/dl (32.0-36.5); MEAN CORPUSCULAR VOLUME 86.4 fl (80.0-96.0); PLATELET COUNT, AUTOMATED 269 10^3/uL (150-450); RED BLOOD COUNT 4.03 10^6/uL (4.00-5.40); RED CELL DISTRIBUTION WIDTH 11.9 % (11.5-14.5); WHITE BLOOD COUNT 8.1 10^3/uL (4.0-10.0)
[2018-01-26 05:53] LABS: ALBUMIN 2.3 GM/DL (3.2-5.2); ALBUMIN/GLOBULIN RATIO 0.74 (1.00-1.93); ALKALINE PHOSPHATASE 50 U/L (45-117); ALT/SGPT 20 U/L (12-78); ANION GAP 12 MEQ/L (8-16); AST/SGOT 21 U/L (7-37); BILIRUBIN,TOTAL 0.5 MG/DL (0.2-1.0); BLOOD UREA NITROGEN 11 MG/DL (7-18); CALCIUM LEVEL 7.9 MG/DL (8.8-10.2); CARBON DIOXIDE LEVEL 25 MEQ/L (21-32); CHLORIDE LEVEL 94 MEQ/L (98-107); CREATININE FOR GFR 1.01 MG/DL (0.55-1.30); GLOMERULAR FILTRATION RATE 59.5 (>45); GLUCOSE, FASTING 174 MG/DL (70-100); MAGNESIUM LEVEL 1.7 MG/DL (1.8-2.4); POTASSIUM SERUM 4.1 MEQ/L (3.5-5.1); SODIUM LEVEL 131 MEQ/L (136-145); TOTAL PROTEIN 5.4 GM/DL (6.4-8.2)
[2018-01-26] MEDS: HumaLOG INSULIN (NovoLOG) PER UNIT SC ×4 (09:07→21:00)
[2018-01-26] MEDS: GABAPENTIN 300 MG CAP PO ×3 (09:07→21:04)
[2018-01-26] MEDS: ENOXAPARIN 40 MG/0.4 ML SYRINGE (J1650) SC (09:08)
[2018-01-26] MEDS: NORCO, ANEXSIA 5/325MG TABLET (HYDROcodone/ACETAMINOPHEN) PO (09:15)
[2018-01-26 11:43] LABS: BEDSIDE GLUCOSE 165 MG/DL (80-115)
[2018-01-26 12:18] LABS: BEDSIDE GLUCOSE 120 MG/DL (80-115)
[2018-01-26] MEDS: predniSONE 20 MG TAB PO ×2 (13:59→21:04)
[2018-01-26] MEDS: LevoFLOXacin IV 750 MG in APPROPRIATE DILUENT 1 EA IV (13:59)
[2018-01-26] MEDS: MAG SULF 1GM/100ML (MAG RUN) 1 GM in APPROPRIATE DILUENT 1 EA IV (15:03)
[2018-01-26] MEDS: ATORVASTATIN 10 MG TAB PO (21:04)
[2018-01-26] MEDS: DULoxetine 30 MG CAP (CYMBALTA) PO (21:04)
[2018-01-26] MEDS: ASPIRIN 81 MG ENTERIC TAB PO (21:04)
[2018-01-26 21:34] LABS: BEDSIDE GLUCOSE 180 MG/DL (80-115)
[2018-01-27 00:59] LABS: BEDSIDE GLUCOSE 181 MG/DL (80-115)
[2018-01-27] MEDS: VANCOMYCIN HCL 1,000 MG, VIAL MATE ADAPTER 1 EACH in D5W 250 ML IV ×3 (04:31→22:18)
[2018-01-27 05:55] LABS: HEMATOCRIT 32.9 % (36.0-47.0); HEMOGLOBIN 11.6 g/dl (12.0-16.0); MEAN CORPUSCULAR HGB CONC 35.3 g/dl (32.0-36.5); PLATELET COUNT, AUTOMATED 251 10^3/uL (150-450); RED BLOOD COUNT 3.87 10^6/uL (4.00-5.40); RED CELL DISTRIBUTION WIDTH 11.9 % (11.5-14.5); WHITE BLOOD COUNT 14.5 10^3/uL (4.0-10.0)
[2018-01-27] MEDS: predniSONE 20 MG TAB PO ×3 (06:13→22:17)
[2018-01-27 06:17] LABS: ALKALINE PHOSPHATASE 66 U/L (45-117); ALT/SGPT 24 U/L (12-78); ANION GAP 7 MEQ/L (8-16); AST/SGOT 25 U/L (7-37); BILIRUBIN,TOTAL 0.4 MG/DL (0.2-1.0); BLOOD UREA NITROGEN 12 MG/DL (7-18); CALCIUM LEVEL 8.1 MG/DL (8.8-10.2); CARBON DIOXIDE LEVEL 26 MEQ/L (21-32); CHLORIDE LEVEL 98 MEQ/L (98-107); CREATININE FOR GFR 0.68 MG/DL (0.55-1.30); GLOMERULAR FILTRATION RATE > 60.0 (>45); GLUCOSE, FASTING 204 MG/DL (70-100); MAGNESIUM LEVEL 2.1 MG/DL (1.8-2.4); POTASSIUM SERUM 3.9 MEQ/L (3.5-5.1); SODIUM LEVEL 131 MEQ/L (136-145); TOTAL PROTEIN 5.5 GM/DL (6.4-8.2)
[2018-01-27 06:22] LABS: ALBUMIN/GLOBULIN RATIO 0.45 (1.00-1.93)
[2018-01-27 06:24] LABS: ALBUMIN 1.7 GM/DL (3.2-5.2)
[2018-01-27 08:14] LABS: BEDSIDE GLUCOSE 168 MG/DL (80-115)
[2018-01-27] MEDS: GABAPENTIN 300 MG CAP PO ×3 (08:43→22:17)
[2018-01-27] MEDS: NORCO, ANEXSIA 5/325MG TABLET (HYDROcodone/ACETAMINOPHEN) PO (08:44)
[2018-01-27] MEDS: ENOXAPARIN 40 MG/0.4 ML SYRINGE (J1650) SC (08:45)
[2018-01-27] MEDS: HumaLOG INSULIN (NovoLOG) PER UNIT SC ×4 (08:45→22:05)
[2018-01-27 12:29] LABS: BEDSIDE GLUCOSE 173 MG/DL (80-115)
[2018-01-27 15:18] LABS: VANCOMYCIN LEVEL TROUGH 8.9 UG/ML (10.0-20.0)
[2018-01-27] MEDS: POLYVINYL ALCOHOL OPHTH SOLN 15 ML(LIQUITEARS) OU ×2 (16:28→22:18)
[2018-01-27 16:47] LABS: BEDSIDE GLUCOSE 196 MG/DL (80-115)
[2018-01-27] MEDS: VANCOMYCIN HCL 500 MG in D5W MINI-BAG PLUS 100 ML IV (18:26)
[2018-01-27 21:11] LABS: BEDSIDE GLUCOSE 234 MG/DL (80-115)
[2018-01-27] MEDS: ATORVASTATIN 10 MG TAB PO (22:17)
[2018-01-27] MEDS: ASPIRIN 81 MG ENTERIC TAB PO (22:17)
[2018-01-27] MEDS: DULoxetine 30 MG CAP (CYMBALTA) PO (22:17)
[2018-01-27] MEDS: ACETAMINOPHEN TAB 650MG DOSE (2X325MG) PO (22:19)
[2018-01-28 05:43] LABS: HEMOGLOBIN 11.4 g/dl (12.0-16.0); MEAN CORPUSCULAR HEMOGLOBIN 30.1 pg (27.0-33.0); MEAN CORPUSCULAR HGB CONC 35.6 g/dl (32.0-36.5); MEAN CORPUSCULAR VOLUME 84.4 fl (80.0-96.0); PLATELET COUNT, AUTOMATED 286 10^3/uL (150-450); RED BLOOD COUNT 3.79 10^6/uL (4.00-5.40); RED CELL DISTRIBUTION WIDTH 12.1 % (11.5-14.5); WHITE BLOOD COUNT 21.3 10^3/uL (4.0-10.0)
[2018-01-28] MEDS: predniSONE 20 MG TAB PO ×3 (05:49→20:01)
[2018-01-28] MEDS: VANCOMYCIN HCL 1,000 MG, VIAL MATE ADAPTER 1 EACH in D5W 250 ML IV ×3 (05:50→22:06)
[2018-01-28] MEDS: BENZONATATE 100 MG CAP PO (05:50)
[2018-01-28 06:26] LABS: ALBUMIN 1.7 GM/DL (3.2-5.2); ALBUMIN/GLOBULIN RATIO 0.44 (1.00-1.93); ALKALINE PHOSPHATASE 93 U/L (45-117); ALT/SGPT 40 U/L (12-78); ANION GAP 6 MEQ/L (8-16); AST/SGOT 36 U/L (7-37); BILIRUBIN,TOTAL 0.3 MG/DL (0.2-1.0); BLOOD UREA NITROGEN 15 MG/DL (7-18); CALCIUM LEVEL 8.5 MG/DL (8.8-10.2); CARBON DIOXIDE LEVEL 27 MEQ/L (21-32); CHLORIDE LEVEL 100 MEQ/L (98-107); CREATININE FOR GFR 0.69 MG/DL (0.55-1.30); GLOMERULAR FILTRATION RATE > 60.0 (>45); GLUCOSE, FASTING 214 MG/DL (70-100); MAGNESIUM LEVEL 2.1 MG/DL (1.8-2.4); POTASSIUM SERUM 3.8 MEQ/L (3.5-5.1); SODIUM LEVEL 133 MEQ/L (136-145); TOTAL PROTEIN 5.6 GM/DL (6.4-8.2)
[2018-01-28] MEDS: OMEPRAZOLE 20 MG CAP PO (08:06)
[2018-01-28] MEDS: GABAPENTIN 300 MG CAP PO ×3 (08:06→20:01)
[2018-01-28] MEDS: HumaLOG INSULIN (NovoLOG) PER UNIT SC ×4 (08:06→20:02)
[2018-01-28] MEDS: ENOXAPARIN 40 MG/0.4 ML SYRINGE (J1650) SC (08:06)
[2018-01-28] MEDS: POLYVINYL ALCOHOL OPHTH SOLN 15 ML(LIQUITEARS) OU (08:06)
[2018-01-28 11:49] LABS: BEDSIDE GLUCOSE 172 MG/DL (80-115)
[2018-01-28 14:12] LABS: QUANTIFERON GOLD TB Negative (Negative); TB Test (QFT) Antigen 0.03 IU/mL (.); TB Test (QFT) Antigen Minus Ni 0.02 IU/mL (.); TB Test (QFT) Mitogen 6.09 IU/mL (.); TB Test (QFT) Nil 0.01 IU/mL (.)
[2018-01-28] MEDS: IPRATROPIUM 0.5MG/ALBUTEROL 2.5MG INH SOL UD 3ML (DUONEB)(J7620) NEB (14:37)
[2018-01-28] MEDS ORDERED: POLYVINYL ALCOHOL OPHTH SOLN 15 ML(LIQUITEARS) OU (16:00)
[2018-01-28 17:09] LABS: BEDSIDE GLUCOSE 271 MG/DL (80-115)
[2018-01-28] MEDS: MIRALAX *UNIT DOSE* 17GM PACKET PO (17:14)
[2018-01-28] MEDS: TIOTROPIUM INHALER/CAPSULE (SPIRIVA) INH (18:21)
[2018-01-28] MEDS: ATORVASTATIN 10 MG TAB PO (20:01)
[2018-01-28] MEDS: ASPIRIN 81 MG ENTERIC TAB PO (20:01)
[2018-01-28] MEDS: DULoxetine 30 MG CAP (CYMBALTA) PO (20:01)
[2018-01-28 20:16] LABS: BEDSIDE GLUCOSE 226 MG/DL (80-115)
[2018-01-28] MEDS: BUDESONIDE 0.5 MG/2 ML INHALATION SUSPENSION INH (20:36)
[2018-01-28] MEDS: ALBUTEROL SULFATE 2.5 MG/0.5 ML INH NEB SOLN NEB (20:36)
[2018-01-29] MEDS: VANCOMYCIN HCL 1,000 MG, VIAL MATE ADAPTER 1 EACH in D5W 250 ML IV ×2 (06:26→13:55)
[2018-01-29 07:03] LABS: HEMATOCRIT 29.6 % (36.0-47.0); HEMOGLOBIN 10.4 g/dl (12.0-16.0); MEAN CORPUSCULAR HEMOGLOBIN 30.3 pg (27.0-33.0); MEAN CORPUSCULAR HGB CONC 35.1 g/dl (32.0-36.5); MEAN CORPUSCULAR VOLUME 86.3 fl (80.0-96.0); PLATELET COUNT, AUTOMATED 262 10^3/uL (150-450); RED BLOOD COUNT 3.43 10^6/uL (4.00-5.40); RED CELL DISTRIBUTION WIDTH 12.7 % (11.5-14.5); WHITE BLOOD COUNT 16.9 10^3/uL (4.0-10.0)
[2018-01-29 07:20] LABS: ALBUMIN 1.6 GM/DL (3.2-5.2); ALBUMIN/GLOBULIN RATIO 0.43 (1.00-1.93); ALKALINE PHOSPHATASE 101 U/L (45-117); ALT/SGPT 99 U/L (12-78); ANION GAP 10 MEQ/L (8-16); AST/SGOT 53 U/L (7-37); BILIRUBIN,TOTAL 0.3 MG/DL (0.2-1.0); BLOOD UREA NITROGEN 17 MG/DL (7-18); CALCIUM LEVEL 8.1 MG/DL (8.8-10.2); CARBON DIOXIDE LEVEL 25 MEQ/L (21-32); CHLORIDE LEVEL 100 MEQ/L (98-107); CREATININE FOR GFR 0.78 MG/DL (0.55-1.30); GLOMERULAR FILTRATION RATE > 60.0 (>45); GLUCOSE, FASTING 314 MG/DL (70-100); MAGNESIUM LEVEL 2.2 MG/DL (1.8-2.4); POTASSIUM SERUM 4.2 MEQ/L (3.5-5.1); SODIUM LEVEL 135 MEQ/L (136-145); TOTAL PROTEIN 5.3 GM/DL (6.4-8.2)
[2018-01-29] MEDS: OMEPRAZOLE 20 MG CAP PO (08:49)
[2018-01-29] MEDS: HumaLOG INSULIN (NovoLOG) PER UNIT SC ×4 (08:49→21:15)
[2018-01-29] MEDS: predniSONE 20 MG TAB PO ×2 (08:49→21:14)
[2018-01-29] MEDS: GABAPENTIN 300 MG CAP PO ×3 (08:50→21:14)
[2018-01-29] MEDS: ENOXAPARIN 40 MG/0.4 ML SYRINGE (J1650) SC (08:50)
[2018-01-29] MEDS: ALBUTEROL SULFATE 2.5 MG/0.5 ML INH NEB SOLN NEB ×2 (09:10→17:58)
[2018-01-29] MEDS: BUDESONIDE 0.5 MG/2 ML INHALATION SUSPENSION INH ×2 (09:10→17:58)
[2018-01-29] MEDS: TIOTROPIUM INHALER/CAPSULE (SPIRIVA) INH (09:10)
[2018-01-29 12:24] LABS: BEDSIDE GLUCOSE 285 MG/DL (80-115)
[2018-01-29 21:00] LABS: BEDSIDE GLUCOSE 276 MG/DL (80-115)
[2018-01-29] MEDS: NORCO, ANEXSIA 5/325MG TABLET (HYDROcodone/ACETAMINOPHEN) PO (21:14)
[2018-01-29] MEDS: ATORVASTATIN 10 MG TAB PO (21:14)
[2018-01-29] MEDS: DULoxetine 30 MG CAP (CYMBALTA) PO (21:14)
[2018-01-29] MEDS: ASPIRIN 81 MG ENTERIC TAB PO (21:14)
[2018-01-29 22:25] LABS: VANCOMYCIN LEVEL TROUGH 28.3 UG/ML (10.0-20.0)
[2018-01-30 00:06] LABS: BODY FLUID CULTURE Not Indicated (.); HISTOPLASMA GAL'MANNAN AG UR <0.5 (<0.5 ng/mL); LEGIONELLA ANTIGEN URINE Negative (Negative); ORGANISM ID Not indicated. (.); SPECIMEN SOURCE Urine (.); URINE STREP PNEUMONIAE ANTIGEN Negative (Negative)
[2018-01-30] MEDS: VANCOMYCIN HCL 1,000 MG, VIAL MATE ADAPTER 1 EACH in D5W 250 ML IV ×2 (01:51→13:35)
[2018-01-30 06:40] LABS: HEMATOCRIT 31.6 % (36.0-47.0); HEMOGLOBIN 10.8 g/dl (12.0-16.0); MEAN CORPUSCULAR HEMOGLOBIN 29.4 pg (27.0-33.0); MEAN CORPUSCULAR HGB CONC 34.2 g/dl (32.0-36.5); MEAN CORPUSCULAR VOLUME 86.1 fl (80.0-96.0); PLATELET COUNT, AUTOMATED 284 10^3/uL (150-450); RED BLOOD COUNT 3.67 10^6/uL (4.00-5.40); RED CELL DISTRIBUTION WIDTH 12.8 % (11.5-14.5); WHITE BLOOD COUNT 16.7 10^3/uL (4.0-10.0)
[2018-01-30 07:04] LABS: ALBUMIN 1.6 GM/DL (3.2-5.2); ALBUMIN/GLOBULIN RATIO 0.43 (1.00-1.93); ALKALINE PHOSPHATASE 93 U/L (45-117); ALT/SGPT 109 U/L (12-78); ANION GAP 6 MEQ/L (8-16); AST/SGOT 42 U/L (7-37); BILIRUBIN,TOTAL 0.3 MG/DL (0.2-1.0); BLOOD UREA NITROGEN 17 MG/DL (7-18); CALCIUM LEVEL 8.1 MG/DL (8.8-10.2); CARBON DIOXIDE LEVEL 30 MEQ/L (21-32); CHLORIDE LEVEL 100 MEQ/L (98-107); CREATININE FOR GFR 0.72 MG/DL (0.55-1.30); GLOMERULAR FILTRATION RATE > 60.0 (>45); GLUCOSE, FASTING 251 MG/DL (70-100); POTASSIUM SERUM 4.6 MEQ/L (3.5-5.1); SODIUM LEVEL 136 MEQ/L (136-145); TOTAL PROTEIN 5.3 GM/DL (6.4-8.2)
[2018-01-30] MEDS: BUDESONIDE 0.5 MG/2 ML INHALATION SUSPENSION INH ×2 (07:11→19:18)
[2018-01-30] MEDS: TIOTROPIUM INHALER/CAPSULE (SPIRIVA) INH (07:11)
[2018-01-30] MEDS: ENOXAPARIN 40 MG/0.4 ML SYRINGE (J1650) SC (08:27)
[2018-01-30] MEDS: OMEPRAZOLE 20 MG CAP PO (08:27)
[2018-01-30] MEDS: HumaLOG INSULIN (NovoLOG) PER UNIT SC ×4 (08:27→21:00)
[2018-01-30] MEDS: predniSONE 20 MG TAB PO ×2 (08:28→20:36)
[2018-01-30] MEDS: GABAPENTIN 300 MG CAP PO ×3 (08:28→20:35)
[2018-01-30 12:28] LABS: BEDSIDE GLUCOSE 80 MG/DL (80-115)
[2018-01-30] MEDS: ALBUTEROL SULFATE 2.5 MG/0.5 ML INH NEB SOLN NEB ×2 (14:08→19:20)
[2018-01-30] MEDS: MIRALAX *UNIT DOSE* 17GM PACKET PO (14:45)
[2018-01-30] MEDS: DOXYCYCLINE HYCLATE 100 MG TAB PO (20:36)
[2018-01-30] MEDS: DULoxetine 30 MG CAP (CYMBALTA) PO (20:36)
[2018-01-30] MEDS: ASPIRIN 81 MG ENTERIC TAB PO (20:36)
[2018-01-30] MEDS: ATORVASTATIN 10 MG TAB PO (20:36)
[2018-01-30] MEDS: NORCO, ANEXSIA 5/325MG TABLET (HYDROcodone/ACETAMINOPHEN) PO (20:47)
[2018-01-30 21:37] LABS: BEDSIDE GLUCOSE 184 MG/DL (80-115)
[2018-01-31 06:28] LABS: HEMATOCRIT 30.8 % (36.0-47.0); HEMOGLOBIN 10.6 g/dl (12.0-16.0); MEAN CORPUSCULAR HGB CONC 34.4 g/dl (32.0-36.5); MEAN CORPUSCULAR VOLUME 87.3 fl (80.0-96.0); PLATELET COUNT, AUTOMATED 285 10^3/uL (150-450); RED BLOOD COUNT 3.53 10^6/uL (4.00-5.40); RED CELL DISTRIBUTION WIDTH 12.9 % (11.5-14.5); WHITE BLOOD COUNT 17.5 10^3/uL (4.0-10.0)
[2018-01-31 06:57] LABS: ALBUMIN 1.6 GM/DL (3.2-5.2); ALBUMIN/GLOBULIN RATIO 0.44 (1.00-1.93); ALKALINE PHOSPHATASE 92 U/L (45-117); ALT/SGPT 93 U/L (12-78); ANION GAP 6 MEQ/L (8-16); AST/SGOT 27 U/L (7-37); BILIRUBIN,TOTAL 0.3 MG/DL (0.2-1.0); BLOOD UREA NITROGEN 17 MG/DL (7-18); CALCIUM LEVEL 8.2 MG/DL (8.8-10.2); CARBON DIOXIDE LEVEL 31 MEQ/L (21-32); CHLORIDE LEVEL 99 MEQ/L (98-107); CREATININE FOR GFR 0.68 MG/DL (0.55-1.30); GLOMERULAR FILTRATION RATE > 60.0 (>45); GLUCOSE, FASTING 239 MG/DL (70-100); MAGNESIUM LEVEL 1.7 MG/DL (1.8-2.4); POTASSIUM SERUM 4.1 MEQ/L (3.5-5.1); SODIUM LEVEL 136 MEQ/L (136-145); TOTAL PROTEIN 5.2 GM/DL (6.4-8.2)
[2018-01-31] MEDS: BUDESONIDE 0.5 MG/2 ML INHALATION SUSPENSION INH (07:37)
[2018-01-31] MEDS: TIOTROPIUM INHALER/CAPSULE (SPIRIVA) INH (07:37)
[2018-01-31] MEDS: ALBUTEROL SULFATE 2.5 MG/0.5 ML INH NEB SOLN NEB (07:37)
[2018-01-31] MEDS: GABAPENTIN 300 MG CAP PO (08:30)
[2018-01-31] MEDS: predniSONE 20 MG TAB PO (08:30)
[2018-01-31] MEDS: DOXYCYCLINE HYCLATE 100 MG TAB PO (08:30)
[2018-01-31] MEDS: OMEPRAZOLE 20 MG CAP PO (08:31)
[2018-01-31] MEDS: HumaLOG INSULIN (NovoLOG) PER UNIT SC ×2 (08:32→12:35)
[2018-01-31] MEDS: ENOXAPARIN 40 MG/0.4 ML SYRINGE (J1650) SC (08:32)
[2018-01-31] MEDS: NORCO, ANEXSIA 5/325MG TABLET (HYDROcodone/ACETAMINOPHEN) PO (09:49)
[2018-01-31 11:36] LABS: BEDSIDE GLUCOSE 245 MG/DL (80-115)
[2018-01-31 11:36] LABS: BEDSIDE GLUCOSE 231 MG/DL (80-115)
[2018-01-31 11:42] LABS: BEDSIDE GLUCOSE 284 MG/DL (80-115)
[2018-01-31 11:42] LABS: BEDSIDE GLUCOSE 157 MG/DL (80-115)
[2018-01-31 12:24] LABS: BEDSIDE GLUCOSE 222 MG/DL (80-115)
== END 2018-01-31 15:30 | disposition home or self-care (01) | DRG 137 ==
LOC: M ED 10:41 → M ED INP 14:23 → M MSPAV 15:46
DX: J15.212 Pneumonia due to Methicillin resistant Staphylococcus aureus (principal); E87.2 Acidosis; E11.40 Type 2 diabetes mellitus with diabetic neuropathy, unspecified; E78.5 Hyperlipidemia, unspecified; J44.0 Chronic obstructive pulmonary disease with (acute) lower respiratory infection; I10 Essential (primary) hypertension; R91.1 Solitary pulmonary nodule; K21.9 Gastro-esophageal reflux disease without esophagitis; Z79.82 Long term (current) use of aspirin; Z79.84 Long term (current) use of oral hypoglycemic drugs; Z88.1 Allergy status to other antibiotic agents; Z88.2 Allergy status to sulfonamides; Z91.018 Allergy to other foods; Z88.0 Allergy status to penicillin; Z88.5 Allergy status to narcotic agent; Z87.891 Personal history of nicotine dependence; Z79.899 Other long term (current) drug therapy

== ENCOUNTER → 2018-02-11 | Outpatient (REF) | payer OTHER ==
[2018-02-11 14:35] LABS: BASO % 0.2 % (0.0-1.0); EOS # 0.1 10^3/uL (0.0-0.50); EOS % 2.1 % (0.0-3.0); HEMATOCRIT 33.1 % (36.0-47.0); HEMOGLOBIN 10.5 g/dl (12.0-16.0); IMMATURE GRANULOCYTE % 0.8 % (0-3.0); LYMPH # 1.4 10^3/uL (1.5-4.5); LYMPH % 23.6 % (24.0-44.0); MEAN CORPUSCULAR HEMOGLOBIN 29.1 pg (27.0-33.0); MEAN CORPUSCULAR HGB CONC 31.7 g/dl (32.0-36.5); MEAN CORPUSCULAR VOLUME 91.7 fl (80.0-96.0); MONO # 0.4 10^3/uL (0.0-0.8); NEUTROPHILS # 4.1 10^3/uL (1.8-7.7); NEUTROPHILS % 66.3 % (36.0-66.0); PLATELET COUNT, AUTOMATED 398 10^3/uL (150-450); RED BLOOD COUNT 3.61 10^6/uL (4.00-5.40); WHITE BLOOD COUNT 6.1 10^3/uL (4.0-10.0)
[2018-02-11 15:04] LABS: ALBUMIN 2.8 GM/DL (3.2-5.2); ALBUMIN/GLOBULIN RATIO 0.67 (1.00-1.93); ALKALINE PHOSPHATASE 79 U/L (45-117); ALT/SGPT 50 U/L (12-78); ANION GAP 9 MEQ/L (8-16); AST/SGOT 23 U/L (7-37); BILIRUBIN,TOTAL 0.4 MG/DL (0.2-1.0); BLOOD UREA NITROGEN 11 MG/DL (7-18); CALCIUM LEVEL 8.6 MG/DL (8.8-10.2); CARBON DIOXIDE LEVEL 30 MEQ/L (21-32); CHLORIDE LEVEL 99 MEQ/L (98-107); CREATININE FOR GFR 0.74 MG/DL (0.55-1.30); GLOMERULAR FILTRATION RATE > 60.0 (>45); GLUCOSE, FASTING 99 MG/DL (70-100); POTASSIUM SERUM 3.8 MEQ/L (3.5-5.1); SODIUM LEVEL 138 MEQ/L (136-145)
[2018-02-11 15:45] LABS: ESTIMATED AVERAGE GLUCOSE 163 MG/DL (60-110); HEMOGLOBIN A1c 7.3 %
== END ==
LOC: M SFHCPLAZ 11:04
DX: J18.1 Lobar pneumonia, unspecified organism (principal); E11.9 Type 2 diabetes mellitus without complications

== ENCOUNTER → 2018-03-10 | Outpatient (CLI) | payer OTHER | LOC: M PAIN 13:30 | DX: M43.16 Spondylolisthesis, lumbar region (principal); M12.88 Other specific arthropathies, not elsewhere classified, other specified site; Z79.891 Long term (current) use of opiate analgesic; M79.1 Myalgia; I10 Essential (primary) hypertension; E11.9 Type 2 diabetes mellitus without complications; E55.9 Vitamin D deficiency, unspecified; E78.5 Hyperlipidemia, unspecified; J44.9 Chronic obstructive pulmonary disease, unspecified; Z79.82 Long term (current) use of aspirin; Z79.84 Long term (current) use of oral hypoglycemic drugs; Z79.899 Other long term (current) drug therapy; Z88.0 Allergy status to penicillin; Z88.5 Allergy status to narcotic agent; Z88.8 Allergy status to other drugs, medicaments and biological substances; Z87.891 Personal history of nicotine dependence | CPT/HCPCS: G0463 ==

== ENCOUNTER 2018-04-01 06:03 | Day surgery (SDC) | payer OTHER ==
[2018-04-01] MEDS ORDERED: D5W 1,000 ML IV (06:30)
[2018-04-01] MEDS: LR 1,000 ML IV (07:02)
[2018-04-01] MEDS: ACETYLCYSTEINE 20% 30 ML VIAL As Ordered (07:23)
[2018-04-01] MEDS ORDERED: MIDAZOLAM INJ 2 MG/2 ML VIAL (J2250) As Ordered (07:24)
[2018-04-01] MEDS ORDERED: PROPOFOL 200 MG/20 ML VIAL As Ordered (07:24)
[2018-04-01] MEDS: LIDOCAINE 1% MDV 20ML VIAL As Ordered (07:25)
[2018-04-01] MEDS: THROMBIN SOLN 20,000 UNITS KIT As Ordered (07:25)
[2018-04-01] MEDS: THROMBIN SOLN 5,000 UNITS VIAL As Ordered (07:25)
[2018-04-01] MEDS: LIDOCAINE VISCOUS 2% SOLN 15ML UDC As Ordered (07:26)
[2018-04-01] MEDS ORDERED: KETAMINE HCL 200 MG/20 ML VIAL As Ordered (07:26)
[2018-04-01] MEDS: PHENYLEPHRINE 0.5% NASAL SPRAY 15 ML As Ordered (07:26)
[2018-04-01] MEDS: EPINEPHrine 1MG/10ML SYRINGE 1.5IN As Ordered (07:26)
[2018-04-01] MEDS: CETACAINE SPRAY 5GM As Ordered (07:26)
[2018-04-01 07:31] LABS: BEDSIDE GLUCOSE 116 MG/DL (80-115)
[2018-04-01] MEDS: LIDOCAINE 1% SDV INJ 30 ML VIAL As Ordered (08:05)
[2018-04-01] MEDS ORDERED: ONDANSETRON 4MG/2ML VIAL (J2405) IV (08:45)
[2018-04-01] MEDS ORDERED: fentaNYL 100 MCG/2 ML INJECTION (J3010) IV (08:45)
[2018-04-01] MEDS ORDERED: NORCO, ANEXSIA 5/325MG TABLET (HYDROcodone/ACETAMINOPHEN) PO (08:45)
[2018-04-01] MEDS ORDERED: LR 1,000 ML IV (08:45)
== END 2018-04-01 09:54 | disposition home or self-care (01) ==
LOC: M SDC 06:03
DX: R91.8 Other nonspecific abnormal finding of lung field (principal); J44.9 Chronic obstructive pulmonary disease, unspecified; I10 Essential (primary) hypertension; E78.5 Hyperlipidemia, unspecified; R06.02 Shortness of breath; G47.30 Sleep apnea, unspecified; F32.9 Major depressive disorder, single episode, unspecified; F41.9 Anxiety disorder, unspecified; Z88.0 Allergy status to penicillin; Z88.2 Allergy status to sulfonamides; Z88.8 Allergy status to other drugs, medicaments and biological substances
CPT/HCPCS: 31623

== ENCOUNTER → 2018-04-11 | Outpatient (CLI) | payer OTHER | LOC: M PAIN 14:15 | DX: M43.16 Spondylolisthesis, lumbar region (principal); M12.88 Other specific arthropathies, not elsewhere classified, other specified site; M79.7 Fibromyalgia; E11.9 Type 2 diabetes mellitus without complications; E78.5 Hyperlipidemia, unspecified; J44.9 Chronic obstructive pulmonary disease, unspecified; F41.9 Anxiety disorder, unspecified; F32.9 Major depressive disorder, single episode, unspecified; G47.33 Obstructive sleep apnea (adult) (pediatric); I10 Essential (primary) hypertension; G50.0 Trigeminal neuralgia; Z79.82 Long term (current) use of aspirin; Z79.84 Long term (current) use of oral hypoglycemic drugs; Z79.891 Long term (current) use of opiate analgesic; Z79.899 Other long term (current) drug therapy; Z88.0 Allergy status to penicillin; Z88.2 Allergy status to sulfonamides; Z88.5 Allergy status to narcotic agent; Z88.8 Allergy status to other drugs, medicaments and biological substances; Z87.891 Personal history of nicotine dependence | CPT/HCPCS: G0463 ==

== ENCOUNTER → 2018-05-13 | Outpatient (CLI) | payer OTHER ==
[2018-05-13 11:15] LABS: APPEARANCE, URINE CLEAR (CLEAR); BACTERIA, URINE AUTO NEGATIVE (NEGATIVE); BILIRUBIN, URINE AUTO NEGATIVE (NEGATIVE); BLOOD, URINE BLOOD 1+ (NEGATIVE); COLOR, URINE YELLOW (YELLOW); GLUCOSE, URINE (UA) AUTO NEGATIVE (NEGATIVE); KETONE, URINE AUTO NEGATIVE (NEGATIVE); LEUKOCYTE ESTERASE, URINE AUTO NEGATIVE (NEGATIVE); NITRITE, URINE AUTO NEGATIVE (NEGATIVE); PROTEIN, URINE AUTO NEGATIVE (NEGATIVE); RBC, URINE AUTO 1 /HPF (0-3); SPECIFIC GRAVITY URINE AUTO 1.006 (1.002-1.035); SQUAMOUS EPITHELIAL CELL UR AU 0 /HPF (0-6); UROBILINOGEN, URINE AUTO 0.2 mg/dL (0.0-2.0); WBC, URINE AUTO 0 /HPF (0-3)
[2018-05-13 11:31] LABS: ESTIMATED AVERAGE GLUCOSE 140 MG/DL (60-110); HEMOGLOBIN A1c 6.5 %
[2018-05-13 11:34] LABS: ALBUMIN 3.8 GM/DL (3.2-5.2); ALBUMIN/GLOBULIN RATIO 1.41 (1.00-1.93); ALKALINE PHOSPHATASE 61 U/L (45-117); ALT/SGPT 25 U/L (12-78); ANION GAP 8 MEQ/L (8-16); AST/SGOT 18 U/L (7-37); BILIRUBIN,TOTAL 0.4 MG/DL (0.2-1.0); BLOOD UREA NITROGEN 11 MG/DL (7-18); CALCIUM LEVEL 9.1 MG/DL (8.8-10.2); CARBON DIOXIDE LEVEL 28 MEQ/L (21-32); CHLORIDE LEVEL 105 MEQ/L (98-107); CHOLESTEROL LEVEL 153 MG/DL (<200); CHOLESTEROL RISK RATIO 2.833 (<5); GLOMERULAR FILTRATION RATE > 60.0 (>45); GLUCOSE, FASTING 95 MG/DL (70-100); HDL CHOLESTEROL 54 MG/DL (>40); MAGNESIUM LEVEL 1.9 MG/DL (1.8-2.4); NON-HDL-C 99 MG/DL; POTASSIUM SERUM 4.1 MEQ/L (3.5-5.1); SODIUM LEVEL 141 MEQ/L (136-145); TOTAL PROTEIN 6.5 GM/DL (6.4-8.2); TRIGLYCERIDES LEVEL 130 MG/DL (<150)
[2018-05-13 11:38] LABS: TOTAL 25(OH) VITAMIN D 72.7 NG/ML (30.0-100.0)
== END ==
LOC: M LAB 10:28
DX: K21.9 Gastro-esophageal reflux disease without esophagitis (principal)
CPT/HCPCS: 83735

== ENCOUNTER → 2018-05-29 | Outpatient (CLI) | payer OTHER | LOC: M RAD 11:51 | DX: R91.8 Other nonspecific abnormal finding of lung field (principal) | CPT/HCPCS: 71250 ==

== ENCOUNTER 2018-07-09 08:36 | Day surgery (SDC) | payer OTHER ==
[~2018-07-09 08:36] MED LIST changes: -BUPIVACAINE HCL 0.25% 10 ML VIAL As Ordered; -BUPIVACAINE HCL 0.25% 30 ML VIAL As Ordered; +LIDOCAINE 1% MDV 20ML VIAL SQ; -TRIAMCINOLONE ACETONIDE SUSP 40 MG/ML VIAL (J3301) As Ordered; -diazePAM 5 MG TAB As Ordered; -oxyCODONE 5MG TAB As Ordered
[2018-07-09] MEDS: LR 1,000 ML IV (09:23)
[2018-07-09 09:24] LABS: BEDSIDE GLUCOSE 116 MG/DL (80-115)
[2018-07-09] MEDS: CIPRODEX OTIC SUSP 7.5ML As Ordered (15:56)
[2018-07-09] MEDS ORDERED: ONDANSETRON 4MG/2ML VIAL (J2405) As Ordered (15:58)
[2018-07-09] MEDS ORDERED: dexameTHASONE 4 MG/ML 1ML VIAL (J1100) As Ordered (15:59)
[2018-07-09] MEDS ORDERED: PROPOFOL 200 MG/20 ML VIAL As Ordered (16:15)
[2018-07-09] MEDS: PHENYLEPHRINE 0.5% NASAL SPRAY 15 ML As Ordered (16:15)
[2018-07-09] MEDS ORDERED: MIDAZOLAM INJ 2 MG/2 ML VIAL (J2250) As Ordered (16:15)
[2018-07-09] MEDS: PERCOCET 5MG/325MG TAB PO (16:30)
[2018-07-09] MEDS ORDERED: ONDANSETRON 4MG/2ML VIAL (J2405) IV (16:30)
[2018-07-09] MEDS ORDERED: LR 1,000 ML IV (16:30)
== END 2018-07-09 18:30 | disposition home or self-care (01) ==
LOC: M SDC 08:36
DX: H69.92 Unspecified Eustachian tube disorder, left ear (principal); J44.9 Chronic obstructive pulmonary disease, unspecified; M51.9 Unspecified thoracic, thoracolumbar and lumbosacral intervertebral disc disorder; K57.30 Diverticulosis of large intestine without perforation or abscess without bleeding; K21.9 Gastro-esophageal reflux disease without esophagitis; F41.9 Anxiety disorder, unspecified; E11.9 Type 2 diabetes mellitus without complications; Z72.0 Tobacco use
CPT/HCPCS: 69436

== ENCOUNTER → 2018-07-24 | Outpatient (CLI) | payer OTHER | LOC: M PAIN 14:45 | DX: M43.16 Spondylolisthesis, lumbar region (principal); E11.9 Type 2 diabetes mellitus without complications; E78.5 Hyperlipidemia, unspecified; J44.9 Chronic obstructive pulmonary disease, unspecified; F32.9 Major depressive disorder, single episode, unspecified; F41.9 Anxiety disorder, unspecified; G47.33 Obstructive sleep apnea (adult) (pediatric); M79.7 Fibromyalgia; I10 Essential (primary) hypertension; Z79.82 Long term (current) use of aspirin; Z79.51 Long term (current) use of inhaled steroids; Z79.84 Long term (current) use of oral hypoglycemic drugs; Z79.899 Other long term (current) drug therapy; Z88.0 Allergy status to penicillin; Z88.2 Allergy status to sulfonamides; Z88.5 Allergy status to narcotic agent; Z88.8 Allergy status to other drugs, medicaments and biological substances; Z87.891 Personal history of nicotine dependence | CPT/HCPCS: G0463 ==

== ENCOUNTER → 2018-09-08 | Outpatient (CLI) | payer OTHER | LOC: M RAD 14:58 | DX: J43.9 Emphysema, unspecified (principal); I70.0 Atherosclerosis of aorta; I25.10 Atherosclerotic heart disease of native coronary artery without angina pectoris; J98.4 Other disorders of lung | CPT/HCPCS: 71250 ==

== ENCOUNTER → 2018-09-29 | Outpatient (CLI) | payer OTHER | LOC: M PAIN 14:45 | DX: M43.16 Spondylolisthesis, lumbar region (principal); M47.816 Spondylosis without myelopathy or radiculopathy, lumbar region; M79.18 Myalgia, other site; E11.9 Type 2 diabetes mellitus without complications; E78.5 Hyperlipidemia, unspecified; J44.9 Chronic obstructive pulmonary disease, unspecified; F32.9 Major depressive disorder, single episode, unspecified; F41.9 Anxiety disorder, unspecified; G47.33 Obstructive sleep apnea (adult) (pediatric); M79.7 Fibromyalgia; I10 Essential (primary) hypertension; G50.0 Trigeminal neuralgia; Z72.0 Tobacco use; Z79.82 Long term (current) use of aspirin; Z79.51 Long term (current) use of inhaled steroids; Z79.84 Long term (current) use of oral hypoglycemic drugs; Z79.891 Long term (current) use of opiate analgesic; Z79.899 Other long term (current) drug therapy; Z88.0 Allergy status to penicillin; Z88.2 Allergy status to sulfonamides; Z88.5 Allergy status to narcotic agent; Z88.8 Allergy status to other drugs, medicaments and biological substances | CPT/HCPCS: G0463 ==

== ENCOUNTER → 2018-11-11 | Outpatient (CLI) | payer OTHER, MEDICAID ==
[2018-11-11 15:38] LABS: ALBUMIN 3.8 GM/DL (3.2-5.2); ALBUMIN/GLOBULIN RATIO 1.36 (1.00-1.93); ALKALINE PHOSPHATASE 68 U/L (45-117); ALT/SGPT 26 U/L (12-78); ANION GAP 7 MEQ/L (8-16); AST/SGOT 20 U/L (7-37); BILIRUBIN,TOTAL 0.3 MG/DL (0.2-1.0); BLOOD UREA NITROGEN 11 MG/DL (7-18); CARBON DIOXIDE LEVEL 29 MEQ/L (21-32); CHLORIDE LEVEL 103 MEQ/L (98-107); CREATININE FOR GFR 0.83 MG/DL (0.55-1.30); GLOMERULAR FILTRATION RATE > 60.0 (>45); GLUCOSE, FASTING 88 MG/DL (70-100); POTASSIUM SERUM 4.5 MEQ/L (3.5-5.1); SODIUM LEVEL 139 MEQ/L (136-145); TOTAL PROTEIN 6.6 GM/DL (6.4-8.2)
[2018-11-11 15:41] LABS: TOTAL 25(OH) VITAMIN D 39.9 NG/ML (30.0-100.0)
[2018-11-11 15:54] LABS: CREATININE, URINE 22.1 MG/DL; MALB URINE SIEMENS < 5.0 MG/L; MAU/CREAT RATIO 22.6 MCG/MG (0.0-30.0)
[2018-11-11 16:27] LABS: ESTIMATED AVERAGE GLUCOSE 137 MG/DL (60-110); HEMOGLOBIN A1c 6.4 %
== END ==
LOC: M LAB 13:33
DX: E11.9 Type 2 diabetes mellitus without complications (principal); E55.9 Vitamin D deficiency, unspecified
CPT/HCPCS: 80053

== ENCOUNTER → 2018-12-19 | Outpatient (CLI) | payer OTHER ==
[~2018-12-19] MED LIST changes: +ADV250INH INH; +ALBU17IN INH; +ARNU1INH INH; +ARTIDRO3 OU; +ASMA1AER3 INH; +ASMA220A IN; +ASPI1TAB PO; +ASPI1TAB15 PO; +ASPI81TA85 PO; +ATIV1TAB10 PO; +ATOR1TAB19 PO; +CALCTAB5 PO; +CYMB60CA3 PO; +DOXY100T PO; +DRIS50003 PO; +GABA-843 PO; +HYDR-3713 PO; +LANS30CA PO; -LIDOCAINE 1% MDV 20ML VIAL SQ; +LISI-542 PO; +LORA-243 PO; +LORA0.5T PO; +METF500T PO; +METF500T13 PO; +NAPR-885 PO; +NASA55AE; +NEXI40GR PO; +OXYC1SOL3 PO; +PRAV40TA2 PO; +PRED20TA PO; +REFROIN OU; +REST0.05 OU; +SALI0.653; +SPIR1CAP INH; +STIO1AER IN; +SYST1SOL OU; +SYSTSOL11 OU; +VENTAER INH; +ZYRT10CA5 PO; +[UNRECOGNIZED DRUG - OTHER] INH
--- NOTE | 2019-01-02 01:46 | ECWPNPC ---
PATIENT NAME: PHIL HOUSTON : 1955 GENDER: FEMALE VISIT DATE: 12/19/2018 DISCHARGE DATE: 12/19/18 1216 VISIT LOCKED DATE TIME: PHYSICIAN: SAMANTHA BURCIAGA RESOURCE: SAMANTHA BURCIAGA REASON FOR APPOINTMENT 1. PT OF SW- WILL BE 10 MINS LATE HISTORY OF PRESENT ILLNESS HISTORY OF PRESENT ILLNESS: HERE FOR F/U OF CHRONIC NECK PAIN.RATING PAIN VAS 8/10.PAIN IS CONSTANT AND ACHING.FINDS MEDICATION ONLY MARGINALLY EFFECTIVE. PAIN THE PATIENT DESCRIBES THE PAIN... FALL RISK SCREENING: SCREENING :NO FALLS IN THE PAST YEAR CURRENT MEDICATIONS TAKING TYLENOL 500 MG TABLET 1-2 TABLETS NEEDED ORALLY EVERY 8 HRS NEEDED FOR PAIN TAKING ATIVAN 0.5 0.5MG TABLET ORAL 3 TIMES A DAY NEEDED TAKING SALINE 0.65 % SOLUTION 2 DROPS IN EACH NOSTRIL NEEDED NASALLY 2-4 TIMES DAILY TAKING SYSTANE 0.4-0.3 % SOLUTION 1 DROP INTO AFFECTED EYE NEEDED OPHTHALMIC 5 TIMES A DAY TAKING VENTOLIN HFA 108 (90 BASE) MCG/ACT AEROSOL SOLUTION 2 PUFFS INHALATION EVERY 4-6 HOURS NEEDED TAKING CYMBALTA 30 MG CAPSULE DELAYED RELEASE PARTICLES 1 CAPSULE ORALLY ONCE A DAY ALONG WITH A 60 MG TAKING STIOLTO RESPIMAT 2.5-2.5 MCG/ACT AEROSOL SOLUTION INHALATION TAKING HUMIDIFIER - MISCELLANEOUS DX: J44.9 _ USE NEEDED TAKING HEATING PAD - PAD DIRECTED DX: M54.5 DAILY TAKING CANE - MISCELLANEOUS DIRECTED DX: M54.5 DAILY TAKING AIR CONDITIONER DX: 496, 327.23 DIRECTED - - TAKING CPAP MACHINE TAKING GABAPENTIN 300 MG CAPSULE 1 CAPSULE ORALLY ONE TAB IN AM AND MIDDAY AND 2 CAPS AT BEDTIME TAKING BUSPIRONE HCL 5 MG TABLET 1 TABLET ORALLY BID TAKING LANSOPRAZOLE 30 MG CAPSULE DELAYED RELEASE TAKE ONE CAPSULE BY MOUTH EVERY DAY BEFORE A MEAL TAKING CYMBALTA 60 MG CAPSULE DELAYED RELEASE PARTICLES TAKE ONE CAPSULE BY MOUTH EVERY DAY WITH 30MG TAKING METFORMIN HCL 500 MG TABLET TAKE ONE TABLET BY MOUTH TWICE A DAY WITH MEALS TAKING PERCOCET 5-325 MG TABLET 1 TABLET NEEDED ORALLY DAILY PRN PAIN MDD=1 TAKING NYSTATIN 633029 UNIT/GM CREAM 1 APPLICATION TO AFFECTED AREAS UNDER BREASTS AND GROIN AND AXILLA EXTERNALLY TWICE A DAY TAKING ARNUITY ELLIPTA 100 MCG/ACT AEROSOL POWDER BREATH ACTIVATED INHALATION TAKING ATORVASTATIN CALCIUM 10 MG TABLET 1 TABLET ORALLY ONCE A DAY TAKING LANSOPRAZOLE 30 MG CAPSULE DELAYED RELEASE 1 CAPSULE BEFORE A MEAL ORALLY ONCE A DAY TAKING LORATADINE 10 MG TABLET 1 TABLET ORALLY ONCE A DAY NEEDED TAKING LISINOPRIL 5MG TABLET 1 TABLET ORALLY ONCE A DAY TAKING DRISDOL 56823 UNIT CAPSULE 1 CAPSULE WITH MEAL ORALLY ONCE EVERY 2 WEEKS TAKING NYSTATIN [id number] UNIT/GM POWDER 1 APPLICATION TO AFFECTED AREA UNDER BREASTS EXTERNALLY TWICE A DAY TAKING ASPIR-81 81 MG TABLET DELAYED RELEASE 1 TABLET ORALLY ONCE A DAY TAKING CALCIUM + D3 600-200 MG-UNIT TABLET 1 TABLET WITH A MEAL ORALLY ONCE A DAY TAKING NICOTINE 21 MG/24HR PATCH 24 HOUR 1 PATCH TO SKIN TRANSDERMAL ONCE A DAY IN AM, OFF AT HS X 1 MONTH, THEN 14MG PATCH X 1 MONTH, THEN 7MG PATCH NOT-TAKING TIZANIDINE HCL 2 MG TABLET 1 TABLET NEEDED ORALLY THREE TIMES A DAY NOT-TAKING ASPIRIN 81 MG TABLET DELAYED RELEASE TAKE ONE TABLET BY MOUTH EVERY DAY ORALLY DAILY, NOTES: DUPLICATE NOT-TAKING BETAMETHASONE DIPROPIONATE 0.05 % CREAM 1 THIN APPLICATION TO AFFECTED AREAS ON ARMS AND CHEST EXTERNALLY TWICE DAILY NEEDED NOT-TAKING BLOOD GLUCOSE TEST DX: 250.00 EACH - TEST STRIPS TWICE A DAY, FASTING BEFORE BREAKFAST; AT BEDTIME & NEEDED. DISCONTINUED METFORMIN HCL 500MG TABLET 1 TABLET WITH MEALS ORALLY TWICE A DAY DISCONTINUED CHANTIX CONTINUING MONTH CHELSY 1 MG TABLET 1/2 TABLET DAILY X 3 DAYS, THEN TWICE DAILY X 4 DAYS, THEN 1 TAB ORALLY TWICE A DAY MEDICATION LIST REVIEWED AND RECONCILED WITH THE PATIENT PAST MEDICAL HISTORY TYPE II DIABETES HYPERLIPIDEMIA - NEG NUCLEAR STRESS TEST 07/13, - [facility] REFLUX COPD FEV1 = 1.9 ON 11/22/14 @PULMONOLOGY ALLERGIC RHINITIS VITAMIN D DEFICIENCY SMOKING DEPRESSION ANXIETY - DR KAY CALIX-- ON CPAP FIBROMYALGIA DEGENERATIVE DISC DISEASE HYPERTENSION BACK AND NECK PAIN TRIGEMINAL NEURALGIA -PR NEUROLOGY URINARY INCONTINENCE - UROLOGY JUNE 2018 SPOT ON LUNG - DR HERNANDEZ 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 1 SON(S) , 1 DAUGHTER(S) . SOCIAL HISTORY GENERAL: TOBACCO USE ARE YOU A:CURRENT SMOKER ARE YOU INTERESTED IN QUITTING?READY TO QUIT COUNSELED THE PATIENT ON TOBACCO USE, CESSATION [id number]/18/2019 HOW MANY CIGARETTES A DAY DO YOU SMOKE?6-10 HOW SOON AFTER YOU WAKE UP DO YOU SMOKE YOUR FIRST CIGARETTE?6-30 MIN HOW OFTEN DO YOU SMOKE CIGARETTES?EVERY DAY PATIENT COUNSELED ON THE DANGERS OF TOBACCO USE AND URGED TO QUIT:12/19/2018 SMOKING CESSATION INFORMATION GIVEN12/11/2018 ALCOHOL SCREENING DID YOU HAVE A DRINK CONTAINING ALCOHOL IN THE PAST YEAR?NO POINTS0 INTERPRETATIONNEGATIVE RECREATIONAL DRUG USE DRUG USE?NO CAFFEINE CAFFEINE USE?YES 6 CUPS COFFEE SEXUAL HX HAD SEX IN THE LAST 12 MONTHS (VAGINAL, ORAL, OR ANAL)?NO HAVE YOU EVER HAD AN STD?NO HIV / HEP-C SCREENING HIV TEST OFFERED TO PATIENT:YES DATE OFFERED:10/31/2016 TEST ACCEPTED:YES HEP-C TEST OFFERED TO PATIENT:YES DATE OFFERED:10/31/2016 TEST ACCEPTED:YES YAZDANISM [id number] DENOMINATIONAL LANGUAGE LANGUAGES SPOKEN:TURKISH EDUCATION LEVEL OF EDUCATION:NOT FINISHED COLLEGE LEARNING BARRIERS / SPECIAL NEEDS CHANGE FROM LAST VISIT?NO BARRIERS TO LEARNING?NO HEARING IMPAIRED?YES BEING EVALUATED BY ENT FOR HEARING LOSS LEFT EAR VISION IMPAIRED?YES :CORRECTIVE LENSES COGNITIVELY IMPAIRED?NO READINESS TO LEARN?YES LEARNING PREFERENCES?NO LEARNING CAPABILITIES PRESENT?NO EMOTIONAL BARRIERS?NO SPECIAL DEVICES?YES :CANE, 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 DIET: NO CONCENTRATED SWEETS.. EXERCISE: WALKS. MARITAL STATUS: . PAIN CLINIC PFS, CLERGY, PUBLIC HEALTH REFERRALS PFS REFERRAL NEEDED?NO CLERGY REFERRAL NEEDED?NO PUBLIC HEALTH REFERRAL NEEDED?NO WAS THE PROVIDER NOTIFIED OF ANY PERTINENT INFO?YES HAS THE PATIENT BEEN EDUCATED REGARDING HIS/HER PLAN OF CARE?YES PLEASE DOCUMENT ANY ADDTIONAL DETAILS. TPI HAS THE PATIENT BEEN EDUCATED REGARDING PAIN, THE RISK FOR PAIN, THE IMPORTANCE OF EFFECTIVE PAIN MANAGEMENT, AND THE PAIN ASSESSMENT PROCESS?YES ADVANCE DIRECTIVE ADVANCE DIRECTIVE DISCUSSED WITH PATIENT:YES HCP - ALFREDOSOCORRO HOUSTON (DAUGHTER) REVIEWED 03/10/18 1428 BVREVIEWED WITH PATIENT 09/29/18 1436 JS. HOSPITALIZATION/MAJOR DIAGNOSTIC PROCEDURE SURGERY [facility] ACQUIRED PNEUMONIA 01/27/18-01/31/18 REVIEW OF SYSTEMS REVIEWED BY: PROVIDER: SAMANTHA MORALEZ . CONSTITUTIONAL: ANY CHANGE IN YOUR MEDICAL CONDITION? YES, PAIN WITH NECK AND LEFT SHOULDER AND RIGHT FOOT . CHILLS NO . FEVER NO . INFECTION: DO YOU HAVE NEW INFECTIONS? NO . DO YOU HAVE HISTORY OF MRSA? NO . MUSCULOSKELETAL: ANY NEW PATTERNS OF PAIN OR NUMBNESS? YES, NECK, LEFT SHOULDER AND RIGHT FOOT . GASTROENTEROLOGY: ANY NEW CHANGE IN BOWEL CONTROL? NO . GENITOURINARY: ANY NEW CHANGE IN BLADDER CONTROL? NO . IS THERE A CHANCE YOU COULD BE ? NO . HEMATOLOGY/LYMPH: DO YOU TAKE ANY BLOOD THINNERS? (FOR EXAMPLE- COUMADIN, PLAVIX, AGGRENOX, PLATEL, PRADAXA, OR XARELTO) NO . WHEN WAS YOUR LAST DOSE? DATE: TIME: . NEUROLOGY: HAVE YOU FALLEN IN THE PAST 12 MONTHS? NO . ANY NEW EXTREMITY NUMBNESS OR WEAKNESS? YES, NECK, LEFT SHOULDER, RIGHT FOOT . CARDIOLOGY: DO YOU HAVE A PACEMAKER OR DEFIBRILLATOR? NO . RESPIRATORY: HAVE YOU BEEN SICK IN THE PAST WEEK? NO . FEVER NO . FLU LIKE SYMPTOMS? NO . COUGH NO . INTEGUMENTARY: DO YOU HAVE ANY RASHES OR OPEN SORES? YES, RASH UNDER BREASTS AND AXILLARY . ALLERGIC/IMMUNO: ARE YOU ALLERGIC TO IV DYE? NO . ANY NEW ALLERGIES? NO . PSYCHIATRIC: DO YOU HAVE THOUGHTS OF HURTING YOURSELF OR SOMEONE ELSE? NO . ARE YOU ABUSED, NEGLECTED, OR IN AN UNSAFE ENVIRONMENT? NO . ENDOCRINOLOGY: ARE YOU DIABETIC? YES . OTHER: DO YOU NEED ANY PRESCRIPTIONS? YES, TO DISCUSS Kylie SINGH . IF YES, PLEASE LIST: ____ . ANY NEW PROBLEMS WITH YOUR MEDICATIONS? NO . WHEN DID YOU LAST EAT? ____ . WHEN DID YOU LAST DRINK? ____ . WHAT DID YOU LAST DRINK? ____ . NAME OF PERSON DRIVING YOU HOME? ____ . DO YOU HAVE ANY OTHER QUESTIONS OR CONCERNS NO . VITAL SIGNS WT 173.6 LBS, HT 65 IN, BMI 28.89 INDEX, BP 110/72 MM HG, HR 71 /MIN, RR 18 /MIN, TEMP 97.3 F, OXYGEN SAT % 97%, NA INITIALS SC 11:50, REVIEWED BY: EM. EXAMINATION GENERAL EXAMINATION: GENERAL APPEARANCE:AWAKE,ALERT ,PLEAASANT . PSYCHAFFECT NORMAL . LUNGS:LUNG ATKINSON ARE CLEAR TO AUSCULTATION BILATERALLY. GOOD MOVEMENT OF AIR . HEART:S1, S2 IN A REGULAR RATE AND RHYTHM. NO SIGNIFICANT MURMURS, RUBS OR GALLOPS NOTED . CERVICALTRIGGER POINTS: CERVICAL AND TRAPEZIUS BILAT..PAIN IS AGGREVATED WITH ROJM NECK. ASSESSMENTS MYALGIA, OTHER SITE - M79.18 (PRIMARY) CERVICALGIA - M54.2 TREATMENT MYALGIA, OTHER SITE INCREASE PERCOCET TABLET, 5-325 MG, 1 TABLET NEEDED, ORALLY, Q8H PRN MD3 #45 TAB SHOULD LAST 30 DAYS, 30 DAY(S), 45, REFILLS 0 NOTES: TPI LEFT NECK /UPPER BACK, ISTOP REGISTRY REVIEWED AND DEMONSTRATES COMPLLIANCE. RECENT URINE TOXICOLOGY REVIEWED. NO UNAUTHORIZED MEDICATIONS. NO ILLICIT SUBSTANCES AND PRESCRIBED MEDICATIONS WERE PRESENT.RISKS AND BENEFITS OF NARCOTIC/OPIOD MEDICATIONS WERE REVIEWED WITH PATIENT - THIS INCLUDES BUT IS NOT LIMITED TO RISK OF DEPENDANCE/DEVELOPMENT OF ADDICTION, MOOD DISTURBANCE AND DEPRESSION, OSTEOPOROSIS, HORMONAL AND LABIDAL CHANGES, RESPIRATORY DEPRESSION AND . PATIENT IS ADVISED NOT TO DRIVE OR DRINK ALCOHOL WHILE ON THESE MEDICATIONS,. PROCEDURE CODES FA211 ESTABILISHED PATIENT [facility] CHARGE DISPOSITION & COMMUNICATION FOLLOW UP POST (REASON: TPI LEFT NECK /UPPER BACK) ELECTRONICALLY SIGNED BY KIRT PAL ON 01/01/2019 AT 04:31 PM EST DISCLAIMER : THIS IS A VISIT SUMMARY EXTRACTED FROM THE [employer] CHART. IT IS NOT A COPY OF THE [employer] PROGRESS NOTE. MTDD
== END ==
LOC: M PAIN 11:15
PROVIDERS: ATTEND Nurse Practitioner Family
DX: M79.18 Myalgia, other site (principal); M54.2 Cervicalgia; E11.9 Type 2 diabetes mellitus without complications; E78.5 Hyperlipidemia, unspecified; K21.9 Gastro-esophageal reflux disease without esophagitis; J44.9 Chronic obstructive pulmonary disease, unspecified; E55.9 Vitamin D deficiency, unspecified; F41.9 Anxiety disorder, unspecified; G47.33 Obstructive sleep apnea (adult) (pediatric); I10 Essential (primary) hypertension; F17.210 Nicotine dependence, cigarettes, uncomplicated; Z79.51 Long term (current) use of inhaled steroids; Z79.82 Long term (current) use of aspirin; Z79.899 Other long term (current) drug therapy; Z88.0 Allergy status to penicillin; Z88.2 Allergy status to sulfonamides; Z88.5 Allergy status to narcotic agent; Z88.8 Allergy status to other drugs, medicaments and biological substances

== ENCOUNTER → 2018-12-30 | Outpatient (CLI) | payer OTHER ==
[~2018-12-30] MED LIST changes: +BUPIVACAINE HCL 0.25% 10 ML VIAL As Ordered ONE; +BUPIVACAINE HCL 0.25% 30 ML VIAL As Ordered ONE; +TRIAMCINOLONE ACETONIDE SUSP 40 MG/ML VIAL (J3301) As Ordered ONE; +diazePAM 5 MG TAB As Ordered ONE; +oxyCODONE 5MG TAB As Ordered ONE
--- NOTE | 2019-01-13 00:19 | ECWPNPC ---
PATIENT NAME: PHIL HOUSTON : 1955 GENDER: FEMALE VISIT DATE: 12/30/2018 DISCHARGE DATE: 12/30/18 1043 VISIT LOCKED DATE TIME: PHYSICIAN: HERMAN GLORIA MD RESOURCE: HERMAN GLORIA MD REASON FOR APPOINTMENT 1. TPI HISTORY OF PRESENT ILLNESS HISTORY OF PRESENT ILLNESS: PAIN THE PATIENT DESCRIBES THE PAIN... FALL RISK SCREENING: SCREENING :NO FALLS IN THE PAST YEAR CURRENT MEDICATIONS TAKING ATIVAN 0.5 0.5MG TABLET ORAL 3 TIMES A DAY NEEDED, NOTES: 12/29/18 PM TAKING SALINE 0.65 % SOLUTION 2 DROPS IN EACH NOSTRIL NEEDED NASALLY 2-4 TIMES DAILY, NOTES: NONE IN A WEEK TAKING SYSTANE 0.4-0.3 % SOLUTION 1 DROP INTO AFFECTED EYE NEEDED OPHTHALMIC 5 TIMES A DAY, NOTES: 12/30/18 0700 TAKING VENTOLIN HFA 108 (90 BASE) MCG/ACT AEROSOL SOLUTION 2 PUFFS INHALATION EVERY 4-6 HOURS NEEDED, NOTES: 12/30/18 0700 TAKING TYLENOL 500 MG TABLET 1-2 TABLETS NEEDED ORALLY EVERY 8 HRS NEEDED FOR PAIN, NOTES: 12/29/18 AM TAKING CYMBALTA 30 MG CAPSULE DELAYED RELEASE PARTICLES 1 CAPSULE ORALLY ONCE A DAY ALONG WITH A 60 MG, NOTES: 12/29/18 PM TAKING STIOLTO RESPIMAT 2.5-2.5 MCG/ACT AEROSOL SOLUTION INHALATION , NOTES: 9 PM TAKING HUMIDIFIER - MISCELLANEOUS DX: J44.9 _ USE NEEDED TAKING HEATING PAD - PAD DIRECTED DX: M54.5 DAILY TAKING CANE - MISCELLANEOUS DIRECTED DX: M54.5 DAILY TAKING AIR CONDITIONER DX: 496, 327.23 DIRECTED - - TAKING CPAP MACHINE TAKING GABAPENTIN 300 MG CAPSULE 1 CAPSULE ORALLY ONE TAB IN AM AND MIDDAY AND 2 CAPS AT BEDTIME, NOTES: 12/29/18 1200 TAKING BUSPIRONE HCL 5 MG TABLET 1 TABLET ORALLY BID, NOTES: 12/29/18 PM TAKING LANSOPRAZOLE 30 MG CAPSULE DELAYED RELEASE TAKE ONE CAPSULE BY MOUTH EVERY DAY BEFORE A MEAL , NOTES: 12/30/18 0630 TAKING CYMBALTA 60 MG CAPSULE DELAYED RELEASE PARTICLES TAKE ONE CAPSULE BY MOUTH EVERY DAY WITH 30MG , NOTES: 12/29/18 PM TAKING METFORMIN HCL 500 MG TABLET TAKE ONE TABLET BY MOUTH TWICE A DAY WITH MEALS , NOTES: 12/29/18 PM TAKING NYSTATIN [id number] UNIT/GM CREAM 1 APPLICATION TO AFFECTED AREAS UNDER BREASTS AND GROIN AND AXILLA EXTERNALLY TWICE A DAY, NOTES: A WEEK AGO TAKING ARNUITY ELLIPTA 100 MCG/ACT AEROSOL POWDER BREATH ACTIVATED INHALATION , NOTES: 12/29/18 AM TAKING ATORVASTATIN CALCIUM 10 MG TABLET 1 TABLET ORALLY ONCE A DAY, NOTES: 12/29/18 PM TAKING LORATADINE 10 MG TABLET 1 TABLET ORALLY ONCE A DAY NEEDED, NOTES: 2 WEEKS AGO TAKING LISINOPRIL 5MG TABLET 1 TABLET ORALLY ONCE A DAY, NOTES: 12/29/18 PM TAKING DRISDOL 03718 UNIT CAPSULE 1 CAPSULE WITH MEAL ORALLY ONCE EVERY 2 WEEKS, NOTES: A WEEK AGO TAKING NYSTATIN [id number] UNIT/GM POWDER 1 APPLICATION TO AFFECTED AREA UNDER BREASTS EXTERNALLY TWICE A DAY, NOTES: A WEEK AGO TAKING ASPIR-81 81 MG TABLET DELAYED RELEASE 1 TABLET ORALLY ONCE A DAY, NOTES: 12/29/18 PM TAKING CALCIUM + D3 600-200 MG-UNIT TABLET 1 TABLET WITH A MEAL ORALLY ONCE A DAY, NOTES: NONE IN A FEW WEEKS TAKING NICOTINE 21 MG/24HR PATCH 24 HOUR 1 PATCH TO SKIN TRANSDERMAL ONCE A DAY IN AM, OFF AT HS X 1 MONTH, THEN 14MG PATCH X 1 MONTH, THEN 7MG PATCH, NOTES: 12/29/18 TAKING PERCOCET 5-325 MG TABLET 1 TABLET NEEDED ORALLY Q8H PRN MD3 #45 TAB SHOULD LAST 30 DAYS, NOTES: 12/30/18 0600 NOT-TAKING TIZANIDINE HCL 2 MG TABLET 1 TABLET NEEDED ORALLY THREE TIMES A DAY NOT-TAKING ASPIRIN 81 MG TABLET DELAYED RELEASE TAKE ONE TABLET BY MOUTH EVERY DAY ORALLY DAILY, NOTES: DUPLICATE NOT-TAKING BETAMETHASONE DIPROPIONATE 0.05 % CREAM 1 THIN APPLICATION TO AFFECTED AREAS ON ARMS AND CHEST EXTERNALLY TWICE DAILY NEEDED NOT-TAKING BLOOD GLUCOSE TEST DX: 250.00 EACH - TEST STRIPS TWICE A DAY, FASTING BEFORE BREAKFAST; AT BEDTIME & NEEDED. 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 1 SON(S) , 1 DAUGHTER(S) . SOCIAL HISTORY GENERAL: TOBACCO USE ARE YOU A:CURRENT SMOKER ARE YOU INTERESTED IN QUITTING?READY TO QUIT COUNSELED THE PATIENT ON TOBACCO USE, CESSATION [id number]/18/2019 HOW MANY CIGARETTES A DAY DO YOU SMOKE?6-10 HOW SOON AFTER YOU WAKE UP DO YOU SMOKE YOUR FIRST CIGARETTE?6-30 MIN HOW OFTEN DO YOU SMOKE CIGARETTES?EVERY DAY PATIENT COUNSELED ON THE DANGERS OF TOBACCO USE AND URGED TO QUIT:12/19/2018 SMOKING CESSATION INFORMATION GIVEN12/11/2018 ALCOHOL SCREENING DID YOU HAVE A DRINK CONTAINING ALCOHOL IN THE PAST YEAR?NO POINTS0 INTERPRETATIONNEGATIVE RECREATIONAL DRUG USE DRUG USE?NO CAFFEINE CAFFEINE USE?YES 6 CUPS COFFEE SEXUAL HX HAD SEX IN THE LAST 12 MONTHS (VAGINAL, ORAL, OR ANAL)?NO HAVE YOU EVER HAD AN STD?NO HIV / HEP-C SCREENING HIV TEST OFFERED TO PATIENT:YES DATE OFFERED:10/31/2016 TEST ACCEPTED:YES HEP-C TEST OFFERED TO PATIENT:YES DATE OFFERED:10/31/2016 TEST ACCEPTED:YES RELIGIOUS [id number] CAODAISM LANGUAGE LANGUAGES SPOKEN:KOREAN EDUCATION LEVEL OF EDUCATION:NOT FINISHED COLLEGE LEARNING BARRIERS / SPECIAL NEEDS CHANGE FROM LAST VISIT?NO BARRIERS TO LEARNING?NO HEARING IMPAIRED?YES BEING EVALUATED BY ENT FOR HEARING LOSS LEFT EAR VISION IMPAIRED?YES :CORRECTIVE LENSES COGNITIVELY IMPAIRED?NO READINESS TO LEARN?YES LEARNING PREFERENCES?NO LEARNING CAPABILITIES PRESENT?NO EMOTIONAL BARRIERS?NO SPECIAL DEVICES?YES :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 DIET: NO CONCENTRATED SWEETS.. EXERCISE: WALKS. MARITAL STATUS: . PAIN CLINIC PFS, CLERGY, PUBLIC HEALTH REFERRALS PFS REFERRAL NEEDED?NO CLERGY REFERRAL NEEDED?NO PUBLIC HEALTH REFERRAL NEEDED?NO WAS THE PROVIDER NOTIFIED OF ANY PERTINENT INFO?YES HAS THE PATIENT BEEN EDUCATED REGARDING HIS/HER PLAN OF CARE?YES PLEASE DOCUMENT ANY ADDTIONAL DETAILS. TPI HAS THE PATIENT BEEN EDUCATED REGARDING PAIN, THE RISK FOR PAIN, THE IMPORTANCE OF EFFECTIVE PAIN MANAGEMENT, AND THE PAIN ASSESSMENT PROCESS?YES ADVANCE DIRECTIVE ADVANCE DIRECTIVE DISCUSSED WITH PATIENT:YES HCP - ALFREDO HOUSTON (DAUGHTER) REVIEWED 03/10/18 1428 BVREVIEWED WITH PATIENT 09/29/18 1436 JSREVIEWED WITH PATIENT 12/30/18 0852 BV. HOSPITALIZATION/MAJOR DIAGNOSTIC PROCEDURE SURGERY [facility] ACQUIRED PNEUMONIA 01/27/18-01/31/18 REVIEW OF SYSTEMS REVIEWED BY: PROVIDER: . CONSTITUTIONAL: ANY CHANGE IN YOUR MEDICAL CONDITION? PT STATES SHE HAD A NEW CERVICAL MRI DONE THAT WAS ADDRESSED WITH SAMANTHA AT LAST VISIT . CHILLS NO . FEVER NO . INFECTION: DO YOU HAVE NEW INFECTIONS? NO . DO YOU HAVE HISTORY OF MRSA? NO . MUSCULOSKELETAL: ANY NEW PATTERNS OF PAIN OR NUMBNESS? NO . GASTROENTEROLOGY: ANY NEW CHANGE IN BOWEL CONTROL? NO . GENITOURINARY: ANY NEW CHANGE IN BLADDER CONTROL? NO . IS THERE A CHANCE YOU COULD BE ? NO . HEMATOLOGY/LYMPH: DO YOU TAKE ANY BLOOD THINNERS? (FOR EXAMPLE- COUMADIN, PLAVIX, AGGRENOX, PLATEL, PRADAXA, OR XARELTO) NO . WHEN WAS YOUR LAST DOSE? DATE: TIME: . NEUROLOGY: HAVE YOU FALLEN IN THE PAST 12 MONTHS? NO . ANY NEW EXTREMITY NUMBNESS OR WEAKNESS? YES, PT COMPLAINS OF INCREASING INTERMITTENT NUMBNESS IN LEFT ARM THAT GOES FROM SHOULDER TO FINGERS . CARDIOLOGY: DO YOU HAVE A PACEMAKER OR DEFIBRILLATOR? NO . RESPIRATORY: HAVE YOU BEEN SICK IN THE PAST WEEK? NO . FEVER NO . FLU LIKE SYMPTOMS? NO . COUGH NO . INTEGUMENTARY: DO YOU HAVE ANY RASHES OR OPEN SORES? NO . ALLERGIC/IMMUNO: ARE YOU ALLERGIC TO IV DYE? NO . ANY NEW ALLERGIES? NO . PSYCHIATRIC: DO YOU HAVE THOUGHTS OF HURTING YOURSELF OR SOMEONE ELSE? NO . ARE YOU ABUSED, NEGLECTED, OR IN AN UNSAFE ENVIRONMENT? NO . ENDOCRINOLOGY: ARE YOU DIABETIC? NO . OTHER: DO YOU NEED ANY PRESCRIPTIONS? NO . IF YES, PLEASE LIST: ____ . ANY NEW PROBLEMS WITH YOUR MEDICATIONS? NO . WHEN DID YOU LAST EAT? 12/29/18 2200 . WHEN DID YOU LAST DRINK? 12/30/18 0830 WATER . WHAT DID YOU LAST DRINK? WATER . NAME OF PERSON DRIVING YOU HOME? YELLOW CAB . DO YOU HAVE ANY OTHER QUESTIONS OR CONCERNS NO . VITAL SIGNS WT 173 LBS, HT 65 IN, BMI 28.79 INDEX, BP 109/67 MM HG, HR 71 /MIN, RR 16 /MIN, TEMP 97.6 F, OXYGEN SAT % 95%, NA INITIALS SC 08:41, REVIEWED BY: BV. ASSESSMENTS MYALGIA, OTHER SITE - M79.18 (PRIMARY) PROCEDURES PN TRIGGER POINT INJECTION WITH STEROIDS PRE PROCEDURE DIAGNOSIS 1. MYALGIA 2. PAIN AT LEFT NECK AREA, LEFT SHOULDER AREA, AND LEFT THORACIC AREA POST PROCEDURE DIAGNOSIS 1. MYALGIA 2. PAIN AT LEFT NECK AREA, LEFT SHOULDER AREA, AND LEFT THORACIC AREA PROCEDURE TRIGGER POINT INJECTION AT LEFT NECK AREA, LEFT SHOULDER AREA, AND LEFT THORACIC AREA SURGEON DR. HERMAN LGORIA MANAGER OF COMPLIANCE NONE ANESTHESIA LOCAL PRE PROCEDURE NOTE THE PATIENT HAS A HISTORY OF CHRONIC PAIN AT THE LEFT NECK AREA, LEFT SHOULDER AREA, AND LEFT THORACIC AREA. I EVALUATE THE PATIENT AND REVIEWED THE CHART. THERE IS EVIDENCE OF BANDS OF TISSUE WITH RESTRICTION OF MOVEMENT AND PRESENCE OF TRIGGER POINT AT THE AFFECTED AREA. I WENT OVER THE RISKS, ALTERNATIVES, AND BENEFITS ASSOCIATED WITH THIS PROCEDURE. THE PATIENT WOULD LIKE TO PROCEED AND GIVE CONSENT TO PERFORMED THE PROCEDURE. THE PATIENT DENIES UNEXPLAINABLE WEIGHT LOSS, FEVER, CHILLS, OR NEW CHANGES IN URINARY OR BOWEL CONTROL DESCRIPTION OF PROCEDURE THE PATIENT WAS BROUGHT TO THE PROCEDURE ROOM AND PLACED IN THE SITTING POSITION. THE AREA WAS CLEANED WITH ALCOHOL. THE PROCEDURE WAS DONE USING ASEPTIC STERILE TECHNIQUE. I CHECKED LATERALITY AND THE LEVEL WHERE THE PROCEDURE WAS GOING TO BE PERFORMED WITH THE PATIENT AND THE SUPPORTING STAFF AT THE MOMENT OF THE TIME OUT IN THE PROCEDURE ROOM. USING A 25-GAUGE NEEDLE, TRIGGER POINTS WERE INJECTED AT THE LEFT NECK AREA, LEFT SHOULDER AREA, AND LEFT THORACIC AREA WITH A TOTAL OF 40 ML OF BUPIVACAINE 0.25% AND KENALOG 40 MG. THERE WAS NO EVIDENCE OF BLOOD, PARESTHESIA OR CEREBROSPINAL FLUID DURING THE PROCEDURE. THE PATIENT WAS SENT TO THE RECOVERY ROOM. THE PATIENT WAS MOVING THE EXTREMITIES AND DOING WELL. THERE WAS NO COMPLICATION DURING THE PROCEDURE POST PROCEDURE NOTE THE PATIENT WILL BE SEEN IN A FOLLOW UP IN THE NEXT FEW WEEKS. INSTRUCTIONS WERE GIVEN, QUESTIONS WERE ANSWERED, AND THE PATIENT EXPRESSED UNDERSTANDING AND AGREES WITH THE PLAN. I, TICO BENSON, DOCUMENTED THE ABOVE INFORMATION ACTING A SCRIBE FOR DR. GLORIA. I HAVE REVIEWED THE ABOVE DOCUMENT, WRITTEN BY TICO BENSON SCRIBMiguel AND I VERIFY THAT IT IS ACCURATE. PROCEDURE CODES 58254 INJECT TRIGGER POINTS 3/> DISPOSITION & COMMUNICATION FOLLOW UP 3 WEEKS ELECTRONICALLY SIGNED BY HERMAN GLORIA MD, MD ON 01/12/2019 AT 05:42 PM EST DISCLAIMER : THIS IS A VISIT SUMMARY EXTRACTED FROM THE [employer] CHART. IT IS NOT A COPY OF THE [employer] PROGRESS NOTE. SHANNAN
== END ==
LOC: M PAIN 08:30
PROVIDERS: ATTEND Anesthesiology
DX: M79.18 Myalgia, other site (principal); M54.2 Cervicalgia; M25.512 Pain in left shoulder; M54.6 Pain in thoracic spine; E11.9 Type 2 diabetes mellitus without complications; E78.5 Hyperlipidemia, unspecified; K21.9 Gastro-esophageal reflux disease without esophagitis; J44.9 Chronic obstructive pulmonary disease, unspecified; E55.9 Vitamin D deficiency, unspecified; F32.9 Major depressive disorder, single episode, unspecified; F41.9 Anxiety disorder, unspecified; G47.33 Obstructive sleep apnea (adult) (pediatric); I10 Essential (primary) hypertension; F17.210 Nicotine dependence, cigarettes, uncomplicated; Z79.84 Long term (current) use of oral hypoglycemic drugs; Z79.51 Long term (current) use of inhaled steroids; Z79.82 Long term (current) use of aspirin; Z79.899 Other long term (current) drug therapy; Z88.0 Allergy status to penicillin; Z88.2 Allergy status to sulfonamides; Z88.5 Allergy status to narcotic agent; Z88.8 Allergy status to other drugs, medicaments and biological substances
CPT/HCPCS: 20553; J3301

== ENCOUNTER → 2019-01-09 | Outpatient (CLI) | payer OTHER ==
[~2019-01-09] MED LIST changes: -BUPIVACAINE HCL 0.25% 10 ML VIAL As Ordered ONE; -BUPIVACAINE HCL 0.25% 30 ML VIAL As Ordered ONE; -TRIAMCINOLONE ACETONIDE SUSP 40 MG/ML VIAL (J3301) As Ordered ONE; -diazePAM 5 MG TAB As Ordered ONE; -oxyCODONE 5MG TAB As Ordered ONE
--- NOTE | 2019-01-09 13:39 | REP ---
CT CHEST WITHOUT CONTRAST: 01/09/2019. COMPARISON: 09/08/2018, 05/29/2018, 03/12/[address] CLINICAL HISTORY: Followup nonspecific abnormal finding of lung. FINDINGS: Noncontrast technique utilized. Residual opacity in the right upper lobe with curvilinear scarring again noted. I do not see residual cavitary lesion or recurrent cavitary lesion. There is some cylindrical bronchiectatic change evident bilaterally. I see no pleural effusion. There is underlying COPD with some emphysematous change. No pleural-based mass or calcified plaque. Curvilinear fibrotic change inferior lingular segment at the anterior left lung base. No new nodule mass or cavitary lesion elsewhere in the chest. Heart is not enlarged and no pericardial thickening or effusion. There is some calcifications of the aorta without aneurysm. No pathologic sized mediastinal or hilar adenopathy. Some coronary artery calcifications are seen. No axillary or supraclavicular mass. Bone windows show the sternum, manubrium, medial clavicles and the right AC joint intact. There is AC joint arthritis and some bilateral glenohumeral joint degenerative change right greater than left, but both of those are mild. The scapulae, ribs and spine show no fracture or destructive lesion. Schmorl's node at the superior endplate of T12 is unchanged. Visualized upper abdominal structures without acute abnormality. There is some atherosclerotic calcifications of the aorta. IMPRESSION: 1. Stable appearance of the zone of the linear and curvilinear scarring right upper lung zone with no evidence of recurrence of cavitary lesion and no pleural effusion, pleural-based mass, new up parenchymal mass or nodule. 2. Cylindrical bronchiectatic change bilaterally. 3. Heart, mediastinal contours and aorta normal for age. There is no aneurysm. 4. Bony structures without acute finding. Electronically Signed by Raymon Hui MD 01/09/2019 05:50 P
== END ==
LOC: M RAD 09:54
PROVIDERS: ATTEND Internal Medicine Pulmonary Disease
DX: R91.8 Other nonspecific abnormal finding of lung field (principal); J43.9 Emphysema, unspecified; I70.0 Atherosclerosis of aorta; I25.10 Atherosclerotic heart disease of native coronary artery without angina pectoris; M19.011 Primary osteoarthritis, right shoulder; M19.012 Primary osteoarthritis, left shoulder

== ENCOUNTER → 2019-02-18 | Outpatient (CLI) | payer OTHER ==
[~2019-02-18] MED LIST changes: +ZITHTAB PO
--- NOTE | 2019-03-05 01:21 | ECWPNPC ---
PATIENT NAME: PHIL HOUSTON : 1955 GENDER: FEMALE VISIT DATE: 02/18/2019 DISCHARGE DATE: 02/18/19 1229 VISIT LOCKED DATE TIME: PHYSICIAN: SAMANTHA BURCIAGA RESOURCE: SAMANTHA BURCIAGA REASON FOR APPOINTMENT 1. POST TPI HISTORY OF PRESENT ILLNESS HISTORY OF PRESENT ILLNESS: HERE FOR POST PROCEDURE F/U.HAD TPI ON 12/30/18.REPORTING SIGNIFICANT REDUCTION IN PAIN FOR >2 WEEKS THEN PAIN GRAUALLY RETURNED TO BASELINE.CONTINUES WITH LOW BACK PAIN AND LEFT NECK AND ARM PAIN.REVIEWED MRI C-SPINE AND DISCUSSED TREATMENT OPTIONS.PAIN GOES DOWN LEFT ARM.ATTENDING PT AND IS FINDING THIS HELPFUL.RATING PAIN VAS 7/10. PAIN THE PATIENT DESCRIBES THE PAIN... FALL RISK SCREENING: SCREENING : NO FALLS IN THE PAST YEAR. CURRENT MEDICATIONS TAKING ATIVAN 0.5 0.5MG TABLET ORAL 3 TIMES A DAY NEEDED TAKING SALINE 0.65 % SOLUTION 2 DROPS IN EACH NOSTRIL NEEDED NASALLY 2-4 TIMES DAILY TAKING SYSTANE 0.4-0.3 % SOLUTION 1 DROP INTO AFFECTED EYE NEEDED OPHTHALMIC 5 TIMES A DAY TAKING VENTOLIN HFA 108 (90 BASE) MCG/ACT AEROSOL SOLUTION 2 PUFFS INHALATION EVERY 4-6 HOURS NEEDED TAKING TYLENOL 500 MG TABLET 1-2 TABLETS NEEDED ORALLY EVERY 8 HRS NEEDED FOR PAIN TAKING CYMBALTA 30 MG CAPSULE DELAYED RELEASE PARTICLES 1 CAPSULE ORALLY ONCE A DAY ALONG WITH A 60 MG TAKING STIOLTO RESPIMAT 2.5-2.5 MCG/ACT AEROSOL SOLUTION INHALATION TAKING HUMIDIFIER - MISCELLANEOUS DX: J44.9 _ USE NEEDED TAKING HEATING PAD - PAD DIRECTED DX: M54.5 DAILY TAKING CANE - MISCELLANEOUS DIRECTED DX: M54.5 DAILY TAKING AIR CONDITIONER DX: 496, 327.23 DIRECTED - - TAKING CPAP MACHINE TAKING GABAPENTIN 300 MG CAPSULE 1 CAPSULE ORALLY ONE TAB IN AM AND MIDDAY AND 2 CAPS AT BEDTIME TAKING BUSPIRONE HCL 5 MG TABLET 1 TABLET ORALLY BID TAKING LANSOPRAZOLE 30 MG CAPSULE DELAYED RELEASE TAKE ONE CAPSULE BY MOUTH EVERY DAY BEFORE A MEAL TAKING CYMBALTA 60 MG CAPSULE DELAYED RELEASE PARTICLES TAKE ONE CAPSULE BY MOUTH EVERY DAY WITH 30MG TAKING METFORMIN HCL 500 MG TABLET TAKE ONE TABLET BY MOUTH TWICE A DAY WITH MEALS TAKING NYSTATIN [id number] UNIT/GM CREAM 1 APPLICATION TO AFFECTED AREAS UNDER BREASTS AND GROIN AND AXILLA EXTERNALLY TWICE A DAY TAKING ARNUITY ELLIPTA 100 MCG/ACT AEROSOL POWDER BREATH ACTIVATED INHALATION TAKING ATORVASTATIN CALCIUM 10 MG TABLET 1 TABLET ORALLY ONCE A DAY TAKING LORATADINE 10 MG TABLET 1 TABLET ORALLY ONCE A DAY NEEDED TAKING LISINOPRIL 5MG TABLET 1 TABLET ORALLY ONCE A DAY TAKING DRISDOL 92918 UNIT CAPSULE 1 CAPSULE WITH MEAL ORALLY ONCE EVERY 2 WEEKS TAKING ASPIR-81 81 MG TABLET DELAYED RELEASE 1 TABLET ORALLY ONCE A DAY TAKING CALCIUM + D3 600-200 MG-UNIT TABLET 1 TABLET WITH A MEAL ORALLY ONCE A DAY TAKING NICOTINE 21 MG/24HR PATCH 24 HOUR 1 PATCH TO SKIN TRANSDERMAL ONCE A DAY IN AM, OFF AT HS X 1 MONTH, THEN 14MG PATCH X 1 MONTH, THEN 7MG PATCH TAKING PERCOCET 5-325 MG TABLET 1 TABLET NEEDED ORALLY Q8H PRN MD3 #45 TAB SHOULD LAST 30 DAYS NOT-TAKING TIZANIDINE HCL 2 MG TABLET 1 TABLET NEEDED ORALLY THREE TIMES A DAY NOT-TAKING ASPIRIN 81 MG TABLET DELAYED RELEASE TAKE ONE TABLET BY MOUTH EVERY DAY ORALLY DAILY, NOTES: DUPLICATE NOT-TAKING BETAMETHASONE DIPROPIONATE 0.05 % CREAM 1 THIN APPLICATION TO AFFECTED AREAS ON ARMS AND CHEST EXTERNALLY TWICE DAILY NEEDED NOT-TAKING BLOOD GLUCOSE TEST DX: 250.00 EACH - TEST STRIPS TWICE A DAY, FASTING BEFORE BREAKFAST; AT BEDTIME & NEEDED. 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 1 SON(S) , 1 DAUGHTER(S) . SOCIAL HISTORY GENERAL: TOBACCO USE ARE YOU A:CURRENT SMOKER ARE YOU INTERESTED IN QUITTING?READY TO QUIT COUNSELED THE PATIENT ON TOBACCO USE, CESSATION [id number]/20/2019 HOW MANY CIGARETTES A DAY DO YOU SMOKE?6-10 HOW SOON AFTER YOU WAKE UP DO YOU SMOKE YOUR FIRST CIGARETTE?6-30 MIN HOW OFTEN DO YOU SMOKE CIGARETTES?EVERY DAY PATIENT COUNSELED ON THE DANGERS OF TOBACCO USE AND URGED TO QUIT:12/19/2018 SMOKING CESSATION INFORMATION GIVEN12/11/2018 ALCOHOL SCREENING DID YOU HAVE A DRINK CONTAINING ALCOHOL IN THE PAST YEAR?NO POINTS0 INTERPRETATIONNEGATIVE RECREATIONAL DRUG USE DRUG USE?NO CAFFEINE CAFFEINE USE?YES 6 CUPS COFFEE SEXUAL HX HAD SEX IN THE LAST 12 MONTHS (VAGINAL, ORAL, OR ANAL)?NO HAVE YOU EVER HAD AN STD?NO HIV / HEP-C SCREENING HIV TEST OFFERED TO PATIENT:YES DATE OFFERED:10/31/2016 TEST ACCEPTED:YES HEP-C TEST OFFERED TO PATIENT:YES DATE OFFERED:10/31/2016 TEST ACCEPTED:YES ZOROASTRIANISM [id number] MUSLIM LANGUAGE LANGUAGES SPOKEN:KAZAKH EDUCATION LEVEL OF EDUCATION:NOT FINISHED COLLEGE LEARNING BARRIERS / SPECIAL NEEDS CHANGE FROM LAST VISIT?NO BARRIERS TO LEARNING?NO HEARING IMPAIRED?YES BEING EVALUATED BY ENT FOR HEARING LOSS LEFT EAR VISION IMPAIRED?YES COGNITIVELY IMPAIRED?NO :CORRECTIVE LENSES READINESS TO LEARN?YES LEARNING PREFERENCES?NO LEARNING CAPABILITIES PRESENT?NO EMOTIONAL BARRIERS?NO SPECIAL DEVICES?YES :CANE, WALKER PLUMBERS AND TOP HELPERS 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 DIET: NO CONCENTRATED SWEETS.. EXERCISE: WALKS. MARITAL STATUS: . PAIN CLINIC PFS, CLERGY, PUBLIC HEALTH REFERRALS PFS REFERRAL NEEDED?NO CLERGY REFERRAL NEEDED?NO PUBLIC HEALTH REFERRAL NEEDED?NO WAS THE PROVIDER NOTIFIED OF ANY PERTINENT INFO?YES HAS THE PATIENT BEEN EDUCATED REGARDING HIS/HER PLAN OF CARE?YES PLEASE DOCUMENT ANY ADDTIONAL DETAILS. TPI HAS THE PATIENT BEEN EDUCATED REGARDING PAIN, THE RISK FOR PAIN, THE IMPORTANCE OF EFFECTIVE PAIN MANAGEMENT, AND THE PAIN ASSESSMENT PROCESS?YES ADVANCE DIRECTIVE ADVANCE DIRECTIVE DISCUSSED WITH PATIENT:YES HCP - ALFREDO HOUSTON (DAUGHTER) REVIEWED 03/10/18 1428 BVREVIEWED WITH PATIENT 09/29/18 1436 JSREVIEWED WITH PATIENT 12/30/18 0852 BV. HOSPITALIZATION/MAJOR DIAGNOSTIC PROCEDURE SURGERY [facility] ACQUIRED PNEUMONIA 01/27/18-01/31/18 REVIEW OF SYSTEMS REVIEWED BY: PROVIDER: SAMANTHA MORALEZ . CONSTITUTIONAL: ANY CHANGE IN YOUR MEDICAL CONDITION? NO . CHILLS NO . FEVER NO . INFECTION: DO YOU HAVE NEW INFECTIONS? YES, WENT TO ER [facility] FOR COPD TX'D PREDNISONE AND ABX, PT GETTING BETTER . DO YOU HAVE HISTORY OF MRSA? NO . MUSCULOSKELETAL: ANY NEW PATTERNS OF PAIN OR NUMBNESS? NO . GASTROENTEROLOGY: ANY NEW CHANGE IN BOWEL CONTROL? NO . GENITOURINARY: ANY NEW CHANGE IN BLADDER CONTROL? NO . IS THERE A CHANCE YOU COULD BE ? NO . HEMATOLOGY/LYMPH: DO YOU TAKE ANY BLOOD THINNERS? (FOR EXAMPLE- COUMADIN, PLAVIX, AGGRENOX, PLATEL, PRADAXA, OR XARELTO) NO . WHEN WAS YOUR LAST DOSE? DATE: TIME: . NEUROLOGY: HAVE YOU FALLEN IN THE PAST 12 MONTHS? NO . ANY NEW EXTREMITY NUMBNESS OR WEAKNESS? NO . CARDIOLOGY: DO YOU HAVE A PACEMAKER OR DEFIBRILLATOR? NO . RESPIRATORY: HAVE YOU BEEN SICK IN THE PAST WEEK? YES . FEVER NO . FLU LIKE SYMPTOMS? NO . COUGH YES, COPD, HARD TO BREATHE, TX'D W PREDNISONE AND ABX, GETTING BETTER . INTEGUMENTARY: DO YOU HAVE ANY RASHES OR OPEN SORES? NO . ALLERGIC/IMMUNO: ARE YOU ALLERGIC TO IV DYE? NO . ANY NEW ALLERGIES? NO . PSYCHIATRIC: DO YOU HAVE THOUGHTS OF HURTING YOURSELF OR SOMEONE ELSE? NO . ARE YOU ABUSED, NEGLECTED, OR IN AN UNSAFE ENVIRONMENT? NO . ENDOCRINOLOGY: ARE YOU DIABETIC? YES . OTHER: DO YOU NEED ANY PRESCRIPTIONS? NO . IF YES, PLEASE LIST: ____ . ANY NEW PROBLEMS WITH YOUR MEDICATIONS? NO . WHEN DID YOU LAST EAT? ____ . WHEN DID YOU LAST DRINK? ____ . WHAT DID YOU LAST DRINK? ____ . NAME OF PERSON DRIVING YOU HOME? ____ . DO YOU HAVE ANY OTHER QUESTIONS OR CONCERNS NO . VITAL SIGNS WT 170.8 LBS, HT 65 IN, BMI 28.42 INDEX, BP 111/62 MM HG, HR 84 /MIN, RR 16 /MIN, TEMP 97.1 F, OXYGEN SAT % 97%, NA INITIALS AW 1121, REVIEWED BY: ELOISE. EXAMINATION GENERAL EXAMINATION: LUNGS:LUNG SOUNDS ARE CLEAR . HEART:HEART RATE REGULAR . MUSCULOSKELETAL:*, MUSCLE STRENGTH TESTING 5/5 BILATERAL UPPER EXTREMITIES. . CERVICAL+ FOR PAIN WITH PALPATION OF CERVICAL SPINE. + FOR PAIN WITH PALPATION OF CERVICAL PARASPINALS. . DIAGNOSTIC TESTS REVIEWEDCERVICAL MRI-09/05/18. 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 (REF #[id number] ) FORGOT TO BRING IN MEDICATION.INFORMED HER THAT I WOULD NOT BE ABLE TO FILL UNTIL IT IS BROUGHT TO CLINIC URINE TOX TODAYRISKS AND BENEFITS OF NARCOTIC/OPIOD MEDICATIONS WERE REVIEWED WITH PATIENT - THIS INCLUDES BUT IS NOT LIMITED TO RISK OF DEPENDANCE/DEVELOPMENT OF ADDICTION, MOOD DISTURBANCE AND DEPRESSION, OSTEOPOROSIS, HORMONAL AND LABIDAL CHANGES, RESPIRATORY DEPRESSION AND . PATIENT IS ADVISED NOT TO DRIVE OR DRINK ALCOHOL WHILE ON THESE MEDICATIONS, , [facility] NARCOTIC AGREEMENT WAS UPDATED REVIEWED AND SIGNED TODAY BY THE PATIENT. SEE ATTACHED DOCUMENT FOR FULL DETAILS; SPECIFIC ISSUES WERE REVIEWED: 1) KEEP PAIN MEDS IN THEIR ORIGINAL BOTTLES AND ANY WEEKLY PLANNERS ARE TO BE BROUGHT TO THE PAIN CENTER AT EVERY VISIT. 2) THE PATIENT IS NOT TO INCREASE DOSING OR TIMING OF THEIR PAIN MEDICATION WITHOUT SPECIFIC DIRECTION OF THEIR PAIN CENTERPROVIDER (NOT ER OR OTHER PROVIDERS). 3) ALL PAIN MEDS ARE TO BE KEPT SECURED, IN A LOCKED BOX. 4) NO PAIN MEDS ARE TO BE SHARED WITH ANY OTHER PERSON FOR ANY REASON. 5) NO PAIN MEDS MAY BE TAKEN FROM ANY FRIENDS OR RELATIVES FOR ANY REASON 6) NO MEDS OR SUBSTANCES WHICH ARE NOT LEGAL ARE TO BE USED- NO MARIJUANA, NO COCAINE, AMPHETAMINES, HEROIN, OR OTHERS ARE EVER TO BE USED. 7)URINE TESTING IS DONE TO ACCOUNT FOR MEDS AND SUBSTANCES BEING TAKEN AND WILL BE DONE RANDOMLY.,CERVICAL EPIDURAL INJECTION: YOUR EXPERIENCE MATERIAL WAS PRINTED, REVIEWED AND GIVEN TO PT. ELOISE. PROCEDURE CODES FA211 ESTABILISHED PATIENT [facility] CHARGE DISPOSITION & COMMUNICATION FOLLOW UP POST (REASON: C4/5 LUZ) ELECTRONICALLY SIGNED BY KIRT PAL ON 03/04/2019 AT 11:32 AM EDT DISCLAIMER : THIS IS A VISIT SUMMARY EXTRACTED FROM THE [email or web address] CHART. IT IS NOT A COPY OF THE [employer] PROGRESS NOTE. SHANNAN
== END ==
LOC: M PAIN 11:00
PROVIDERS: ATTEND Nurse Practitioner Family
DX: M50.20 Other cervical disc displacement, unspecified cervical region (principal); M54.12 Radiculopathy, cervical region; E11.9 Type 2 diabetes mellitus without complications; K21.9 Gastro-esophageal reflux disease without esophagitis; J44.9 Chronic obstructive pulmonary disease, unspecified; F41.9 Anxiety disorder, unspecified; G47.33 Obstructive sleep apnea (adult) (pediatric); M79.7 Fibromyalgia; I10 Essential (primary) hypertension; F17.210 Nicotine dependence, cigarettes, uncomplicated; Z79.84 Long term (current) use of oral hypoglycemic drugs; Z79.51 Long term (current) use of inhaled steroids; Z79.82 Long term (current) use of aspirin; Z79.899 Other long term (current) drug therapy; Z88.0 Allergy status to penicillin; Z88.2 Allergy status to sulfonamides; Z88.5 Allergy status to narcotic agent; Z88.8 Allergy status to other drugs, medicaments and biological substances

== ENCOUNTER → 2019-03-13 | Outpatient (REF) | payer OTHER, MEDICAID ==
[~2019-03-13] MED LIST changes: -ASPI1TAB PO; +ASPI81TA26 PO
[2019-03-13 14:31] LABS: C REACTIVE PROTEIN QUANTITATIV < 0.30 MG/DL (0.00-0.30); RHEUMATOID FACTOR QUANT < 10.0 IU/ML (<15.0)
[2019-03-19 00:06] LABS: ANTINUCLEAR ANTIBODIES DIRECT Negative (Negative); HLA-B27 Negative (.)
== END ==
LOC: M LABDRAW1 13:20
PROVIDERS: ATTEND Physician Assistant
DX: M51.36 Other intervertebral disc degeneration, lumbar region (principal)

== ENCOUNTER → 2019-06-30 | Outpatient (CLI) | payer OTHER ==
[2019-06-30 09:44] LABS: HEMOGLOBIN A1c 6.6 %
[2019-06-30 10:02] LABS: CREATININE, URINE 22.4 MG/DL; MALB URINE SIEMENS 5.7 MG/L; MAU/CREAT RATIO 25.4 MCG/MG (0.0-30.0)
[2019-06-30 10:25] LABS: ALBUMIN 3.6 GM/DL (3.2-5.2); ALT/SGPT 26 U/L (12-78); BILIRUBIN,TOTAL 0.2 MG/DL (0.2-1.0); BLOOD UREA NITROGEN 19 MG/DL (7-18); CALCIUM LEVEL 9.1 MG/DL (8.8-10.2); CARBON DIOXIDE LEVEL 29 MEQ/L (21-32); CHLORIDE LEVEL 104 MEQ/L (98-107); CHOLESTEROL LEVEL 172 MG/DL (<200); CHOLESTEROL RISK RATIO 3.071 (<5); GLOMERULAR FILTRATION RATE > 60.0 (>45); GLUCOSE, FASTING 82 MG/DL (70-100); HDL CHOLESTEROL 56 MG/DL (>40); LDL CHOLESTEROL 92 MG/DL (<100); NON-HDL-C 116 MG/DL; POTASSIUM SERUM 4.3 MEQ/L (3.5-5.1); SODIUM LEVEL 140 MEQ/L (136-145); TOTAL PROTEIN 6.3 GM/DL (6.4-8.2); TRIGLYCERIDES LEVEL 120 MG/DL (<150)
[2019-06-30 10:28] LABS: TOTAL 25(OH) VITAMIN D 50.2 NG/ML (30.0-100.0)
== END ==
LOC: M LAB 08:36
PROVIDERS: ATTEND Nurse Practitioner Family
DX: E11.9 Type 2 diabetes mellitus without complications (principal); E78.2 Mixed hyperlipidemia; E55.9 Vitamin D deficiency, unspecified

== ENCOUNTER → 2019-06-30 | Outpatient (CLI) | payer OTHER ==
--- NOTE | 2019-07-14 00:43 | ECWPNPC ---
PATIENT NAME: PHIL HOUSTON : 1955 GENDER: FEMALE VISIT DATE: 06/30/2019 DISCHARGE DATE: 06/30/19 1108 VISIT LOCKED DATE TIME: PHYSICIAN: SAMANTHA BURCIAGA RESOURCE: SAMANTHA BURCIAGA REASON FOR APPOINTMENT 1. NECK HISTORY OF PRESENT ILLNESS HISTORY OF PRESENT ILLNESS: HERE FOR F/U OF MULTIPLE AREAS OF CHRONIC PAIN.CURRENTLY FOLLOWING WITH DR WHITTEN FOR CHRONIC LEFT SHOULDER PAIN.REPORTING CHRONIC SEVERE LEFT JAW PAIN SINCE MOLAR EXCISION 7 YEARS AGO.SEVERE LEFT FACIAL PAIN SINCE DEVIATED SEPTAL REPAIR SEVERAL YEARS AGO.ATTENDING PT PER DR. AKERS FOR CHRONIC LBP.RATING PAIN VAS 7-8/10 VAS. PAIN THE PATIENT DESCRIBES THE PAIN... FALL RISK SCREENING: SCREENING :NO FALLS REPORTED IN THE LAST YEAR CURRENT MEDICATIONS TAKING CELEBREX 50 MG CAPSULE 1 CAPSULE WITH FOOD ORALLY TWICE A DAY TAKING ATIVAN 0.5 0.5MG TABLET ORAL 3 TIMES A DAY NEEDED TAKING SALINE 0.65 % SOLUTION 2 DROPS IN EACH NOSTRIL NEEDED NASALLY 2-4 TIMES DAILY TAKING SYSTANE 0.4-0.3 % SOLUTION 1 DROP INTO AFFECTED EYE NEEDED OPHTHALMIC 5 TIMES A DAY TAKING VENTOLIN HFA 108 (90 BASE) MCG/ACT AEROSOL SOLUTION 2 PUFFS INHALATION EVERY 4-6 HOURS NEEDED TAKING TYLENOL 500 MG TABLET 1-2 TABLETS NEEDED ORALLY EVERY 8 HRS NEEDED FOR PAIN TAKING CYMBALTA 30 MG CAPSULE DELAYED RELEASE PARTICLES 1 CAPSULE ORALLY ONCE A DAY ALONG WITH A 60 MG TAKING STIOLTO RESPIMAT 2.5-2.5 MCG/ACT AEROSOL SOLUTION INHALATION TAKING HUMIDIFIER - MISCELLANEOUS DX: J44.9 _ USE NEEDED TAKING HEATING PAD - PAD DIRECTED DX: M54.5 DAILY TAKING CANE - MISCELLANEOUS DIRECTED DX: M54.5 DAILY TAKING AIR CONDITIONER DX: 496 327.23 DIRECTED - - TAKING CPAP MACHINE TAKING GABAPENTIN 300 MG CAPSULE 1 CAPSULE ORALLY ONE TAB IN AM AND MIDDAY AND 2 CAPS AT BEDTIME TAKING BUSPIRONE HCL 5 MG TABLET 1 TABLET ORALLY BID TAKING CYMBALTA 60 MG CAPSULE DELAYED RELEASE PARTICLES TAKE ONE CAPSULE BY MOUTH EVERY DAY WITH 30MG TAKING NYSTATIN [id number] UNIT/GM CREAM 1 APPLICATION TO AFFECTED AREAS UNDER BREASTS AND GROIN AND AXILLA EXTERNALLY TWICE A DAY TAKING ARNUITY ELLIPTA 100 MCG/ACT AEROSOL POWDER BREATH ACTIVATED INHALATION TAKING LORATADINE 10 MG TABLET 1 TABLET ORALLY ONCE A DAY NEEDED TAKING DRISDOL 37045 UNIT CAPSULE 1 CAPSULE WITH MEAL ORALLY ONCE EVERY 2 WEEKS TAKING ASPIR-81 81 MG TABLET DELAYED RELEASE 1 TABLET ORALLY ONCE A DAY TAKING CALCIUM + D3 600-200 MG-UNIT TABLET 1 TABLET WITH A MEAL ORALLY ONCE A DAY TAKING ATORVASTATIN CALCIUM 10 MG TABLET 1 TABLET ORALLY ONCE A DAY TAKING LISINOPRIL 5MG TABLET 1 TABLET ORALLY ONCE A DAY TAKING CHANTIX STARTING MONTH CHELSY 0.5 MG X 11 & 1 MG X 42 TABLET DIRECTED ORALLY DAILY TAKING LANSOPRAZOLE 30 MG CAPSULE DELAYED RELEASE TAKE ONE CAPSULE BY MOUTH EVERY DAY BEFORE A MEAL TAKING METFORMIN HCL 500 MG TABLET TAKE ONE TABLET BY MOUTH TWICE A DAY WITH MEALS TAKING PERCOCET 5-325 MG TABLET 1 TABLET NEEDED ORALLY Q8H PRN MD3 #45 TAB SHOULD LAST 30 DAYS TAKING ASPIRIN 81 MG TABLET DELAYED RELEASE TAKE ONE TABLET BY MOUTH EVERY DAY ORALLY DAILY, NOTES: DUPLICATE TAKING BETAMETHASONE DIPROPIONATE 0.05 % CREAM 1 THIN APPLICATION TO AFFECTED AREAS ON ARMS AND CHEST EXTERNALLY TWICE DAILY NEEDED NOT-TAKING NICOTINE 21 MG/24HR PATCH 24 HOUR 1 PATCH TO SKIN TRANSDERMAL ONCE A DAY IN AM, OFF AT HS X 1 MONTH, THEN 14MG PATCH X 1 MONTH, THEN 7MG PATCH NOT-TAKING TIZANIDINE HCL 2 MG TABLET 1 TABLET NEEDED ORALLY THREE TIMES A DAY NOT-TAKING BLOOD GLUCOSE TEST DX: 250.00 EACH - TEST STRIPS TWICE A DAY, FASTING BEFORE BREAKFAST; AT BEDTIME & NEEDED. MEDICATION LIST REVIEWED AND RECONCILED WITH THE PATIENT PAST MEDICAL HISTORY TYPE II DIABETES HYPERLIPIDEMIA - NEG NUCLEAR STRESS TEST 07/13, - [facility] REFLUX COPD FEV1 = 1.9 ON 11/22/14 @PULMONOLOGY ALLERGIC RHINITIS VITAMIN D DEFICIENCY SMOKING DEPRESSION ANXIETY - DR KAY CALIX-- ON CPAP FIBROMYALGIA DEGENERATIVE DISC DISEASE HYPERTENSION BACK AND NECK PAIN TRIGEMINAL NEURALGIA -[facility] NEUR[facility] URINARY INCONTINENCE - UROLOGY JUNE 2018 SPOT ON LUNG - DR HERNANDEZ 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 ALLERGIES PENICILLIN (FOR ALLERGIES USE ONLY): RASH - ALLERGY SULFA DRUGS: RASH - ALLERGY TEGRETOL: RASH CODEINE: RASH - ALLERGY DOXYCYCLINE MONOHYDRATE: RASH - ALLERGY SURGICAL HISTORY TONSILLECTOMY 1974 1988 DEVIATED SEPTUM 2013 BUNIONECTOMY ON RIGHT FOOT AND HAMMER TOE STRAIGHTENED ON LEFT FOOT 08/2017 TUBE PLACED IN LEFT EAR 07/2018 FAMILY HISTORY FATHER: , DIAGNOSED WITH CANCER MOTHER: ALIVE, HEART DISEASE, CANCER 1 BROTHER(S) , 6 SISTER(S) . 1 SON(S) , 1 DAUGHTER(S) . SOCIAL HISTORY GENERAL: TOBACCO USE ARE YOU A:CURRENT SMOKER PATIENT IS USING CHANTIX ARE YOU INTERESTED IN QUITTING?READY TO QUIT COUNSELED THE PATIENT ON TOBACCO USE, CESSATION [id number]/30/2019 HOW MANY CIGARETTES A DAY DO YOU SMOKE?5 OR LESS HOW SOON AFTER YOU WAKE UP DO YOU SMOKE YOUR FIRST CIGARETTE?AFTER 60 MIN HOW OFTEN DO YOU SMOKE CIGARETTES?SOME DAYS, BUT NOT EVERY DAY PATIENT COUNSELED ON THE DANGERS OF TOBACCO USE AND URGED TO QUIT:06/30/2019 SMOKING CESSATION INFORMATION GIVEN12/11/2018 HIV / HEP-C SCREENING HIV TEST OFFERED TO PATIENT:YES DATE OFFERED:10/31/2016 TEST ACCEPTED:YES HEP-C TEST OFFERED TO PATIENT:YES DATE OFFERED:10/31/2016 TEST ACCEPTED:YES EDUCATION LEVEL OF EDUCATION:NOT FINISHED COLLEGE DIET: NO CONCENTRATED SWEETS.. LANGUAGE LANGUAGES SPOKEN:SETSWANA RECREATIONAL DRUG USE DRUG USE?NO EXERCISE: WALKS. LEARNING BARRIERS / SPECIAL NEEDS CHANGE FROM LAST VISIT?NO BARRIERS TO LEARNING?NO HEARING IMPAIRED?YES BEING EVALUATED BY ENT FOR HEARING LOSS LEFT EAR VISION IMPAIRED?YES COGNITIVELY IMPAIRED?NO :CORRECTIVE LENSES READINESS TO LEARN?YES LEARNING PREFERENCES?NO LEARNING CAPABILITIES PRESENT?NO EMOTIONAL BARRIERS?NO SPECIAL DEVICES?YES :BHARATI JESUS SUPERVISOR ROLLER SHOP NEEDED?NO PAIN CLINIC PFS, CLERGY, PUBLIC HEALTH REFERRALS PFS REFERRAL NEEDED?NO CLERGY REFERRAL NEEDED?NO PUBLIC HEALTH REFERRAL NEEDED?NO WAS THE PROVIDER NOTIFIED OF ANY PERTINENT INFO?YES HAS THE PATIENT BEEN EDUCATED REGARDING HIS/HER PLAN OF CARE?YES PLEASE DOCUMENT ANY ADDTIONAL DETAILS. TPI HAS THE PATIENT BEEN EDUCATED REGARDING PAIN, THE RISK FOR PAIN, THE IMPORTANCE OF EFFECTIVE PAIN MANAGEMENT, AND THE PAIN ASSESSMENT PROCESS?YES CAFFEINE CAFFEINE USE?YES 6 CUPS COFFEE ADVANCE DIRECTIVE ADVANCE DIRECTIVE DISCUSSED WITH PATIENT:YES HCP - ALFREDO HOUSTON (DAUGHTER) ISLAM [id number] SABIANIST MARITAL STATUS: . ALCOHOL SCREENING DID YOU HAVE A DRINK CONTAINING ALCOHOL IN THE PAST YEAR?NO POINTS0 INTERPRETATIONNEGATIVE OCCUPATION: DISABLED. SEXUAL HX HAD SEX IN THE LAST 12 MONTHS (VAGINAL, ORAL, OR ANAL)?NO HAVE YOU EVER HAD AN STD?NO REVIEWED 03/10/18 1428 BVREVIEWED WITH PATIENT 09/29/18 1436 JSREVIEWED WITH PATIENT 12/30/18 0852 BVREVIEWED WITH PT 06/30/19 0956 NLJ. HOSPITALIZATION/MAJOR DIAGNOSTIC PROCEDURE SURGERY [facility] ACQUIRED PNEUMONIA 01/27/18-01/31/18 REVIEW OF SYSTEMS REVIEWED BY: PROVIDER: SAMANTHA MORALEZ . CONSTITUTIONAL: ANY CHANGE IN YOUR MEDICAL CONDITION? YES- LEFT SHOULDER AND NECK PAIN NUMBNESS AND TINGLING, GOES UP LEFT SIDE OF HEAD TO LEFT EYE, PAIN IN LOWER BACK ACROSS HIPS INTO RIGHT KNEE AND NUMBNESS DOWN RIGHT LEG . CHILLS NO . FEVER NO . INFECTION: DO YOU HAVE NEW INFECTIONS? NO . DO YOU HAVE HISTORY OF MRSA? NO . MUSCULOSKELETAL: ANY NEW PATTERNS OF PAIN OR NUMBNESS? YES- PAIN NUMBNESS AND TINGLING HAS INCREASED IN LEFT SHOULDER AND NECK, AND ALSO LOWER BACK INTO BILATERAL HIPS AND RIGHT LEG . GASTROENTEROLOGY: ANY NEW CHANGE IN BOWEL CONTROL? NO . GENITOURINARY: ANY NEW CHANGE IN BLADDER CONTROL? YES- INCREASED INCONTINENCE . IS THERE A CHANCE YOU COULD BE ? NO . HEMATOLOGY/LYMPH: DO YOU TAKE ANY BLOOD THINNERS? (FOR EXAMPLE- COUMADIN, PLAVIX, AGGRENOX, PLATEL, PRADAXA, OR XARELTO) NO . WHEN WAS YOUR LAST DOSE? DATE: TIME: . NEUROLOGY: HAVE YOU FALLEN IN THE PAST 12 MONTHS? NO . ANY NEW EXTREMITY NUMBNESS OR WEAKNESS? YES- RIGHT LEG NUMBNESS HAS INCREASED . CARDIOLOGY: DO YOU HAVE A PACEMAKER OR DEFIBRILLATOR? NO . RESPIRATORY: HAVE YOU BEEN SICK IN THE PAST WEEK? NO . FEVER NO . FLU LIKE SYMPTOMS? NO . COUGH NO . INTEGUMENTARY: DO YOU HAVE ANY RASHES OR OPEN SORES? NO . ALLERGIC/IMMUNO: ARE YOU ALLERGIC TO IV DYE? NO . ANY NEW ALLERGIES? NO . PSYCHIATRIC: DO YOU HAVE THOUGHTS OF HURTING YOURSELF OR SOMEONE ELSE? NO . ARE YOU ABUSED, NEGLECTED, OR IN AN UNSAFE ENVIRONMENT? NO . ENDOCRINOLOGY: ARE YOU DIABETIC? YES . OTHER: DO YOU NEED ANY PRESCRIPTIONS? NO . IF YES, PLEASE LIST: ____ . ANY NEW PROBLEMS WITH YOUR MEDICATIONS? NO . WHEN DID YOU LAST EAT? ____ . WHEN DID YOU LAST DRINK? ____ . WHAT DID YOU LAST DRINK? ____ . NAME OF PERSON DRIVING YOU HOME? ____ . DO YOU HAVE ANY OTHER QUESTIONS OR CONCERNS YES- INCREASED PAIN IN LEFT SHOULDER AND NECK AND ALSO LOWER BACK INTO BILATERAL HIPS AND DOWN RIGHT LEG . VITAL SIGNS WT 167.2 LBS, HT 65 IN, BMI 27.82 INDEX, BP 151/79 MM HG, HR 64 /MIN, RR 16 /MIN, TEMP 96.7 F, OXYGEN SAT % 100%, NA INITIALS SC 09:58. EXAMINATION GENERAL EXAMINATION: LUNGS: LUNG SOUNDS ARE CLEAR . HEART: HEART RATE REGULAR . MUSCULOSKELETAL:*, MUSCLE STRENGTH TESTING 5/5 BILATERAL UPPER EXTREMITIES. . CERVICAL+ FOR PAIN WITH PALPATION OF CERVICAL SPINE. + FOR PAIN WITH PALPATION OF CERVICAL PARASPINALS. . DIAGNOSTIC TESTS REVIEWEDCERVICAL MRI-09/05/18. SPECIFIC TENDERNESS OVER LEFT JAW-SEVERE PAIN SINCE ORAL SURGERY/TOOTH EXTRACTION 7 YEARS AGO. ASSESSMENTS JAW PAIN, NON-TMJ - R68.84 (PRIMARY) TREATMENT JAW PAIN, NON-TMJ REFILL PERCOCET TABLET, 5-325 MG, 1 TABLET NEEDED, ORALLY, Q8H PRN MD3 #45 TAB SHOULD LAST 30 DAYS, 30 DAY(S), 45, REFILLS 0 NOTES: ISTOP REGISTRY REVIEWED AND DEMONSTRATES COMPLLIANCE. (REF # ) BRINGS IN MEDICATIONS WHICH IS APPROPRIATE FOR WHAT WAS DISPENSED. RECENT URINE TOXICOLOGY REVIEWED. NO UNAUTHORIZED MEDICATIONS. NO ILLICIT SUBSTANCES AND PRESCRIBED MEDICATIONS WERE PRESENT. , RISKS AND BENEFITS OF NARCOTIC/OPIOD MEDICATIONS WERE REVIEWED WITH PATIENT - THIS INCLUDES BUT IS NOT LIMITED TO RISK OF DEPENDANCE/DEVELOPMENT OF ADDICTION, MOOD DISTURBANCE AND DEPRESSION, OSTEOPOROSIS, HORMONAL AND LABIDAL CHANGES, RESPIRATORY DEPRESSION AND . PATIENT IS ADVISED NOT TO DRIVE OR DRINK ALCOHOL WHILE ON THESE MEDICATIONS. PROCEDURE CODES FA211 ESTABILISHED PATIENT [facility] CHARGE DISPOSITION & COMMUNICATION FOLLOW UP 6 WEEKS (REASON: CLARE PLEASE SEND OPIOD AGREEMENT TO PURVI MARIVN PCP) ELECTRONICALLY SIGNED BY IKRT PAL ON 07/13/2019 AT 01:16 PM EDT DISCLAIMER : THIS IS A VISIT SUMMARY EXTRACTED FROM THE [employer] CHART. IT IS NOT A COPY OF THE [employer] PROGRESS NOTE. SHANNAN
== END ==
LOC: M PAIN 10:15
PROVIDERS: ATTEND Nurse Practitioner Family
DX: R68.84 Jaw pain (principal); G89.29 Other chronic pain; E11.9 Type 2 diabetes mellitus without complications; E78.5 Hyperlipidemia, unspecified; J44.9 Chronic obstructive pulmonary disease, unspecified; E55.9 Vitamin D deficiency, unspecified; Z86.59 Personal history of other mental and behavioral disorders; G47.33 Obstructive sleep apnea (adult) (pediatric); M79.7 Fibromyalgia; I10 Essential (primary) hypertension; F17.210 Nicotine dependence, cigarettes, uncomplicated; Z88.0 Allergy status to penicillin; Z88.1 Allergy status to other antibiotic agents; Z88.2 Allergy status to sulfonamides; Z88.5 Allergy status to narcotic agent; Z88.8 Allergy status to other drugs, medicaments and biological substances; Z86.14 Personal history of Methicillin resistant Staphylococcus aureus infection; Z79.51 Long term (current) use of inhaled steroids; Z79.82 Long term (current) use of aspirin; Z79.84 Long term (current) use of oral hypoglycemic drugs; Z79.899 Other long term (current) drug therapy

== ENCOUNTER → 2019-08-10 | Outpatient (CLI) | payer OTHER ==
--- NOTE | 2019-08-10 18:44 | REP ---
CT chest without contrast: History: Other nonspecific abnormal finding of the lung field. Comparison studies: The most recent comparison chest CT study is from January 09, 2019. The most remote is from January 31, 2017. CT findings: There is a curvilinear parenchymal fibrosis in the right upper lobe on today's CT study in the area where January 2018 and March 2018 prior study showed the a cavitary opacity. The nodular density and the cavity changes have resolved. There are emphysematous changes in the upper lobes bilaterally as before. No new pulmonary nodule is appreciated. There are scattered areas of fibrosis in the bases. There are emphysematous changes in right and left lower lobes unchanged as well. No pleural or pericardial effusion is seen. Vascular calcifications again noted. No hilar or mediastinal mass is appreciated. No adrenal lesion is seen. The visualized upper abdominal structures are unchanged. There is stable low density subdiaphragmatic nodule 17 mm in diameter just beneath the anterior left diaphragm unchanged from the 2017 prior studies. Impression: Emphysematous changes. 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 No significant lung nodule seen. Electronically Signed by Regan Membreno MD 08/10/2019 06:48 P
== END ==
LOC: M RAD 12:17
PROVIDERS: ATTEND Internal Medicine Pulmonary Disease
DX: R91.8 Other nonspecific abnormal finding of lung field (principal)

== ENCOUNTER → 2019-09-17 | Outpatient (REF) | payer OTHER ==
[2019-09-19 14:22] LABS: HPV HYBRID CAPTURE II Negative (Negative)
== END ==
LOC: M SFHCWAGY 12:09
PROVIDERS: ATTEND Nurse Practitioner Family
DX: Z12.4 Encounter for screening for malignant neoplasm of cervix (principal)

== ENCOUNTER → 2019-09-17 | Outpatient (CLI) | payer OTHER ==
--- NOTE | 2019-09-17 16:06 | REPMRS ---
Patient History The patient states she had a clinical breast exam in 09/2019. Family history of colorectal cancer at age 65 in mother, colorectal cancer at age 60 in father. Digital Woman Screen Mammo: September 17, 2019 - Exam #: [id number] Bilateral CC and MLO view(s) were taken. Technologist: April Guzman Technologist Prior study comparison: December 16, 2014, digital mammo diagnostic bilateral, performed at [facility]. FINDINGS: There are scattered fibroglandular densities. There has been no change in the appearance of the mammogram from the prior studies. There is a mild amount of scattered fibroglandular density which is fairly symmetric. There is no interval development of dominant mass, architectural distortion, or grouped microcalcification suggestive of malignancy. 3-D tomosynthesis shows no additional findings. Assessment: BI-RADS/ACR category 1 mammogram. Negative Mammogram. Recommendation Routine screening mammogram of both breasts in 1 year (for women over age 40). This patient's Lifetime Breast Cancer Risk is estimated at 6.7 %. This mammogram was interpreted with the aid of an FDA-approved computer-aided dectection system. Electronically Signed By: Jeremy Membreno MD 09/17/19 9715
== END ==
LOC: M WHC 11:21
PROVIDERS: ATTEND Nurse Practitioner Family
DX: Z12.31 Encounter for screening mammogram for malignant neoplasm of breast (principal); Z80.0 Family history of malignant neoplasm of digestive organs

== ENCOUNTER → 2019-09-23 | Outpatient (CLI) | payer OTHER ==
--- NOTE | 2019-09-23 19:00 | REP ---
Clinical: Left inguinal pain. Technique: Real time steel scale ultrasound examination using linear high frequency transducer. Findings: No obvious inguinal hernia is appreciated. Directed ultrasound examination at the site of maximal tenderness demonstrates small to moderate amount of fat adjacent to the femoral vein suggesting the possibility of femoral hernia incompletely evaluated. Impression: Possible fat containing left femoral hernia. Electronically Signed by Hawk Samson MD 09/23/2019 06:51 P
== END ==
LOC: M RAD 12:47
PROVIDERS: ATTEND Nurse Practitioner Family
DX: R10.32 Left lower quadrant pain (principal)

== ENCOUNTER → 2019-11-05 | Outpatient (CLI) | payer OTHER ==
--- NOTE | 2019-11-07 05:47 | ECWPNPC ---
PATIENT NAME: PHIL HOUSTON : 1955 GENDER: FEMALE VISIT DATE: 11/05/2019 DISCHARGE DATE: 11/05/19 1145 VISIT LOCKED DATE TIME: PHYSICIAN: BELLA METZGER RESOURCE: BELLA METZGER REASON FOR APPOINTMENT 1. LOW BACK/NECK HISTORY OF PRESENT ILLNESS HISTORY OF PRESENT ILLNESS: PAIN THE PATIENT DESCRIBES THE PAIN... 64-YEAR-OLD FEMALE IN FOR CHRONIC PAIN FOLLOW-UP. SHE RATES HER PAIN CURRENTLY AT A 7 OUT OF 10 AND DESCRIBES IT ACHING, SHARP, STABBING, SHOOTING, AND TENDER. PATIENT FEELS HER MEDICATIONS ARE WORKING WELL AND DENIES MED SIDE EFFECTS AT THIS TIME HOWEVER SHE DOES QUESTION ABOUT AN INCREASE IN THE AMOUNT OF MEDICATIONS THAT SHE HAS BEEN GETTING. FALL RISK SCREENING: SCREENING :NO FALLS REPORTED IN THE LAST YEAR CURRENT MEDICATIONS TAKING ATIVAN 0.5 0.5MG TABLET ORAL 3 TIMES A DAY NEEDED TAKING SALINE 0.65 % SOLUTION 2 DROPS IN EACH NOSTRIL NEEDED NASALLY 2-4 TIMES DAILY TAKING SYSTANE 0.4-0.3 % SOLUTION 1 DROP INTO AFFECTED EYE NEEDED OPHTHALMIC 5 TIMES A DAY TAKING VENTOLIN HFA 108 (90 BASE) MCG/ACT AEROSOL SOLUTION 2 PUFFS INHALATION EVERY 4-6 HOURS NEEDED TAKING TYLENOL 500 MG TABLET 1-2 TABLETS NEEDED ORALLY EVERY 8 HRS NEEDED FOR PAIN TAKING CYMBALTA 30 MG CAPSULE DELAYED RELEASE PARTICLES 1 CAPSULE ORALLY ONCE A DAY ALONG WITH A 60 MG TAKING STIOLTO RESPIMAT 2.5-2.5 MCG/ACT AEROSOL SOLUTION INHALATION TAKING HUMIDIFIER - MISCELLANEOUS DX: J44.9 _ USE NEEDED TAKING HEATING PAD - PAD DIRECTED DX: M54.5 DAILY TAKING CANE - MISCELLANEOUS DIRECTED DX: M54.5 DAILY TAKING AIR CONDITIONER DX: 496, 327.23 DIRECTED - - TAKING CPAP MACHINE TAKING GABAPENTIN 600 MG TABLET 1 CAPSULE ORALLY BID, NOTES: STATES 600MG BID TAKING BUSPIRONE HCL 5 MG TABLET 1 TABLET ORALLY BID TAKING ARNUITY ELLIPTA 100 MCG/ACT AEROSOL POWDER BREATH ACTIVATED INHALATION TAKING CHANTIX STARTING MONTH CHELSY 0.5 MG X 11 & 1 MG X 42 TABLET DIRECTED ORALLY DAILY TAKING LANSOPRAZOLE 30 MG CAPSULE DELAYED RELEASE TAKE ONE CAPSULE BY MOUTH EVERY DAY BEFORE A MEAL TAKING METFORMIN HCL 500 MG TABLET TAKE ONE TABLET BY MOUTH TWICE A DAY WITH MEALS TAKING ASPIRIN 81 MG TABLET DELAYED RELEASE TAKE ONE TABLET BY MOUTH EVERY DAY ORALLY DAILY, NOTES: DUPLICATE TAKING BETAMETHASONE DIPROPIONATE 0.05 % CREAM 1 THIN APPLICATION TO AFFECTED AREAS ON ARMS AND CHEST EXTERNALLY TWICE DAILY NEEDED TAKING LORATADINE 10 MG TABLET 1 TABLET ORALLY ONCE A DAY NEEDED TAKING CALCIUM + D3 600-200 MG-UNIT TABLET 1 TABLET WITH A MEAL ORALLY ONCE A DAY TAKING NYSTATIN [id number] UNIT/GM POWDER 1 APPLICATION TO AFFECTED AREA UNDER BREASTS EXTERNALLY TWICE A DAY TAKING LIDOCAINE HCL 4.12 % CREAM 1 APPLICATION TO AFFECTED AREAS NECK AND LOW BACK EXTERNALLY TWICE A DAY TAKING CYMBALTA 60 MG CAPSULE DELAYED RELEASE PARTICLES TAKE ONE CAPSULE BY MOUTH EVERY DAY WITH 30MG TAKING NYSTATIN [id number] UNIT/GM CREAM 1 APPLICATION TO AFFECTED AREAS UNDER BREASTS AND GROIN AND AXILLA EXTERNALLY TWICE A DAY TAKING ATORVASTATIN CALCIUM 10 MG TABLET 1 TABLET ORALLY ONCE A DAY TAKING TIZANIDINE HCL 2 MG TABLET 1 TABLET NEEDED ORALLY THREE TIMES A DAY TAKING LISINOPRIL 5MG TABLET 1 TABLET ORALLY ONCE A DAY TAKING PERCOCET 5-325 MG TABLET 1 TABLET NEEDED ORALLY Q8H PRN MD3 #45 TAB SHOULD LAST 30 DAYS NOT-TAKING CELEBREX 100 MG CAPSULE 1 CAPSULE WITH FOOD ORALLY TWICE A DAY NOT-TAKING CHANTIX CONTINUING MONTH CHELSY 1 MG TABLET 1/2 TABLET DAILY X 3 DAYS, THEN TWICE DAILY X 4 DAYS, THEN 1 TAB ORALLY TWICE A DAY, NOTES: DUPLICATE NOT-TAKING DRISDOL 72239 UNIT CAPSULE 1 CAPSULE WITH MEAL ORALLY ONCE EVERY 2 WEEKS NOT-TAKING METFORMIN HCL 500MG TABLET 1 TABLET WITH MEALS ORALLY TWICE A DAY NOT-TAKING LANSOPRAZOLE 30 MG CAPSULE DELAYED RELEASE 1 CAPSULE BEFORE A MEAL ORALLY ONCE A DAY NOT-TAKING ASPIR-81 81 MG TABLET DELAYED RELEASE 1 TABLET ORALLY ONCE A DAY NOT-TAKING NICOTINE 21 MG/24HR PATCH 24 HOUR 1 PATCH TO SKIN TRANSDERMAL ONCE A DAY IN AM, OFF AT HS X 1 MONTH, THEN 14MG PATCH X 1 MONTH, THEN 7MG PATCH NOT-TAKING BLOOD GLUCOSE TEST DX: 250.00 EACH - TEST STRIPS TWICE A DAY, FASTING BEFORE BREAKFAST; AT BEDTIME & NEEDED. 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 KAY 2013 FAMILY HISTORY FATHER: , DIAGNOSED WITH OTHER MALIGNANT NEOPLASM OF UNSPECIFIED SITE MOTHER: ALIVE, UNSPECIFIED HEART DISEASE, OTHER MALIGNANT NEOPLASM OF UNSPECIFIED SITE 1 BROTHER(S) , 6 SISTER(S) . 1 SON(S) , 1 DAUGHTER(S) . SOCIAL HISTORY GENERAL: TOBACCO USE ARE YOU A:FORMER SMOKER HOW LONG HAS IT BEEN SINCE YOU LAST SMOKED?1-3 MONTHS HIV / HEP-C SCREENING HIV TEST OFFERED TO PATIENT:YES DATE OFFERED:10/31/2016 TEST ACCEPTED:YES HEP-C TEST OFFERED TO PATIENT:YES DATE OFFERED:10/31/2016 TEST ACCEPTED:YES OTHERS AT HOME: NONE. EDUCATION LEVEL OF EDUCATION:NOT FINISHED COLLEGE DIET: NO CONCENTRATED SWEETS.. LANGUAGE LANGUAGES SPOKEN:BERMUDIAN DOMESTIC VIOLENCE DO YOU FEEL SAFE IN YOUR ENVIRONMENT?YES BMI CARE GOAL FOLLOW-UP ABOVE NORMAL BMI FOLLOW-UPGIVING ENCOURAGEMENT TO EXERCISE RECREATIONAL DRUG USE DRUG USE?NO EXERCISE: WALKS. 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 TPI HAS THE PATIENT BEEN EDUCATED REGARDING PAIN, THE RISK FOR PAIN, THE IMPORTANCE OF EFFECTIVE PAIN MANAGEMENT, AND THE PAIN ASSESSMENT PROCESS?YES LATEX QUESTIONNAIRE LATEX ALLERGY : HAVE YOU EVER DEVELOPED ANY TYPE OF REACTION AFTER HANDLING LATEX PRODUCTS SUCH RUBBER GLOVES, CONDOMS, DIAPHRAGMS, BALLOONS, SOCKS, OR UNDERWEAR?NO LATEX ALLERGY : HAVE YOU EVER DEVELOPED ANY TYPE OF REACTION DURING OR AFTER DENTAL APPOINTMENT, VAGINAL/RECTAL EXAMINATION, SURGICAL PROCEDURE, OR ANY OTHER EXPOSURE?NO DATE ASKED : 07/08/2019 LATEX RISK : HAVE YOU EVER HAD ANY DIFFICULTY BREATHING OR HIVES AFTER EATING OR HANDLING ANY FRUITS, OR VEGETABLES; SUCH KIWI, BANANAS, STONE FRUITS, OR CHESTNUTSNO LATEX RISK : DO YOU HAVE A PREVIOUS PERSONAL HISTORY OF MORE THAN NINE SURGERIES, SPINA BIFIDA, OR REPEATED CATHERIZATIONS? NO LATEX RISK : ARE YOU FREQUENTLY EXPOSED TO LATEX PRODUCTS IN YOUR OCCUPATION?NO CAFFEINE CAFFEINE USE?YES 4 CUPS DAILY ADVANCE DIRECTIVE ADVANCE DIRECTIVE DISCUSSED WITH PATIENT:YES HCP - ALFREDO HOUSTON (DAUGHTER) ALEVISM [id number] PROTESTANT MARITAL STATUS: . ALCOHOL SCREENING DID YOU HAVE A DRINK CONTAINING ALCOHOL IN THE PAST YEAR?NO POINTS0 INTERPRETATIONNEGATIVE OCCUPATION: DISABLED. SEXUAL HX HAD SEX IN THE LAST 12 MONTHS (VAGINAL, ORAL, OR ANAL)?NO HAVE YOU EVER HAD AN STD?NO REVIEWED 03/10/18 1428 BVREVIEWED WITH PATIENT 09/29/18 1436 JSREVIEWED WITH PATIENT 12/30/18 0852 BVREVIEWED WITH PT 06/30/19 0956 NLJREVIEWED WITH PATIENT 11/05/19 1107 BV. HOSPITALIZATION/MAJOR DIAGNOSTIC PROCEDURE SURGERY [facility] ACQUIRED PNEUMONIA 01/27/18-01/31/18 REVIEW OF SYSTEMS REVIEWED BY: PROVIDER: SABRINA JONESC . CONSTITUTIONAL: ANY CHANGE IN YOUR MEDICAL CONDITION? PT STATES SHE HAS NEW PAIN IN NECK AND LEFT SHOULDER THAT STARTED A FEW MONTHS AGO, STATES SHE HAS BEEN DOING PHYSICAL THERAPY FOR ABOUT A YEAR . CHILLS NO . FEVER NO . INFECTION: DO YOU HAVE NEW INFECTIONS? NO . DO YOU HAVE HISTORY OF MRSA? NO . MUSCULOSKELETAL: ANY NEW PATTERNS OF PAIN OR NUMBNESS? NO . GASTROENTEROLOGY: ANY NEW CHANGE IN BOWEL CONTROL? NO . GENITOURINARY: ANY NEW CHANGE IN BLADDER CONTROL? NO . IS THERE A CHANCE YOU COULD BE ? NO . HEMATOLOGY/LYMPH: DO YOU TAKE ANY BLOOD THINNERS? (FOR EXAMPLE- COUMADIN, PLAVIX, AGGRENOX, PLATEL, PRADAXA, OR XARELTO) NO . WHEN WAS YOUR LAST DOSE? DATE: TIME: . NEUROLOGY: HAVE YOU FALLEN IN THE PAST 12 MONTHS? NO . ANY NEW EXTREMITY NUMBNESS OR WEAKNESS? NO . CARDIOLOGY: DO YOU HAVE A PACEMAKER OR DEFIBRILLATOR? NO . RESPIRATORY: HAVE YOU BEEN SICK IN THE PAST WEEK? NO . FEVER NO . FLU LIKE SYMPTOMS? NO . COUGH NO . INTEGUMENTARY: DO YOU HAVE ANY RASHES OR OPEN SORES? NO . ALLERGIC/IMMUNO: ARE YOU ALLERGIC TO IV DYE? NO . ANY NEW ALLERGIES? NO . PSYCHIATRIC: DO YOU HAVE THOUGHTS OF HURTING YOURSELF OR SOMEONE ELSE? NO . ARE YOU ABUSED, NEGLECTED, OR IN AN UNSAFE ENVIRONMENT? NO . ENDOCRINOLOGY: ARE YOU DIABETIC? NO . OTHER: DO YOU NEED ANY PRESCRIPTIONS? NO . IF YES, PLEASE LIST: ____ . ANY NEW PROBLEMS WITH YOUR MEDICATIONS? NO . WHEN DID YOU LAST EAT? ____ . WHEN DID YOU LAST DRINK? ____ . WHAT DID YOU LAST DRINK? ____ . NAME OF PERSON DRIVING YOU HOME? ____ . DO YOU HAVE ANY OTHER QUESTIONS OR CONCERNS NO . VITAL SIGNS WT 182.8 LBS, HT 65 IN, BMI 30.42 INDEX, BP 125/68 MM HG, HR 69 /MIN, RR 18 /MIN, TEMP 96.6 F, OXYGEN SAT % 99%, NA INITIALS SC 10:47, REVIEWED BY: BV. EXAMINATION GENERAL EXAMINATION: GENERALNO ACUTE DISTRESS, WELL NOURISHED AND HYDRATED. PSYCHAPPROPRIATE MOOD AND AFFECT . LUNGS:CLEAR TO AUSCULTATION BILATERALLY, NO WHEEZES, RHONCHI, RALES. HEART:NO MURMURS, REGULAR RATE AND RHYTHM. ASSESSMENTS LUMBAR DISC DISPLACEMENT WITHOUT MYELOPATHY - M51.26 (PRIMARY) CHRONIC USE OF OPIATE DRUGS THERAPEUTIC PURPOSES - Z79.891 TREATMENT LUMBAR DISC DISPLACEMENT WITHOUT MYELOPATHY INCREASE PERCOCET TABLET, 5-325 MG, 1 TABLET NEEDED, ORALLY, Q8H PRN MD3 #45 TAB SHOULD LAST 30 DAYS, 30 DAYS, 50 CLINICAL NOTES: 64-YEAR-OLD FEMALE IN FOR CHRONIC PAIN FOLLOW-UP. GIVEN PRESENTING SYMPTOMS AND RESULTS OF PHYSICAL EXAMINATION RECOMMENDED INCREASING AMOUNT OF PERCOCET TO 50 TABS TO LAST ONE MONTH. PATIENT EDUCATED REGARDING TAKING MEDICATIONS ONLY NEEDED AND THAT THE 50 TABLETS ARE TO LAST ONE MONTH. PATIENT HAS EXPRESSED UNDERSTANDING OF AND WAS IN AGREEMENT WITH TREATMENT PLAN. GIVEN TIME TO ASK QUESTIONS AND EXPRESS CONCERNS., ISTOP REGISTRY REVIEWED AND DEMONSTRATES COMPLLIANCE. (REF # [id number] ) BRINGS IN MEDICATIONS WHICH IS APPROPRIATE FOR WHAT WAS DISPENSED. RECENT URINE TOXICOLOGY REVIEWED. NO UNAUTHORIZED MEDICATIONS. NO ILLICIT SUBSTANCES AND PRESCRIBED MEDICATIONS WERE PRESENT. DISPOSITION & COMMUNICATION FOLLOW UP 2 MONTHS (REASON: BACK PAIN) ELECTRONICALLY SIGNED BY KIRT SANCHEZ ON 11/06/2019 AT 12:16 PM EST DISCLAIMER : THIS IS A VISIT SUMMARY EXTRACTED FROM THE [employer] CHART. IT IS NOT A COPY OF THE Pin or [employer] PROGRESS NOTE. ELIND
== END ==
LOC: M PAIN 10:30
PROVIDERS: ATTEND Family Medicine
DX: M51.26 Other intervertebral disc displacement, lumbar region (principal); G89.29 Other chronic pain; E11.9 Type 2 diabetes mellitus without complications; E78.5 Hyperlipidemia, unspecified; K21.9 Gastro-esophageal reflux disease without esophagitis; J44.9 Chronic obstructive pulmonary disease, unspecified; E55.9 Vitamin D deficiency, unspecified; Z86.59 Personal history of other mental and behavioral disorders; G47.33 Obstructive sleep apnea (adult) (pediatric); M79.7 Fibromyalgia; I10 Essential (primary) hypertension; Z87.891 Personal history of nicotine dependence; Z88.0 Allergy status to penicillin; Z88.1 Allergy status to other antibiotic agents; Z88.2 Allergy status to sulfonamides; Z88.5 Allergy status to narcotic agent; Z88.8 Allergy status to other drugs, medicaments and biological substances; Z79.51 Long term (current) use of inhaled steroids; Z79.82 Long term (current) use of aspirin; Z79.84 Long term (current) use of oral hypoglycemic drugs; Z79.899 Other long term (current) drug therapy

== ENCOUNTER → 2019-11-16 | Outpatient (CLI) | payer OTHER ==
[2019-11-16 11:26] LABS: GLOMERULAR FILTRATION RATE 59.8 (>45)
== END ==
LOC: M LAB 10:27
PROVIDERS: ATTEND Surgery
DX: R10.30 Lower abdominal pain, unspecified (principal)

== ENCOUNTER → 2019-11-19 | Outpatient (CLI) | payer OTHER ==
[~2019-11-19] MED LIST changes: +GASTROGRAFIN SOLUTION 30ML (Q9963) As Ordered ONE; +ISOVUE-370 76% 100ML VIAL (Q9967) As Ordered ONE
--- NOTE | 2019-11-19 14:04 | REP ---
CT PELVIS WITH ORAL AND IV CONTRAST: TECHNIQUE: Axial contrast enhanced images from the lung bases to the pubic symphysis using 100 mL Isovue 370 intravenous contrast material with multiplanar reformations. Distal abdominal aorta demonstrates moderate atherosclerotic calcification with no aneurysm. No adenopathy is seen in the pelvis. There is no other evidence of pelvic mass. Visualized bowel loops are not thickened. There is sigmoid diverticulosis without acute diverticulitis. There is no anterior abdominal wall, inguinal or femoral hernia. Uterus is unremarkable in appearance. Urinary bladder is mildly distended and unremarkable. There are degenerative changes of the lower lumbar spine and of both hips. No free air or free fluid is seen in the pelvis. IMPRESSION: No adenopathy or mass. Sigmoid diverticulosis without acute diverticulitis. No evidence of anterior abdominal wall hernia at the level of the pelvis and no evidence of inguinal or femoral hernia. Electronically Signed by Julian Vogel MD 11/19/2019 05:13 P
== END ==
LOC: M RAD 10:28
PROVIDERS: ATTEND Surgery
DX: K41.00 Bilateral femoral hernia, with obstruction, without gangrene, not specified as recurrent (principal); K57.30 Diverticulosis of large intestine without perforation or abscess without bleeding
CPT/HCPCS: 72193; Q9963; Q9967

== ENCOUNTER → 2020-01-06 | Outpatient (CLI) | payer OTHER ==
[~2020-01-06] MED LIST changes: -GASTROGRAFIN SOLUTION 30ML (Q9963) As Ordered ONE; -ISOVUE-370 76% 100ML VIAL (Q9967) As Ordered ONE
[2020-01-06 17:34] LABS: BASO % 0.2 % (0.0-1.0); EOS % 0.2 % (0.0-3.0); HEMATOCRIT 39.4 % (36.0-47.0); HEMOGLOBIN 12.5 g/dl (12.0-15.5); LYMPH # 2.4 10^3/uL (1.5-5.0); LYMPH % 22.9 % (24.0-44.0); MEAN CORPUSCULAR HEMOGLOBIN 29.2 pg (27.0-33.0); MEAN CORPUSCULAR HGB CONC 31.7 g/dl (32.0-36.5); MEAN CORPUSCULAR VOLUME 92.1 fl (80.0-96.0); MONO # 0.8 10^3/uL (0.0-0.8); MONO % 7.7 % (0.0-5.0); NEUTROPHILS # 7.3 10^3/uL (1.5-8.5); NEUTROPHILS % 68.5 % (36.0-66.0); PLATELET COUNT, AUTOMATED 310 10^3/uL (150-450); RED BLOOD COUNT 4.28 10^6/uL (4.00-5.40); WHITE BLOOD COUNT 10.7 10^3/uL (4.0-10.0)
[2020-01-06 17:41] LABS: COMPLEMENT C3 128 MG/DL (90-180); COMPLEMENT C4 25 MG/DL (10-40); GLUCOSE, FASTING 75 MG/DL (70-100); RHEUMATOID FACTOR QUANT < 10.0 IU/ML (<15.0); URIC ACID 3.8 MG/DL (2.6-6.0)
[2020-01-06 18:09] LABS: ERYTHROCYTE SEDIMENTATION RATE 8 mm/hr (0-30)
[2020-01-13 00:06] LABS: ANCA-ATYPICAL <1:20 titer (Neg:<1:20); ANGIOTENSIN 1 CONVERTING ENZYM 20 U/L (14-82); ANTINUCLEAR ANTIBODIES DIRECT Negative (Negative); COMPLEMENT TOTAL (CH50) > 60 U/mL (>41); CYTOPLASMIC NEUTROP AB ANCA-C <1:20 titer (Neg:<1:20); PERINUCLEAR AB ANCA-P <1:20 titer (Neg:<1:20)
== END ==
LOC: M PLALAB 11-05 12:33
PROVIDERS: ATTEND Nurse Practitioner Family
DX: E55.9 Vitamin D deficiency, unspecified (principal); E11.9 Type 2 diabetes mellitus without complications; H15.013 Anterior scleritis, bilateral

== ENCOUNTER → 2020-01-06 | Outpatient (REF) | payer OTHER ==
[2020-01-06 17:53] LABS: ALBUMIN 4.1 GM/DL (3.2-5.2); ALT/SGPT 30 U/L (12-78); BILIRUBIN,TOTAL 0.6 MG/DL (0.2-1.0); BLOOD UREA NITROGEN 13 MG/DL (7-18); CALCIUM LEVEL 9.2 MG/DL (8.8-10.2); CARBON DIOXIDE LEVEL 28 MEQ/L (21-32); CHLORIDE LEVEL 101 MEQ/L (98-107); CREATININE FOR GFR 0.87 MG/DL (0.55-1.30); GLOMERULAR FILTRATION RATE > 60.0 (>45); GLUCOSE, FASTING 75 MG/DL (70-100); POTASSIUM SERUM 4.4 MEQ/L (3.5-5.1); SODIUM LEVEL 137 MEQ/L (136-145); TOTAL 25(OH) VITAMIN D 24.2 NG/ML (30.0-100.0); TOTAL PROTEIN 6.9 GM/DL (6.4-8.2)
[2020-01-06 19:19] LABS: HEMOGLOBIN A1c 6.7 %
== END ==
LOC: M SFHCPLAZ 12:21
PROVIDERS: ATTEND Nurse Practitioner Family
DX: E55.9 Vitamin D deficiency, unspecified (principal); E11.9 Type 2 diabetes mellitus without complications

== ENCOUNTER → 2020-01-28 | Outpatient (CLI) | payer OTHER ==
--- NOTE | 2020-02-02 02:14 | ECWPNPC ---
PATIENT NAME: PHIL HOUSTON : 1955 GENDER: FEMALE VISIT DATE: 01/28/2020 DISCHARGE DATE: 01/28/20 1135 VISIT LOCKED DATE TIME: PHYSICIAN: BELLA METZGER RESOURCE: BELLA METZGER REASON FOR APPOINTMENT 1. LOW BACK HISTORY OF PRESENT ILLNESS HISTORY OF PRESENT ILLNESS: PAIN THE PATIENT DESCRIBES THE PAIN... 64-YEAR-OLD FEMALE IN FOR CHRONIC PAIN FOLLOW-UP. SHE RATES HER PAIN CURRENTLY AT A 7 OUT OF 10 AND DESCRIBES IT ACHING, SHARP, STABBING, SORE, SHOOTING, AND TENDER. MEDICATIONS WERE INCREASED AT LAST CLINIC VISIT AND SHE FEELS THE MEDICATIONS ARE WORKING WELL AND DENIES MED SIDE EFFECTS AT THIS TIME. FALL RISK SCREENING: SCREENING :NO FALLS REPORTED IN THE LAST YEAR CURRENT MEDICATIONS TAKING METFORMIN HCL 500MG TABLET 1 TABLET WITH MEALS ORALLY TWICE A DAY TAKING ATORVASTATIN CALCIUM 10 MG TABLET 1 TABLET ORALLY ONCE A DAY TAKING LANSOPRAZOLE 30 MG CAPSULE DELAYED RELEASE 1 CAPSULE BEFORE A MEAL ORALLY ONCE A DAY TAKING LISINOPRIL 5MG TABLET 1 TABLET ORALLY ONCE A DAY TAKING NYSTATIN [id number] UNIT/GM POWDER 1 APPLICATION TO AFFECTED AREA UNDER BREASTS EXTERNALLY TWICE A DAY TAKING ATIVAN 0.5 0.5MG TABLET ORAL 3 TIMES A DAY NEEDED TAKING SALINE 0.65 % SOLUTION 2 DROPS IN EACH NOSTRIL NEEDED NASALLY 2-4 TIMES DAILY TAKING SYSTANE 0.4-0.3 % SOLUTION 1 DROP INTO AFFECTED EYE NEEDED OPHTHALMIC 5 TIMES A DAY TAKING VENTOLIN HFA 108 (90 BASE) MCG/ACT AEROSOL SOLUTION 2 PUFFS INHALATION EVERY 4-6 HOURS NEEDED TAKING TYLENOL 500 MG TABLET 1-2 TABLETS NEEDED ORALLY EVERY 8 HRS NEEDED FOR PAIN TAKING CYMBALTA 30 MG CAPSULE DELAYED RELEASE PARTICLES 1 CAPSULE ORALLY ONCE A DAY ALONG WITH A 60 MG TAKING STIOLTO RESPIMAT 2.5-2.5 MCG/ACT AEROSOL SOLUTION INHALATION TAKING HUMIDIFIER - MISCELLANEOUS DX: J44.9 _ USE NEEDED TAKING HEATING PAD - PAD DIRECTED DX: M54.5 DAILY TAKING CANE - MISCELLANEOUS DIRECTED DX: M54.5 DAILY TAKING AIR CONDITIONER DX: 496, 327.23 DIRECTED - - TAKING CPAP MACHINE TAKING GABAPENTIN 600 MG TABLET 1 CAPSULE ORALLY BID, NOTES: STATES 600MG BID TAKING BUSPIRONE HCL 5 MG TABLET 1 TABLET ORALLY BID TAKING ARNUITY ELLIPTA 100 MCG/ACT AEROSOL POWDER BREATH ACTIVATED INHALATION TAKING ASPIRIN 81 MG TABLET DELAYED RELEASE TAKE ONE TABLET BY MOUTH EVERY DAY ORALLY DAILY, NOTES: DUPLICATE TAKING BETAMETHASONE DIPROPIONATE 0.05 % CREAM 1 THIN APPLICATION TO AFFECTED AREAS ON ARMS AND CHEST EXTERNALLY TWICE DAILY NEEDED TAKING CYMBALTA 60 MG CAPSULE DELAYED RELEASE PARTICLES TAKE ONE CAPSULE BY MOUTH EVERY DAY WITH 30MG TAKING NYSTATIN [id number] UNIT/GM CREAM 1 APPLICATION TO AFFECTED AREAS UNDER BREASTS AND GROIN AND AXILLA EXTERNALLY TWICE A DAY TAKING TIZANIDINE HCL 2 MG TABLET 1 TABLET NEEDED ORALLY THREE TIMES A DAY TAKING LORATADINE 10 MG TABLET 1 TABLET ORALLY ONCE A DAY NEEDED TAKING LIDOCAINE HCL 4.12 % CREAM 1 APPLICATION TO AFFECTED AREAS NECK AND LOW BACK EXTERNALLY TWICE A DAY TAKING DRISDOL 70418 UNIT CAPSULE 1 CAPSULE WITH MEAL ORALLY ONCE EVERY WEEK TAKING PERCOCET 5-325 MG TABLET 1 TABLET NEEDED ORALLY Q8H PRN MD3 #45 TAB SHOULD LAST 30 DAYS TAKING ASPIR-81 81 MG TABLET DELAYED RELEASE 1 TABLET ORALLY ONCE A DAY TAKING CALCIUM + D3 600-200 MG-UNIT TABLET 1 TABLET WITH A MEAL ORALLY ONCE A DAY DISCONTINUED ATORVASTATIN CALCIUM 10 MG TABLET 1 TABLET ORALLY ONCE A DAY DISCONTINUED LISINOPRIL 5MG TABLET 1 TABLET ORALLY ONCE A DAY DISCONTINUED LANSOPRAZOLE 30 MG CAPSULE DELAYED RELEASE TAKE ONE CAPSULE BY MOUTH EVERY DAY BEFORE A MEAL DISCONTINUED METFORMIN HCL 500 MG TABLET TAKE ONE TABLET BY MOUTH TWICE A DAY WITH MEALS DISCONTINUED PREGABALIN 50 MG CAPSULE (SCHEDULE V DRUG) TAKE ONE CAPSULE BY MOUTH TWICE A DAY MAXIMUM DAILY DOSE 2 CAPSULES ORAL DISCONTINUED PREDNISONE 20 MG TABLET 1 TABLET ORALLY ONCE A DAY MEDICATION LIST REVIEWED AND RECONCILED WITH THE PATIENT PAST MEDICAL HISTORY TYPE II DIABETES HYPERLIPIDEMIA - NEG NUCLEAR STRESS TEST 07/13, - [facility] REFLUX COPD FEV1 = 1.9 ON 11/22/14 @PULMONOLOGY ALLERGIC RHINITIS VITAMIN D DEFICIENCY SMOKING DEPRESSION ANXIETY - DR VILLANUEVA FIFI-- ON CPAP FIBROMYALGIA DEGENERATIVE DISC DISEASE HYPERTENSION BACK AND NECK PAIN TRIGEMINAL NEURALGIA -PA NEUROLOGY URINARY INCONTINENCE - UROLOGY JUNE 2018 SPOT ON LUNG - DR HERNANDEZ 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 KAY 2013 FAMILY HISTORY FATHER: , DIAGNOSED WITH OTHER MALIGNANT NEOPLASM OF UNSPECIFIED SITE MOTHER: ALIVE, UNSPECIFIED HEART DISEASE, OTHER MALIGNANT NEOPLASM OF UNSPECIFIED SITE 1 BROTHER(S) , 6 SISTER(S) . 1 SON(S) , 1 DAUGHTER(S) . SOCIAL HISTORY GENERAL: TOBACCO USE ARE YOU A:FORMER SMOKER HOW LONG HAS IT BEEN SINCE YOU LAST SMOKED?3-6 MONTHS HIV / HEP-C SCREENING HIV TEST OFFERED TO PATIENT:YES DATE OFFERED:10/31/2016 TEST ACCEPTED:YES HEP-C TEST OFFERED TO PATIENT:YES DATE OFFERED:10/31/2016 TEST ACCEPTED:YES OTHERS AT HOME: NONE. EDUCATION LEVEL OF EDUCATION:NOT FINISHED COLLEGE DIET: NO CONCENTRATED SWEETS.. LANGUAGE LANGUAGES SPOKEN:COOK ISLANDER DOMESTIC VIOLENCE DO YOU FEEL SAFE IN YOUR ENVIRONMENT?YES BMI CARE GOAL FOLLOW-UP ABOVE NORMAL BMI FOLLOW-UPGIVING ENCOURAGEMENT TO EXERCISE RECREATIONAL DRUG USE DRUG USE?NO EXERCISE: WALKS. 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 TPI HAS THE PATIENT BEEN EDUCATED REGARDING PAIN, THE RISK FOR PAIN, THE IMPORTANCE OF EFFECTIVE PAIN MANAGEMENT, AND THE PAIN ASSESSMENT PROCESS?YES LATEX QUESTIONNAIRE LATEX ALLERGY : HAVE YOU EVER DEVELOPED ANY TYPE OF REACTION AFTER HANDLING LATEX PRODUCTS SUCH RUBBER GLOVES, CONDOMS, DIAPHRAGMS, BALLOONS, SOCKS, OR UNDERWEAR?NO LATEX ALLERGY : HAVE YOU EVER DEVELOPED ANY TYPE OF REACTION DURING OR AFTER DENTAL APPOINTMENT, VAGINAL/RECTAL EXAMINATION, SURGICAL PROCEDURE, OR ANY OTHER EXPOSURE?NO DATE ASKED : 07/08/2019 LATEX RISK : HAVE YOU EVER HAD ANY DIFFICULTY BREATHING OR HIVES AFTER EATING OR HANDLING ANY FRUITS, OR VEGETABLES; SUCH KIWI, BANANAS, STONE FRUITS, OR CHESTNUTSNO LATEX RISK : DO YOU HAVE A PREVIOUS PERSONAL HISTORY OF MORE THAN NINE SURGERIES, SPINA BIFIDA, OR REPEATED CATHERIZATIONS? NO LATEX RISK : ARE YOU FREQUENTLY EXPOSED TO LATEX PRODUCTS IN YOUR OCCUPATION?NO CAFFEINE CAFFEINE USE?YES 4 CUPS DAILY ADVANCE DIRECTIVE ADVANCE DIRECTIVE DISCUSSED WITH PATIENT:YES HCP - ALFREDO HOUSTON (DAUGHTER) PENTECOSTALISM [id number] JEW MARITAL STATUS: . ALCOHOL SCREENING DID YOU HAVE A DRINK CONTAINING ALCOHOL IN THE PAST YEAR?NO POINTS0 INTERPRETATIONNEGATIVE OCCUPATION: DISABLED. SEXUAL HX HAD SEX IN THE LAST 12 MONTHS (VAGINAL, ORAL, OR ANAL)?NO HAVE YOU EVER HAD AN STD?NO REVIEWED 03/10/18 1428 BVREVIEWED WITH PATIENT 09/29/18 1436 JSREVIEWED WITH PATIENT 12/30/18 0852 BVREVIEWED WITH PT 06/30/19 0956 NLJREVIEWED WITH PATIENT 11/05/19 1107 BV. HOSPITALIZATION/MAJOR DIAGNOSTIC PROCEDURE SURGERY [facility] ACQUIRED PNEUMONIA 01/27/18-01/31/18 REVIEW OF SYSTEMS REVIEWED BY: PROVIDER: SABRINA METZGER WELLHEAD PUMPER-C . CONSTITUTIONAL: ANY CHANGE IN YOUR MEDICAL CONDITION? EYE INFECTION AND VIRUS . CHILLS NO . FEVER NO . INFECTION: DO YOU HAVE NEW INFECTIONS? YES, EYE INFECTION AND VIRUS . DO YOU HAVE HISTORY OF MRSA? NO . MUSCULOSKELETAL: ANY NEW PATTERNS OF PAIN OR NUMBNESS? YES, NUMBNESS TO RIGHT LEG . GASTROENTEROLOGY: ANY NEW CHANGE IN BOWEL CONTROL? NO . GENITOURINARY: ANY NEW CHANGE IN BLADDER CONTROL? NO . IS THERE A CHANCE YOU COULD BE ? NO . HEMATOLOGY/LYMPH: DO YOU TAKE ANY BLOOD THINNERS? (FOR EXAMPLE- COUMADIN, PLAVIX, AGGRENOX, PLATEL, PRADAXA, OR XARELTO) NO . WHEN WAS YOUR LAST DOSE? DATE: TIME: . NEUROLOGY: HAVE YOU FALLEN IN THE PAST 12 MONTHS? NO . ANY NEW EXTREMITY NUMBNESS OR WEAKNESS? NO . CARDIOLOGY: DO YOU HAVE A PACEMAKER OR DEFIBRILLATOR? NO . RESPIRATORY: HAVE YOU BEEN SICK IN THE PAST WEEK? NO . FEVER NO . FLU LIKE SYMPTOMS? NO . COUGH NO . INTEGUMENTARY: DO YOU HAVE ANY RASHES OR OPEN SORES? NO . ALLERGIC/IMMUNO: ARE YOU ALLERGIC TO IV DYE? NO . ANY NEW ALLERGIES? YES, EYE INFECTION MAYBE ALLERGY . PSYCHIATRIC: DO YOU HAVE THOUGHTS OF HURTING YOURSELF OR SOMEONE ELSE? NO . ARE YOU ABUSED, NEGLECTED, OR IN AN UNSAFE ENVIRONMENT? NO . ENDOCRINOLOGY: ARE YOU DIABETIC? YES . OTHER: DO YOU NEED ANY PRESCRIPTIONS? NO . IF YES, PLEASE LIST: ____ . ANY NEW PROBLEMS WITH YOUR MEDICATIONS? NO . WHEN DID YOU LAST EAT? ____ . WHEN DID YOU LAST DRINK? ____ . WHAT DID YOU LAST DRINK? ____ . NAME OF PERSON DRIVING YOU HOME? ____ . DO YOU HAVE ANY OTHER QUESTIONS OR CONCERNS NO . VITAL SIGNS WT 183 LBS, HT 65 IN, BMI 30.45 INDEX, BP 127/87 MM HG, HR 75 /MIN, RR 18 /MIN, TEMP 97.2 F, OXYGEN SAT % 98%, SAFE IN ENV? (Y/N) Y, NA INITIALS AW 1045, REVIEWED BY: ELOISE. EXAMINATION GENERAL EXAMINATION: GENERALNO ACUTE DISTRESS, WELL NOURISHED AND HYDRATED. PSYCHAPPROPRIATE MOOD AND AFFECT . LUNGS:CLEAR TO AUSCULTATION BILATERALLY, NO WHEEZES, RHONCHI, RALES. HEART:NO MURMURS, REGULAR RATE AND RHYTHM. ASSESSMENTS LUMBAR DISC DISPLACEMENT WITHOUT MYELOPATHY - M51.26 (PRIMARY) TREATMENT LUMBAR DISC DISPLACEMENT WITHOUT MYELOPATHY CLINICAL NOTES: 64-YEAR-OLD FEMALE IN FOR CHRONIC PAIN FOLLOW-UP. SHE DOES ADMIT TO SOME INCREASED PAIN RECENTLY WHICH SHE IS BEING WORKED UP BY ORTHO FOR. GIVEN PRESENTING SYMPTOMS AND RESULTS OF PHYSICAL EXAMINATION RECOMMENDED CONTINUATION OF CURRENT MEDICATION REGIMEN WITH FOLLOW-UP IN 3 MONTHS. PATIENT HAS EXPRESSED UNDERSTANDING OF AND WAS IN AGREEMENT WITH TREATMENT PLAN. GIVEN TIME TO ASK QUESTIONS AND EXPRESS CONCERNS.ISTOP REGISTRY REVIEWED AND DEMONSTRATES COMPLLIANCE. (REF # [id number] ) BRINGS IN MEDICATIONS WHICH IS APPROPRIATE FOR WHAT WAS DISPENSED. RECENT URINE TOXICOLOGY REVIEWED. NO UNAUTHORIZED MEDICATIONS. NO ILLICIT SUBSTANCES AND PRESCRIBED MEDICATIONS WERE PRESENT. , . PROCEDURE CODES FA211 ESTABILISHED PATIENT [facility] CHARGE DISPOSITION & COMMUNICATION FOLLOW UP 3 MONTHS (REASON: BACK PAIN) ELECTRONICALLY SIGNED BY KIRT SANCHEZ ON 02/01/2020 AT 11:44 AM EST DISCLAIMER : THIS IS A VISIT SUMMARY EXTRACTED FROM THE [employer] CHART. IT IS NOT A COPY OF THE [employer] PROGRESS NOTE. MTDD
== END ==
LOC: M PAIN 10:15
PROVIDERS: ATTEND Family Medicine
DX: M51.26 Other intervertebral disc displacement, lumbar region (principal); E11.9 Type 2 diabetes mellitus without complications; E78.5 Hyperlipidemia, unspecified; K21.9 Gastro-esophageal reflux disease without esophagitis; F32.9 Major depressive disorder, single episode, unspecified; F41.9 Anxiety disorder, unspecified; G47.33 Obstructive sleep apnea (adult) (pediatric); M79.7 Fibromyalgia; I10 Essential (primary) hypertension; Z87.891 Personal history of nicotine dependence; Z88.0 Allergy status to penicillin; Z88.2 Allergy status to sulfonamides; Z88.5 Allergy status to narcotic agent; Z88.8 Allergy status to other drugs, medicaments and biological substances; Z79.82 Long term (current) use of aspirin; Z79.84 Long term (current) use of oral hypoglycemic drugs; Z79.899 Other long term (current) drug therapy

== ENCOUNTER → 2020-04-29 | Outpatient (CLI) | payer OTHER ==
--- NOTE | 2020-05-03 03:50 | ECWPNPC ---
PATIENT NAME: PHIL HOUSTON : 1955 GENDER: FEMALE VISIT DATE: 04/29/2020 DISCHARGE DATE: 04/29/20 1110 VISIT LOCKED DATE TIME: PHYSICIAN: BELLA METZGER RESOURCE: BELLA METZGER REASON FOR APPOINTMENT 1. 3 MONTHS-PHYSICAL VISIT HISTORY OF PRESENT ILLNESS GENERAL: -65-YEAR-OLD FEMALE IN FOR CHRONIC PAIN FOLLOW-UP. SHE RATES HER PAIN CURRENTLY AT AN 8 OUT OF 10 AND DESCRIBES IT STABBING, SHARP, AND ACHING. SHE FEELS HER MEDICATIONS ARE HELPFUL BUT DOES WONDER IF IF THEY COULD BE INCREASED SLIGHTLY SHE HAS HAS BEEN EXPERIENCING INCREASED PAIN. FALL RISK SCREENING: SCREENING :NO FALLS REPORTED IN THE LAST YEAR PAIN SCREENING: PATIENT HAS A COMPLAINT OF ACUTE OR CHRONIC PAIN :YES LOCATION OF PAIN:LOW BACK RADIATES DOWN TO BOTH FEET, MORE TO THE RIGHT INTENSITY OF PAIN (SCALE OF 1 TO 10):8 WHAT DOES YOUR PAIN FEEL LIKE:ACHING, SHARP DURATION:CONTINOUS, CONSTANT, ALL DAY, AWAKENS FROM SLEEP PAIN IS INCREASED BY:ACTIVITIES, PROLONGED STANDING PAIN IS DECREASED BY:USE OF PAIN MEDICATIONS, SITTING RELAX AND HEATING PAD/ ICE PACKS PAIN HAS INTERFERED WITH THE FOLLOWING:BATHING/DRESSING, MOOD, WALKING ABILITY, HOUSEWORK, SLEEP, RELATIONSHIP WITH OTHERS, ENJOYMENT OF LIFE DEPRESSION SCREENING: PHQ-2 (2015 EDITION) LITTLE INTEREST OR PLEASURE IN DOING THINGS?NOT AT ALL FEELING DOWN, DEPRESSED, OR HOPELESS?NOT AT ALL TOTAL SCORE0 PAIN CENTER INTAKE QUESTIONS: DO YOU HAVE A HISTORY OF MRSA? :NO DO YOU TAKE A BLOOD THINNERS? :NO DO YOU HAVE ANY BLEEDING DISORDERS? :NO ANY NEW NUMBNESS OR WEAKNESS IN YOUR LEGS OR ARMS? :NO ANY PACEMAKER,DEFIBRILLATOR, OR DORSAL COLUMN STIMULATOR? :NO DO YOU HAVE ANY RASHES OR OPEN SORES? :NO ARE YOU ALLERGIC TO IV DYE? :NO ARE YOU DIABETIC? :YES ANY NEW PROBLEMS WITH YOUR MEDICATIONS? :NO HAVE YOU RECEIVED A VACCINE IN THE PAST 30 DAYS? :NO DO YOU PLAN TO RECEIVE A VACCINE IN THE NEXT 21 DAYS? :NO DO YOU NEED ANY PRESCRIPTION? :NO DO YOU TAKE ANY IMMUNOSUPPRESSIVE MEDICATIONS? :NO NURSING NOTE: -. CURRENT MEDICATIONS TAKING METFORMIN HCL 500MG TABLET 1 TABLET WITH MEALS ORALLY TWICE A DAY TAKING ATORVASTATIN CALCIUM 10 MG TABLET 1 TABLET ORALLY ONCE A DAY TAKING LANSOPRAZOLE 30 MG CAPSULE DELAYED RELEASE 1 CAPSULE BEFORE A MEAL ORALLY ONCE A DAY TAKING NYSTATIN [id number] UNIT/GM POWDER 1 APPLICATION TO AFFECTED AREA UNDER BREASTS EXTERNALLY TWICE A DAY TAKING ATIVAN 0.5 0.5MG TABLET ORAL 3 TIMES A DAY NEEDED TAKING SALINE 0.65 % SOLUTION 2 DROPS IN EACH NOSTRIL NEEDED NASALLY 2-4 TIMES DAILY TAKING SYSTANE 0.4-0.3 % SOLUTION 1 DROP INTO AFFECTED EYE NEEDED OPHTHALMIC 5 TIMES A DAY TAKING VENTOLIN HFA 108 (90 BASE) MCG/ACT AEROSOL SOLUTION 2 PUFFS INHALATION EVERY 4-6 HOURS NEEDED TAKING TYLENOL 500 MG TABLET 1-2 TABLETS NEEDED ORALLY EVERY 8 HRS NEEDED FOR PAIN TAKING STIOLTO RESPIMAT 2.5-2.5 MCG/ACT AEROSOL SOLUTION INHALATION TAKING HUMIDIFIER - MISCELLANEOUS DX: J44.9 _ USE NEEDED TAKING HEATING PAD - PAD DIRECTED DX: M54.5 DAILY TAKING CANE - MISCELLANEOUS DIRECTED DX: M54.5 DAILY TAKING AIR CONDITIONER DX: 496, 327.23 DIRECTED - - TAKING CPAP MACHINE TAKING GABAPENTIN 600 MG TABLET 1 CAPSULE ORALLY BID, NOTES: STATES 600MG BID TAKING BUSPIRONE HCL 5 MG TABLET 1 TABLET ORALLY BID TAKING ARNUITY ELLIPTA 100 MCG/ACT AEROSOL POWDER BREATH ACTIVATED INHALATION TAKING ASPIRIN 81 MG TABLET DELAYED RELEASE TAKE ONE TABLET BY MOUTH EVERY DAY ORALLY DAILY, NOTES: DUPLICATE TAKING BETAMETHASONE DIPROPIONATE 0.05 % CREAM 1 THIN APPLICATION TO AFFECTED AREAS ON ARMS AND CHEST EXTERNALLY TWICE DAILY NEEDED TAKING NYSTATIN [id number] UNIT/GM CREAM 1 APPLICATION TO AFFECTED AREAS UNDER BREASTS AND GROIN AND AXILLA EXTERNALLY TWICE A DAY TAKING TIZANIDINE HCL 2 MG TABLET 1 TABLET NEEDED ORALLY THREE TIMES A DAY TAKING LORATADINE 10 MG TABLET 1 TABLET ORALLY ONCE A DAY NEEDED TAKING LIDOCAINE HCL 4.12 % CREAM 1 APPLICATION TO AFFECTED AREAS NECK AND LOW BACK EXTERNALLY TWICE A DAY TAKING DRISDOL 11612 UNIT CAPSULE 1 CAPSULE WITH MEAL ORALLY ONCE EVERY WEEK TAKING ASPIR-81 81 MG TABLET DELAYED RELEASE 1 TABLET ORALLY ONCE A DAY TAKING CALCIUM + D3 600-200 MG-UNIT TABLET 1 TABLET WITH A MEAL ORALLY ONCE A DAY TAKING CYMBALTA 30 MG CAPSULE DELAYED RELEASE PARTICLES 1 CAPSULE ORALLY ONCE A DAY ALONG WITH A 60 MG TAKING CYMBALTA 60 MG CAPSULE DELAYED RELEASE PARTICLES TAKE ONE CAPSULE BY MOUTH EVERY DAY WITH 30MG TAKING CHANTIX CONTINUING MONTH CHELSY 1 MG TABLET 1 TAB ORALLY TWICE DAILY TAKING LISINOPRIL 5MG TABLET 1 TABLET ORALLY ONCE A DAY TAKING PERCOCET 5-325 MG TABLET 1 TABLET NEEDED ORALLY Q8H PRN MD3 50 TAB SHOULD LAST 30 DAYS TAKING HEATING PAD - PAD DIRECTED TOPICALLY DAILY NEEDED DX M54.5 MEDICATION LIST REVIEWED AND RECONCILED WITH THE PATIENT PAST MEDICAL HISTORY TYPE II DIABETES HYPERLIPIDEMIA - NEG NUCLEAR STRESS TEST 07/13, - [facility] REFLUX COPD FEV1 = 1.9 ON 11/22/14 @PULMONOLOGY ALLERGIC RHINITIS VITAMIN D DEFICIENCY SMOKING DEPRESSION ANXIETY - DR VILLANUEVA FIFI-- ON CPAP FIBROMYALGIA DEGENERATIVE DISC DISEASE HYPERTENSION BACK AND NECK PAIN TRIGEMINAL NEURALGIA -SC NEUROLOGY URINARY INCONTINENCE - UROLOGY JUNE 2018 SPOT ON LUNG - DR HERNANDEZ 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 KAY 2013 FAMILY HISTORY FATHER: , DIAGNOSED WITH OTHER MALIGNANT NEOPLASM OF UNSPECIFIED SITE MOTHER: ALIVE, UNSPECIFIED HEART DISEASE, OTHER MALIGNANT NEOPLASM OF UNSPECIFIED SITE 1 BROTHER(S) , 6 SISTER(S) . 1 SON(S) , 1 DAUGHTER(S) . SOCIAL HISTORY GENERAL: TOBACCO USE ARE YOU A:FORMER SMOKER HOW LONG HAS IT BEEN SINCE YOU LAST SMOKED?3-6 MONTHS LATEX QUESTIONNAIRE LATEX ALLERGY : HAVE YOU EVER DEVELOPED ANY TYPE OF REACTION AFTER HANDLING LATEX PRODUCTS SUCH RUBBER GLOVES, CONDOMS, DIAPHRAGMS, BALLOONS, SOCKS, OR UNDERWEAR?NO LATEX ALLERGY : HAVE YOU EVER DEVELOPED ANY TYPE OF REACTION DURING OR AFTER DENTAL APPOINTMENT, VAGINAL/RECTAL EXAMINATION, SURGICAL PROCEDURE, OR ANY OTHER EXPOSURE?NO DATE ASKED : 07/08/2019 LATEX RISK : HAVE YOU EVER HAD ANY DIFFICULTY BREATHING OR HIVES AFTER EATING OR HANDLING ANY FRUITS, OR VEGETABLES; SUCH KIWI, BANANAS, STONE FRUITS, OR CHESTNUTSNO LATEX RISK : DO YOU HAVE A PREVIOUS PERSONAL HISTORY OF MORE THAN NINE SURGERIES, SPINA BIFIDA, OR REPEATED CATHERIZATIONS? NO LATEX RISK : ARE YOU FREQUENTLY EXPOSED TO LATEX PRODUCTS IN YOUR OCCUPATION?NO BMI CARE GOAL FOLLOW-UP ABOVE NORMAL BMI FOLLOW-UPGIVING ENCOURAGEMENT TO EXERCISE ALCOHOL SCREENING DID YOU HAVE A DRINK CONTAINING ALCOHOL IN THE PAST YEAR?NO POINTS0 INTERPRETATIONNEGATIVE RECREATIONAL DRUG USE DRUG USE?NO CAFFEINE CAFFEINE USE?YES 4 CUPS DAILY SEXUAL HX HAD SEX IN THE LAST 12 MONTHS (VAGINAL, ORAL, OR ANAL)?NO HAVE YOU EVER HAD AN STD?NO HIV / HEP-C SCREENING HIV TEST OFFERED TO PATIENT:YES DATE OFFERED:10/31/2016 TEST ACCEPTED:YES HEP-C TEST OFFERED TO PATIENT:YES DATE OFFERED:10/31/2016 TEST ACCEPTED:YES AMISH [id number] [employer] LANGUAGE LANGUAGES SPOKEN:MAURITANIAN EDUCATION LEVEL OF EDUCATION:NOT FINISHED COLLEGE LEARNING BARRIERS / SPECIAL NEEDS CHANGE FROM LAST VISIT?NO BARRIERS TO LEARNING?NO HEARING IMPAIRED?YES BEING EVALUATED BY ENT FOR HEARING LOSS LEFT EAR VISION IMPAIRED?YES COGNITIVELY IMPAIRED?NO :CORRECTIVE LENSES READINESS TO LEARN?YES LEARNING PREFERENCES?NO LEARNING CAPABILITIES PRESENT?NO EMOTIONAL BARRIERS?NO SPECIAL DEVICES?YES :CANE, WALKER HARMONICA MAKER 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 DIET: NO CONCENTRATED SWEETS.. EXERCISE: WALKS. MARITAL STATUS: . OTHERS AT HOME: NONE. PAIN CLINIC PFS, CLERGY, PUBLIC HEALTH REFERRALS PFS REFERRAL NEEDED?NO CLERGY REFERRAL NEEDED?NO PUBLIC HEALTH REFERRAL NEEDED?NO WAS THE PROVIDER NOTIFIED OF ANY PERTINENT INFO?YES HAS THE PATIENT BEEN EDUCATED REGARDING HIS/HER PLAN OF CARE?YES PLEASE DOCUMENT ANY ADDTIONAL DETAILS. TPI HAS THE PATIENT BEEN EDUCATED REGARDING PAIN, THE RISK FOR PAIN, THE IMPORTANCE OF EFFECTIVE PAIN MANAGEMENT, AND THE PAIN ASSESSMENT PROCESS?YES ADVANCE DIRECTIVE ADVANCE DIRECTIVE DISCUSSED WITH PATIENT:YES HCP - ALFREDO HOUSTON (DAUGHTER) HOSPITALIZATION/MAJOR DIAGNOSTIC PROCEDURE SURGERY [facility] ACQUIRED PNEUMONIA 01/27/18-01/31/18 REVIEW OF SYSTEMS CONSTITUTIONAL: ANY RECENT FEVER OR ILLNESS NO . CHILLS NO . GASTROENTEROLOGY: BOWEL INCONTINENCE NO . ANY NEW CHANGE IN BOWEL CONTROL? NO . ABDOMINAL PAIN NO . CONSTIPATION NO . GENITOURINARY: ANY NEW CHANGE IN BLADDER CONTROL? NO . IS THERE A CHANCE YOU COULD BE ? NO . URINARY INCONTINENCE NO . CARDIOLOGY: CHEST PRESSURE NO . CHEST PAIN NO . RESPIRATORY: COUGH NO . SHORTNESS OF BREATH NO . VITAL SIGNS WT 187.6 LBS, HT 65 IN, BMI 31.21 INDEX, BP 108/60 MM HG, HR 81 /MIN, RR 18 /MIN, TEMP 96.0 F, OXYGEN SAT % 98%, NA INITIALS TL 0919. EXAMINATION GENERAL EXAMINATION: GENERALNO ACUTE DISTRESS, WELL NOURISHED AND HYDRATED. PSYCHAPPROPRIATE MOOD AND AFFECT . LUNGS:CLEAR TO AUSCULTATION BILATERALLY, NO WHEEZES, RHONCHI, RALES. HEART:NO MURMURS, REGULAR RATE AND RHYTHM. ASSESSMENTS LUMBAR DISC DISPLACEMENT WITHOUT MYELOPATHY - M51.26 (PRIMARY) CHRONIC USE OF OPIATE DRUGS THERAPEUTIC PURPOSES - Z79.891 TREATMENT LUMBAR DISC DISPLACEMENT WITHOUT MYELOPATHY INCREASE PERCOCET TABLET, 7.5-325 MG, 1 TABLET NEEDED, ORALLY, Q8H PRN MD3 50 TAB SHOULD LAST 30 DAYS, 30 DAYS, 50 CLINICAL NOTES: 65-YEAR-OLD FEMALE IN FOR CHRONIC PAIN FOLLOW-UP. GIVEN PRESENTING SYMPTOMS RECOMMEND INCREASING PERCOCET TO 7. 5-325 MILLIGRAMS WITH FOLLOW-UP IN 2 MONTHS. PATIENT HAS EXPRESSED UNDERSTANDING OF AND WAS IN AGREEMENT WITH TREATMENT PLAN. GIVEN TIME TO ASK QUESTIONS AND EXPRESS CONCERNS. , ISTOP REGISTRY REVIEWED AND DEMONSTRATES COMPLLIANCE. (REF # [id number] ) BRINGS IN MEDICATIONS WHICH IS APPROPRIATE FOR WHAT WAS DISPENSED. RECENT URINE TOXICOLOGY REVIEWED. NO UNAUTHORIZED MEDICATIONS. NO ILLICIT SUBSTANCES AND PRESCRIBED MEDICATIONS WERE PRESENT. PROCEDURE CODES FA211 ESTABILISHED PATIENT [facility] CHARGE DISPOSITION & COMMUNICATION FOLLOW UP 2 MONTHS (REASON: BACK PAIN, MEDICATION INCREASE) ELECTRONICALLY SIGNED BY KIRT SANCHEZ ON 05/02/2020 AT 08:30 AM EDT DISCLAIMER : THIS IS A VISIT SUMMARY EXTRACTED FROM THE [employer] CHART. IT IS NOT A COPY OF THE [employer] PROGRESS NOTE. SHANNAN
== END ==
LOC: M PAIN 10:15
PROVIDERS: ATTEND Family Medicine
DX: M51.26 Other intervertebral disc displacement, lumbar region (principal); Z79.891 Long term (current) use of opiate analgesic

== ENCOUNTER → 2020-07-27 | Outpatient (CLI) | payer OTHER, MEDICAID ==
[~2020-07-27] MED LIST changes: +ASPI-546 PO; -ASPI1TAB15 PO
== END ==
LOC: M PAIN 11:05
PROVIDERS: ATTEND Family Medicine
DX: M51.26 Other intervertebral disc displacement, lumbar region (principal)

== ENCOUNTER → 2020-08-11 | Outpatient (CLI) | payer OTHER ==
--- NOTE | 2020-08-31 13:13 | REP ---
LOW-DOSE LUNG SCREENING CLINICAL: Nicotine dependence. TECHNIQUE: Axial noncontrast images from the thoracic inlet to the upper abdomen using low-dose screening technique. COMPARISON: 08/10/2019. FINDINGS: Advanced emphysematous changes are appreciated. Fibrotic changes in the right apex are again identified and unchanged. No consolidation or suspicious nodule/mass lesion is appreciated. Linear scarring at the lingula is also identified. No effusion. Mediastinum demonstrates atherosclerotic changes to the thoracic aorta and coronary arteries. IMPRESSION: Lung-RADS Category 2 benign stable findings noted. Management and recommendations include annual low-dose surveillance. Evidence for underlying emphysematous disease with scattered scarring. MTDD
== END ==
LOC: M RAD 13:12
PROVIDERS: ATTEND Internal Medicine Pulmonary Disease
DX: Z12.2 Encounter for screening for malignant neoplasm of respiratory organs (principal); Z87.891 Personal history of nicotine dependence

== ENCOUNTER → 2020-11-03 | Outpatient (CLI) | payer OTHER ==
--- NOTE | 2020-11-08 01:54 | ECWPNPC ---
PATIENT NAME: PHIL HOUSTON : 1955 GENDER: FEMALE VISIT DATE: 11/03/2020 DISCHARGE DATE: 11/03/20 1232 VISIT LOCKED DATE TIME: PHYSICIAN: BELLA METZGER PHYSICIAN PAGER NO: ACTIVE RESOURCE: BELLA METZGER REASON FOR APPOINTMENT 1. LOW BACK HISTORY OF PRESENT ILLNESS GENERAL: - 65-YEAR-OLD FEMALE IN FOR CHRONIC PAIN FOLLOW-UP. SHE RATES HER PAIN CURRENTLY AT A 7 AND HALF OUT OF 10 AND DESCRIBES IT ACHING, SHARP, STABBING, AND THROBBING. SHE FEELS HER MEDICATIONS ARE HELPFUL AND DENIES MED SIDE EFFECTS THIS TIME. FALL RISK SCREENING: SCREENING :NO FALLS REPORTED IN THE LAST YEAR PAIN SCREENING: PATIENT HAS A COMPLAINT OF ACUTE OR CHRONIC PAIN :YES LOCATION OF PAIN:HEAD, NECK, LEFT SHOULDER, UPPER BACK, LOW BACK, LEFT HIP, RIGHT HIP, HAND(S), LEG(S), THIGH(S), FEET INTENSITY OF PAIN (SCALE OF 1 TO 10):7.5 WHAT DOES YOUR PAIN FEEL LIKE:ACHING, SHARP, STABBING, THROBBING DURATION:CONTINOUS PAIN IS INCREASED BY:ACTIVITIES, PROLONGED STANDING PAIN IS DECREASED BY:USE OF PAIN MEDICATIONS, SITTING NURSING NOTE: -. PAIN CENTER INTAKE QUESTIONS: DO YOU HAVE A HISTORY OF MRSA? :YES PNEUMONIA 2018 DO YOU TAKE A BLOOD THINNERS? :NO ASPIRIN 81 MG DAILY DO YOU HAVE ANY BLEEDING DISORDERS? :NO STATES NOT DIAGNOSED BUT DOES BLEED EASILY. STATES HAS PREVIOUSLY BEEN EVALUATED BY HER PRIMARY CARE PROVIDER FOR THIS. ANY NEW NUMBNESS OR WEAKNESS IN YOUR LEGS OR ARMS? :NO ANY PACEMAKER,DEFIBRILLATOR, OR DORSAL COLUMN STIMULATOR? :NO DO YOU HAVE ANY RASHES OR OPEN SORES? :NO ARE YOU ALLERGIC TO IV DYE? :NO ARE YOU DIABETIC? :YES ANY NEW PROBLEMS WITH YOUR MEDICATIONS? :NO HAVE YOU RECEIVED A VACCINE IN THE PAST 30 DAYS? :YES IF SO WHAT VACCINE AND WHEN? INFLUENZA APPROXIMATELY 10/08/20 DO YOU PLAN TO RECEIVE A VACCINE IN THE NEXT 21 DAYS? :NO DO YOU NEED ANY PRESCRIPTION? :NO DO YOU TAKE ANY IMMUNOSUPPRESSIVE MEDICATIONS? :NO IS THERE A CHANCE YOU COULD BE ? :NO ARE YOU BREAST FEEDING? :NO CURRENT MEDICATIONS TAKING METFORMIN HCL 500MG TABLET 1 TABLET WITH MEALS ORALLY TWICE A DAY TAKING ATIVAN 0.5 0.5MG TABLET ORAL 3 TIMES A DAY NEEDED TAKING SALINE 0.65 % SOLUTION 2 DROPS IN EACH NOSTRIL NEEDED NASALLY 2-4 TIMES DAILY TAKING SYSTANE 0.4-0.3 % SOLUTION 1 DROP INTO AFFECTED EYE NEEDED OPHTHALMIC 5 TIMES A DAY TAKING VENTOLIN HFA 108 (90 BASE) MCG/ACT AEROSOL SOLUTION 2 PUFFS INHALATION EVERY 4-6 HOURS NEEDED TAKING STIOLTO RESPIMAT 2.5-2.5 MCG/ACT AEROSOL SOLUTION 1 PUFF INHALATION TWICE A DAY TAKING HUMIDIFIER - MISCELLANEOUS DX: J44.9 _ USE NEEDED TAKING HEATING PAD - PAD DIRECTED DX: M54.5 DAILY TAKING CANE - MISCELLANEOUS DIRECTED DX: M54.5 DAILY TAKING AIR CONDITIONER DX: 496, 327.23 DIRECTED - - TAKING CPAP MACHINE TAKING BUSPIRONE HCL 5 MG TABLET 1 TABLET ORALLY BID TAKING ARNUITY ELLIPTA 100 MCG/ACT AEROSOL POWDER BREATH ACTIVATED 1 PUFF INHALATION ONCE A DAY TAKING ASPIRIN 81 MG TABLET DELAYED RELEASE TAKE ONE TABLET BY MOUTH EVERY DAY ORALLY DAILY, NOTES: DUPLICATE TAKING BETAMETHASONE DIPROPIONATE 0.05 % CREAM 1 THIN APPLICATION TO AFFECTED AREAS ON ARMS AND CHEST EXTERNALLY TWICE DAILY NEEDED TAKING NYSTATIN [id number] UNIT/GM CREAM 1 APPLICATION TO AFFECTED AREAS UNDER BREASTS AND GROIN AND AXILLA EXTERNALLY TWICE A DAY TAKING LORATADINE 10 MG TABLET 1 TABLET ORALLY ONCE A DAY NEEDED TAKING CYMBALTA 60 MG CAPSULE DELAYED RELEASE PARTICLES TAKE ONE CAPSULE BY MOUTH EVERY DAY WITH 30MG TAKING HEATING PAD - PAD DIRECTED TOPICALLY DAILY NEEDED DX M54.5 TAKING BLADDER CONTROL PADS REGULAR - MISCELLANEOUS DIRECTED USE AT HOME NEEDED [facility] [id number] ICD N39.41 TAKING LIDOCAINE HCL 4.12 % CREAM 1 APPLICATION TO AFFECTED AREAS NECK AND LOW BACK EXTERNALLY TWICE A DAY TAKING CALCIUM + D3 600-200 MG-UNIT TABLET 1 TABLET WITH A MEAL ORALLY ONCE A DAY TAKING DRISDOL 17627 UNIT CAPSULE 1 CAPSULE WITH MEAL ORALLY ONCE EVERY WEEK TAKING ATORVASTATIN CALCIUM 10 MG TABLET 1 TABLET ORALLY ONCE A DAY TAKING LISINOPRIL 5MG TABLET 1 TABLET ORALLY ONCE A DAY TAKING CHANTIX CONTINUING MONTH CHELSY 1 MG TABLET 1 TAB ORALLY TWICE DAILY TAKING NYSTATIN 228856 UNIT/GM POWDER 1 APPLICATION TO AFFECTED AREA UNDER BREASTS EXTERNALLY TWICE A DAY TAKING LANSOPRAZOLE 30 MG CAPSULE DELAYED RELEASE 1 CAPSULE BEFORE A MEAL ORALLY ONCE A DAY TAKING CYMBALTA 60 MG CAPSULE DELAYED RELEASE PARTICLES 1 CAPSULE ORALLY ONCE A DAY TAKING TYLENOL 500 MG TABLET 1-2 TABLETS NEEDED ORALLY EVERY 8 HRS NEEDED FOR PAIN TAKING PERCOCET 7.5-325 MG TABLET 1 TABLET NEEDED ORALLY Q8H PRN MD3 50 TAB SHOULD LAST 30 DAYS TAKING CYCLOBENZAPRINE HCL 5 MG TABLET 1 TO 1 1/2 TABLETS ORALLY TWICE A DAY NEEDED NOT-TAKING GABAPENTIN 600 MG TABLET 1 CAPSULE ORALLY BID, NOTES: STATES 600MG BID NOT-TAKING TIZANIDINE HCL 2 MG TABLET 1 TABLET NEEDED ORALLY THREE TIMES A DAY NOT-TAKING ASPIR-81 81 MG TABLET DELAYED RELEASE 1 TABLET ORALLY ONCE A DAY NOT-TAKING CYMBALTA 30 MG CAPSULE DELAYED RELEASE PARTICLES 1 CAPSULE ORALLY ONCE A DAY ALONG WITH A 60 MG MEDICATION LIST REVIEWED AND RECONCILED WITH THE PATIENT PAST MEDICAL HISTORY TYPE II DIABETES HYPERLIPIDEMIA - NEG NUCLEAR STRESS TEST 07/13, - [facility] REFLUX COPD FEV1 = 1.9 ON 11/22/14 @PULMONOLOGY ALLERGIC RHINITIS VITAMIN D DEFICIENCY SMOKING DEPRESSION ANXIETY - DR KAY CAILX-- ON CPAP FIBROMYALGIA DEGENERATIVE DISC DISEASE HYPERTENSION BACK AND NECK PAIN TRIGEMINAL NEURALGIA -[place] [facility] URINARY INCONTINENCE - UROLOGY JUNE 2018 SPOT ON LUNG - DR HERNANDEZ 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 KAY 2013 FAMILY HISTORY FATHER: , DIAGNOSED WITH OTHER MALIGNANT NEOPLASM OF UNSPECIFIED SITE MOTHER: ALIVE, UNSPECIFIED HEART DISEASE, OTHER MALIGNANT NEOPLASM OF UNSPECIFIED SITE 1 BROTHER(S) , 6 SISTER(S) . 1 SON(S) , 1 DAUGHTER(S) . SOCIAL HISTORY GENERAL: TOBACCO USE ARE YOU A:FORMER SMOKER HOW LONG HAS IT BEEN SINCE YOU LAST SMOKED?3-6 MONTHS LATEX QUESTIONNAIRE LATEX ALLERGY : HAVE YOU EVER DEVELOPED ANY TYPE OF REACTION AFTER HANDLING LATEX PRODUCTS SUCH RUBBER GLOVES, CONDOMS, DIAPHRAGMS, BALLOONS, SOCKS, OR UNDERWEAR?NO LATEX ALLERGY : HAVE YOU EVER DEVELOPED ANY TYPE OF REACTION DURING OR AFTER DENTAL APPOINTMENT, VAGINAL/RECTAL EXAMINATION, SURGICAL PROCEDURE, OR ANY OTHER EXPOSURE?NO DATE ASKED : 07/08/2019 LATEX RISK : HAVE YOU EVER HAD ANY DIFFICULTY BREATHING OR HIVES AFTER EATING OR HANDLING ANY FRUITS, OR VEGETABLES; SUCH KIWI, BANANAS, STONE FRUITS, OR CHESTNUTSNO LATEX RISK : DO YOU HAVE A PREVIOUS PERSONAL HISTORY OF MORE THAN NINE SURGERIES, SPINA BIFIDA, OR REPEATED CATHERIZATIONS? NO LATEX RISK : ARE YOU FREQUENTLY EXPOSED TO LATEX PRODUCTS IN YOUR OCCUPATION?NO BMI CARE GOAL FOLLOW-UP ABOVE NORMAL BMI FOLLOW-UPGIVING ENCOURAGEMENT TO EXERCISE ALCOHOL SCREENING DID YOU HAVE A DRINK CONTAINING ALCOHOL IN THE PAST YEAR?NO POINTS0 INTERPRETATIONNEGATIVE RECREATIONAL DRUG USE DRUG USE?NO CAFFEINE CAFFEINE USE?YES 6 CUPS DAILY (WEAK COFFEE) SEXUAL HX HAD SEX IN THE LAST 12 MONTHS (VAGINAL, ORAL, OR ANAL)?NO HAVE YOU EVER HAD AN STD?NO HIV / HEP-C SCREENING HIV TEST OFFERED TO PATIENT:YES DATE OFFERED:10/31/2016 TEST ACCEPTED:YES HEP-C TEST OFFERED TO PATIENT:YES DATE OFFERED:10/31/2016 TEST ACCEPTED:YES TEMPLE [id number] NONDENOMINATIONAL LANGUAGE LANGUAGES SPOKEN:NEPALI EDUCATION LEVEL OF EDUCATION:NOT FINISHED COLLEGE LEARNING BARRIERS / SPECIAL NEEDS CHANGE FROM LAST VISIT?NO BARRIERS TO LEARNING?NO HEARING IMPAIRED?YES BEING EVALUATED BY ENT FOR HEARING LOSS LEFT EAR VISION IMPAIRED?YES COGNITIVELY IMPAIRED?NO :CORRECTIVE LENSES READINESS TO LEARN?YES LEARNING PREFERENCES?NO LEARNING CAPABILITIES PRESENT?NO EMOTIONAL BARRIERS?NO SPECIAL DEVICES?YES :CANE, WALKER COAL WEIGHER 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 DIET: NO CONCENTRATED SWEETS.. EXERCISE: WALKS. MARITAL STATUS: . OTHERS AT HOME: NONE. PAIN CLINIC PFS, CLERGY, PUBLIC HEALTH REFERRALS PFS REFERRAL NEEDED?NO CLERGY REFERRAL NEEDED?NO PUBLIC HEALTH REFERRAL NEEDED?NO WAS THE PROVIDER NOTIFIED OF ANY PERTINENT INFO?YES HAS THE PATIENT BEEN EDUCATED REGARDING HIS/HER PLAN OF CARE?YES PLEASE DOCUMENT ANY ADDTIONAL DETAILS. TPI HAS THE PATIENT BEEN EDUCATED REGARDING PAIN, THE RISK FOR PAIN, THE IMPORTANCE OF EFFECTIVE PAIN MANAGEMENT, AND THE PAIN ASSESSMENT PROCESS?YES ADVANCE DIRECTIVE ADVANCE DIRECTIVE DISCUSSED WITH PATIENT:YES HCP - ALFREDO HOUSTON (DAUGHTER) HOSPITALIZATION/MAJOR DIAGNOSTIC PROCEDURE SURGERY [facility]ETHICILLIN-RESIST[facility] COMMUNITY ACQUIRED PNEUMONIA 01/27/18-01/31/18 REVIEW OF SYSTEMS CONSTITUTIONAL: ANY RECENT FEVER NO . CHILLS NO . WEIGHT CHANGE OF UNKNOWN REASONS NO . GASTROENTEROLOGY: NEW UNEXPLAINABLE CHANGES IN BOWEL CONTROL NO . CONSTIPATION NO . GENITOURINARY: ANY NEW CHANGE IN BLADDER CONTROL? NO . NEUROLOGY: NEW ONSET DIZZINESS OR NEUROLOGICAL CHANGES NOT MENTIONED NO . NEW NUMBNESS OR PAIN PATTERNS NOT MENTIONED AND PERTINENT TO TODAY'S VISIT NO . CARDIOLOGY: NEW CHEST PRESSURE NO . NEW CHEST PAIN NO . RESPIRATORY: UNEXPLAINABLE COUGH NO . NEW SHORTNESS OF BREATH NO . VITAL SIGNS WT 182.3 LBS, HT 65 IN, BMI 30.33 INDEX, BP 119/74 MM HG, HR 75 /MIN, RR 16 /MIN, TEMP 96.6 F, OXYGEN SAT % 97%, SAFE IN ENV? (Y/N) YES, REVIEWED BY: VERONA [id number]/02/18 1310 REVIEWED. Jose G PARIKH RN. EXAMINATION GENERAL EXAMINATION: GENERALNO ACUTE DISTRESS, WELL NOURISHED AND HYDRATED. PSYCHAPPROPRIATE MOOD AND AFFECT . LUNGS:CLEAR TO AUSCULTATION BILATERALLY, NO WHEEZES, RHONCHI, RALES. HEART:NO MURMURS, REGULAR RATE AND RHYTHM. ASSESSMENTS LUMBAR FACET ARTHROPATHY - M12.88 (PRIMARY) TREATMENT LUMBAR FACET ARTHROPATHY NOTES: 65-YEAR-OLD FEMALE IN FOR CHRONIC PAIN FOLLOW-UP. GIVEN PRESENTING SYMPTOMS RECOMMENDED CONTINUATION OF CURRENT MEDICATION REGIMEN WITH FOLLOW-UP IN 3 MONTHS. PATIENT HAS EXPRESSED UNDERSTANDING OF WAS IN AGREEMENT WITH TREATMENT PLAN. GIVEN TIME TO ASK QUESTIONS AND EXPRESS CONCERNS. , ISTOP REGISTRY REVIEWED AND DEMONSTRATES COMPLLIANCE. (REF # [id number] ) BRINGS IN MEDICATIONS WHICH IS APPROPRIATE FOR WHAT WAS DISPENSED. RECENT URINE TOXICOLOGY REVIEWED. NO UNAUTHORIZED MEDICATIONS. NO ILLICIT SUBSTANCES AND PRESCRIBED MEDICATIONS WERE PRESENT. PROCEDURE CODES FA211 ESTABILISHED PATIENT [facility] CHARGE DISPOSITION & COMMUNICATION FOLLOW UP 3 MONTHS (REASON: BACK PAIN ) ELECTRONICALLY SIGNED BY KIRT SANCHEZ ON 11/07/2020 AT 08:44 AM EST DISCLAIMER : THIS IS A VISIT SUMMARY EXTRACTED FROM THE [facility] CHART. IT IS NOT A COPY OF THE [facility] PROGRESS NOTE. SHANNAN
== END ==
LOC: M PAIN 11:30
PROVIDERS: ATTEND Family Medicine
DX: M12.88 Other specific arthropathies, not elsewhere classified, other specified site (principal); E11.9 Type 2 diabetes mellitus without complications; E78.5 Hyperlipidemia, unspecified; K21.9 Gastro-esophageal reflux disease without esophagitis; J44.9 Chronic obstructive pulmonary disease, unspecified; E55.9 Vitamin D deficiency, unspecified; F32.9 Major depressive disorder, single episode, unspecified; F41.9 Anxiety disorder, unspecified; G47.30 Sleep apnea, unspecified; M79.7 Fibromyalgia; Z87.891 Personal history of nicotine dependence; Z79.84 Long term (current) use of oral hypoglycemic drugs; Z79.891 Long term (current) use of opiate analgesic; Z79.899 Other long term (current) drug therapy; Z88.0 Allergy status to penicillin; Z88.2 Allergy status to sulfonamides; Z88.5 Allergy status to narcotic agent; Z88.8 Allergy status to other drugs, medicaments and biological substances; Z88.1 Allergy status to other antibiotic agents

== ENCOUNTER → 2020-11-08 | Outpatient (CLI) | payer OTHER ==
[2020-11-08 16:14] LABS: BLOOD UREA NITROGEN 17 MG/DL (7-18); CREATININE FOR GFR 0.96 MG/DL (0.55-1.30); GLOMERULAR FILTRATION RATE > 60.0 (>45)
== END ==
LOC: M PLALAB 12:06
PROVIDERS: ATTEND Physician Assistant
DX: M47.812 Spondylosis without myelopathy or radiculopathy, cervical region (principal)

== ENCOUNTER → 2020-11-08 | Outpatient (REF) | payer OTHER ==
[2020-11-08 16:20] LABS: ALT/SGPT 28 U/L (12-78); BILIRUBIN,TOTAL 0.3 MG/DL (0.2-1.0); BLOOD UREA NITROGEN 19 MG/DL (7-18); CALCIUM LEVEL 9.4 MG/DL (8.8-10.2); CARBON DIOXIDE LEVEL 29 MEQ/L (21-32); CHLORIDE LEVEL 105 MEQ/L (98-107); CHOLESTEROL LEVEL 181 MG/DL (<200); CREATININE FOR GFR 0.93 MG/DL (0.55-1.30); GLOMERULAR FILTRATION RATE > 60.0 (>45); GLUCOSE, FASTING 104 MG/DL (70-100); HDL CHOLESTEROL 58 MG/DL (>40); LDL CHOLESTEROL 88 MG/DL (<100); NON-HDL-C 123 MG/DL; POTASSIUM SERUM 4.9 MEQ/L (3.5-5.1); SODIUM LEVEL 139 MEQ/L (136-145); TOTAL PROTEIN 6.7 GM/DL (6.4-8.2); TRIGLYCERIDES LEVEL 177 MG/DL (<150)
[2020-11-08 16:49] LABS: CREATININE, URINE < 13.0 MG/DL; MALB URINE SIEMENS < 5.0 MG/L
[2020-11-08 17:12] LABS: HEMOGLOBIN A1c 6.6 %
== END ==
LOC: M SFHCPLAZ 11:57
PROVIDERS: ATTEND Nurse Practitioner Family
DX: E11.9 Type 2 diabetes mellitus without complications (principal); E78.2 Mixed hyperlipidemia

== ENCOUNTER → 2021-02-01 | Outpatient (CLI) | payer OTHER ==
[~2021-02-01] MED LIST changes: +GABA-282 PO; -GABA-843 PO; -LISI-542 PO; +LISI-898 PO
--- NOTE | 2021-02-07 06:44 | ECWPNPC ---
PATIENT NAME: PHIL HOUSTON : 1955 GENDER: FEMALE VISIT DATE: 02/01/2021 DISCHARGE DATE: 02/01/21 1202 VISIT LOCKED DATE TIME: PHYSICIAN: BELLA METZGER PHYSICIAN PAGER NO: ACTIVE RESOURCE: BELLA METZGER REASON FOR APPOINTMENT 1. 3 MONTH - LOW BACK HISTORY OF PRESENT ILLNESS GENERAL: - 65-YEAR-OLD FEMALE IN FOR CHRONIC PAIN FOLLOW-UP. SHE RATES HER PAIN CURRENTLY AT AN 8 OUT OF 10 AND DESCRIBES IT CONTINUOUS, SHARP, STABBING, AND THROBBING. SHE FEELS MEDICATIONS ARE HELPFUL AND DENIES MED SIDE EFFECTS AT THIS TIME. FALL RISK SCREENING: SCREENING : NO FALLS REPORTED IN THE LAST YEAR. PAIN SCREENING: PATIENT HAS A COMPLAINT OF ACUTE OR CHRONIC PAIN :YES LOCATION OF PAIN:LOW BACK, RIGHT HIP, LEG(S) LOW BACK BILATERAL HIPS AND DOWN RIGHT LEG INTENSITY OF PAIN (SCALE OF 1 TO 10):8 WHAT DOES YOUR PAIN FEEL LIKE:CONTINOUS, SHARP, STABBING, THROBBING DURATION:CONTINOUS PAIN IS INCREASED BY:ACTIVITIES, PROLONGED STANDING PROLONGED SITTING PAIN IS DECREASED BY:USE OF PAIN MEDICATIONS, OTHERS HEAT, ICE, WALKING NURSING NOTE: -. PAIN CENTER INTAKE QUESTIONS: DO YOU HAVE A HISTORY OF MRSA? :NO DO YOU TAKE A BLOOD THINNERS? :NO DO YOU HAVE ANY BLEEDING DISORDERS? :NO ANY NEW NUMBNESS OR WEAKNESS IN YOUR LEGS OR ARMS? :NO ANY PACEMAKER,DEFIBRILLATOR, OR DORSAL COLUMN STIMULATOR? :NO DO YOU HAVE ANY RASHES OR OPEN SORES? :NO ARE YOU ALLERGIC TO IV DYE? :NO ARE YOU DIABETIC? :YES ANY NEW PROBLEMS WITH YOUR MEDICATIONS? :NO HAVE YOU RECEIVED A VACCINE IN THE PAST 30 DAYS? :NO DO YOU PLAN TO RECEIVE A VACCINE IN THE NEXT 21 DAYS? :NO DO YOU NEED ANY PRESCRIPTION? :NO DO YOU TAKE ANY IMMUNOSUPPRESSIVE MEDICATIONS? :NO DO YOU HAVE ANY KIDNEY OR LIVER DISEASE? :NO IS THERE A CHANCE YOU COULD BE ? :NO ARE YOU BREAST FEEDING? :NO CURRENT MEDICATIONS TAKING CYMBALTA 60 MG CAPSULE DELAYED RELEASE PARTICLES 1 CAPSULE ORALLY ONCE A DAY TAKING ATIVAN 0.5 0.5MG TABLET ORAL 3 TIMES A DAY NEEDED TAKING SALINE 0.65 % SOLUTION 2 DROPS IN EACH NOSTRIL NEEDED NASALLY 2-4 TIMES DAILY TAKING SYSTANE 0.4-0.3 % SOLUTION 1 DROP INTO AFFECTED EYE NEEDED OPHTHALMIC 5 TIMES A DAY TAKING VENTOLIN HFA 108 (90 BASE) MCG/ACT AEROSOL SOLUTION 2 PUFFS INHALATION EVERY 4-6 HOURS NEEDED TAKING STIOLTO RESPIMAT 2.5-2.5 MCG/ACT AEROSOL SOLUTION 1 PUFF INHALATION TWICE A DAY TAKING HUMIDIFIER - MISCELLANEOUS DX: J44.9 _ USE NEEDED TAKING HEATING PAD - PAD DIRECTED DX: M54.5 DAILY TAKING CANE - MISCELLANEOUS DIRECTED DX: M54.5 DAILY TAKING AIR CONDITIONER DX: 496, 327.23 DIRECTED - - TAKING CPAP MACHINE TAKING BUSPIRONE HCL 5 MG TABLET 1 TABLET ORALLY BID TAKING ARNUITY ELLIPTA 100 MCG/ACT AEROSOL POWDER BREATH ACTIVATED 1 PUFF INHALATION ONCE A DAY TAKING ASPIRIN 81 MG TABLET DELAYED RELEASE TAKE ONE TABLET BY MOUTH EVERY DAY ORALLY DAILY, NOTES: DUPLICATE TAKING BETAMETHASONE DIPROPIONATE 0.05 % CREAM 1 THIN APPLICATION TO AFFECTED AREAS ON ARMS AND CHEST EXTERNALLY TWICE DAILY NEEDED TAKING LORATADINE 10 MG TABLET 1 TABLET ORALLY ONCE A DAY NEEDED TAKING CYMBALTA 60 MG CAPSULE DELAYED RELEASE PARTICLES TAKE ONE CAPSULE BY MOUTH EVERY DAY WITH 30MG TAKING HEATING PAD - PAD DIRECTED TOPICALLY DAILY NEEDED DX M54.5 TAKING BLADDER CONTROL PADS REGULAR - MISCELLANEOUS DIRECTED USE AT HOME NEEDED [facility] [phone] ICD N39.41 TAKING LIDOCAINE HCL 4.12 % CREAM 1 APPLICATION TO AFFECTED AREAS NECK AND LOW BACK EXTERNALLY TWICE A DAY TAKING CALCIUM + D3 600-200 MG-UNIT TABLET 1 TABLET WITH A MEAL ORALLY ONCE A DAY TAKING NYSTATIN [id number] UNIT/GM POWDER 1 APPLICATION TO AFFECTED AREA UNDER BREASTS EXTERNALLY TWICE A DAY TAKING PERCOCET 7.5-325 MG TABLET 1 TABLET NEEDED ORALLY Q8H PRN MD3 50 TAB SHOULD LAST 30 DAYS TAKING CYCLOBENZAPRINE HCL 5 MG TABLET 1 TO 1 1/2 TABLETS ORALLY TWICE A DAY NEEDED TAKING XIIDRA 5 % SOLUTION INSTILL 1 DROP IN EACH EYE TWO TIMES A DAY DIRECTED OPHTHALMIC TAKING ASPIR-81 81 MG TABLET DELAYED RELEASE 1 TABLET ORALLY ONCE A DAY TAKING CYMBALTA 30 MG CAPSULE DELAYED RELEASE PARTICLES 1 CAPSULE ORALLY ONCE A DAY ALONG WITH A 60 MG TAKING PREGABALIN 50 MG CAPSULE (SCHEDULE V DRUG) TAKE ONE CAPSULE BY MOUTH TWICE A DAY MAXIMUM DAILY DOSE 2 CAPSULES ORAL TAKING LORAZEPAM 0.5 MG TABLET (SCHEDULE IV DRUG) TAKE ONE TABLET BY MOUTH THREE TIMES A DAY NEEDED FOR ANXIETY MAXIMUM DAILY DOSE 3 ORAL TAKING ATORVASTATIN CALCIUM 10 MG TABLET 1 TABLET ORALLY ONCE A DAY TAKING DRISDOL 30958 UNIT CAPSULE 1 CAPSULE WITH MEAL ORALLY ONCE EVERY WEEK TAKING LISINOPRIL 5MG TABLET 1 TABLET ORALLY ONCE A DAY TAKING LANSOPRAZOLE 30 MG CAPSULE DELAYED RELEASE 1 CAPSULE BEFORE A MEAL ORALLY ONCE A DAY TAKING NYSTATIN [id number] UNIT/GM CREAM 1 APPLICATION TO AFFECTED AREAS UNDER BREASTS AND GROIN AND AXILLA EXTERNALLY TWICE A DAY TAKING METFORMIN HCL 500 MG TABLET TAKE ONE TABLET BY MOUTH TWICE A DAY WITH MEALS TAKING TYLENOL 500 MG TABLET 1-2 TABLETS NEEDED ORALLY EVERY 8 HRS NEEDED FOR PAIN TAKING CHANTIX CONTINUING MONTH CHELSY 1 MG TABLET 1 TAB ORALLY TWICE DAILY TAKING OXYCODONE-ACETAMINOPHEN 7.5-325 MG TABLET 1 TAB ORAL 1 TAB Q8H PRN PAIN MDD3 #50 TABS SHOULD LAST 30 DAYS MEDICATION LIST REVIEWED AND RECONCILED WITH THE PATIENT PAST MEDICAL HISTORY TYPE II DIABETES HYPERLIPIDEMIA - NEG NUCLEAR STRESS TEST 07/13, - [facility] REFLUX COPD FEV1 = 1.9 ON 11/22/14 @PULMONOLOGY ALLERGIC RHINITIS VITAMIN D DEFICIENCY SMOKING DEPRESSION ANXIETY - DR KAY CALIX-- ON CPAP FIBROMYALGIA DEGENERATIVE DISC DISEASE HYPERTENSION BACK AND NECK PAIN TRIGEMINAL NEURALGIA -[place] NEUR[facility] URINARY INCONTINENCE - UROLOGY JUNE 2018 SPOT ON LUNG - DR HERNANDEZ 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 KAY 2013 SOCIAL HISTORY GENERAL: TOBACCO USE ARE YOU A:FORMER SMOKER HOW LONG HAS IT BEEN SINCE YOU LAST SMOKED?3-6 MONTHS LATEX QUESTIONNAIRE LATEX ALLERGY : HAVE YOU EVER DEVELOPED ANY TYPE OF REACTION AFTER HANDLING LATEX PRODUCTS SUCH RUBBER GLOVES, CONDOMS, DIAPHRAGMS, BALLOONS, SOCKS, OR UNDERWEAR?NO LATEX ALLERGY : HAVE YOU EVER DEVELOPED ANY TYPE OF REACTION DURING OR AFTER DENTAL APPOINTMENT, VAGINAL/RECTAL EXAMINATION, SURGICAL PROCEDURE, OR ANY OTHER EXPOSURE?NO LATEX RISK : HAVE YOU EVER HAD ANY DIFFICULTY BREATHING OR HIVES AFTER EATING OR HANDLING ANY FRUITS, OR VEGETABLES; SUCH KIWI, BANANAS, STONE FRUITS, OR CHESTNUTSNO LATEX RISK : DO YOU HAVE A PREVIOUS PERSONAL HISTORY OF MORE THAN NINE SURGERIES, SPINA BIFIDA, OR REPEATED CATHERIZATIONS? NO LATEX RISK : ARE YOU FREQUENTLY EXPOSED TO LATEX PRODUCTS IN YOUR OCCUPATION?NO DATE ASKED : 02/01/2021 ALCOHOL USE: NO. BMI CARE GOAL FOLLOW-UP ABOVE NORMAL BMI FOLLOW-UPGIVING ENCOURAGEMENT TO EXERCISE ALCOHOL SCREENING DID YOU HAVE A DRINK CONTAINING ALCOHOL IN THE PAST YEAR?NO POINTS0 INTERPRETATIONNEGATIVE RECREATIONAL DRUG USE DRUG USE?NO CAFFEINE CAFFEINE USE?YES 6 CUPS DAILY (WEAK COFFEE) SEXUAL HX HAD SEX IN THE LAST 12 MONTHS (VAGINAL, ORAL, OR ANAL)?NO HAVE YOU EVER HAD AN STD?NO HIV / HEP-C SCREENING HIV TEST OFFERED TO PATIENT:YES DATE OFFERED:10/31/2016 TEST ACCEPTED:YES HEP-C TEST OFFERED TO PATIENT:YES DATE OFFERED:10/31/2016 TEST ACCEPTED:YES MUSLIM [id number] BUDDHISM LANGUAGE LANGUAGES SPOKEN:SAUDI ARABIAN EDUCATION LEVEL OF EDUCATION:NOT FINISHED COLLEGE LEARNING BARRIERS / SPECIAL NEEDS CHANGE FROM LAST VISIT?NO BARRIERS TO LEARNING?NO HEARING IMPAIRED?YES BEING EVALUATED BY ENT FOR HEARING LOSS LEFT EAR VISION IMPAIRED?YES COGNITIVELY IMPAIRED?NO :CORRECTIVE LENSES READINESS TO LEARN?YES LEARNING PREFERENCES?NO LEARNING CAPABILITIES PRESENT?NO EMOTIONAL BARRIERS?NO SPECIAL DEVICES?YES :CANE, WALKER BRANCH OFFICE ADMINISTRATOR 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 DIET: NO CONCENTRATED SWEETS.. EXERCISE: WALKS. MARITAL STATUS: . OTHERS AT HOME: NONE. - PFS REFERRAL NEEDED?NO CLERGY REFERRAL NEEDED?NO PUBLIC HEALTH REFERRAL NEEDED?NO WAS THE PROVIDER NOTIFIED OF ANY PERTINENT INFO?YES HAS THE PATIENT BEEN EDUCATED REGARDING HIS/HER PLAN OF CARE?YES PLEASE DOCUMENT ANY ADDTIONAL DETAILS. TPI HAS THE PATIENT BEEN EDUCATED REGARDING PAIN, THE RISK FOR PAIN, THE IMPORTANCE OF EFFECTIVE PAIN MANAGEMENT, AND THE PAIN ASSESSMENT PROCESS?YES ADVANCE DIRECTIVE ADVANCE DIRECTIVE DISCUSSED WITH PATIENT:YES HCP - ALFREDO HOUSTON (DAUGHTER) HOSPITALIZATION/MAJOR DIAGNOSTIC PROCEDURE SURGERY METHICILLIN-RESISTANT COMMUNITY ACQUIRED PNEUMONIA 01/27/18-01/31/18 REVIEW OF SYSTEMS CONSTITUTIONAL: ANY RECENT FEVER NO . CHILLS NO . WEIGHT CHANGE OF UNKNOWN REASONS NO . GASTROENTEROLOGY: NEW UNEXPLAINABLE CHANGES IN BOWEL CONTROL NO . CONSTIPATION NO . GENITOURINARY: ANY NEW CHANGE IN BLADDER CONTROL? NO . NEUROLOGY: NEW ONSET DIZZINESS OR NEUROLOGICAL CHANGES NOT MENTIONED NO . NEW NUMBNESS OR PAIN PATTERNS NOT MENTIONED AND PERTINENT TO TODAY'S VISIT NO . CARDIOLOGY: NEW CHEST PRESSURE NO . PATIENT DENIES NO . RESPIRATORY: UNEXPLAINABLE COUGH NO . NEW SHORTNESS OF BREATH NO . VITAL SIGNS WT 183.2 LBS, HT 65 IN, BMI 30.48 INDEX, BP 127/65 MM HG, HR 75 /MIN, RR 18 /MIN, TEMP 97.5 F, OXYGEN SAT % 97%, SAFE IN ENV? (Y/N) YES, NA INITIALS KS 11:31, REVIEWED BY: JOAN LYNCH. EXAMINATION GENERAL EXAMINATION: GENERALNO ACUTE DISTRESS, WELL NOURISHED AND HYDRATED. PSYCHAPPROPRIATE MOOD AND AFFECT . LUNGS:CLEAR TO AUSCULTATION BILATERALLY, NO WHEEZES, RHONCHI, RALES. HEART:NO MURMURS, REGULAR RATE AND RHYTHM. ASSESSMENTS LUMBAR DISC DISPLACEMENT WITHOUT MYELOPATHY - M51.26 (PRIMARY), RISK: (NULL) TREATMENT LUMBAR DISC DISPLACEMENT WITHOUT MYELOPATHY NOTES: 65-YEAR-OLD FEMALE IN FOR CHRONIC PAIN FOLLOW-UP. GIVEN PRESENTING SYMPTOMS RECOMMENDED CONTINUATION OF CURRENT MEDICATION REGIMEN WITH FOLLOW-UP IN 3 MONTHS. PATIENT HAS EXPRESSED UNDERSTANDING OF AND WAS IN AGREEMENT WITH TREATMENT PLAN. GIVEN TIME TO ASK QUESTIONS AND EXPRESS CONCERNS. , ISTOP REGISTRY REVIEWED AND DEMONSTRATES COMPLLIANCE. (REF # ) BRINGS IN MEDICATIONS WHICH IS APPROPRIATE FOR WHAT WAS DISPENSED. RECENT URINE TOXICOLOGY REVIEWED. NO UNAUTHORIZED MEDICATIONS. NO ILLICIT SUBSTANCES AND PRESCRIBED MEDICATIONS WERE PRESENT. PROCEDURE CODES FA211 ESTABILISHED PATIENT [facility] CHARGE DISPOSITION & COMMUNICATION FOLLOW UP 3 MONTHS (REASON: BACK PAIN ) ELECTRONICALLY SIGNED BY KIRT SANCHEZ ON 02/06/2021 AT 07:59 AM EST DISCLAIMER : THIS IS A VISIT SUMMARY EXTRACTED FROM THE [employer] CHART. IT IS NOT A COPY OF THE [employer] PROGRESS NOTE. SHANNAN
== END ==
LOC: M PAIN 11:15
PROVIDERS: ATTEND Family Medicine
DX: M51.26 Other intervertebral disc displacement, lumbar region (principal); E11.9 Type 2 diabetes mellitus without complications; E78.5 Hyperlipidemia, unspecified; K21.9 Gastro-esophageal reflux disease without esophagitis; J44.9 Chronic obstructive pulmonary disease, unspecified; E55.9 Vitamin D deficiency, unspecified; F32.9 Major depressive disorder, single episode, unspecified; F41.9 Anxiety disorder, unspecified; M79.7 Fibromyalgia; I10 Essential (primary) hypertension; G50.0 Trigeminal neuralgia; Z79.891 Long term (current) use of opiate analgesic; Z79.899 Other long term (current) drug therapy; Z79.82 Long term (current) use of aspirin; Z87.891 Personal history of nicotine dependence; Z88.0 Allergy status to penicillin; Z88.1 Allergy status to other antibiotic agents; Z88.2 Allergy status to sulfonamides; Z88.8 Allergy status to other drugs, medicaments and biological substances; Z88.5 Allergy status to narcotic agent

== ENCOUNTER → 2021-03-09 | Outpatient (CLI) | payer OTHER ==
--- NOTE | 2021-03-09 13:24 | REP ---
INDICATION: SPONDYLOLISTHESIS LUMBAR REGION. COMPARISON: None. TECHNIQUE: Sagittal T1, T2, stir images obtained. Axial T1 and T2 images of the lumbar spine obtained. FINDINGS: There is uxjj-va-dvardzoy multilevel degenerative disc disease with loss of disc height and disc desiccation seen diffusely throughout the lumbar spine. There is a mild anterolisthesis of L4 over L5. A Schmorl's node is seen in the superior endplate of T12. On the sagittal imaging, no limiting canal stenosis. Conus ends normally at L1 level. On the review of axial images, At L1-2 no significant canal or foraminal narrowing At L2-3 disc bulge with mild bilateral foraminal narrowing and no significant canal stenosis At L3-4 mild bilateral foraminal narrowing with no significant canal stenosis At L4-5 slight listhesis with mild canal narrowing and mild bilateral foraminal narrowing At L5-S1 no significant canal or foraminal narrowing. Facet degenerative changes are noted at L4-5 and L5-S1 levels. IMPRESSION: 1. Lztr-io-axmanbto multilevel degenerative disc disease. 2. No evidence of limiting canal or foraminal stenosis or disc herniation. 3. Facet arthropathy is noted at the L4-5 and L5-S1 levels. <Electronically signed by Sae Mcclure > 03/09/21 [id number]
== END ==
LOC: M PLARAD 12:04
PROVIDERS: ATTEND Physician Assistant
DX: M43.16 Spondylolisthesis, lumbar region (principal); M51.36 Other intervertebral disc degeneration, lumbar region

== ENCOUNTER → 2021-05-04 | Outpatient (CLI) | payer OTHER ==
[~2021-05-04] MED LIST changes: +ACET-683 PO; +NYST1POW9 TOP; +PYRI50TA40 PO; +VITA50005 PO; +XIID5DRO OU
--- NOTE | 2021-05-06 09:02 | ECWPNPC ---
PATIENT NAME: PHIL HOUSTON : 1955 GENDER: FEMALE VISIT DATE: 05/04/2021 DISCHARGE DATE: 05/04/21 1200 VISIT LOCKED DATE TIME: PHYSICIAN: BELLA METZGER PHYSICIAN PAGER NO: ACTIVE RESOURCE: BELLA METZGER REASON FOR APPOINTMENT 1. BACK PAIN HISTORY OF PRESENT ILLNESS DEPRESSION SCREENING: PHQ-9 LITTLE INTEREST OR PLEASURE IN DOING THINGSNEARLY EVERY DAY FEELING DOWN, DEPRESSED, OR HOPELESSNEARLY EVERY DAY TROUBLE FALLING OR STAYING ASLEEP, OR SLEEPING TOO MUCHNEARLY EVERY DAY FEELING TIRED OR HAVING LITTLE ENERGYNEARLY EVERY DAY POOR APPETITE OR OVEREATING NEARLY EVERY DAY FEELING BAD ABOUT YOURSELF-OR THAT YOU ARE A FAILURE OR HAVE LET YOURSELF OR YOUR FAMILY DOWN NEARLY EVERY DAY TROUBLE CONCENTRATING ON THINGS, SUCH READING THE NEWSPAPER OR WATCHING TELEVISION NEARLY EVERY DAY MOVING OR SPEAKING SO SLOWLY THAT OTHER PEOPLE COULD HAVE NOTICED. OR THE OPPOSITE- BEING SO FIDGETY OR RESTLESS THAT YOU HAVE BEEN MOVING AROUND A LOT MORE THAN USUALNEARLY EVERY DAY THOUGHTS THAT YOU WOULD BE BETTER OFF , OR OF HURTING YOURSELF IN SOME WAY?NOT AT ALL TOTAL SCORE:24 INTERPRETATIONSEVERE DEPRESSION PHQ-2 (2015 EDITION) LITTLE INTEREST OR PLEASURE IN DOING THINGS?NEARLY EVERY DAY FEELING DOWN, DEPRESSED, OR HOPELESS?NOT AT ALL TOTAL SCORE3 GENERAL: HPI 66-YEAR-OLD FEMALE IN FOR CHRONIC PAIN FOLLOW-UP. SHE RATES HER PAIN CURRENTLY AT A 8 OUT OF 10. PATIENT FEELS HER MEDICATIONS ARE HELPFUL AND DENIES MED SIDE EFFECTS AT THIS TIME.. -. FALL RISK SCREENING: SCREENING : NO FALLS REPORTED IN THE LAST YEAR. PAIN SCREENING: PATIENT HAS A COMPLAINT OF ACUTE OR CHRONIC PAIN :YES LOCATION OF PAIN:LOW BACK, LEFT HIP, RIGHT HIP INTENSITY OF PAIN (SCALE OF 1 TO 10):8 WHAT DOES YOUR PAIN FEEL LIKE:ACHING, BURNING, CONTINOUS, SHARP, STABBING, TENDER, THROBBING, SORE, SHOOTING, OTHER NUMBNESS IN RIGHT HIP, LOW BACK DURATION:CONTINOUS, CONSTANT, AWAKENS FROM SLEEP PAIN IS INCREASED BY:ACTIVITIES, PROLONGED STANDING PAIN IS DECREASED BY:USE OF PAIN MEDICATIONS REPOSITIONING HELPS, HEAT AND ICE TEMPORARILY. NURSING NOTE: -. PAIN CENTER INTAKE QUESTIONS: DO YOU HAVE A HISTORY OF MRSA? :YES MRSA 2018 DO YOU TAKE A BLOOD THINNERS? :NO 81MG ASPIRIN DO YOU HAVE ANY BLEEDING DISORDERS? :YES ANEMIA AND BRUISES EASILY ANY NEW NUMBNESS OR WEAKNESS IN YOUR LEGS OR ARMS? :NO ANY PACEMAKER,DEFIBRILLATOR, OR DORSAL COLUMN STIMULATOR? :NO DO YOU HAVE ANY RASHES OR OPEN SORES? :NO ARE YOU ALLERGIC TO IV DYE? :NO ARE YOU DIABETIC? :YES ANY NEW PROBLEMS WITH YOUR MEDICATIONS? :NO HAVE YOU RECEIVED A VACCINE IN THE PAST 30 DAYS? :YES SECOND COVID VACCINATION 04/13/2021 DO YOU PLAN TO RECEIVE A VACCINE IN THE NEXT 21 DAYS? :NO DO YOU NEED ANY PRESCRIPTION? :YES OXYCODONE DO YOU TAKE ANY IMMUNOSUPPRESSIVE MEDICATIONS? :NO DO YOU HAVE ANY KIDNEY OR LIVER DISEASE? :NO IS THERE A CHANCE YOU COULD BE ? :NO ARE YOU BREAST FEEDING? :NO CURRENT MEDICATIONS TAKING CYMBALTA 60 MG CAPSULE DELAYED RELEASE PARTICLES 1 CAPSULE ORALLY ONCE A DAY TAKING ATIVAN 0.5 0.5MG TABLET ORAL 3 TIMES A DAY NEEDED TAKING SALINE 0.65 % SOLUTION 2 DROPS IN EACH NOSTRIL NEEDED NASALLY 2-4 TIMES DAILY TAKING SYSTANE 0.4-0.3 % SOLUTION 1 DROP INTO AFFECTED EYE NEEDED OPHTHALMIC 5 TIMES A DAY TAKING VENTOLIN HFA 108 (90 BASE) MCG/ACT AEROSOL SOLUTION 2 PUFFS INHALATION EVERY 4-6 HOURS NEEDED TAKING STIOLTO RESPIMAT 2.5-2.5 MCG/ACT AEROSOL SOLUTION 1 PUFF INHALATION TWICE A DAY TAKING HUMIDIFIER - MISCELLANEOUS DX: J44.9 _ USE NEEDED TAKING HEATING PAD - PAD DIRECTED DX: M54.5 DAILY TAKING CANE - MISCELLANEOUS DIRECTED DX: M54.5 DAILY TAKING AIR CONDITIONER DX: 496, 327.23 DIRECTED - - TAKING CPAP MACHINE TAKING BUSPIRONE HCL 5 MG TABLET 1 TABLET ORALLY BID TAKING ARNUITY ELLIPTA 100 MCG/ACT AEROSOL POWDER BREATH ACTIVATED 1 PUFF INHALATION ONCE A DAY TAKING BETAMETHASONE DIPROPIONATE 0.05 % CREAM 1 THIN APPLICATION TO AFFECTED AREAS ON ARMS AND CHEST EXTERNALLY TWICE DAILY NEEDED TAKING HEATING PAD - PAD DIRECTED TOPICALLY DAILY NEEDED DX M54.5 TAKING BLADDER CONTROL PADS REGULAR - MISCELLANEOUS DIRECTED USE AT HOME NEEDED [facility] [id number] ICD N39.41 TAKING LIDOCAINE HCL 4.12 % CREAM 1 APPLICATION TO AFFECTED AREAS NECK AND LOW BACK EXTERNALLY TWICE A DAY TAKING CALCIUM + D3 600-200 MG-UNIT TABLET 1 TABLET WITH A MEAL ORALLY ONCE A DAY TAKING XIIDRA 5 % SOLUTION INSTILL 1 DROP IN EACH EYE TWO TIMES A DAY DIRECTED OPHTHALMIC TAKING PREGABALIN 50 MG CAPSULE (SCHEDULE V DRUG) TAKE ONE CAPSULE BY MOUTH TWICE A DAY MAXIMUM DAILY DOSE 2 CAPSULES ORAL TAKING LORAZEPAM 0.5 MG TABLET (SCHEDULE IV DRUG) TAKE ONE TABLET BY MOUTH THREE TIMES A DAY NEEDED FOR ANXIETY MAXIMUM DAILY DOSE 3 ORAL TAKING ATORVASTATIN CALCIUM 10 MG TABLET 1 TABLET ORALLY ONCE A DAY TAKING NYSTATIN [id number] UNIT/GM CREAM 1 APPLICATION TO AFFECTED AREAS UNDER BREASTS AND GROIN AND AXILLA EXTERNALLY TWICE A DAY TAKING CHANTIX CONTINUING MONTH CHELSY 1 MG TABLET 1 TAB ORALLY TWICE DAILY TAKING TYLENOL 500 MG TABLET 1-2 TABLETS NEEDED ORALLY EVERY 8 HRS NEEDED FOR PAIN TAKING ASPIRIN 81 MG TABLET DELAYED RELEASE TAKE ONE TABLET BY MOUTH EVERY DAY ORALLY DAILY TAKING CYMBALTA 60 MG CAPSULE DELAYED RELEASE PARTICLES TAKE ONE CAPSULE BY MOUTH EVERY DAY WITH 30MG TAKING CYMBALTA 30 MG CAPSULE DELAYED RELEASE PARTICLES 1 CAPSULE ORALLY ONCE A DAY ALONG WITH A 60 MG TAKING DRISDOL 47727 UNIT CAPSULE 1 CAPSULE WITH MEAL ORALLY ONCE EVERY WEEK TAKING LISINOPRIL 5MG TABLET 1 TABLET ORALLY ONCE A DAY TAKING VITAMIN B-6 50 MG TABLET 1 TABLET ORALLY BEFORE BEDTIME DAILY TAKING LANSOPRAZOLE 30 MG CAPSULE DELAYED RELEASE 1 CAPSULE BEFORE A MEAL ORALLY ONCE A DAY TAKING PERCOCET 7.5-325 MG TABLET 1 TABLET NEEDED ORALLY Q8H PRN MD3 50 TAB SHOULD LAST 30 DAYS TAKING NYSTATIN [id number] UNIT/GM POWDER 1 APPLICATION TO AFFECTED AREA UNDER BREASTS EXTERNALLY TWICE A DAY TAKING METFORMIN HCL 500 MG TABLET TAKE ONE TABLET BY MOUTH TWICE A DAY WITH MEALS NOT-TAKING LORATADINE 10 MG TABLET 1 TABLET ORALLY ONCE A DAY NEEDED NOT-TAKING CYCLOBENZAPRINE HCL 5 MG TABLET 1 TO 1 1/2 TABLETS ORALLY TWICE A DAY NEEDED NOT-TAKING OXYCODONE-ACETAMINOPHEN 7.5-325 MG TABLET 1 TAB ORAL 1 TAB Q8H PRN PAIN MDD3 #50 TABS SHOULD LAST 30 DAYS NOT-TAKING ASPIR-81 81 MG TABLET DELAYED RELEASE 1 TABLET ORALLY ONCE A DAY, NOTES: DOUBLE ENTRY MEDICATION LIST REVIEWED AND RECONCILED WITH THE PATIENT PAST MEDICAL HISTORY TYPE II DIABETES HYPERLIPIDEMIA - NEG NUCLEAR STRESS TEST 07/13, - [facility] REFLUX COPD FEV1 = 1.9 ON 11/22/14 @PULMONOLOGY ALLERGIC RHINITIS VITAMIN D DEFICIENCY SMOKING DEPRESSION ANXIETY - DR VILLANUEVA FIFI-- ON CPAP FIBROMYALGIA DEGENERATIVE DISC DISEASE HYPERTENSION BACK AND NECK PAIN TRIGEMINAL NEURALGIA -[facility] URINARY INCONTINENCE - UROLOGY JUNE 2018 SPOT ON LUNG - DR HERNANDEZ 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 ALLERGIES PENICILLIN (FOR ALLERGIES USE ONLY): RASH - ALLERGY SULFA DRUGS: RASH - ALLERGY TEGRETOL: RASH CODEINE: RASH - ALLERGY DOXYCYCLINE MONOHYDRATE: RASH - ALLERGY TOBRAMYCIN-DEXAMETHASONE: EYE SWELLING, REDNESS, PAIN - ALLERGY SOCIAL HISTORY GENERAL: TOBACCO USE ARE YOU A:FORMER SMOKER HOW LONG HAS IT BEEN SINCE YOU LAST SMOKED?3-6 MONTHS LATEX QUESTIONNAIRE LATEX ALLERGY : HAVE YOU EVER DEVELOPED ANY TYPE OF REACTION AFTER HANDLING LATEX PRODUCTS SUCH RUBBER GLOVES, CONDOMS, DIAPHRAGMS, BALLOONS, SOCKS, OR UNDERWEAR?NO LATEX ALLERGY : HAVE YOU EVER DEVELOPED ANY TYPE OF REACTION DURING OR AFTER DENTAL APPOINTMENT, VAGINAL/RECTAL EXAMINATION, SURGICAL PROCEDURE, OR ANY OTHER EXPOSURE?NO LATEX RISK : HAVE YOU EVER HAD ANY DIFFICULTY BREATHING OR HIVES AFTER EATING OR HANDLING ANY FRUITS, OR VEGETABLES; SUCH KIWI, BANANAS, STONE FRUITS, OR CHESTNUTSNO LATEX RISK : DO YOU HAVE A PREVIOUS PERSONAL HISTORY OF MORE THAN NINE SURGERIES, SPINA BIFIDA, OR REPEATED CATHERIZATIONS? NO LATEX RISK : ARE YOU FREQUENTLY EXPOSED TO LATEX PRODUCTS IN YOUR OCCUPATION?NO DATE ASKED : 05/04/2021 ALCOHOL USE: NO. BMI CARE GOAL FOLLOW-UP ABOVE NORMAL BMI FOLLOW-UPGIVING ENCOURAGEMENT TO EXERCISE ALCOHOL SCREENING DID YOU HAVE A DRINK CONTAINING ALCOHOL IN THE PAST YEAR?NO POINTS0 INTERPRETATIONNEGATIVE RECREATIONAL DRUG USE DRUG USE?NO CAFFEINE CAFFEINE USE?YES 6 CUPS DAILY (WEAK COFFEE) SEXUAL HX HAD SEX IN THE LAST 12 MONTHS (VAGINAL, ORAL, OR ANAL)?NO HAVE YOU EVER HAD AN STD?NO HIV / HEP-C SCREENING HIV TEST OFFERED TO PATIENT:YES DATE OFFERED:10/31/2016 TEST ACCEPTED:YES HEP-C TEST OFFERED TO PATIENT:YES DATE OFFERED:10/31/2016 TEST ACCEPTED:YES RASTAFARIAN [id number] RASTAFARIAN LANGUAGE LANGUAGES SPOKEN:[place]IW[place]ESE EDUCATION LEVEL OF EDUCATION:NOT FINISHED COLLEGE LEARNING BARRIERS / SPECIAL NEEDS CHANGE FROM LAST VISIT?NO BARRIERS TO LEARNING?NO HEARING IMPAIRED?YES BEING EVALUATED BY ENT FOR HEARING LOSS LEFT EAR VISION IMPAIRED?YES :CORRECTIVE LENSES COGNITIVELY IMPAIRED?NO READINESS TO LEARN?YES LEARNING PREFERENCES?NO LEARNING CAPABILITIES PRESENT?NO EMOTIONAL BARRIERS?NO SPECIAL DEVICES?YES :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 DIET: NO CONCENTRATED SWEETS.. EXERCISE: WALKS. MARITAL STATUS: . OTHERS AT HOME: NONE. - PFS REFERRAL NEEDED?NO CLERGY REFERRAL NEEDED?NO PUBLIC HEALTH REFERRAL NEEDED?NO WAS THE PROVIDER NOTIFIED OF ANY PERTINENT INFO?YES HAS THE PATIENT BEEN EDUCATED REGARDING HIS/HER PLAN OF CARE?YES PLEASE DOCUMENT ANY ADDTIONAL DETAILS. TPI HAS THE PATIENT BEEN EDUCATED REGARDING PAIN, THE RISK FOR PAIN, THE IMPORTANCE OF EFFECTIVE PAIN MANAGEMENT, AND THE PAIN ASSESSMENT PROCESS?YES ADVANCE DIRECTIVE ADVANCE DIRECTIVE DISCUSSED WITH PATIENT:YES HCP - AFLREDO HOUSTON (DAUGHTER) REVIEW OF SYSTEMS CONSTITUTIONAL: ANY RECENT FEVER NO . CHILLS NO . WEIGHT CHANGE OF UNKNOWN REASONS NO . GASTROENTEROLOGY: NEW UNEXPLAINABLE CHANGES IN BOWEL CONTROL NO . CONSTIPATION NO . GENITOURINARY: ANY NEW CHANGE IN BLADDER CONTROL? NO . NEUROLOGY: NEW ONSET DIZZINESS OR NEUROLOGICAL CHANGES NOT MENTIONED NO . NEW NUMBNESS OR PAIN PATTERNS NOT MENTIONED AND PERTINENT TO TODAY'S VISIT NO . CARDIOLOGY: NEW CHEST PRESSURE NO . PATIENT DENIES NO . RESPIRATORY: UNEXPLAINABLE COUGH NO . NEW SHORTNESS OF BREATH NO . VITAL SIGNS WT 174.8 LBS, HT 65 IN, BMI 29.09 INDEX, BP 108/63 MM HG, HR 70 /MIN, RR 20 /MIN, TEMP 97.0 F, OXYGEN SAT % 96%, SAFE IN ENV? (Y/N) YES, NA INITIALS SC 11:18, REVIEWED BY: ELSY WILLIS MA. EXAMINATION GENERAL EXAMINATION: GENERALNO ACUTE DISTRESS, WELL NOURISHED AND HYDRATED. PSYCHAPPROPRIATE MOOD AND AFFECT . LUNGS:CLEAR TO AUSCULTATION BILATERALLY, NO WHEEZES, RHONCHI, RALES. HEART:NO MURMURS, REGULAR RATE AND RHYTHM. 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 GIVEN PRESENTING SYMPTOMS RECOMMENDED CONTINUATION OF CURRENT MEDICATION REGIMEN WITH FOLLOW-UP IN 3 MONTHS. DISCUSSED DEPRESSION WITH PATIENT AND SHE ADMITS THAT SHE SEE'S COUNSELING AND HAS MEDICATIONS CURRENTLY PRESCRIBED FOR HER DEPRESSION. SHE WAS GIVEN INFORMATION REGARDING BEHAVIORAL HEALTH WALK-IN. PATIENT HAS EXPRESSED UNDERSTANDING OF AND WAS IN AGREEMENT WITH TREATMENT PLAN. GIVEN TIME TO ASK QUESTIONS AND EXPRESS CONCERNS. ISTOP REGISTRY REVIEWED AND DEMONSTRATES COMPLLIANCE. (REF #[id number] ) BRINGS IN MEDICATIONS WHICH IS APPROPRIATE FOR WHAT WAS DISPENSED. RECENT URINE TOXICOLOGY REVIEWED. NO UNAUTHORIZED MEDICATIONS. NO ILLICIT SUBSTANCES AND PRESCRIBED MEDICATIONS WERE PRESENT. CHRONIC USE OF OPIATE DRUGS THERAPEUTIC PURPOSES LAB: URINE TEST GROUP KALI WILLIS 05/04/2021 11:55:20 AM > LAST DOSE: PERCOCET 05/03/2021 AT 0800 OTHERS CLINICAL NOTES: PATIENT SCORED A 24 ON THE PHQ9. PROVIDER NOTIFIED AND BEHAVIORAL HEALTH INFORMATION PRINTED FOR PROVIDER. KALI WILLIS MA. PROCEDURE CODES FA211 ESTABILISHED PATIENT [facility] CHARGE DISPOSITION & COMMUNICATION FOLLOW UP 3 MONTHS (REASON: BACK PAIN ) ELECTRONICALLY SIGNED BY KIRT SANCHEZ ON 05/05/2021 AT 08:46 AM EDT DISCLAIMER : THIS IS A VISIT SUMMARY EXTRACTED FROM THE [employer] CHART. IT IS NOT A COPY OF THE [employer] PROGRESS NOTE. SHANNAN
== END ==
LOC: M PAIN 11:00
PROVIDERS: ATTEND Family Medicine
DX: M43.16 Spondylolisthesis, lumbar region (principal); G89.29 Other chronic pain; E11.9 Type 2 diabetes mellitus without complications; K21.9 Gastro-esophageal reflux disease without esophagitis; J44.9 Chronic obstructive pulmonary disease, unspecified; E55.9 Vitamin D deficiency, unspecified; G47.33 Obstructive sleep apnea (adult) (pediatric); M79.7 Fibromyalgia; Z86.14 Personal history of Methicillin resistant Staphylococcus aureus infection; Z86.59 Personal history of other mental and behavioral disorders; Z87.891 Personal history of nicotine dependence; Z88.0 Allergy status to penicillin; Z88.1 Allergy status to other antibiotic agents; Z88.2 Allergy status to sulfonamides; Z88.5 Allergy status to narcotic agent; Z88.8 Allergy status to other drugs, medicaments and biological substances; Z79.51 Long term (current) use of inhaled steroids; Z79.84 Long term (current) use of oral hypoglycemic drugs; Z79.899 Other long term (current) drug therapy

== ENCOUNTER → 2021-06-02 | Outpatient (CLI) | payer OTHER ==
[~2021-06-02] MED LIST changes: +ERGO500029 PO; -VITA50005 PO
[2021-06-02 15:41] LABS: BLOOD UREA NITROGEN 11 MG/DL (7-18); CARBON DIOXIDE LEVEL 31 MEQ/L (21-32); CHLORIDE LEVEL 102 MEQ/L (98-107); CREATININE FOR GFR 0.79 MG/DL (0.55-1.30); GLOMERULAR FILTRATION RATE > 60.0 (>45); GLUCOSE, FASTING 93 MG/DL (70-100); POTASSIUM SERUM 4.7 MEQ/L (3.5-5.1); SODIUM LEVEL 135 MEQ/L (136-145)
[2021-06-02 15:42] LABS: MAGNESIUM LEVEL 1.9 MG/DL (1.8-2.4)
[2021-06-02 15:52] LABS: TOTAL 25(OH) VITAMIN D 101.6 NG/ML (30.0-100.0)
[2021-06-02 15:56] LABS: HEMOGLOBIN A1c 6.5 %
[2021-06-02 16:15] LABS: CREATININE, URINE < 13.0 MG/DL; MALB URINE SIEMENS < 5.0 MG/L
== END ==
LOC: M PLALAB 12:45
PROVIDERS: ATTEND Nurse Practitioner Family
DX: E11.29 Type 2 diabetes mellitus with other diabetic kidney complication (principal); R80.9 Proteinuria, unspecified; E55.9 Vitamin D deficiency, unspecified

== ENCOUNTER → 2021-08-11 | Outpatient (CLI) | payer OTHER, MEDICAID ==
--- NOTE | 2021-08-11 13:13 | REP ---
INDICATION: BREAST CANCER SCREENING BY MAMMOGRAM. COMPARISON: In 09/17/2019 and 12/16/2014 TECHNIQUE: Digital screening mammography was carried out bilaterally in the CC and MLO projections using both 2D and 3D modalities and compared to the prior exams. By history, the patient has no complaints of a palpable breast abnormality or other significant breast complaints. FINDINGS: The breasts are unchanged in size and shape. Stable scattered benign calcifications are again seen bilaterally. In the upper outer quadrant of the right breast there is a potential subtle area of new asymmetry. No other suspicious features are seen in either breast. There is no skin thickening or nipple retraction. The Volpara volumetric breast density pattern is b. IMPRESSION: BIRADS/ACR category 0 mammogram. Potential subtle area of new asymmetry in the upper outer quadrant of the right breast and for which diagnostic digital DBT spot compression views are recommended in the CC and MLO projections along with diagnostic ultrasonography if necessary. This patient's Tyrer-Cuzick lifetime breast cancer risk assessment score is 6.2%. This mammogram was interpreted with the aid of an FDA-approved computer-aided detection system. The patient states she had a clinical breast exam in over a year. The patient letter being requested is M0. RECOMMENDATION: As above <Electronically signed by Jagdeep Coburn > 08/11/21 1538
== END ==
LOC: M WHC 11:47
PROVIDERS: ATTEND Nurse Practitioner Women's Health
DX: Z12.31 Encounter for screening mammogram for malignant neoplasm of breast (principal); R92.1 Mammographic calcification found on diagnostic imaging of breast; R92.8 Other abnormal and inconclusive findings on diagnostic imaging of breast

== ENCOUNTER → 2021-08-14 | Outpatient (CLI) | payer OTHER ==
--- NOTE | 2021-08-14 14:43 | REP ---
INDICATION: HX OF NICOTINE DEPENDENCE. COMPARISON: Multiple the latest 08/11/2020 TECHNIQUE: Axial noncontrast images from the thoracic inlet to the upper abdomen using low-dose lung screening technique (LDCT). As per the protocol only lung window images were sent to the read station for interpretation FINDINGS: Chronic lung field changes with emphysematous changes and fibrotic change seen along with cylindrical bronchiectasis all stable. Pleural blebs and parenchymal bulla are stable. There are 2 new left lung findings, 1 is in the left lung apical region which is an irregular density which measures 6 mm and the other is also in the left upper lobe seen as a 6 mm sized nodular density. There is a new pleural based left upper lobe density which measures 6 mm as well. Grossly, there is no change in the mediastinum or pulmonary mirian. Grossly, there is no change in the imaged upper abdomen or imaged osseous structures. IMPRESSION: New left lung findings as described above. According to the revised Fleischner society criteria diagnostic contrast-enhanced CT examination the chest is recommended. <Electronically signed by Jagdeep Coburn > 08/14/21 [id number]
== END ==
LOC: M RAD 13:21
PROVIDERS: ATTEND Internal Medicine Pulmonary Disease
DX: Z12.2 Encounter for screening for malignant neoplasm of respiratory organs (principal); Z87.891 Personal history of nicotine dependence; R91.8 Other nonspecific abnormal finding of lung field

== ENCOUNTER → 2021-08-16 | Outpatient (CLI) | payer OTHER ==
[2021-08-16 12:52] LABS: BASO % 0.4 % (0.0-1.0); EOS # 0.2 10^3/uL (0.0-0.5); EOS % 3.3 % (0.0-3.0); HEMATOCRIT 42.4 % (36.0-47.0); HEMOGLOBIN 13.3 g/dl (12.0-15.5); LYMPH # 2.2 10^3/uL (1.5-5.0); LYMPH % 31.4 % (24.0-44.0); MEAN CORPUSCULAR HEMOGLOBIN 27.3 pg (27.0-33.0); MEAN CORPUSCULAR HGB CONC 31.4 g/dl (32.0-36.5); MEAN CORPUSCULAR VOLUME 86.9 fl (80.0-96.0); MONO # 0.5 10^3/uL (0.0-0.8); MONO % 6.6 % (2.0-8.0); NEUTROPHILS # 4.1 10^3/uL (1.5-8.5); PLATELET COUNT, AUTOMATED 295 10^3/uL (150-450); RED BLOOD COUNT 4.88 10^6/uL (4.00-5.40); WHITE BLOOD COUNT 7.1 10^3/uL (4.0-10.0)
[2021-08-16 13:15] LABS: ALBUMIN 3.8 GM/DL (3.2-5.2); ALT/SGPT 34 U/L (12-78); BILIRUBIN,TOTAL 0.4 MG/DL (0.2-1.0); BLOOD UREA NITROGEN 11 MG/DL (7-18); CALCIUM LEVEL 9.4 MG/DL (8.8-10.2); CARBON DIOXIDE LEVEL 30 MEQ/L (21-32); CHLORIDE LEVEL 103 MEQ/L (98-107); CREATININE FOR GFR 0.81 MG/DL (0.55-1.30); GLOMERULAR FILTRATION RATE > 60.0 (>45); GLUCOSE, FASTING 90 MG/DL (70-100); RHEUMATOID FACTOR QUANT < 10.0 IU/ML (<15.0); SODIUM LEVEL 138 MEQ/L (136-145); TOTAL PROTEIN 6.6 GM/DL (6.4-8.2)
[2021-08-17 16:09] LABS: ANTINUCLEAR ANTIBODIES DIRECT Negative (Negative); Lyme Disease IgG/IgM Antibodie <0.91 ISR (0.00-0.90); Lyme Disease IgM Ab Quantitati <0.80 index (0.00-0.79)
== END ==
LOC: M LAB 11:45
PROVIDERS: ATTEND Physician Assistant
DX: M50.30 Other cervical disc degeneration, unspecified cervical region (principal)

== ENCOUNTER → 2021-09-14 | Outpatient (CLI) | payer OTHER ==
--- NOTE | 2021-09-14 11:47 | REP ---
INDICATION: RIGHT BREAST ADD VIEWS. COMPARISON: 08/11/2021, 09/17/2019, 12/16/2014. TECHNIQUE: Multiple spot compression views right breast performed. FINDINGS: The potential nadia density in the outer right breast compresses out to an unchanged appearance compared to prior studies. There is no persistent nodule or architectural distortion. IMPRESSION: BIRADS/ACR 1, negative right breast. No persistent nodule or architectural distortion on additional spot compression views. This mammogram was interpreted with the aid of an FDA-approved computer-aided detection system. The patient letter being requested is M 1. RECOMMENDATION: Repeat screening mammography recommended 1 year (for women over 40). <Electronically signed by Julian Vogel > 09/14/21 1142
== END ==
LOC: M WHC 10:57
PROVIDERS: ATTEND Nurse Practitioner Women's Health
DX: R92.8 Other abnormal and inconclusive findings on diagnostic imaging of breast (principal)
CPT/HCPCS: 77065; G0279

== ENCOUNTER → 2021-10-05 | Outpatient (CLI) | payer OTHER ==
[~2021-10-05] MED LIST changes: +CYMB60CA4 PO
== END ==
LOC: M PAIN 13:30
PROVIDERS: ATTEND Anesthesiology
DX: M43.16 Spondylolisthesis, lumbar region (principal); M54.50 Low back pain, unspecified; E11.9 Type 2 diabetes mellitus without complications; E78.5 Hyperlipidemia, unspecified; K21.9 Gastro-esophageal reflux disease without esophagitis; J44.9 Chronic obstructive pulmonary disease, unspecified; J30.9 Allergic rhinitis, unspecified; E55.9 Vitamin D deficiency, unspecified; F32.A Depression, unspecified; F41.9 Anxiety disorder, unspecified; G47.33 Obstructive sleep apnea (adult) (pediatric); M79.7 Fibromyalgia; I10 Essential (primary) hypertension; G50.0 Trigeminal neuralgia; Z87.891 Personal history of nicotine dependence; Z79.82 Long term (current) use of aspirin; Z79.899 Other long term (current) drug therapy; Z79.891 Long term (current) use of opiate analgesic; Z79.84 Long term (current) use of oral hypoglycemic drugs; Z88.0 Allergy status to penicillin; Z88.2 Allergy status to sulfonamides; Z88.5 Allergy status to narcotic agent; Z88.1 Allergy status to other antibiotic agents; Z88.8 Allergy status to other drugs, medicaments and biological substances

== ENCOUNTER → 2021-11-09 | Outpatient (CLI) | payer OTHER ==
[2021-11-09 12:47] LABS: BASO % 0.3 % (0.0-1.0); EOS # 0.2 10^3/uL (0.0-0.5); EOS % 2.9 % (0.0-3.0); HEMATOCRIT 42.4 % (36.0-47.0); HEMOGLOBIN 13.3 g/dl (12.0-15.5); LYMPH # 1.8 10^3/uL (1.5-5.0); LYMPH % 26.5 % (24.0-44.0); MEAN CORPUSCULAR HEMOGLOBIN 27.5 pg (27.0-33.0); MEAN CORPUSCULAR HGB CONC 31.4 g/dl (32.0-36.5); MEAN CORPUSCULAR VOLUME 87.8 fl (80.0-96.0); MONO # 0.4 10^3/uL (0.0-0.8); MONO % 6.4 % (2.0-8.0); NEUTROPHILS # 4.2 10^3/uL (1.5-8.5); NEUTROPHILS % 63.6 % (36.0-66.0); PLATELET COUNT, AUTOMATED 345 10^3/uL (150-450); RED BLOOD COUNT 4.83 10^6/uL (4.00-5.40); WHITE BLOOD COUNT 6.6 10^3/uL (4.0-10.0)
[2021-11-09 13:23] LABS: CREATININE, URINE < 13.0 MG/DL; MALB URINE SIEMENS < 5.0 MG/L
[2021-11-09 13:30] LABS: ALT/SGPT 32 U/L (12-78); BILIRUBIN,TOTAL 0.3 MG/DL (0.2-1.0); BLOOD UREA NITROGEN 14 MG/DL (7-18); CALCIUM LEVEL 9.7 MG/DL (8.8-10.2); CARBON DIOXIDE LEVEL 29 MEQ/L (21-32); CHLORIDE LEVEL 105 MEQ/L (98-107); CHOLESTEROL LEVEL 154 MG/DL (<200); CHOLESTEROL RISK RATIO 2.701 (<5); CREATININE FOR GFR 0.81 MG/DL (0.55-1.30); GLOMERULAR FILTRATION RATE > 60.0 (>45); GLUCOSE, FASTING 80 MG/DL (70-100); HDL CHOLESTEROL 57 MG/DL (>40); LDL CHOLESTEROL 69 MG/DL (<100); NON-HDL-C 97 MG/DL; POTASSIUM SERUM 4.2 MEQ/L (3.5-5.1); PTH INTACT 33.7 PG/ML (18.5-88.0); SODIUM LEVEL 138 MEQ/L (136-145); TRIGLYCERIDES LEVEL 139 MG/DL (<150)
[2021-11-09 14:18] LABS: HEMOGLOBIN A1c 6.2 %
== END ==
LOC: M LAB 11:23
PROVIDERS: ATTEND Physician Assistant Medical
DX: E55.9 Vitamin D deficiency, unspecified (principal); E11.29 Type 2 diabetes mellitus with other diabetic kidney complication; E78.2 Mixed hyperlipidemia; K21.9 Gastro-esophageal reflux disease without esophagitis

== ENCOUNTER → 2021-11-09 | Outpatient (CLI) | payer OTHER ==
--- NOTE | 2021-11-10 06:32 | REP ---
INDICATION: SOLITARY PULMONARY NODULE COMPARISON: 08/14/2021 TECHNIQUE: Axial noncontrast images from the thoracic inlet to the upper abdomen with coronal and sagittal reformations. This CT examination was performed using the following dose reduction techniques: Automated exposure control, adjustment of mA and/or kv according to the patient's size, and use of iterative reconstruction technique. FINDINGS: Advanced emphysematous disease along with scattered scarring primarily involving the right apical region and left upper lobe are again noted and essentially stable. The small nodular density in relation to the right apical scarring is less pronounced than prior exam. No acute consolidation, new suspicious nodule or mass. Tracheobronchial tree demonstrates stable bronchiectasis. No effusion. No pneumothorax. Mediastinum is stable with atherosclerotic changes again noted to the thoracic aorta and coronary arteries. No cardiomegaly or pericardial effusion. No obvious significant adenopathy. Surrounding musculoskeletal structures are intact. IMPRESSION: Advanced emphysematous changes and stable chronic changes. No suspicious nodule or mass. No acute mediastinal or pleuroparenchymal process. <Electronically signed by Hawk Samson > 11/10/21 0628
== END ==
LOC: M RAD 10:56
PROVIDERS: ATTEND Internal Medicine Pulmonary Disease
DX: R91.1 Solitary pulmonary nodule (principal); J43.9 Emphysema, unspecified; I70.0 Atherosclerosis of aorta; I25.10 Atherosclerotic heart disease of native coronary artery without angina pectoris

== ENCOUNTER → 2021-11-17 | Outpatient (CLI) | payer OTHER | LOC: M PAIN 13:30 | PROVIDERS: ATTEND Anesthesiology | DX: M51.16 Intervertebral disc disorders with radiculopathy, lumbar region (principal); E11.9 Type 2 diabetes mellitus without complications; E78.5 Hyperlipidemia, unspecified; K21.9 Gastro-esophageal reflux disease without esophagitis; J44.9 Chronic obstructive pulmonary disease, unspecified; F32.A Depression, unspecified; F41.9 Anxiety disorder, unspecified; G47.33 Obstructive sleep apnea (adult) (pediatric); M79.7 Fibromyalgia; I10 Essential (primary) hypertension; R32 Unspecified urinary incontinence; G50.0 Trigeminal neuralgia; Z87.891 Personal history of nicotine dependence; Z79.82 Long term (current) use of aspirin; Z79.891 Long term (current) use of opiate analgesic; Z79.899 Other long term (current) drug therapy; Z88.0 Allergy status to penicillin; Z88.1 Allergy status to other antibiotic agents; Z88.2 Allergy status to sulfonamides; Z88.5 Allergy status to narcotic agent; Z88.8 Allergy status to other drugs, medicaments and biological substances ==

== ENCOUNTER → 2021-11-17 | Outpatient (CLI) | payer OTHER ==
[~2021-11-17] MED LIST changes: -LISI-898 PO; +LISI5TAB11 PO
== END ==
LOC: M RAD 15:08
PROVIDERS: ATTEND Anesthesiology
DX: M51.16 Intervertebral disc disorders with radiculopathy, lumbar region (principal)

== ENCOUNTER → 2022-02-02 | Outpatient (CLI) | payer OTHER | LOC: M PLAIMG 13:09 | PROVIDERS: ATTEND Physician Assistant | DX: M50.21 Other cervical disc displacement, high cervical region (principal); M50.121 Cervical disc disorder at C4-C5 level with radiculopathy; M50.122 Cervical disc disorder at C5-C6 level with radiculopathy; M50.123 Cervical disc disorder at C6-C7 level with radiculopathy; M47.812 Spondylosis without myelopathy or radiculopathy, cervical region ==

== ENCOUNTER → 2022-02-06 | Outpatient (CLI) | payer OTHER ==
[2022-02-06 14:18] LABS: HEMOGLOBIN A1c 6.5 %
[2022-02-06 14:23] LABS: CALCIUM LEVEL 9.2 MG/DL (8.8-10.2)
[2022-02-06 14:51] LABS: TOTAL 25(OH) VITAMIN D 41.5 NG/ML (30.0-100.0)
[2022-02-07 10:02] LABS: PTH INTACT 38.1 PG/ML (18.5-88.0)
== END ==
LOC: M PLALAB 11:04
PROVIDERS: ATTEND Physician Assistant Medical
DX: E55.9 Vitamin D deficiency, unspecified (principal); E11.29 Type 2 diabetes mellitus with other diabetic kidney complication

== ENCOUNTER → 2022-03-27 | Outpatient (CLI) | payer OTHER, MEDICARE | LOC: M PLAIMG 15:12 | PROVIDERS: ATTEND Physician Assistant | DX: M19.012 Primary osteoarthritis, left shoulder (principal); M75.42 Impingement syndrome of left shoulder ==

== ENCOUNTER → 2022-03-27 | Outpatient (CLI) | payer MEDICARE, OTHER | LOC: M PLAIMG 15:18 | PROVIDERS: ATTEND Anesthesiology | DX: M51.16 Intervertebral disc disorders with radiculopathy, lumbar region (principal); M47.26 Other spondylosis with radiculopathy, lumbar region; M19.012 Primary osteoarthritis, left shoulder; M75.42 Impingement syndrome of left shoulder ==

== ENCOUNTER → 2022-05-03 | Outpatient (CLI) | payer OTHER | LOC: M PAIN 11:15 | PROVIDERS: ATTEND Nurse Practitioner Family | DX: M51.16 Intervertebral disc disorders with radiculopathy, lumbar region (principal); G89.29 Other chronic pain; E11.9 Type 2 diabetes mellitus without complications; K21.9 Gastro-esophageal reflux disease without esophagitis; J44.9 Chronic obstructive pulmonary disease, unspecified; E55.9 Vitamin D deficiency, unspecified; G47.33 Obstructive sleep apnea (adult) (pediatric); M79.7 Fibromyalgia; Z86.14 Personal history of Methicillin resistant Staphylococcus aureus infection; Z86.59 Personal history of other mental and behavioral disorders; Z87.891 Personal history of nicotine dependence; Z88.0 Allergy status to penicillin; Z88.1 Allergy status to other antibiotic agents; Z88.2 Allergy status to sulfonamides; Z88.5 Allergy status to narcotic agent; Z88.8 Allergy status to other drugs, medicaments and biological substances; Z79.51 Long term (current) use of inhaled steroids; Z79.82 Long term (current) use of aspirin; Z79.84 Long term (current) use of oral hypoglycemic drugs; Z79.899 Other long term (current) drug therapy ==

== ENCOUNTER → 2022-05-09 | Outpatient (CLI) | payer OTHER | LOC: M PLAIMG 11:59 | PROVIDERS: ATTEND Internal Medicine Pulmonary Disease | DX: R91.8 Other nonspecific abnormal finding of lung field (principal); I70.0 Atherosclerosis of aorta; I25.10 Atherosclerotic heart disease of native coronary artery without angina pectoris; J43.2 Centrilobular emphysema; J98.4 Other disorders of lung; K44.9 Diaphragmatic hernia without obstruction or gangrene ==

== ENCOUNTER 2022-05-21 14:26 | Emergency (ER) | payer OTHER, MEDICAID, MEDICARE ==
[~2022-05-21] VITALS: Ht 165.1 cm; Wt 76.4 kg
[2022-05-21 14:27] VITALS: BP 128/72
[2022-05-21] MEDS ORDERED: CALC-364 (14:42)
== END 2022-05-21 16:26 | disposition left against medical advice (07) ==
LOC: M ED 14:26
DX: Z53.21 Procedure and treatment not carried out due to patient leaving prior to being seen by health care provider (principal)

== ENCOUNTER 2022-05-27 19:53 | Emergency (ER) | payer MEDICARE, OTHER ==
[~2022-05-27] VITALS: Ht 165.1 cm; Wt 72.7 kg
[2022-05-27 19:53] VITALS: BP 134/73
[~2022-05-27 19:53] MED LIST changes: +CALC-364
[2022-05-27] MEDS ORDERED: diphenhydrAMINE CREAM 30GM TOP STA (21:27)
[2022-05-27 21:51] LABS: BASO % 0.5 % (0.0-1.0); EOS # 0.6 10^3/uL (0.0-0.5); EOS % 7.1 % (0.0-3.0); HEMATOCRIT 40.3 % (36.0-47.0); HEMOGLOBIN 13.1 g/dl (12.0-15.5); LYMPH # 2.1 10^3/uL (1.5-5.0); LYMPH % 25.6 % (24.0-44.0); MEAN CORPUSCULAR HEMOGLOBIN 28.2 pg (27.0-33.0); MEAN CORPUSCULAR HGB CONC 32.5 g/dl (32.0-36.5); MEAN CORPUSCULAR VOLUME 86.7 fl (80.0-96.0); MONO # 0.6 10^3/uL (0.0-0.8); NEUTROPHILS # 4.9 10^3/uL (1.5-8.5); NEUTROPHILS % 59.4 % (36.0-66.0); PLATELET COUNT, AUTOMATED 295 10^3/uL (150-450); RED BLOOD COUNT 4.65 10^6/uL (4.00-5.40); WHITE BLOOD COUNT 8.2 10^3/uL (4.0-10.0)
[2022-05-27 22:11] LABS: ERYTHROCYTE SEDIMENTATION RATE 13 mm/hr (0-30)
[2022-05-27] MEDS ORDERED: CALA1LOT9 EX (22:51)
[2022-05-27] MEDS ORDERED: BENA2CRE3 TOP (22:51)
[2022-05-27] MEDS ORDERED: MEDR4PAK PO (22:51)
== END 2022-05-27 23:00 | disposition home or self-care (01) ==
LOC: M ED 19:53
DX: L25.9 Unspecified contact dermatitis, unspecified cause (principal); E11.9 Type 2 diabetes mellitus without complications; I10 Essential (primary) hypertension; J44.9 Chronic obstructive pulmonary disease, unspecified; K21.9 Gastro-esophageal reflux disease without esophagitis; G47.33 Obstructive sleep apnea (adult) (pediatric); G50.0 Trigeminal neuralgia; Z79.82 Long term (current) use of aspirin; Z79.84 Long term (current) use of oral hypoglycemic drugs; Z79.899 Other long term (current) drug therapy; Z88.0 Allergy status to penicillin; Z88.2 Allergy status to sulfonamides; Z88.5 Allergy status to narcotic agent; Z88.8 Allergy status to other drugs, medicaments and biological substances

== ENCOUNTER → 2022-07-03 | Outpatient (CLI) | payer MEDICARE, OTHER, MEDICAID ==
[~2022-07-03] MED LIST changes: -ASMA220A IN; +BENA2CRE3 TOP; +CALA1LOT9 EX; +MEDR4PAK PO; +MOME220A IN
[2022-07-03 13:25] LABS: BASO % 0.6 % (0.0-1.0); EOS # 0.2 10^3/uL (0.0-0.5); EOS % 3.9 % (0.0-3.0); HEMATOCRIT 41.1 % (36.0-47.0); HEMOGLOBIN 13.2 g/dl (12.0-15.5); LYMPH # 1.9 10^3/uL (1.5-5.0); MEAN CORPUSCULAR HEMOGLOBIN 27.7 pg (27.0-33.0); MEAN CORPUSCULAR HGB CONC 32.1 g/dl (32.0-36.5); MEAN CORPUSCULAR VOLUME 86.3 fl (80.0-96.0); MONO # 0.5 10^3/uL (0.0-0.8); MONO % 7.8 % (2.0-8.0); NEUTROPHILS # 3.5 10^3/uL (1.5-8.5); NEUTROPHILS % 56.2 % (36.0-66.0); PLATELET COUNT, AUTOMATED 293 10^3/uL (150-450); RED BLOOD COUNT 4.76 10^6/uL (4.00-5.40); WHITE BLOOD COUNT 6.2 10^3/uL (4.0-10.0)
[2022-07-03 14:07] LABS: ALBUMIN 3.6 GM/DL (3.2-5.2); ALT/SGPT 19 U/L (12-78); BILIRUBIN,TOTAL 0.3 MG/DL (0.2-1.0); BLOOD UREA NITROGEN 14 MG/DL (7-18); CALCIUM LEVEL 9.9 MG/DL (8.8-10.2); CARBON DIOXIDE LEVEL 23 MEQ/L (21-32); CHLORIDE LEVEL 106 MEQ/L (98-107); CREATININE FOR GFR 0.87 MG/DL (0.55-1.30); GLOMERULAR FILTRATION RATE > 60.0 (>45); GLUCOSE, FASTING 87 MG/DL (70-100); POTASSIUM SERUM 4.2 MEQ/L (3.5-5.1); SODIUM LEVEL 136 MEQ/L (136-145); TOTAL PROTEIN 6.9 GM/DL (6.4-8.2)
== END ==
LOC: M LAB 12:38
PROVIDERS: ATTEND Physician Assistant Medical
DX: E11.9 Type 2 diabetes mellitus without complications (principal); K21.9 Gastro-esophageal reflux disease without esophagitis

== ENCOUNTER → 2022-08-13 | Outpatient (CLI) | payer MEDICARE, MEDICAID, OTHER ==
[2022-08-13 16:57] LABS: C REACTIVE PROTEIN QUANTITATIV 0.48 MG/DL (0.00-0.30); RHEUMATOID FACTOR QUANT < 10.0 IU/ML (<15.0)
[2022-08-16 00:08] LABS: ANA (HEP2) Negative (.); CYCLIC CITRULLINATED PEPTIDE < 1 units (0-19)
== END ==
LOC: M LAB 14:42
PROVIDERS: ATTEND Physician Assistant Medical
DX: M54.42 Lumbago with sciatica, left side (principal)

== ENCOUNTER → 2022-08-31 | Outpatient (CLI) | payer MEDICARE, MEDICAID, OTHER ==
[2022-08-31 13:33] LABS: BASO % 0.5 % (0.0-1.0); EOS # 0.3 10^3/uL (0.0-0.5); EOS % 4.1 % (0.0-3.0); HEMATOCRIT 41.6 % (36.0-47.0); LYMPH # 1.4 10^3/uL (1.5-5.0); LYMPH % 22.7 % (24.0-44.0); MEAN CORPUSCULAR HEMOGLOBIN 27.3 pg (27.0-33.0); MEAN CORPUSCULAR HGB CONC 31.3 g/dl (32.0-36.5); MEAN CORPUSCULAR VOLUME 87.4 fl (80.0-96.0); MONO # 0.4 10^3/uL (0.0-0.8); MONO % 6.6 % (2.0-8.0); NEUTROPHILS % 65.8 % (36.0-66.0); PLATELET COUNT, AUTOMATED 272 10^3/uL (150-450); RED BLOOD COUNT 4.76 10^6/uL (4.00-5.40); WHITE BLOOD COUNT 6.1 10^3/uL (4.0-10.0)
[2022-08-31 13:51] LABS: HEMOGLOBIN A1c 6.3 %
[2022-08-31 14:08] LABS: CHOLESTEROL RISK RATIO 2.692 (<5); MAGNESIUM LEVEL 1.8 MG/DL (1.8-2.4)
== END ==
LOC: M LAB 12:53
PROVIDERS: ATTEND Physician Assistant Medical
DX: E11.9 Type 2 diabetes mellitus without complications (principal); E78.2 Mixed hyperlipidemia; G47.62 Sleep related leg cramps; K21.9 Gastro-esophageal reflux disease without esophagitis

== ENCOUNTER → 2022-09-07 | Outpatient (REF) | payer MEDICARE ==
[2022-09-07 17:58] LABS: BASO # 0.1 10^3/uL (0.0-0.2); BASO % 0.6 % (0.0-1.0); EOS # 0.4 10^3/uL (0.0-0.5); EOS % 4.5 % (0.0-3.0); HEMATOCRIT 40.3 % (36.0-47.0); HEMOGLOBIN 13.2 g/dl (12.0-15.5); LYMPH # 2.5 10^3/uL (1.5-5.0); LYMPH % 31.7 % (24.0-44.0); MEAN CORPUSCULAR HEMOGLOBIN 28.3 pg (27.0-33.0); MEAN CORPUSCULAR HGB CONC 32.8 g/dl (32.0-36.5); MEAN CORPUSCULAR VOLUME 86.5 fl (80.0-96.0); MONO # 0.6 10^3/uL (0.0-0.8); MONO % 8.1 % (2.0-8.0); NEUTROPHILS # 4.4 10^3/uL (1.5-8.5); NEUTROPHILS % 54.7 % (36.0-66.0); PLATELET COUNT, AUTOMATED 330 10^3/uL (150-450); RED BLOOD COUNT 4.66 10^6/uL (4.00-5.40)
[2022-09-07 18:13] LABS: INR 0.96; PROTHROMBIN TIME 13.2 SECONDS (12.7-14.5)
[2022-09-07 18:14] LABS: PARTIAL THROMBOPLASTIN TIME 30.3 SECONDS (25.9-37.0)
[2022-09-07 18:15] LABS: HEMOGLOBIN A1c 6.3 %
[2022-09-07 18:31] LABS: ALBUMIN 3.9 GM/DL (3.2-5.2); ALT/SGPT 26 U/L (12-78); BILIRUBIN,TOTAL 0.3 MG/DL (0.2-1.0); BLOOD UREA NITROGEN 12 MG/DL (7-18); CALCIUM LEVEL 9.7 MG/DL (8.8-10.2); CARBON DIOXIDE LEVEL 30 MEQ/L (21-32); CHLORIDE LEVEL 103 MEQ/L (98-107); CREATININE FOR GFR 0.76 MG/DL (0.55-1.30); GLOMERULAR FILTRATION RATE > 60.0 (>45); GLUCOSE, FASTING 87 MG/DL (70-100); POTASSIUM SERUM 5.1 MEQ/L (3.5-5.1); SODIUM LEVEL 137 MEQ/L (136-145); TOTAL PROTEIN 6.7 GM/DL (6.4-8.2)
== END ==
LOC: M PLALAB 16:59
PROVIDERS: ATTEND Family Medicine
DX: E11.29 Type 2 diabetes mellitus with other diabetic kidney complication (principal)

== ENCOUNTER → 2022-09-19 | Outpatient (CLI) | payer MEDICARE | LOC: M PAIN 11:00 | PROVIDERS: ATTEND Anesthesiology | DX: M51.16 Intervertebral disc disorders with radiculopathy, lumbar region (principal); G89.29 Other chronic pain; E11.9 Type 2 diabetes mellitus without complications; E55.9 Vitamin D deficiency, unspecified; G47.33 Obstructive sleep apnea (adult) (pediatric); M79.7 Fibromyalgia; J44.9 Chronic obstructive pulmonary disease, unspecified; I10 Essential (primary) hypertension; F17.210 Nicotine dependence, cigarettes, uncomplicated; Z86.14 Personal history of Methicillin resistant Staphylococcus aureus infection; Z86.59 Personal history of other mental and behavioral disorders; Z88.0 Allergy status to penicillin; Z88.1 Allergy status to other antibiotic agents; Z88.2 Allergy status to sulfonamides; Z88.5 Allergy status to narcotic agent; Z88.8 Allergy status to other drugs, medicaments and biological substances; Z79.51 Long term (current) use of inhaled steroids; Z79.82 Long term (current) use of aspirin; Z79.84 Long term (current) use of oral hypoglycemic drugs; Z79.899 Other long term (current) drug therapy ==

== ENCOUNTER → 2022-12-21 | Outpatient (CLI) | payer MEDICARE, OTHER ==
[~2022-12-21] MED LIST changes: -ASMA1AER3 INH; +MOME13HF5 INH
[2022-12-21 16:28] LABS: BASO % 0.3 % (0.0-1.0); EOS # 0.2 10^3/uL (0.0-0.5); EOS % 1.6 % (0.0-3.0); HEMATOCRIT 44.8 % (36.0-47.0); HEMOGLOBIN 14.2 g/dl (12.0-15.5); LYMPH # 2.3 10^3/uL (1.5-5.0); LYMPH % 24.7 % (24.0-44.0); MEAN CORPUSCULAR HEMOGLOBIN 27.6 pg (27.0-33.0); MEAN CORPUSCULAR HGB CONC 31.7 g/dl (32.0-36.5); MONO # 0.5 10^3/uL (0.0-0.8); MONO % 5.8 % (2.0-8.0); NEUTROPHILS # 6.2 10^3/uL (1.5-8.5); NEUTROPHILS % 67.1 % (36.0-66.0); PLATELET COUNT, AUTOMATED 336 10^3/uL (150-450); RED BLOOD COUNT 5.15 10^6/uL (4.00-5.40); WHITE BLOOD COUNT 9.2 10^3/uL (4.0-10.0)
[2022-12-21 16:47] LABS: HEMOGLOBIN A1c 5.7 % (4.0-6.0)
[2022-12-21 16:53] LABS: ALKALINE PHOSPHATASE 78 U/L (46-116); ALT/SGPT 19 U/L (7.0-40); AST/SGOT 19 U/L (<34); BILIRUBIN,TOTAL 0.3 MG/DL (0.3-1.2); BLOOD UREA NITROGEN 16 MG/DL (9-23); CALCIUM LEVEL 9.3 MG/DL (8.3-10.6); CARBON DIOXIDE LEVEL 24 MMOL/L (20-31); CHLORIDE LEVEL 100 MMOL/L (98-107); CHOLESTEROL LEVEL 185 MG/DL (<200); CHOLESTEROL RISK RATIO 3.15 (<5); CREATININE FOR GFR 0.77 MG/DL (0.55-1.30); FERRITIN 7.7 NG/ML (7.3-270.7); GLOMERULAR FILTRATION RATE > 60.0 (>45); GLUCOSE, FASTING 78 MG/DL (74-106); HDL CHOLESTEROL 58.6 MG/DL (>40); LDL CHOLESTEROL 83.2 MG/DL (<100); NON-HDL-C 126 MG/DL; POTASSIUM SERUM 4.1 MMOL/L (3.5-5.1); SODIUM LEVEL 136 MMOL/L (136-145); TOTAL PROTEIN 6.6 G/DL (5.7-8.2); TRIGLYCERIDES LEVEL 216 MG/DL (<150)
[2022-12-21 16:54] LABS: THYROID STIMULATING HORMONE 2.335 uIU/ML (0.55-4.78)
== END ==
LOC: M PLALAB 13:22
PROVIDERS: ATTEND Family Medicine
DX: E11.29 Type 2 diabetes mellitus with other diabetic kidney complication (principal)

== ENCOUNTER → 2022-12-24 | Outpatient (CLI) | payer MEDICARE, OTHER ==
[~2022-12-24] MED LIST changes: +ISOVUE-370 76% 100ML VIAL As Ordered ONE
== END ==
LOC: M RAD 18:04
PROVIDERS: ATTEND Physician Assistant Medical
DX: K12.2 Cellulitis and abscess of mouth (principal)

== ENCOUNTER → 2023-01-21 | Outpatient (CLI) | payer MEDICARE ==
[~2023-01-21] MED LIST changes: +ARNU1INH3 IN; +BUPR300T92 PO; -CALC-364; +CALC-364 PO; +EZET10TA21 PO; -ISOVUE-370 76% 100ML VIAL As Ordered ONE; +OXYC7.5T3 PO; +PREG25CA2 PO
== END ==
LOC: M LABSMTC 10:52
PROVIDERS: ATTEND Anesthesiology
DX: Z01.812 Encounter for preprocedural laboratory examination (principal); Z11.52 Encounter for screening for COVID-19

== ENCOUNTER 2023-01-23 12:36 | Day surgery (SDC) | payer MEDICARE ==
[~2023-01-23] VITALS: Ht 165.1 cm; Wt 68.4 kg
[2023-01-23] MEDS ORDERED: CLINDAMYCIN 600 MG in IV 1 EA IV ONE (13:35)
[2023-01-23] MEDS ORDERED: propofoL 500 MG/50 ML VIAL As Ordered ONE (14:18)
[2023-01-23] MEDS ORDERED: fentaNYL 100 MCG/2 ML INJECTION As Ordered ONE (14:18)
[2023-01-23] MEDS ORDERED: MIDAZOLAM INJ 2MG/2ML VIAL As Ordered ONE (14:18)
[2023-01-23] MEDS ORDERED: LR 1,000 ML IV SCH ×2 (14:20)
[2023-01-23] MEDS ORDERED: fentaNYL 100 MCG/2 ML INJECTION IV PRN (14:20)
[2023-01-23] MEDS ORDERED: propofoL 200 MG/20 ML VIAL As Ordered ONE (14:20)
[2023-01-23] MEDS ORDERED: LIDOCAINE 1% MDV 20ML VIAL As Ordered ONE (14:56)
[2023-01-23] MEDS ORDERED: BUPIVACAINE HCL 0.5% 30ML VIAL As Ordered ONE (14:56)
[2023-01-23] MEDS ORDERED: ONDANSETRON 4MG 2ML VIAL As Ordered ONE (15:37)
[2023-01-23] MEDS ORDERED: ACETAMINOPHEN 1000MG 100ML IV BAG As Ordered ONE (15:42)
[2023-01-23 18:10] VITALS: BP 128/74
[2023-01-29] MEDS ORDERED: ESTR0.1C5 VG (09:19)
[2023-01-29] MEDS ORDERED: LANS30CA93 PO (09:19)
[2023-01-29] MEDS ORDERED: NICO2GUM41 PO (09:19)
[2023-01-29] MEDS ORDERED: NICO1DIS10 TOP (09:19)
[2023-01-29] MEDS ORDERED: LISI2.5T9 PO (09:19)
[2023-01-29] MEDS ORDERED: ARNU1INH INH (09:19)
[2023-01-29] MEDS ORDERED: ALBU8.5H INH (09:19)
[2023-01-29] MEDS ORDERED: ROSU10TA6 PO (09:19)
[2023-01-29] MEDS ORDERED: ASPI81TA26 PO (09:19)
[2023-01-29] MEDS ORDERED: ASPI-226 PO (09:19)
[2023-01-29] MEDS ORDERED: FLUO10CA18 PO (09:19)
== END 2023-01-23 18:15 | disposition home or self-care (01) ==
LOC: M SDC 12:36
PROVIDERS: ATTEND Podiatrist Foot & Ankle Surgery
DX: T84.84XA Pain due to internal orthopedic prosthetic devices, implants and grafts, initial encounter (principal); M20.11 Hallux valgus (acquired), right foot; M89.8X8 Other specified disorders of bone, other site; Z88.0 Allergy status to penicillin; Z88.2 Allergy status to sulfonamides; Z88.5 Allergy status to narcotic agent
CPT/HCPCS: 20680; 28292; C1713; J1100; J2250; J2405; J3010

== ENCOUNTER → 2023-02-22 | Outpatient (CLI) | payer MEDICARE, OTHER ==
[~2023-02-22] MED LIST changes: +ALBU8.5H INH; +ASPI-226 PO; +ESTR0.1C5 VG; +FLUO10CA18 PO; +LANS30CA93 PO; +LISI2.5T9 PO; +NICO1DIS10 TOP; +NICO2GUM41 PO; +ROSU10TA6 PO
== END ==
LOC: M PAIN 10:30
PROVIDERS: ATTEND Nurse Practitioner Family
DX: M51.16 Intervertebral disc disorders with radiculopathy, lumbar region (principal); E11.9 Type 2 diabetes mellitus without complications; E78.5 Hyperlipidemia, unspecified; J44.9 Chronic obstructive pulmonary disease, unspecified; J30.9 Allergic rhinitis, unspecified; E55.9 Vitamin D deficiency, unspecified; F17.210 Nicotine dependence, cigarettes, uncomplicated; F33.9 Major depressive disorder, recurrent, unspecified; F41.1 Generalized anxiety disorder; G47.33 Obstructive sleep apnea (adult) (pediatric); M79.7 Fibromyalgia; M47.816 Spondylosis without myelopathy or radiculopathy, lumbar region; Z79.891 Long term (current) use of opiate analgesic; Z79.82 Long term (current) use of aspirin; Z79.84 Long term (current) use of oral hypoglycemic drugs; Z79.899 Other long term (current) drug therapy; Z88.0 Allergy status to penicillin; Z88.2 Allergy status to sulfonamides; Z88.5 Allergy status to narcotic agent; Z88.8 Allergy status to other drugs, medicaments and biological substances

== ENCOUNTER → 2023-03-19 | Outpatient (CLI) | payer MEDICARE ==
[2023-03-19 15:15] LABS: BASO % 0.4 % (0.0-1.0); EOS # 0.2 10^3/uL (0.0-0.5); EOS % 3.3 % (0.0-3.0); HEMATOCRIT 43.8 % (36.0-47.0); MEAN CORPUSCULAR HEMOGLOBIN 28.7 pg (27.0-33.0); MEAN CORPUSCULAR VOLUME 89.9 fl (80.0-96.0); MONO # 0.5 10^3/uL (0.0-0.8); MONO % 6.6 % (2.0-8.0); NEUTROPHILS # 4.3 10^3/uL (1.5-8.5); NEUTROPHILS % 61.4 % (36.0-66.0); PLATELET COUNT, AUTOMATED 266 10^3/uL (150-450); RED BLOOD COUNT 4.87 10^6/uL (4.00-5.40)
[2023-03-19 15:40] LABS: C REACTIVE PROTEIN QUANTITATIV < 0.40 MG/DL (<1.0)
[2023-03-19 15:41] LABS: RHEUMATOID FACTOR QUANT < 3.5 IU/ML (<14)
[2023-03-19 15:55] LABS: ERYTHROCYTE SEDIMENTATION RATE 17 mm/hr (0-30)
== END ==
LOC: M LAB 14:19
PROVIDERS: ATTEND Physician Assistant
DX: M47.812 Spondylosis without myelopathy or radiculopathy, cervical region (principal); E61.1 Iron deficiency; E55.9 Vitamin D deficiency, unspecified

== ENCOUNTER → 2023-03-19 | Outpatient (CLI) | payer MEDICARE, OTHER ==
[2023-03-19 15:41] LABS: CALCIUM LEVEL 9.3 MG/DL (8.3-10.6); PTH INTACT 48.2 PG/ML (18.5-88.0)
[2023-03-19 15:44] LABS: TOTAL 25(OH) VITAMIN D 42.8 NG/ML (20.0-100.0)
[2023-03-19 15:45] LABS: FERRITIN 7.1 NG/ML (7.3-270.7)
== END ==
LOC: M LAB 14:12
PROVIDERS: ATTEND Physician Assistant Medical
DX: E61.1 Iron deficiency (principal); E55.9 Vitamin D deficiency, unspecified

== ENCOUNTER → 2023-03-25 | Outpatient (REF) | payer MEDICARE, OTHER | LOC: M SFHCPLAZ 11:50 | PROVIDERS: ATTEND Family Medicine | DX: Z53.9 Procedure and treatment not carried out, unspecified reason (principal) ==

== ENCOUNTER → 2023-03-25 | Outpatient (CLI) | payer MEDICARE, MEDICAID ==
[~2023-03-25] MED LIST changes: +BENA2CRE2 TOP; +IRON65TA2 PO
[2023-03-25 15:55] LABS: BASO % 0.4 % (0.0-1.0); EOS # 0.2 10^3/uL (0.0-0.5); EOS % 2.5 % (0.0-3.0); HEMATOCRIT 41.1 % (36.0-47.0); HEMOGLOBIN 13.3 g/dl (12.0-15.5); LYMPH # 2.1 10^3/uL (1.5-5.0); LYMPH % 27.9 % (24.0-44.0); MEAN CORPUSCULAR HEMOGLOBIN 29.2 pg (27.0-33.0); MEAN CORPUSCULAR HGB CONC 32.4 g/dl (32.0-36.5); MEAN CORPUSCULAR VOLUME 90.3 fl (80.0-96.0); MONO # 0.5 10^3/uL (0.0-0.8); MONO % 6.4 % (2.0-8.0); NEUTROPHILS # 4.7 10^3/uL (1.5-8.5); NEUTROPHILS % 62.5 % (36.0-66.0); PLATELET COUNT, AUTOMATED 256 10^3/uL (150-450); RED BLOOD COUNT 4.55 10^6/uL (4.00-5.40); WHITE BLOOD COUNT 7.6 10^3/uL (4.0-10.0)
[2023-03-25 16:18] LABS: ALKALINE PHOSPHATASE 65 U/L (46-116); ALT/SGPT 20 U/L (7.0-40); AST/SGOT < 8 U/L (<34); BILIRUBIN,TOTAL 0.3 MG/DL (0.3-1.2); BLOOD UREA NITROGEN 11 MG/DL (9-23); CALCIUM LEVEL 8.8 MG/DL (8.3-10.6); CARBON DIOXIDE LEVEL 28 MMOL/L (20-31); CHLORIDE LEVEL 104 MMOL/L (98-107); CREATININE FOR GFR 0.69 MG/DL (0.55-1.30); GLOMERULAR FILTRATION RATE > 60.0 (>45); GLUCOSE, FASTING 97 MG/DL (74-106); POTASSIUM SERUM 4.3 MMOL/L (3.5-5.1); SODIUM LEVEL 138 MMOL/L (136-145); TOTAL PROTEIN 6.3 G/DL (5.7-8.2)
[2023-03-25 16:19] LABS: FREE T4 1.02 NG/DL (0.89-1.76)
[2023-03-25 16:20] LABS: THYROID STIMULATING HORMONE 2.307 uIU/ML (0.55-4.78)
== END ==
LOC: M PLALAB 12:32
PROVIDERS: ATTEND Family Medicine
DX: J43.9 Emphysema, unspecified (principal); E11.29 Type 2 diabetes mellitus with other diabetic kidney complication

== ENCOUNTER → 2023-03-29 | Outpatient (REF) | payer MEDICARE | LOC: M SFHCPLAZ 11:31 | PROVIDERS: ATTEND Physician Assistant Medical | DX: E11.29 Type 2 diabetes mellitus with other diabetic kidney complication (principal); Z53.8 Procedure and treatment not carried out for other reasons ==

== ENCOUNTER 2023-04-02 06:13 | Day surgery (SDC) | payer MEDICARE, OTHER ==
[~2023-04-02] VITALS: Ht 165.1 cm; Wt 68.9 kg
[2023-04-02] MEDS ORDERED: LR 1,000 ML IV SCH ×2 (07:00→09:15)
[2023-04-02] MEDS ORDERED: LIDOCAINE 1% SDV 5ML VIAL SC PRN (07:00)
[2023-04-02] MEDS ORDERED: propofoL 200 MG/20 ML VIAL As Ordered ONE (07:04)
[2023-04-02] MEDS ORDERED: ONDANSETRON 4MG 2ML VIAL As Ordered ONE (07:04)
[2023-04-02] MEDS ORDERED: ACETAMINOPHEN 1000MG 100ML IV BAG As Ordered ONE (07:04)
[2023-04-02] MEDS ORDERED: KETOROLAC 60MG 2ML VIAL As Ordered ONE (07:04)
[2023-04-02] MEDS ORDERED: LIDOCAINE 2% 100MG/5ML SDV (FOR ANES.) As Ordered ONE (07:04)
[2023-04-02] MEDS ORDERED: ceFAZolin SOD 2 GM in IV 1 EA IV ONE (07:05)
[2023-04-02] MEDS ORDERED: MIDAZOLAM INJ 2MG/2ML VIAL As Ordered ONE (07:09)
[2023-04-02] MEDS ORDERED: fentaNYL 100 MCG/2 ML INJECTION As Ordered ONE (07:09)
[2023-04-02] MEDS ORDERED: POVIDONE-IODINE 5% OPHTH PREP SOL 30ML As Ordered ONE (07:18)
[2023-04-02] MEDS ORDERED: LIDOCAINE W/EPINEPHRINE 1% 20ML VIAL As Ordered ONE (07:18)
[2023-04-02] MEDS ORDERED: LIDOCAINE 1% MDV 20ML VIAL As Ordered ONE (07:18)
[2023-04-02] MEDS ORDERED: CIPROFLOXACIN 400 MG in IV 1 EA IV ONE (07:25)
[2023-04-02] MEDS ORDERED: CIPROFLOXACIN/D5W 400 MG/200 ML BAG As Ordered ONE (07:39)
[2023-04-02] MEDS ORDERED: LIDOCAINE 2% W/EPINEPHRINE 20ML VIAL **PRES FREE As Ordered ONE (07:44)
[2023-04-02] MEDS ORDERED: POLYSPORIN OPHTH OINT 3.5 GM As Ordered ONE (07:50)
[2023-04-02] MEDS ORDERED: ONDANSETRON 4MG 2ML VIAL IV PRN (09:15)
[2023-04-02] MEDS ORDERED: fentaNYL 100 MCG/2 ML INJECTION IV PRN (09:15)
[2023-04-02] MEDS ORDERED: TETRACAINE 0.5% OPHTH SOLN 4ML As Ordered ONE (09:30)
[2023-04-02] MEDS: oxyCODONE 5MG TAB PO PRN ×2 (10:06→10:38)
[2023-04-02 12:50] VITALS: BP 114/67
== END 2023-04-02 13:07 | disposition home or self-care (01) ==
LOC: M SDC 06:13
PROVIDERS: ATTEND Plastic Surgery Surgery of the Hand
DX: C44.1121 Basal cell carcinoma of skin of right upper eyelid, including canthus (principal); E78.2 Mixed hyperlipidemia; J30.9 Allergic rhinitis, unspecified; E55.9 Vitamin D deficiency, unspecified; F17.210 Nicotine dependence, cigarettes, uncomplicated; G47.33 Obstructive sleep apnea (adult) (pediatric); M79.7 Fibromyalgia; G50.0 Trigeminal neuralgia; K21.9 Gastro-esophageal reflux disease without esophagitis; E11.29 Type 2 diabetes mellitus with other diabetic kidney complication; Z88.0 Allergy status to penicillin; Z88.2 Allergy status to sulfonamides; Z88.5 Allergy status to narcotic agent; Z88.8 Allergy status to other drugs, medicaments and biological substances; J44.9 Chronic obstructive pulmonary disease, unspecified; G89.4 Chronic pain syndrome; Z79.82 Long term (current) use of aspirin; D50.9 Iron deficiency anemia, unspecified; Z79.899 Other long term (current) drug therapy
CPT/HCPCS: 11641; 88305; 88331; J0131; J0744; J1100; J1885; J2250; J2405; J3010

== ENCOUNTER → 2023-04-08 | Outpatient (CLI) | payer MEDICARE | LOC: M PAIN 11:15 | PROVIDERS: ATTEND Nurse Practitioner Family | DX: M51.16 Intervertebral disc disorders with radiculopathy, lumbar region (principal); E11.9 Type 2 diabetes mellitus without complications; E78.5 Hyperlipidemia, unspecified; J44.9 Chronic obstructive pulmonary disease, unspecified; E55.9 Vitamin D deficiency, unspecified; J30.9 Allergic rhinitis, unspecified; F17.210 Nicotine dependence, cigarettes, uncomplicated; F33.9 Major depressive disorder, recurrent, unspecified; F41.1 Generalized anxiety disorder; G47.33 Obstructive sleep apnea (adult) (pediatric); M79.7 Fibromyalgia; M47.816 Spondylosis without myelopathy or radiculopathy, lumbar region; G50.0 Trigeminal neuralgia; Z79.82 Long term (current) use of aspirin; Z79.84 Long term (current) use of oral hypoglycemic drugs; Z79.891 Long term (current) use of opiate analgesic; Z79.899 Other long term (current) drug therapy; Z88.0 Allergy status to penicillin; Z88.1 Allergy status to other antibiotic agents; Z88.2 Allergy status to sulfonamides; Z88.5 Allergy status to narcotic agent; Z88.8 Allergy status to other drugs, medicaments and biological substances ==

== ENCOUNTER → 2023-04-13 | Outpatient (CLI) | payer MEDICARE | LOC: M RAD 12:52 | PROVIDERS: ATTEND Physician Assistant | DX: M50.30 Other cervical disc degeneration, unspecified cervical region (principal); M50.20 Other cervical disc displacement, unspecified cervical region; M54.13 Radiculopathy, cervicothoracic region ==

== ENCOUNTER → 2023-06-08 | Outpatient (CLI) | payer MEDICARE, MEDICAID ==
[2023-06-08 12:57] LABS: BASO % 0.6 % (0.0-1.0); EOS # 0.4 10^3/uL (0.0-0.5); EOS % 6.9 % (0.0-3.0); HEMATOCRIT 39.1 % (36.0-47.0); HEMOGLOBIN 12.8 g/dl (12.0-15.5); LYMPH % 31.3 % (24.0-44.0); MEAN CORPUSCULAR HEMOGLOBIN 29.5 pg (27.0-33.0); MEAN CORPUSCULAR HGB CONC 32.7 g/dl (32.0-36.5); MEAN CORPUSCULAR VOLUME 90.1 fl (80.0-96.0); MONO # 0.5 10^3/uL (0.0-0.8); MONO % 8.1 % (2.0-8.0); NEUTROPHILS # 3.4 10^3/uL (1.5-8.5); NEUTROPHILS % 52.6 % (36.0-66.0); PLATELET COUNT, AUTOMATED 234 10^3/uL (150-450); RED BLOOD COUNT 4.34 10^6/uL (4.00-5.40); WHITE BLOOD COUNT 6.4 10^3/uL (4.0-10.0)
[2023-06-08 13:28] LABS: ALBUMIN 3.7 G/DL (3.2-5.2); ALKALINE PHOSPHATASE 61 U/L (46-116); ALT/SGPT 13 U/L (7.0-40); AST/SGOT 24 U/L (<34); BILIRUBIN,TOTAL 0.4 MG/DL (0.3-1.2); BLOOD UREA NITROGEN 12 MG/DL (9-23); CALCIUM LEVEL 9.8 MG/DL (8.3-10.6); CARBON DIOXIDE LEVEL 29 MMOL/L (20-31); CHLORIDE LEVEL 104 MMOL/L (98-107); CHOLESTEROL LEVEL 120 MG/DL (<200); CHOLESTEROL RISK RATIO 2.33 (<5); GLOMERULAR FILTRATION RATE > 60.0 (>45); GLUCOSE, FASTING 91 MG/DL (74-106); HDL CHOLESTEROL 51.5 MG/DL (>40); IRON (FE) 58 UG/DL (50-170); LDL CHOLESTEROL 51.9 MG/DL (<100); MAGNESIUM LEVEL 1.7 MG/DL (1.8-2.4); NON-HDL-C 68.5 MG/DL; POTASSIUM SERUM 4.5 MMOL/L (3.5-5.1); SODIUM LEVEL 138 MMOL/L (136-145); TOTAL PROTEIN 6.1 G/DL (5.7-8.2); TRIGLYCERIDES LEVEL 83 MG/DL (<150)
[2023-06-08 13:30] LABS: FERRITIN 14.1 NG/ML (7.3-270.7)
[2023-06-10 16:16] LABS: HEMOGLOBIN A1c 5.9 % (4.0-6.0)
== END ==
LOC: M LAB 12:33
PROVIDERS: ATTEND Physician Assistant Medical
DX: G47.62 Sleep related leg cramps (principal); E61.1 Iron deficiency; E78.2 Mixed hyperlipidemia; Z79.899 Other long term (current) drug therapy

== ENCOUNTER → 2023-06-10 | Outpatient (REF) | payer MEDICARE, MEDICAID ==
[2023-06-11 14:17] LABS: CREATININE, URINE 44.1 MG/DL
[2023-06-11 14:18] LABS: MALB URINE SIEMENS < 3.0 MG/L; MAU/CREAT RATIO 6.8 MCG/MG (0.0-30.0)
== END ==
LOC: M SFHCPLAZ 13:01
PROVIDERS: ATTEND Physician Assistant Medical
DX: E11.29 Type 2 diabetes mellitus with other diabetic kidney complication (principal)

== ENCOUNTER → 2023-06-12 | Outpatient (CLI) | payer MEDICARE | LOC: M RAD 10:48 | PROVIDERS: ATTEND Internal Medicine Pulmonary Disease | DX: Z12.2 Encounter for screening for malignant neoplasm of respiratory organs (principal); Z87.891 Personal history of nicotine dependence ==

== ENCOUNTER → 2023-07-05 | Outpatient (CLI) | payer MEDICARE | LOC: M PAIN 11:15 | PROVIDERS: ATTEND Nurse Practitioner Family | DX: M46.1 Sacroiliitis, not elsewhere classified (principal); G89.29 Other chronic pain; E11.9 Type 2 diabetes mellitus without complications; G47.33 Obstructive sleep apnea (adult) (pediatric); J44.9 Chronic obstructive pulmonary disease, unspecified; E55.9 Vitamin D deficiency, unspecified; Z86.14 Personal history of Methicillin resistant Staphylococcus aureus infection; Z86.59 Personal history of other mental and behavioral disorders; Z87.891 Personal history of nicotine dependence; Z88.0 Allergy status to penicillin; Z88.1 Allergy status to other antibiotic agents; Z88.2 Allergy status to sulfonamides; Z88.5 Allergy status to narcotic agent; Z88.8 Allergy status to other drugs, medicaments and biological substances; Z79.82 Long term (current) use of aspirin; Z79.84 Long term (current) use of oral hypoglycemic drugs; Z79.899 Other long term (current) drug therapy ==

== ENCOUNTER → 2023-07-23 | Outpatient (CLI) | payer MEDICARE ==
[2023-07-23 16:17] LABS: BASO % 0.5 % (0.0-1.0); EOS # 0.3 10^3/uL (0.0-0.5); EOS % 3.2 % (0.0-3.0); HEMATOCRIT 42.4 % (36.0-47.0); LYMPH # 2.7 10^3/uL (1.5-5.0); MEAN CORPUSCULAR HEMOGLOBIN 30.4 pg (27.0-33.0); MEAN CORPUSCULAR VOLUME 92.2 fl (80.0-96.0); MONO # 0.7 10^3/uL (0.0-0.8); NEUTROPHILS # 4.7 10^3/uL (1.5-8.5); NEUTROPHILS % 55.5 % (36.0-66.0); PLATELET COUNT, AUTOMATED 269 10^3/uL (150-450); WHITE BLOOD COUNT 8.5 10^3/uL (4.0-10.0)
[2023-07-23 16:50] LABS: C REACTIVE PROTEIN QUANTITATIV < 0.40 MG/DL (<1.0)
[2023-07-23 16:52] LABS: RHEUMATOID FACTOR QUANT < 3.5 IU/ML (<14)
[2023-07-25 23:07] LABS: ANA (HEP2) Negative (.); CYCLIC CITRULLINATED PEPTIDE < 1 units (0-19)
== END ==
LOC: M PLAIMG 11:54
PROVIDERS: ATTEND Physician Assistant Medical
DX: M54.2 Cervicalgia (principal); M47.812 Spondylosis without myelopathy or radiculopathy, cervical region; M54.6 Pain in thoracic spine; M47.894 Other spondylosis, thoracic region

== ENCOUNTER → 2023-08-08 | Outpatient (CLI) | payer MEDICARE ==
[~2023-08-08] MED LIST changes: -PREG25CA2 PO; +PREG25CA3 PO
== END ==
LOC: M RAD 13:12
PROVIDERS: ATTEND Physician Assistant Medical
DX: M25.551 Pain in right hip (principal); M16.0 Bilateral primary osteoarthritis of hip

== ENCOUNTER → 2023-08-19 | Outpatient (CLI) | payer MEDICARE, MEDICAID | LOC: M PLAIMG 13:01 | PROVIDERS: ATTEND Nurse Practitioner Family | DX: M51.36 Other intervertebral disc degeneration, lumbar region (principal); M46.1 Sacroiliitis, not elsewhere classified ==

== ENCOUNTER → 2023-09-05 | Outpatient (CLI) | payer MEDICARE, MEDICAID | LOC: M PLAIMG 12:44 | PROVIDERS: ATTEND Physician Assistant Medical | DX: M47.812 Spondylosis without myelopathy or radiculopathy, cervical region (principal); M50.30 Other cervical disc degeneration, unspecified cervical region; M51.34 Other intervertebral disc degeneration, thoracic region ==

== ENCOUNTER → 2023-11-29 | Outpatient (CLI) | payer MEDICARE, MEDICAID | LOC: M RAD 15:10 | PROVIDERS: ATTEND Otolaryngology | DX: M54.2 Cervicalgia (principal) ==

== ENCOUNTER → 2024-02-20 | Outpatient (CLI) | payer MEDICARE | LOC: M PAIN 15:30 | PROVIDERS: ATTEND Nurse Practitioner Family | DX: M46.1 Sacroiliitis, not elsewhere classified (principal); Z79.891 Long term (current) use of opiate analgesic; E11.9 Type 2 diabetes mellitus without complications; G47.30 Sleep apnea, unspecified; Z99.89 Dependence on other enabling machines and devices; Z87.891 Personal history of nicotine dependence; Z79.1 Long term (current) use of non-steroidal anti-inflammatories (NSAID); Z79.02 Long term (current) use of antithrombotics/antiplatelets; Z79.52 Long term (current) use of systemic steroids; Z79.899 Other long term (current) drug therapy; Z88.0 Allergy status to penicillin; Z88.1 Allergy status to other antibiotic agents; Z88.2 Allergy status to sulfonamides; Z88.5 Allergy status to narcotic agent ==

== ENCOUNTER 2024-02-25 13:42 | Outpatient (RCR) | payer MEDICARE, MEDICAID | END 2024-03-01 | LOC: M PT 13:42 | PROVIDERS: ATTEND Nurse Practitioner Family | DX: N39.46 Mixed incontinence (principal); N81.11 Cystocele, midline ==

== ENCOUNTER → 2024-03-26 | Outpatient (CLI) | payer MEDICARE ==
[~2024-03-26] MED LIST changes: +BUPR-597 PO; -BUPR300T92 PO; +FLUO-290 PO; -FLUO10CA18 PO; -ROSU10TA6 PO; +ROSU10TA61 PO
== END ==
LOC: M PAIN 11:15
PROVIDERS: ATTEND Nurse Practitioner Family
DX: M46.1 Sacroiliitis, not elsewhere classified (principal); Z79.891 Long term (current) use of opiate analgesic; G89.29 Other chronic pain; E78.5 Hyperlipidemia, unspecified; J44.9 Chronic obstructive pulmonary disease, unspecified; E55.9 Vitamin D deficiency, unspecified; F33.9 Major depressive disorder, recurrent, unspecified; F41.1 Generalized anxiety disorder; G47.33 Obstructive sleep apnea (adult) (pediatric); M79.7 Fibromyalgia; M47.816 Spondylosis without myelopathy or radiculopathy, lumbar region; G50.0 Trigeminal neuralgia; Z87.891 Personal history of nicotine dependence; Z79.84 Long term (current) use of oral hypoglycemic drugs; Z79.82 Long term (current) use of aspirin; Z79.899 Other long term (current) drug therapy; Z79.1 Long term (current) use of non-steroidal anti-inflammatories (NSAID); Z88.0 Allergy status to penicillin; Z88.1 Allergy status to other antibiotic agents; Z88.2 Allergy status to sulfonamides; Z88.5 Allergy status to narcotic agent; Z88.8 Allergy status to other drugs, medicaments and biological substances

== ENCOUNTER → 2024-03-28 | Outpatient (CLI) | payer MEDICARE, MEDICAID ==
[~2024-03-28] MED LIST changes: -BUPR-597 PO; +BUPR300T92 PO; -FLUO-290 PO; +FLUO10CA18 PO; +ROSU10TA6 PO; -ROSU10TA61 PO
[2024-03-28 12:35] LABS: CREATININE, URINE 35.8 MG/DL; MALB URINE SIEMENS < 3.0 MG/L; MAU/CREAT RATIO 8.3 MCG/MG (0.0-30.0)
[2024-03-28 12:36] LABS: HEMOGLOBIN A1c 5.9 % (4.0-6.0)
[2024-03-28 12:37] LABS: ALBUMIN 3.6 G/DL (3.2-5.2); ALKALINE PHOSPHATASE 62 U/L (46-116); ALT/SGPT 22 U/L (7.0-40); AST/SGOT 11 U/L (<34); BILIRUBIN,TOTAL 0.2 MG/DL (0.3-1.2); BLOOD UREA NITROGEN 18 MG/DL (9-23); CALCIUM LEVEL 9.4 MG/DL (8.3-10.6); CARBON DIOXIDE LEVEL 27 MMOL/L (20-31); CHLORIDE LEVEL 103 MMOL/L (98-107); GLOMERULAR FILTRATION RATE > 60.0 (>45); GLUCOSE, FASTING 112 MG/DL (74-106); IRON (FE) 52 UG/DL (50-170); POTASSIUM SERUM 4.5 MMOL/L (3.5-5.1); PTH INTACT 25.8 PG/ML (18.5-88.0); SODIUM LEVEL 138 MMOL/L (136-145); TOTAL PROTEIN 5.9 G/DL (5.7-8.2)
[2024-03-28 12:39] LABS: FERRITIN 6.8 NG/ML (7.3-270.7)
== END ==
LOC: M LAB 11:39
PROVIDERS: ATTEND Physician Assistant Medical
DX: E78.2 Mixed hyperlipidemia (principal); E55.9 Vitamin D deficiency, unspecified; E11.29 Type 2 diabetes mellitus with other diabetic kidney complication; E61.1 Iron deficiency

== ENCOUNTER → 2024-04-04 | Outpatient (REF) | payer MEDICARE, MEDICAID ==
[~2024-04-04] MED LIST changes: +BUPR-597 PO; -BUPR300T92 PO; +FLUO-290 PO; -FLUO10CA18 PO; -ROSU10TA6 PO; +ROSU10TA61 PO
== END ==
LOC: M SFHCPLAZ 12:56
PROVIDERS: ATTEND Physician Assistant Medical
DX: D50.9 Iron deficiency anemia, unspecified (principal)

== ENCOUNTER → 2024-04-14 | Outpatient (CLI) | payer MEDICARE, MEDICAID ==
[2024-04-14 12:51] LABS: BASO % 0.3 % (0.0-1.0); EOS # 0.3 10^3/uL (0.0-0.5); EOS % 4.3 % (0.0-3.0); HEMATOCRIT 37.5 % (36.0-47.0); HEMOGLOBIN 12.5 g/dl (12.0-15.5); LYMPH # 1.1 10^3/uL (1.5-5.0); LYMPH % 18.1 % (24.0-44.0); MEAN CORPUSCULAR HEMOGLOBIN 30.3 pg (27.0-33.0); MEAN CORPUSCULAR HGB CONC 33.3 g/dl (32.0-36.5); MONO # 0.8 10^3/uL (0.0-0.8); MONO % 13.1 % (2.0-8.0); NEUTROPHILS # 3.7 10^3/uL (1.5-8.5); PLATELET COUNT, AUTOMATED 180 10^3/uL (150-450); RED BLOOD COUNT 4.12 10^6/uL (4.00-5.40); WHITE BLOOD COUNT 5.8 10^3/uL (4.0-10.0)
== END ==
LOC: M RAD 11:18
PROVIDERS: ATTEND Physician Assistant Medical
DX: M25.511 Pain in right shoulder (principal); D50.9 Iron deficiency anemia, unspecified

== ENCOUNTER → 2024-05-06 | Outpatient (CLI) | payer MEDICARE, MEDICAID | LOC: M RAD 11:26 | PROVIDERS: ATTEND Physician Assistant Medical | DX: M19.011 Primary osteoarthritis, right shoulder (principal); M75.111 Incomplete rotator cuff tear or rupture of right shoulder, not specified as traumatic ==

== ENCOUNTER → 2024-05-11 | Outpatient (CLI) | payer MEDICARE | LOC: M PAIN 14:00 | PROVIDERS: ATTEND Nurse Practitioner Family | DX: M79.10 Myalgia, unspecified site (principal); M54.2 Cervicalgia; E11.9 Type 2 diabetes mellitus without complications; E78.2 Mixed hyperlipidemia; J44.9 Chronic obstructive pulmonary disease, unspecified; E55.9 Vitamin D deficiency, unspecified; F33.9 Major depressive disorder, recurrent, unspecified; F41.1 Generalized anxiety disorder; M47.816 Spondylosis without myelopathy or radiculopathy, lumbar region; Z87.891 Personal history of nicotine dependence; Z79.84 Long term (current) use of oral hypoglycemic drugs; Z79.1 Long term (current) use of non-steroidal anti-inflammatories (NSAID); Z79.891 Long term (current) use of opiate analgesic; Z79.899 Other long term (current) drug therapy; Z88.0 Allergy status to penicillin; Z88.2 Allergy status to sulfonamides; Z88.5 Allergy status to narcotic agent; Z88.1 Allergy status to other antibiotic agents; Z88.8 Allergy status to other drugs, medicaments and biological substances ==

== ENCOUNTER → 2024-07-07 | Outpatient (CLI) | payer MEDICARE, MEDICAID | LOC: M RAD 11:00 | PROVIDERS: ATTEND Internal Medicine Pulmonary Disease | DX: Z12.2 Encounter for screening for malignant neoplasm of respiratory organs (principal); Z87.891 Personal history of nicotine dependence; J43.9 Emphysema, unspecified; J44.9 Chronic obstructive pulmonary disease, unspecified; I70.0 Atherosclerosis of aorta; I25.10 Atherosclerotic heart disease of native coronary artery without angina pectoris ==

== ENCOUNTER → 2024-09-28 | Outpatient (CLI) | payer MEDICARE ==
[~2024-09-28] MED LIST changes: +GABA-1172 PO; -GABA-282 PO; +NYST1POW3 TOP; -NYST1POW9 TOP
== END ==
LOC: M PAIN 17:30
PROVIDERS: ATTEND Nurse Practitioner Family
DX: M79.18 Myalgia, other site (principal); Z79.891 Long term (current) use of opiate analgesic; M46.1 Sacroiliitis, not elsewhere classified; G89.29 Other chronic pain; E11.9 Type 2 diabetes mellitus without complications; E78.2 Mixed hyperlipidemia; J44.9 Chronic obstructive pulmonary disease, unspecified; E55.9 Vitamin D deficiency, unspecified; Z87.891 Personal history of nicotine dependence; F33.9 Major depressive disorder, recurrent, unspecified; F41.1 Generalized anxiety disorder; G47.33 Obstructive sleep apnea (adult) (pediatric); M47.816 Spondylosis without myelopathy or radiculopathy, lumbar region; G50.0 Trigeminal neuralgia; Z79.84 Long term (current) use of oral hypoglycemic drugs; Z79.899 Other long term (current) drug therapy; Z79.82 Long term (current) use of aspirin; Z88.0 Allergy status to penicillin; Z88.1 Allergy status to other antibiotic agents; Z88.2 Allergy status to sulfonamides; Z88.8 Allergy status to other drugs, medicaments and biological substances; Z88.5 Allergy status to narcotic agent

== ENCOUNTER → 2024-10-07 | Outpatient (CLI) | payer MEDICARE, MEDICAID ==
[2024-10-07 10:29] LABS: BASO % 0.5 % (0.0-1.0); EOS # 0.3 10^3/uL (0.0-0.5); EOS % 5.5 % (0.0-3.0); HEMATOCRIT 39.9 % (36.0-47.0); HEMOGLOBIN 13.3 g/dl (12.0-15.5); LYMPH # 1.7 10^3/uL (1.5-5.0); LYMPH % 30.5 % (24.0-44.0); MEAN CORPUSCULAR HEMOGLOBIN 29.8 pg (27.0-33.0); MEAN CORPUSCULAR HGB CONC 33.3 g/dl (32.0-36.5); MEAN CORPUSCULAR VOLUME 89.3 fl (80.0-96.0); MONO # 0.4 10^3/uL (0.0-0.8); MONO % 7.3 % (2.0-8.0); NEUTROPHILS # 3.1 10^3/uL (1.5-8.5); NEUTROPHILS % 55.8 % (36.0-66.0); PLATELET COUNT, AUTOMATED 218 10^3/uL (150-450); RED BLOOD COUNT 4.47 10^6/uL (4.00-5.40); WHITE BLOOD COUNT 5.6 10^3/uL (4.0-10.0)
[2024-10-07 10:46] LABS: HEMOGLOBIN A1c 5.9 % (4.0-6.0)
[2024-10-07 11:02] LABS: CREATININE, URINE 19.8 MG/DL; MALB URINE SIEMENS < 3.0 MG/L; MAU/CREAT RATIO 15.1 MCG/MG (0.0-30.0)
[2024-10-07 11:03] LABS: ALBUMIN 3.6 G/DL (3.2-5.2); ALKALINE PHOSPHATASE 53 U/L (35-104); ALT/SGPT 27 U/L (7.0-40); AST/SGOT 23 U/L (<34); BILIRUBIN,TOTAL 0.4 MG/DL (0.3-1.2); BLOOD UREA NITROGEN 16 MG/DL (9-23); CALCIUM LEVEL 9.6 MG/DL (8.3-10.6); CARBON DIOXIDE LEVEL 26 MMOL/L (20-31); CHLORIDE LEVEL 104 MMOL/L (98-107); CHOLESTEROL LEVEL 137 MG/DL (<200); CHOLESTEROL RISK RATIO 2.45 (<5); CREATININE FOR GFR 0.77 MG/DL (0.55-1.30); GLOMERULAR FILTRATION RATE > 60.0 (>45); GLUCOSE, FASTING 85 MG/DL (74-106); HDL CHOLESTEROL 55.9 MG/DL (>40); IRON (FE) 79 UG/DL (50-170); LDL CHOLESTEROL 64.3 MG/DL (<100); NON-HDL-C 81.1 MG/DL; POTASSIUM SERUM 4.3 MMOL/L (3.5-5.1); SODIUM LEVEL 137 MMOL/L (136-145); TOTAL PROTEIN 6.3 G/DL (5.7-8.2); TRIGLYCERIDES LEVEL 84 MG/DL (<150)
[2024-10-07 11:04] LABS: FERRITIN 17.5 NG/ML (7.3-270.7); TOTAL 25(OH) VITAMIN D 39.1 NG/ML (20.0-100.0)
== END ==
LOC: M LAB 09:13
PROVIDERS: ATTEND Physician Assistant Medical
DX: E11.29 Type 2 diabetes mellitus with other diabetic kidney complication (principal); E55.9 Vitamin D deficiency, unspecified; E78.2 Mixed hyperlipidemia; K21.9 Gastro-esophageal reflux disease without esophagitis; E61.1 Iron deficiency

== ENCOUNTER 2025-02-18 15:45 | Observation (INO) | payer MEDICARE, MEDICAID ==
[~2025-02-18] VITALS: Ht 165.1 cm; Wt 65.9 kg
[2025-02-18] MEDS: IPRATROPIUM 0.5MG/ALBUTEROL 2.5MG INH SOL UD 3ML NEB ONE (16:42)
[2025-02-18] MEDS: ALBUTEROL SULFATE 2.5MG/0.5ML INH CONCENTRATE NEB SOLN INH ONE (16:42)
[2025-02-18 17:06] LABS: ABG BASE EXCESS -4.5 (-2.0-2.0); ABG HCO3 19.3 MMOL/L (22.0-26.0); ABG O2 SATURATION 88.2 % (95.0-99.0); ABG PARTIAL PRESSURE O2 53.2 mmHg (75.0-100.0); ABG STANDARD HCO3 20.6 MMOL/L. (22.0-26.0); ABG TOTAL CO2 20.3 MMOL/L (23.0-31.0); ABG pH (ARTERIAL) 7.398 UNITS (7.350-7.450)
[2025-02-18 17:07] LABS: BASO % 0.6 % (0.0-1.0); EOS % 0.9 % (0.0-3.0); HEMATOCRIT 39.9 % (36.0-47.0); HEMOGLOBIN 13.5 g/dl (12.0-15.5); LYMPH # 0.5 10^3/uL (1.5-5.0); LYMPH % 15.2 % (24.0-44.0); MEAN CORPUSCULAR HEMOGLOBIN 30.6 pg (27.0-33.0); MEAN CORPUSCULAR HGB CONC 33.8 g/dl (32.0-36.5); MEAN CORPUSCULAR VOLUME 90.5 fl (80.0-96.0); MONO # 0.3 10^3/uL (0.0-0.8); MONO % 9.5 % (2.0-8.0); NEUTROPHILS # 2.6 10^3/uL (1.5-8.5); NEUTROPHILS % 73.5 % (36.0-66.0); PLATELET COUNT, AUTOMATED 190 10^3/uL (150-450); RED BLOOD COUNT 4.41 10^6/uL (4.00-5.40); WHITE BLOOD COUNT 3.5 10^3/uL (4.0-10.0)
[2025-02-18] MEDS: methylPREDNISolone 125MG 2ML VIAL IV ONE (17:10)
[2025-02-18 17:18] LABS: INR 0.98; PARTIAL THROMBOPLASTIN TIME 26.4 SECONDS (24.8-34.2); PROTHROMBIN TIME 13.3 SECONDS (12.5-14.5)
[2025-02-18] MEDS ORDERED: ISOVUE-370 76% 100ML VIAL As Ordered ONE (17:20)
[2025-02-18 17:25] LABS: CPK CREATINE PHOSPHOKINASE 466 U/L (34-145)
[2025-02-18 17:26] LABS: ALBUMIN 3.7 G/DL (3.2-5.2); ALKALINE PHOSPHATASE 57 U/L (35-104); ALT/SGPT 30 U/L (7.0-40); AST/SGOT 31 U/L (<34); BILIRUBIN,DIRECT 0.1 MG/DL (<0.4); BILIRUBIN,TOTAL 0.4 MG/DL (0.3-1.2); BLOOD UREA NITROGEN 12 MG/DL (9-23); CALCIUM LEVEL 8.6 MG/DL (8.3-10.6); CARBON DIOXIDE LEVEL 25 MMOL/L (20-31); CHLORIDE LEVEL 101 MMOL/L (98-107); CK-MB VALUE MASS 8.4 NG/ML (<3.6); CREATININE FOR GFR 0.73 MG/DL (0.55-1.30); GLOMERULAR FILTRATION RATE > 60.0 (>45); GLUCOSE, FASTING 118 MG/DL (74-106); POTASSIUM SERUM 3.8 MMOL/L (3.5-5.1); SODIUM LEVEL 134 MMOL/L (136-145); TOTAL PROTEIN 6.4 G/DL (5.7-8.2)
[2025-02-18 17:27] LABS: FREE T4 1.18 NG/DL (0.89-1.76)
[2025-02-18 17:28] LABS: THYROID STIMULATING HORMONE 1.648 uIU/ML (0.55-4.78); THYROXINE (T4) 9.3 UG/DL (4.5-10.9)
[2025-02-18 18:35] LABS: MB/CK RELATIVE INDEX 1.51 (< OR =4)
[2025-02-18] MEDS ORDERED: OXYB-54 PO (18:49)
[2025-02-18] MEDS ORDERED: FERR32TA PO (18:49)
[2025-02-18] MEDS ORDERED: HOME MED LIST COMPLETE! XX SCH (18:50)
[2025-02-18] MEDS ORDERED: ROSU5TAB49 PO (19:11)
[2025-02-18] MEDS: INSULIN LISPRO (NovoLOG) PER UNIT SC SCH (21:00)
[2025-02-18] MEDS ORDERED: LevoFLOXacin 500 MG TABLET PO SCH (21:00)
[2025-02-18] MEDS ORDERED: FERROUS GLUCONATE 324 MG TAB PO SCH (21:00)
[2025-02-18] MEDS ORDERED: GLUCAGON INJ 1MG VIAL SC PRN (22:25)
[2025-02-18] MEDS ORDERED: LORazepam 0.5 MG TAB PO PRN (22:25)
[2025-02-18] MEDS ORDERED: GLUCOSE 4 GM CHEW PO PRN (22:25)
[2025-02-18] MEDS ORDERED: DEXTROSE 50% 50ML SYRINGE IV PRN (22:25)
[2025-02-18] MEDS ORDERED: PILL CUTTER 1 EACH XX PRN (22:40)
[2025-02-18] MEDS: LevoFLOXacin 500 MG TABLET PO SCH (23:07)
[2025-02-18] MEDS: oxyBUTYnin *DITROPAN XL* 5 MG TABCR PO SCH (23:08)
[2025-02-18] MEDS: ROSUVASTATIN 10 MG TAB (CRESTOR) PO SCH (23:08)
[2025-02-19] MEDS: IPRATROPIUM 0.5MG/ALBUTEROL 2.5MG INH SOL UD 3ML NEB SCH (01:50)
[2025-02-19] MEDS: ALBUTEROL 90 MCG/ACT 8GM HFA INHALER INH PRN (05:52)
[2025-02-19 06:12] LABS: HEMATOCRIT 40.2 % (36.0-47.0); HEMOGLOBIN 13.5 g/dl (12.0-15.5); MEAN CORPUSCULAR HEMOGLOBIN 30.5 pg (27.0-33.0); MEAN CORPUSCULAR HGB CONC 33.6 g/dl (32.0-36.5); MEAN CORPUSCULAR VOLUME 90.7 fl (80.0-96.0); PLATELET COUNT, AUTOMATED 180 10^3/uL (150-450); RED BLOOD COUNT 4.43 10^6/uL (4.00-5.40); WHITE BLOOD COUNT 3.1 10^3/uL (4.0-10.0)
[2025-02-19 06:33] LABS: BLOOD UREA NITROGEN 13 MG/DL (9-23); CARBON DIOXIDE LEVEL 22 MMOL/L (20-31); CHLORIDE LEVEL 101 MMOL/L (98-107); CREATININE FOR GFR 0.75 MG/DL (0.55-1.30); GLOMERULAR FILTRATION RATE > 60.0 (>45); GLUCOSE, FASTING 241 MG/DL (74-106); POTASSIUM SERUM 4.1 MMOL/L (3.5-5.1); SODIUM LEVEL 137 MMOL/L (136-145)
[2025-02-19] MEDS: SYMBICORT 160/4.5MCG INHALER 6GM INH SCH (08:26)
[2025-02-19] MEDS: predniSONE 20 MG TAB PO SCH (08:49)
[2025-02-19] MEDS: FLUoxetine 10 MG CAP PO SCH (08:49)
[2025-02-19] MEDS: PANTOPRAZOLE 40MG TAB (PROTONIX) PO SCH ×2 (08:49→22:15)
[2025-02-19] MEDS: INSULIN LISPRO (NovoLOG) PER UNIT SC SCH (08:49)
[2025-02-19] MEDS: ENOXAPARIN 40MG/0.4ML SYRINGE (J1650 PER 10MG) SC SCH (08:50)
[2025-02-19] MEDS: ACETAMINOPHEN 325 MG TAB PO PRN (11:15)
[2025-02-19] MEDS: guaiFENesin ER TABLET 600 MG TAB PO SCH (14:46)
[2025-02-19 16:28] VITALS: BP 112/57; TEMP 98.2; O2SAT 93
[2025-02-19 20:06] VITALS: BP 120/63; TEMP 98; O2SAT 94
[2025-02-19] MEDS: FERROUS GLUCONATE 324 MG TAB PO SCH (20:29)
[2025-02-19] MEDS ORDERED: CALCIUM CARBONATE 500 MG CHEW U/D PO PRN (21:55)
[2025-02-20 04:14] VITALS: BP 99/53; TEMP 98.9; O2SAT 90
[2025-02-20 08:41] LABS: BASO % 0.1 % (0.0-1.0); HEMATOCRIT 36.8 % (36.0-47.0); HEMOGLOBIN 12.5 g/dl (12.0-15.5); LYMPH # 1.3 10^3/uL (1.5-5.0); LYMPH % 18.1 % (24.0-44.0); MEAN CORPUSCULAR HEMOGLOBIN 30.9 pg (27.0-33.0); MEAN CORPUSCULAR VOLUME 90.9 fl (80.0-96.0); MONO # 0.6 10^3/uL (0.0-0.8); MONO % 8.2 % (2.0-8.0); NEUTROPHILS # 5.4 10^3/uL (1.5-8.5); NEUTROPHILS % 73.3 % (36.0-66.0); PLATELET COUNT, AUTOMATED 199 10^3/uL (150-450); RED BLOOD COUNT 4.05 10^6/uL (4.00-5.40); WHITE BLOOD COUNT 7.4 10^3/uL (4.0-10.0)
[2025-02-20 09:04] LABS: BLOOD UREA NITROGEN 18 MG/DL (9-23); CALCIUM LEVEL 9.2 MG/DL (8.3-10.6); CARBON DIOXIDE LEVEL 26 MMOL/L (20-31); CHLORIDE LEVEL 106 MMOL/L (98-107); CREATININE FOR GFR 0.78 MG/DL (0.55-1.30); GLOMERULAR FILTRATION RATE > 60.0 (>45); GLUCOSE, FASTING 114 MG/DL (74-106); MAGNESIUM LEVEL 1.8 MG/DL (1.8-2.4); POTASSIUM SERUM 4.1 MMOL/L (3.5-5.1); SODIUM LEVEL 139 MMOL/L (136-145)
[2025-02-20] MEDS ORDERED: MUCI600T31 PO (10:40)
[2025-02-20] MEDS ORDERED: PRED20TA PO (10:40)
[2025-02-20] MEDS ORDERED: LEVO1TAB39 PO (10:40)
[2025-02-20] MEDS ORDERED: PRED10TA2 PO (10:40)
== END 2025-02-20 13:03 | disposition home health service (06) ==
LOC: M ED 15:45 → M ED INP 21:05 → M MS4PR 02-19 16:20
PROVIDERS: ADMIT Student in an Organized Health Care Education/Training Program; ATTEND Internal Medicine
DX: J44.1 Chronic obstructive pulmonary disease with (acute) exacerbation (principal); B34.9 Viral infection, unspecified; R19.02 Left upper quadrant abdominal swelling, mass and lump; G47.33 Obstructive sleep apnea (adult) (pediatric); E11.9 Type 2 diabetes mellitus without complications; I10 Essential (primary) hypertension; E78.5 Hyperlipidemia, unspecified; D50.9 Iron deficiency anemia, unspecified; F39 Unspecified mood [affective] disorder; F41.9 Anxiety disorder, unspecified; G50.0 Trigeminal neuralgia; M79.7 Fibromyalgia; J30.9 Allergic rhinitis, unspecified; E55.9 Vitamin D deficiency, unspecified; M54.2 Cervicalgia; K21.9 Gastro-esophageal reflux disease without esophagitis; M25.511 Pain in right shoulder; R32 Unspecified urinary incontinence; Z79.82 Long term (current) use of aspirin; Z79.84 Long term (current) use of oral hypoglycemic drugs; Z79.52 Long term (current) use of systemic steroids; Z79.899 Other long term (current) drug therapy; Z79.2 Long term (current) use of antibiotics
CPT/HCPCS: 36415; 36600; 71045; 71275; 80047; 80048; 80076; 82550; 82553; 82803; 83605; 83735; 83880; 84436; 84439; 84443; 84484; 85025; 85027; 85610; 85730; 87040; 87486; 87581; 87633; 87798; 93005; 93041; 94640; 94760; 96374; 97161; 99285; G0378; J1650; J1815; J2919; J7512; Q9967

== ENCOUNTER → 2025-03-15 | Outpatient (REF) | payer MEDICARE, MEDICAID ==
[~2025-03-15] MED LIST changes: +FERR32TA PO; +LEVO1TAB39 PO; +MUCI600T31 PO; +OXYB-54 PO; +PRED10TA2 PO; +ROSU5TAB49 PO
== END ==
LOC: M LAB REF 17:02
PROVIDERS: ATTEND Internal Medicine Pulmonary Disease
DX: J44.9 Chronic obstructive pulmonary disease, unspecified (principal)

== ENCOUNTER → 2025-03-29 | Outpatient (CLI) | payer MEDICARE, MEDICAID ==
[~2025-03-29] MED LIST changes: -BUPR-597 PO; +BUPR-766 PO; +LIFI1DRO4 OU; -XIID5DRO OU
[2025-03-29 18:19] LABS: BASO % 0.7 % (0.0-1.0); EOS # 0.1 10^3/uL (0.0-0.5); EOS % 1.8 % (0.0-3.0); HEMATOCRIT 37.8 % (36.0-47.0); HEMOGLOBIN 12.4 g/dl (12.0-15.5); LYMPH # 1.4 10^3/uL (1.5-5.0); LYMPH % 24.2 % (24.0-44.0); MEAN CORPUSCULAR HEMOGLOBIN 29.9 pg (27.0-33.0); MEAN CORPUSCULAR HGB CONC 32.8 g/dl (32.0-36.5); MEAN CORPUSCULAR VOLUME 91.1 fl (80.0-96.0); MONO # 0.4 10^3/uL (0.0-0.8); NEUTROPHILS # 3.7 10^3/uL (1.5-8.5); NEUTROPHILS % 65.9 % (36.0-66.0); PLATELET COUNT, AUTOMATED 312 10^3/uL (150-450); RED BLOOD COUNT 4.15 10^6/uL (4.00-5.40); WHITE BLOOD COUNT 5.6 10^3/uL (4.0-10.0)
[2025-03-29 18:50] LABS: FERRITIN 19.2 NG/ML (7.3-270.7)
== END ==
LOC: M LAB 17:41
PROVIDERS: ATTEND Physician Assistant Medical
DX: E61.1 Iron deficiency (principal)

== ENCOUNTER → 2025-11-08 | Outpatient (CLI) | payer MEDICARE, MEDICAID ==
[~2025-11-08] MED LIST changes: -EZET10TA21 PO; +EZET10TA57 PO; +PRAV40TA85 PO; -ROSU10TA61 PO; +ROSU10TA90 PO
[2025-11-08 17:10] LABS: BASO # 0.0 10^3/uL (0.0-0.2); BASO % 0.6 % (0.0-1.0); EOS # 0.3 10^3/uL (0.0-0.5); EOS % 4.4 % (0.0-3.0); LYMPH # 1.7 10^3/uL (1.5-5.0); LYMPH % 26.8 % (24.0-44.0); MONO # 0.5 10^3/uL (0.0-0.8); MONO % 7.1 % (2.0-8.0); NEUTROPHILS # 3.9 10^3/uL (1.5-8.5); NEUTROPHILS % 60.6 % (36.0-66.0); PLATELET COUNT, AUTOMATED 235 10^3/uL (150-450)
[2025-11-08 17:31] LABS: IRON (FE) 68.0 UG/DL (50-170)
[2025-11-08 17:51] LABS: ALT/SGPT 23.0 U/L (7.0-40); AST/SGOT 27.0 U/L (<34); CALCIUM LEVEL 9.3 MG/DL (8.3-10.6); CARBON DIOXIDE LEVEL 29.0 MMOL/L (20-31); CHLORIDE LEVEL 102.0 MMOL/L (98-107); CHOLESTEROL LEVEL 134.0 MG/DL (<200); CHOLESTEROL RISK RATIO 2.34 (<5); CREATININE FOR GFR 0.8 MG/DL (0.55-1.30); GLOMERULAR FILTRATION RATE 80.2 (>45); LDL CHOLESTEROL 60.6 MG/DL (<100); NON-HDL-C 76.8 MG/DL; POTASSIUM SERUM 4.7 MMOL/L (3.5-5.1); SODIUM LEVEL 139.0 MMOL/L (136-145); TRIGLYCERIDES LEVEL 81.0 MG/DL (<150)
[2025-11-08 17:57] LABS: ESTIMATED AVERAGE GLUCOSE 120.0 MG/DL (60-110)
== END ==
LOC: M LAB 16:23
PROVIDERS: ATTEND Physician Assistant Medical
DX: E11.29 Type 2 diabetes mellitus with other diabetic kidney complication (principal); D50.9 Iron deficiency anemia, unspecified; E78.2 Mixed hyperlipidemia; I10 Essential (primary) hypertension